=== PATIENT | female | born 1980 ===

== ENCOUNTER 2021-01-02 09:13 | Emergency (ER) | payer MEDICAID, SELFPAY ==
[2021-01-02 09:23] VITALS: BP 129/83; PULSE 74; RESP 18; TEMP 36.7; O2SAT 100; BMI 27.3
--- NOTE | 2021-01-02 09:41 | ED.NECK ---
HPI - Neck Pain/Injury General Chief Complaint: Neck Pain/Injury Stated Complaint: SHOULDER NECK PAIN Time Seen by Provider: 01/02/21 09:39 Source: patient Mode of arrival: ambulatory History of Present Illness HPI Narrative: 40-year-old female with no significant past medical history presenting to the ED complaining of right-sided neck/shoulder pain radiating to ear/arm x1 week. Taking ibuprofen at home with minimal relief. Reports feels like she strained muscle. Denies known injury/trauma, fall, numbness, tingling, weakness, fever, chills, CP/SOB complaint: neck pain Related Data Previous Rx's Medication Instructions Recorded acetaminophen [Tylenol Extra 500 mg PO Q6H PRN #20 tab 01/02/21 Strength] cyclobenzaprine 5 mg PO Q8H PRN 5 Days #14 tab 01/02/21 lidocaine [Lidoderm] 1 patch TOPICAL DAILY PRN #30 ea 01/02/21 MDD remove after 12 hours naproxen 500 mg PO BID PRN 10 Days #20 tab 01/02/21 Allergies Allergy/AdvReac Type Severity Reaction Status Date / Time cephalexin [From KEFLEX] Allergy Intermediate RASH Verified 01/02/21 09:25 Review of Systems Review of Systems: Constitutional: No Fever, No Chills Cardiovascular: No Chest Pain, No SOB Respiratory: No Cough, No Sputum, No Wheezing Musculoskeletal: +joint pain, No Myalgias, No Joint Swelling Skin: No Skin Lesions, No rash Neuro: No Weakness, No Numbness, No Paresthesias Yes all other systems are reviewed and are negative [facility] Past Medical History Attestation statement: The following information was validated with the patient. Medical History (Updated 01/02/21 @ 09:48 by POLLY Maddox) No known health problems Social History Social History Advance Directives: No Advance Directives Information Provided: No Physical Exam Vital Signs: Vital Signs: Last Vital Signs Temp 98.0 F 01/02/21 09:23 Pulse 74 01/02/21 09:23 Resp 18 01/02/21 09:23 BP 129/83 01/02/21 09:23 Pulse Ox 100 01/02/21 09:23 Body Mass Index 27.3 Const: General: cooperative, healthy appearing and comfortable Orientation/consciousness: patient oriented x3 Limitations: no limitations HENMT: Head: Yes normal to inspection Ears: hearing grossly normal bilaterally, external ears normal and TM's normal bilaterally General nose exam: Normal external nose present Face and sinus: Yes normal facial exam Eyes: General: appearance normal, both eyes and all related structures EOM: EOMs intact bilaterally Neck: Other: No midline cervical spinous tenderness or step-off. + right-sided MSK neck tenderness and right trapezius muscle tenderness to palpation Neck: Yes normal visual inspection Resp: Effort & Inspection: normal respiratory effort and no retractions Cardio: Rate: regular rate GI: Inspection: Yes normal to inspection Skin: Rashes: no rashes Wounds: no wounds Neuro: General: patient oriented x3 and moves all extremities Gait exam (Neuro): Normal gait present Extrem: Other: Right shoulder nontender. FROM intact General: Yes normal to inspection, Yes full ROM and Yes capillary refill normal MDM - Neck Pain/Injury MDM Narrative Medical decision making narrative: On exam VSS, NAD/well-appearing, physical exam as above. Likely MSK pain/strain. No midline spinous tenderness. low concern for fx/dislocation or ACS Discharge Plan Discharge Clinical Impression: Strain of neck muscle Qualifiers: Encounter type: initial encounter Qualified Code(s): S16.1XXA - Strain of muscle, fascia and tendon at neck level, initial encounter Patient Disposition: Home, Self-Care Instructions: Cervical Strain (ED) Additional Instructions: Your pain is likely musculoskeletal Flexeril is a muscle relaxer, take at night as it makes you drowsy, do not drive, drink alcohol, or operate machinery while taking it Naproxen as an anti-inflammatory / pain medication, take with food Lidoderm patches are numbing patches, apply to painful area In addition take Tylenol at home If symptoms persist or worsen, pain becomes unbearable, you developed urinary retention or incontinence, or weakness return to the ED Prescriptions: New acetaminophen [Tylenol Extra Strength] 500 mg tablet 500 mg PO Q6H PRN (Reason: pain or fever) Qty: 20 RF: 0 lidocaine [Lidoderm] 5 % adhesive patch,medicated 1 patch topical DAILY MDD remove after 12 hours PRN (Reason: pain) Qty: 30 RF: 0 naproxen 500 mg tablet 500 mg PO BID PRN (Reason: pain) 10 Days Qty: 20 RF: 0 cyclobenzaprine 5 mg tablet 5 mg PO Q8H PRN (Reason: pain (scale score 7-10)) 5 Days Qty: 14 RF: 0 Referrals: Catarina Davis MD [Primary Care Provider] - 2 days
[2021-01-02] MEDS: Ketorolac Tromethamine 30 MG/ML VIAL IM (09:44)
== END 2021-01-02 09:56 | disposition home or self-care (01) ==
PROVIDERS: Emergency Provider Emergency Medicine; PCP Internal Medicine
DX: S16.1XXA Strain of muscle, fascia and tendon at neck level, initial encounter (principal); X58.XXXA Exposure to other specified factors, initial encounter; Y93.9 Activity, unspecified; Y92.9 Unspecified place or not applicable; Y99.9 Unspecified external cause status
CPT/HCPCS: 96372; 99283; 99284; J1885

== ENCOUNTER 2021-04-13 17:02 | Emergency (ER) | payer MEDICAID, SELFPAY ==
--- NOTE | ~2021-04-13 | CT_ITS ---
EXAMINATION: CT ABDOMEN AND PELVIS WITH CONTRAST CLINICAL INFORMATION: Abdominal pain COMPARISON: CT scan abdomen pelvis January 14, 2007 TECHNIQUE: Multidetector volumetric images were obtained from the superior aspect of the liver through the pubic symphysis following administration 85 mL of Omnipaque 350 intravenous contrast. Sagittal and coronal reformatted images were obtained on the technologist's workstation. Oral contrast: No This CT examination was performed using dose optimization techniques as appropriate, variously including the following: *Automated exposure control *Adjustment of mA and/or kV according to patient size (this includes techniques or standardized protocols for targeted exams where dose is matched to indication/reason for exam; i.e. extremities or head) *Use of iterative reconstruction technique DLP: 513 mGy-cm FINDINGS: LUNG BASES: The visualized lung bases are unremarkable. Bilateral breast implants partially imaged. LIVER, GALLBLADDER, AND BILIARY TREE: The liver is normal in size, shape, and attenuation. No focal hepatic lesion or biliary ductal dilatation is present. Gallbladder is contracted. No edema around the right upper quadrant. No bile duct dilatation. PANCREAS: Unremarkable. SPLEEN: Unremarkable. ADRENAL GLANDS: Unremarkable. KIDNEYS AND URETERS: Stable small hypodensity upper pole cortex right kidney likely small renal cysts. This contains a small calcification layering dependently in the cyst, axial image 206/747 series 4. Both kidneys are normal in size and contour with normal cortical thickness and enhancement. No renal or ureteral calculi. No hydronephrosis. BLADDER: Unremarkable. GASTROINTESTINAL TRACT: The small and large bowel are unremarkable. The appendix is unremarkable. ABDOMINAL WALL: No significant hernia is appreciated. LYMPH NODES: Normal. VASCULAR: Unremarkable. PELVIC VISCERA: Essure device in the adnexa bilateral. Uterus is retroverted. No adnexal abnormality. OSSEOUS STRUCTURES: No acute abnormality CT scan abdomen pelvis. CT/CT abdomen pelvis w con IMPRESSION: No acute abnormality CT scan abdomen pelvis.
[2021-04-13 17:11] VITALS: BP 131/74; PULSE 73; RESP 16; TEMP 36.8; O2SAT 97; BMI 28.3
--- NOTE | 2021-04-13 18:22 | ED.ABDPAIN ---
HPI - Abdominal Pain General Chief Complaint: Abdominal Pain Stated Complaint: side abd pain Time Seen by Provider: 04/13/21 18:20 Source: patient Mode of arrival: ambulatory Limitations: no limitations History of Present Illness HPI narrative: 40-year-old female here with complaints of left flank pain which radiates the left side of the abdomen X2 days. She has had some urinary frequency. No urgency, hematuria or dysuria. No fevers, chills, nausea, vomiting, diarrhea. She has been doing some increased weight lifting and abdominal muscle work. She cannot recall any injury Related Data Previous Rx's Medication Instructions Recorded acetaminophen [Tylenol Extra 500 mg PO Q6H PRN #20 tab 01/02/21 Strength] cyclobenzaprine 5 mg PO Q8H PRN 5 Days #14 tab 01/02/21 lidocaine [Lidoderm] 1 patch TOPICAL DAILY PRN #30 ea 01/02/21 MDD remove after 12 hours naproxen 500 mg PO BID PRN 10 Days #20 tab 01/02/21 cyclobenzaprine 10 mg PO TID PRN #10 tab 04/13/21 Allergies Allergy/AdvReac Type Severity Reaction Status Date / Time cephalexin [From KEFLEX] Allergy Intermediate RASH Verified 04/13/21 17:10 Review of Systems Review of Systems Yes all other systems are reviewed and are negative Constitutional: Reports no additional constitutional complaints, Denies body ache(s), Denies chills, Denies fever(s), Denies headache(s) and Denies weakness Eyes: Reports no additional eye complaints and Denies change in vision Reports system reviewed and no additional complaints, except as documented, Denies dizziness, Denies headache(s), Denies nasal congestion, Denies nasal discharge and Denies neck pain Cardiovascular: Reports no additional cardiovascular complaints, Denies chest pain, Denies leg edema and Denies dyspnea Respiratory: Reports no additional respiratory complaints, Denies cough and Denies dyspnea Gastrointestinal: Reports no additional gastrointestinal complaints, Reports abdominal pain, Denies diarrhea, Denies nausea and Denies vomiting Genitourinary: Reports no additional female genitourinary complaints and Denies urinary incontinence Musculoskeletal: Reports no additional musculoskeletal complaints, Reports back pain, Denies arthralgias, Denies joint swelling, Denies neck pain, Denies numbness and Denies tingling Skin/Breast: Reports system reviewed and no additional complaints, except as docu and Denies rash Reports system reviewed and no additional complaints, except as documented, Denies Abnormal speech present, Denies dizziness, Denies headache(s), Denies numbness, Denies tingling and Denies weakness Physical Exam Vital Signs: Vital Signs: Last Vital Signs Temp 97.9 F 04/13/21 20:00 Pulse 85 04/13/21 20:00 Resp 16 04/13/21 20:00 BP 112/70 04/13/21 20:00 Pulse Ox 99 04/13/21 20:00 Body Mass Index 28.3 Const: General: cooperative, healthy appearing, comfortable and no acute distress Orientation/consciousness: patient oriented x3 Limitations: no limitations HENMT: Head: Yes normal to inspection Ears: hearing grossly normal bilaterally General nose exam: Normal external nose present Face and sinus: Yes normal facial exam Mouth: Normal oral and palatal mucosa present Throat: Yes posterior oropharynx normal Eyes: General: appearance normal, both eyes and all related structures Pupils: Equal, round and reactive pupils present Neck: Neck: Yes normal visual inspection Chest: Chest palpation & inspection: normal inspection of the chest Resp: Effort & Inspection: normal respiratory effort Auscultation: clear to auscultation bilaterally Cardio: Rate: regular rate Rhythm: regular rhythm Peripheral pulses: Peripheral pulses 2+ throughout GI: Inspection: Yes normal to inspection Palpation (GI): Soft to palpation and Tenderness to palpation present (GI) ( LLQ and left side, no rebound or guarding ) Auscultation: normal bowel sounds : General: Yes no CVA tenderness Back/Spine/Pelvis: Back: no CVA tenderness Thoracic/Lumbar Spine: thoracic and lumbar spine normal to inspection Skin: General skin exam: no rashes or lesions noted Neuro: General: patient oriented x3, no focal motor deficits and normal sensation to monofilament Cranial nerves: Yes Equal, round and reactive pupils present Cognition (Neuro): normal cognition Speech: No Abnormal speech present Gait exam (Neuro): Normal gait present Motor exam (neuro): 5/5 motor strength present throughout Extrem: General: Yes normal to inspection Course Course Course Narrative: 40-year-old female here with complaints of left-sided abdominal pain times several days with no other complaints. She has had increase in strength training and feels like she may have pulled a muscle but does not remember any specific injury. She is tender in the left lower quadrant. Will check UA and labs and reassess. - labs and UA are unremarkable. Continued pain left lower quadrant. Will check CT to rule out diverticulitis. 2014- CT negative for any acute finding. Likely muscle strain. Reviewed worrisome signs and symptoms of when to return to the emergency department. Comfortable discharge home. MDM - Abdominal Pain Differential Diagnosis Differential diagnosis: Likely abdominal pain, diverticulitis and gastroenteritis Differential diagnosis narrative:: Muscle str Medical Records Attestation: I reviewed the patient's medical records. Lab Data Attestation: I reviewed the patient's lab results. Result diagrams: 04/13/21 18:35 04/13/21 18:35 Labs: Lab Results 04/13/21 04/13/21 04/13/21 Range/Units 18:35 18:35 18:35 WBC 6.6 (4.8-10.8) X10*3/uL RBC 3.83 L (4.20-5.50) X10*6/uL Hgb 13.0 (12.0-16.0) g/dl Hct 37.4 (37-47) % MCV 97.7 (80-98) fL MCH 33.9 H (27.0-33.0) pg MCHC 34.8 (31.0-35.0) g/dl RDW 12.7 (11.0-16.0) % Plt Count 220 (160-400) X10*3/uL MPV 9.4 (9.4-12.3) fL Immature Gran % (Auto) 0.2 (0.0-0.4) % Neut % (Auto) 59.9 (45-73) % Lymph % (Auto) 31.1 (20-40) % [place] % (Auto) 6.2 (2-11) % Eos % (Auto) 1.8 (0-4) % Baso % (Auto) 0.8 (0-2) % Lymph # (Auto) 2.1 (1.2-4.9) X10*3/uL [place] # (Auto) 0.4 (0.1-1.2) X10*3/uL Eos # (Auto) 0.1 (0.0-0.4) X10*3/uL Baso # (Auto) 0.1 (0.0-0.2) X10*3/uL Abs Immat Gran (auto) 0.01 (0.00-0.03) X10*3/uL Absolute Neuts (auto) 4.0 (2.0-8.3) X10*3/uL Absolute Nucleated RBC 0.000 (0.0-0.012) X10*3/uL Nucleated RBC % (auto) 0.0 (0.0-0.2) /100WBC Sodium 140 (135-145) mmol/L Potassium 4.0 (3.3-5.1) mmol/L Chloride 107 (96-108) mmol/L Carbon Dioxide 22 (22-29) mmol/L Anion Gap 15 (12-20) BUN 14 (9-16) mg/dL Creatinine 0.83 (0.5-1.4) mg/dL Estim Creat Clear Calc 76.2 Estimated GFR > 60 Random Glucose 106 (60-115) mg/dL Calcium 9.3 (8.4-10.2) mg/dL Total Bilirubin 0.2 (0.0-1.0) mg/dL Direct Bilirubin < 0.2 (0.0-0.5) mg/dL AST 28 (5-31) U/L ALT 25 (0-31) U/L Alkaline Phosphatase 95 (39-117) U/L Total Protein 6.8 (6.5-8.0) g/dL Albumin 4.1 (3.5-5.0) g/dL Lipase 49 (8-78) U/L Urine Color YELLOW Urine Appearance CLEAR Urine pH 7.0 (5.0-8.0) Ur Specific [place] 1.015 (1.005-1.025) Urine Protein NEG (NEG-TRACE) MG/DL Urine Glucose (UA) NEG (NEG) MG/DL Urine Ketones NEG (NEG) MG/DL Urine Blood NEG (NEG) Urine Nitrite NEG (NEG) Ur Leukocyte Esterase NEG (NEG) Urine Test (NEGATIVE) 04/13/21 Range/Units 18:35 WBC (4.8-10.8) X10*3/uL RBC (4.20-5.50) X10*6/uL Hgb (12.0-16.0) g/dl Hct (37-47) % MCV (80-98) fL MCH (27.0-33.0) pg MCHC (31.0-35.0) g/dl RDW (11.0-16.0) % Plt Count (160-400) X10*3/uL MPV (9.4-12.3) fL Immature Gran % (Auto) (0.0-0.4) % Neut % (Auto) (45-73) % Lymph % (Auto) (20-40) % [place] % (Auto) (2-11) % Eos % (Auto) (0-4) % Baso % (Auto) (0-2) % Lymph # (Auto) (1.2-4.9) X10*3/uL [place] # (Auto) (0.1-1.2) X10*3/uL Eos # (Auto) (0.0-0.4) X10*3/uL Baso # (Auto) (0.0-0.2) X10*3/uL Abs Immat Gran (auto) (0.00-0.03) X10*3/uL Absolute Neuts (auto) (2.0-8.3) X10*3/uL Absolute Nucleated RBC (0.0-0.012) X10*3/uL Nucleated RBC % (auto) (0.0-0.2) /100WBC Sodium (135-145) mmol/L Potassium (3.3-5.1) mmol/L Chloride (96-108) mmol/L Carbon Dioxide (22-29) mmol/L Anion Gap (12-20) BUN (9-16) mg/dL Creatinine (0.5-1.4) mg/dL Estim Creat Clear Calc Estimated GFR Random Glucose (60-115) mg/dL Calcium (8.4-10.2) mg/dL Total Bilirubin (0.0-1.0) mg/dL Direct Bilirubin (0.0-0.5) mg/dL AST (5-31) U/L ALT (0-31) U/L Alkaline Phosphatase (39-117) U/L Total Protein (6.5-8.0) g/dL Albumin (3.5-5.0) g/dL Lipase (8-78) U/L Urine Color Urine Appearance Urine pH (5.0-8.0) Ur Specific [place] (1.005-1.025) Urine Protein (NEG-TRACE) MG/DL Urine Glucose (UA) (NEG) MG/DL Urine Ketones (NEG) MG/DL Urine Blood (NEG) Urine Nitrite (NEG) Ur Leukocyte Esterase (NEG) Urine Test NEGATIVE (NEGATIVE) Imaging Data CT scan - abdomen: Attestation: I personally reviewed and interpreted this imaging study as follows: Radiologist's impression: EXAMINATION: CT ABDOMEN AND PELVIS WITH CONTRAST CLINICAL INFORMATION: Abdominal pain COMPARISON: CT scan abdomen pelvis January 14, 2007 TECHNIQUE: Multidetector volumetric images were obtained from the superior aspect of the liver through the pubic symphysis following administration 85 mL of Omnipaque 350 intravenous contrast. Sagittal and coronal reformatted images were obtained on the technologist's workstation. Oral contrast: No This CT examination was performed using dose optimization techniques as appropriate, variously including the following: *Automated exposure control *Adjustment of mA and/or kV according to patient size (this includes techniques or standardized protocols for targeted exams where dose is matched to indication/reason for exam; i.e. extremities or head) *Use of iterative reconstruction technique DLP: 513 mGy-cm FINDINGS: LUNG BASES: The visualized lung bases are unremarkable. Bilateral breast implants partially imaged. LIVER, GALLBLADDER, AND BILIARY TREE: The liver is normal in size, shape, and attenuation. No focal hepatic lesion or biliary ductal dilatation is present. Gallbladder is contracted. No edema around the right upper quadrant. No bile duct dilatation. PANCREAS: Unremarkable. SPLEEN: Unremarkable. ADRENAL GLANDS: Unremarkable. KIDNEYS AND URETERS: Stable small hypodensity upper pole cortex right kidney likely small renal cysts. This contains a small calcification layering dependently in the cyst, axial image 206/747 series 4. Both kidneys are normal in size and contour with normal cortical thickness and enhancement. No renal or ureteral calculi. No hydronephrosis. BLADDER: Unremarkable. GASTROINTESTINAL TRACT: The small and large bowel are unremarkable. The appendix is unremarkable. ABDOMINAL WALL: No significant hernia is appreciated. LYMPH NODES: Normal. VASCULAR: Unremarkable. PELVIC VISCERA: Essure device in the adnexa bilateral. Uterus is retroverted. No adnexal abnormality. OSSEOUS STRUCTURES: No acute abnormality CT scan abdomen pelvis. CT/CT abdomen pelvis w con IMPRESSION: No acute abnormality CT scan abdomen pelvis. Discharge Plan Discharge Clinical Impression: Abdominal wall strain Qualifiers: Encounter type: initial encounter Qualified Code(s): S39.011A - Strain of muscle, fascia and tendon of abdomen, initial encounter Patient Disposition: Home, Self-Care Instructions: Abdominal Pain (ED) Additional Instructions: heat or ice gentle stretching Prescriptions: New cyclobenzaprine 10 mg tablet 10 mg PO TID PRN (Reason: muscle spasm) Qty: 10 RF: 0 No Action acetaminophen [Tylenol Extra Strength] 500 mg tablet 500 mg PO Q6H PRN (Reason: pain or fever) Qty: 20 RF: 0 lidocaine [Lidoderm] 5 % adhesive patch,medicated 1 patch topical DAILY MDD remove after 12 hours PRN (Reason: pain) Qty: 30 RF: 0 naproxen 500 mg tablet 500 mg PO BID PRN (Reason: pain) 10 Days Qty: 20 RF: 0 cyclobenzaprine 5 mg tablet 5 mg PO Q8H PRN (Reason: pain (scale score 7-10)) 5 Days Qty: 14 RF: 0 Referrals: Catarina Davis MD [Primary Care Provider] - 2 days ON LICENSE OF [facility] Past Medical History Attestation statement: The following information was validated with the patient. Source: old records reviewed and nursing notes reviewed Medical History Asthma No known health problems Social History Social History Advance Directives: No Advance Directives Information Provided: Yes Patient : No
[2021-04-13 18:48] LABS: MANUAL DIFF FLAG NO
[2021-04-13 18:50] LABS: Appearance Urine CLEAR; Basophils Absolute Auto 0.1 X10*3/uL (0.0-0.2); Basophils Percent Auto 0.8 % (0-2); Color Urine YELLOW; Eosinophils Absolute Auto 0.1 X10*3/uL (0.0-0.4); Eosinophils Percent Auto 1.8 % (0-4); Glucose Urine UA NEG (NEG); Hematocrit 37.4 % (37-47); Imm Gran Abs Auto 0.01 X10*3/uL (0.00-0.03); Imm Gran Pct Auto 0.2 % (0.0-0.4); Leukocyte Esterase Urine NEG (NEG); Lymphocytes Absolute Auto 2.1 X10*3/uL (1.2-4.9); Lymphocytes Percent Auto 31.1 % (20-40); Mean Corpuscular HGB Conc 34.8 g/dl (31.0-35.0); Mean Corpuscular Hemoglobin 33.9 pg (27.0-33.0); Mean Corpuscular Volume 97.7 fL (80-98); Mean Platelet Volume 9.4 fL (9.4-12.3); Monocytes Absolute Auto 0.4 X10*3/uL (0.1-1.2); Monocytes Percent Auto 6.2 % (2-11); Neutrophils Percent Auto 59.9 % (45-73); Nitrite Urine NEG (NEG); Platelet Count 220 X10*3/uL (160-400); Red Blood Count 3.83 X10*6/uL (4.20-5.50); Red Cell Distribution Width 12.7 % (11.0-16.0); Specific Gravity - Urine 1.015 (1.005-1.025); Urine Blood NEG (NEG); Urine Ketones NEG (NEG); Urine Protein NEG (NEG-TRACE); White Blood Count 6.6 X10*3/uL (4.8-10.8)
[2021-04-13 18:51] LABS: UPreg QC Valid YES; Urine Pregnancy NEGATIVE (NEGATIVE)
[2021-04-13 19:09] VITALS: BP 116/85; PULSE 72; RESP 16; TEMP 36.7; O2SAT 98
[2021-04-13 19:15] VITALS: RESP 16; O2SAT 99
[2021-04-13 19:21] LABS: Alanine Aminotransferase 25 U/L (0-31); Albumin Level 4.1 g/dL (3.5-5.0); Alkaline Phosphatase 95 U/L (39-117); Anion Gap 15 (12-20); Aspartate Amino Transferase 28 U/L (5-31); Bilirubin Direct < 0.2 mg/dL (0.0-0.5); Bilirubin Total 0.2 mg/dL (0.0-1.0); Blood Urea Nitrogen 14 mg/dL (9-16); Calcium 9.3 mg/dL (8.4-10.2); Carbon Dioxide 22 mmol/L (22-29); Chloride 107 mmol/L (96-108); Creatinine Clr Calc Pharmacy 76.2; Estimated Glomerular Filt Rate > 60; Glucose Random 106 mg/dL (60-115); Lipase 49 U/L (8-78); Sodium 140 mmol/L (135-145); Total Protein 6.8 g/dL (6.5-8.0)
[2021-04-13] MEDS: iohexoL 350 MG/ML 100 ML INFUS..BTL IV (19:45)
[2021-04-13 20:00] VITALS: BP 112/70; PULSE 85; RESP 16; TEMP 36.6; O2SAT 99
== END 2021-04-13 20:47 | disposition home or self-care (01) ==
PROVIDERS: Nurse Practitioner Family; Emergency Provider Emergency Medicine; PCP Internal Medicine
DX: S39.011A Strain of muscle, fascia and tendon of abdomen, initial encounter (principal); X58.XXXA Exposure to other specified factors, initial encounter; Y93.9 Activity, unspecified; Y92.9 Unspecified place or not applicable; Y99.9 Unspecified external cause status
CPT/HCPCS: 36415; 74177; 80048; 80076; 81003; 81025; 83690; 85025; 99284; Q9967

== ENCOUNTER 2023-01-10 09:37 | Outpatient (REF) | payer MEDICAID, SELFPAY ==
--- NOTE | ~2023-01-10 | US_ITS ---
EXAMINATION: US ABDOMEN COMPLETE CLINICAL INFORMATION: Abdominal pain for 4 days. COMPARISON: CT scan of the abdomen and pelvis dated 04/13/2021. TECHNIQUE: Real-time imaging of the abdominal viscera. FINDINGS: PANCREAS: Visualized portions unremarkable. ABDOMINAL AORTA: Visualized portions unremarkable. INFERIOR VENA CAVA: Visualized portions unremarkable. LIVER: Unremarkable. GALLBLADDER: Mild dependent sludge. No mural thickening or pericholecystic fluid. COMMON BILE DUCT: Normal in caliber measuring 0.4 cm in diameter. RIGHT KIDNEY: 10.9 cm. An echogenic focus in the lower pole measures 0.4 cm. A smaller lower pole echogenic focus measures 0.2 cm. An upper pole echogenic focus measures 0.5 cm. No hydronephrosis. Color Doppler showed no abnormal vascular flow. LEFT KIDNEY: 10.9 cm for an echogenic focus in the lower pole measures 0.3 cm. No hydronephrosis. SPLEEN: 9.7 cm. Unremarkable. FREE FLUID: None. US/US abdomen complete IMPRESSION: 1. Mild dependent gallbladder sludge without evidence for acute cholecystitis. 2. Nonobstructing intrarenal calculi bilaterally.
== END 2023-01-10 09:38 | disposition home or self-care (01) ==
LOC: HO.US 09:37
PROVIDERS: PCP Internal Medicine; Visit Provider Internal Medicine
DX: R10.84 Generalized abdominal pain (principal); M54.9 Dorsalgia, unspecified; R35.0 Frequency of micturition
CPT/HCPCS: 76700

== ENCOUNTER 2023-01-14 11:58 | Emergency (ER) | payer MEDICAID, SELFPAY | END 2023-01-14 13:39 | disposition left against medical advice (07) | PROVIDERS: Emergency Provider Emergency Medicine; PCP Internal Medicine | DX: M54.50 Low back pain, unspecified (principal); R10.9 Unspecified abdominal pain ==

== ENCOUNTER 2023-01-29 15:01 | Outpatient (REF) | payer MEDICAID, SELFPAY ==
--- NOTE | ~2023-01-29 | MR_ITS ---
EXAMINATION: MR LUMBAR SPINE WITHOUT CONTRAST CLINICAL INFORMATION: 42-year-old with chronic midline low back pain with sciatica. Right leg tingling symptoms of 3 months' duration. COMPARISON: None available. TECHNIQUE: MRI of the lumbar spine was obtained using routine sequences without contrast. FINDINGS: CORONAL ALIGNMENT: Normal. SAGITTAL ALIGNMENT: Normal. LUMBOSACRAL JUNCTION: Normal. There are 5 [id number] lumbar-type vertebral bodies. VERTEBRAL BODIES: Well maintained with normal height. No compression fractures, anomalies or other deformities. DISC SPACES AND ENDPLATES: Mild disc volume loss noted at L4-L5 with mild disc desiccation without significant spondylosis. Remaining lumbar intervertebral disc space heights and signal are well maintained without significant spondylosis. Endplates appear intact. There is moderate disc space height loss with disc desiccation and mild spondylosis noted at T10-T11. SPINAL CANAL: No abnormal developmental findings. BONE MARROW: No significant marrow-replacing process or bone marrow edema. CONUS MEDULLARIS: Terminates at L1. Morphology and signal is normal. INTRADURAL NERVE ROOTS: Within normal limits. L5-S1: Normal annular contour. Mild facet arthrosis and ligamentum flavum thickening noted bilaterally without significant canal or neural foraminal stenosis. L4-L5: Diffuse disc bulging is noted with a superimposed central to left subarticular disc herniation, with encroachment on the ventral dural sac asymmetric to the left. Mild ligamentum flavum thickening noted with [id number] bilateral facet arthrosis is noted with small bilateral facet joint effusions. There is mild right and deibinux-sc-aurieu left subarticular recess stenosis, with encroachment on the traversing L5 nerve roots, left more than right and mild central canal narrowing. There is mild foraminal narrowing on the left without definite neural impingement. The remainder of the lumbar spine demonstrates normal annular contours within no significant canal or neural foraminal stenosis, with only minor facet arthropathy at L3-L4 bilaterally. There is a very small central disc protrusion at T10-T11 without cord impingement and there is facet arthropathy at this level bilaterally which is only partially visualized. PARAVERTEBRAL AND INCLUDED EXTRASPINAL SOFT TISSUES: The visualized paravertebral soft tissues and included retroperitoneal structures are unremarkable within the limitations of the exam. MR/MR lumbar spine wo con IMPRESSION: 1. Discogenic degenerative changes at L4-L5 with disc bulging and a central to left subarticular disc herniation at this level, with [id number] left and mild right-sided subarticular recess stenosis with encroachment on the traversing L5 nerve roots, left more than right and mild central canal stenosis with mild left-sided neural foraminal narrowing. 2. Mild bilateral facet arthropathy at L5-S1 and minor facet arthropathy at L3-L4. 3. Discogenic degenerative changes and spondylosis at T10-T11 with a small central disc protrusion and facet arthropathy at this level.
== END 2023-01-29 15:02 | disposition home or self-care (01) ==
LOC: HO.MRI 15:01
PROVIDERS: PCP Internal Medicine; Visit Provider Internal Medicine
DX: M54.40 Lumbago with sciatica, unspecified side (principal); G89.29 Other chronic pain
CPT/HCPCS: 72148

== ENCOUNTER 2023-05-10 14:39 | Outpatient (REF) | payer MEDICAID, SELFPAY ==
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
== END 2023-05-10 14:40 | disposition home or self-care (01) ==
LOC: HO.HHCX 14:39
PROVIDERS: Visit Provider Internal Medicine
DX: M54.2 Cervicalgia (principal); M62.838 Other muscle spasm; V89.2XXA Person injured in unspecified motor-vehicle accident, traffic, initial encounter; Y93.9 Activity, unspecified; Y92.9 Unspecified place or not applicable; Y99.9 Unspecified external cause status
CPT/HCPCS: 72050

== ENCOUNTER 2023-05-15 09:18 | Outpatient (AMB) | payer MEDICAID, SELFPAY ==
[2023-05-15 09:30] VITALS: BP 130/84; PULSE 64; BMI 28.7
--- NOTE | 2023-05-15 09:30 | A.OFFVIS_ITS ---
Intake Vital Signs 05/15/23 09:30 Height 5 ft Weight 147 lb BMI 28.7 BP 130/84 Blood Pressure Location Rt brachial Position Sitting Pulse 64 Intake Visit Reasons: Upper abdominal pain Intake Note: Patient referred for abd pain. Had Abd US on 01-10-23. Reports abd feels swollen. Lower abd feels hard. Pain is worse when changing from laying to standing. Takes renato jane. C/o frequent urinating, constant diarrhea. 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 She has had workup for this including sonogram of the gallbladder demonstrating sludge . Patient has never been jaundiced before. She has had nonspecific GI complaints and symptoms as noted above. Past surgical history , abdominal plasty. Chart was reviewed and patient evaluated [facility] Medical History Asthma No known health problems Family History (Updated 05/15/23 @ 09:35 by SERGE Henson) Maternal Aunt Breast CA Social History (Updated 05/15/23 @ 09:35 by SERGE Henson) Alcohol intake: current Alcohol intake frequency: holidays/special occasions only Tobacco use type: Cigarette Cigarettes Per Day: 2 Physical Exam Vital Signs: Last Vital Signs Pulse 64 05/15/23 09:30 BP 130/84 05/15/23 09:30 BMI result Body Mass Index 28.7 Eyes Other: Anicteric Chest Other: Chest breath sounds bilaterally, HS 1 in 2 GI Other: Abdomen soft. Abdominal plasty scar well healed. Mild right upper quadrant tenderness. No evidence of any guarding, rebound, rigidity. Assessment & Plan Assessment & Plan (1) Recurrent biliary colic: Code(s): K80.50 - Calculus of bile duct without cholangitis or cholecystitis without obstruction Plan I discussed with the patient that her symptoms may indeed be related to her gallbladder. She wishes to have this problem resolved. Risks, benefits, alternatives of laparoscopic possible open cholecystectomy reviewed with the patient and included but not limited to bleeding, infection, recurrence of symptoms, numbness, pain, scarring, bowel or bile duct injury or leak and the patient wishes to proceed. All questions were answered. Arrangements will be made for this. Coding Level of Care Code New Pt Level 4 (37220) Diagnoses Recurrent biliary colic K80.50
== END 2023-05-15 09:44 | disposition home or self-care (01) ==
PROVIDERS: PCP Internal Medicine; Referring Provider Internal Medicine; Visit Provider Surgery
DX: K80.50 Calculus of bile duct without cholangitis or cholecystitis without obstruction (principal)
CPT/HCPCS: 99204

== ENCOUNTER → 2023-05-15 09:18 | Outpatient (BNVA) | payer MEDICAID, SELFPAY | PROVIDERS: PCP Internal Medicine; Referring Provider Internal Medicine; Visit Provider Surgery | DX: K80.50 Calculus of bile duct without cholangitis or cholecystitis without obstruction (principal) | CPT/HCPCS: 99202 ==

== ENCOUNTER 2023-05-22 13:47 | Outpatient (AMB) | payer MEDICAID, SELFPAY ==
--- NOTE | 2023-05-22 13:56 | A.OFFVIS_ITS ---
Intake Vital Signs 05/22/23 13:59 Height 5 ft Weight 145 lb 8.081 oz BMI 28.4 BP 130/90 H Blood Pressure Location Lt brachial Position Sitting Pulse 78 Intake Visit Reasons: Abdominal pain Intake Note: Maya presents in the office as a new patient for abdominal pains. CC: She states that she is having diarrhea and pains in her abdomen. Last week she states that she was miserable and this week she is feeling a little bit better. She says that one week she has the symptoms and the next she is okay. Allergies cephalexin [From KEFLEX] Allergy (Intermediate, Verified 05/22/23 14:00) RASH HPI HPI Comments History of Present Illness Details 43y.o F with PMH of symptomatic gallstones who is here for abdominal pain. Pt reports months of diffuse abdominal pain with unclear trigger, which lasts for many hours, associated with nausea. No radiation of pain noted. Gets worse with eating. Associated with diarrhea which she describes as 4-5 loose BMs per day which does not change the intensity of the pain. Smokes 2 pack a day. Occasional etOH. Takes ibuprofen every month during menstrual cycle x 3 days. Was also recently prescribed Meloxicam PRN for headaches. [facility] Medical History Asthma No known health problems Surgical History History of esophagogastroduodenoscopy (EGD) Family History Maternal Aunt Breast CA Social History Alcohol intake: current Alcohol intake frequency: holidays/special occasions only Tobacco use type: Cigarette Cigarettes Per Day: 2 Review of Systems Const All systems reviewed & are unremarkable except as noted in HPI and below Physical Exam Vital Signs: Last Vital Signs Pulse 78 05/22/23 13:59 BP 130/90 H 05/22/23 13:59 BMI result Body Mass Index 28.4 Gen appear: NAD HEENT: nonicteric, no cervical lymphadenopathy Chest: CTA CVS: Regular S1/S2 Abd: soft, tender, nondistended, bowel sounds + Ext: no peripheral edema Neuro: A/Ox3, noted to move all extremities spontaneously Psych: interacting appropriately Assessment & Plan Assessment & Plan (1) Abdominal pain: Code(s): R10.9 - Unspecified abdominal pain (2) Diarrhea: Code(s): R19.7 - Diarrhea, unspecified Plan Ddx include PUD, celiac, IBD, hyperthyroidism. Work up ordered as below. Depending on results will review indication for bidirectional endoscopy. In the meantime Omeprazole 20mg PO in AM Rxed Avoid NSAIDs Smoking cessation counseling Follow up in 4 weeks. Orders: Orders Immunoglobulin A Today R10.9 - Unspecified abdominal pain, R19.7 - Diarrhea, unspecified TSH reflex Free T4 Today R10.9 - Unspecified abdominal pain, R19.7 - Diarrhea, unspecified Transglutaminase IgA Today R10.9 - Unspecified abdominal pain, R19.7 - Diarrhea, unspecified Comprehensive Met. Panel Today R10.9 - Unspecified abdominal pain, R19.7 - Diarrhea, unspecified Calprotectin, Fecal Today R10.9 - Unspecified abdominal pain, R19.7 - Diarrhea, unspecified Medications: New omeprazole 20 mg PO DAILY 90 caps 0RF Coding Level of Care Code New Pt Level 4 (53407) Diagnoses Abdominal pain R10.9 Diarrhea R19.7
[2023-05-22 13:59] VITALS: BP 130/90; PULSE 78; BMI 28.4
== END 2023-05-22 14:24 | disposition home or self-care (01) ==
PROVIDERS: PCP Internal Medicine; Visit Provider Internal Medicine
DX: R10.9 Unspecified abdominal pain (principal); R19.7 Diarrhea, unspecified
CPT/HCPCS: 99204

== ENCOUNTER 2023-05-22 13:47 | Outpatient (REF) | payer MEDICAID, SELFPAY ==
[2023-05-22 16:17] LABS: Alanine Aminotransferase 15 U/L (0-31); Albumin Level 4.1 g/dL (3.5-5.0); Alkaline Phosphatase 80 U/L (39-117); Anion Gap 11 (12-20); Aspartate Amino Transferase 19 U/L (5-31); Bilirubin Total 0.4 mg/dL (0.0-1.0); Blood Urea Nitrogen 16 mg/dL (9-16); Calcium 8.9 mg/dL (8.4-10.2); Carbon Dioxide 26 mmol/L (22-29); Chloride 107 mmol/L (96-108); Estimated Glomerular Filt Rate > 60; Glucose Random 84 mg/dL (60-115); Potassium 3.6 mmol/L (3.3-5.1); Sodium 140 mmol/L (135-145); Total Protein 6.8 g/dL (6.5-8.0)
[2023-05-22 16:26] LABS: TSH reflex Free T4 0.76 uIU/mL (0.32-4.0)
[2023-05-23 13:34] LABS: Transglutaminase IgA <1.0 U/mL
[2023-05-23 17:03] LABS: Immunoglobulin A 150 mg/dL (47-310)
== END 2023-05-22 13:48 | disposition home or self-care (01) ==
LOC: HO.LAB 13:47
PROVIDERS: PCP Internal Medicine; Visit Provider Internal Medicine
DX: R10.9 Unspecified abdominal pain (principal); R19.7 Diarrhea, unspecified
CPT/HCPCS: 36415; 80053; 82784; 83993; 84443; 86364; 99202

== ENCOUNTER 2023-05-23 | Outpatient (REF) | payer MEDICAID, SELFPAY | END 2023-05-23 00:01 | disposition home or self-care (01) | LOC: HO.LNP | PROVIDERS: Visit Provider Internal Medicine | DX: R10.9 Unspecified abdominal pain (principal) | CPT/HCPCS: 83993 ==

== ENCOUNTER 2023-06-19 10:58 | Outpatient (AMB) | payer MEDICAID, SELFPAY ==
--- NOTE | 2023-06-19 11:01 | MHC.OFFVIS ---
Intake Vital Signs 06/19/23 11:02 Height 5 ft Weight 145 lb 8.081 oz BMI 28.4 BP 122/87 Blood Pressure Location Lt brachial Position Sitting Pulse 83 Intake Visit Reasons: 4 week fu Intake Note: Maya presents in the office as a 4 week follow up. CC: She states that she is wondering what the next step is going to be. Allergies cephalexin [From KEFLEX] Allergy (Intermediate, Verified 06/19/23 11:03) RASH HPI HPI Comments History of Present Illness Details 43y.o F with PMH of symptomatic gallstones who is here for abdominal pain. 05/22/23: Pt reports months of diffuse abdominal pain with unclear trigger, which lasts for many hours, associated with nausea. No radiation of pain noted. Gets worse with eating. Associated with diarrhea which she describes as 4-5 loose BMs per day which does not change the intensity of the pain. Smokes 2 cigs a day. Occasional etOH. Takes ibuprofen every month during menstrual cycle x 3 days. Was also recently prescribed Meloxicam PRN for headaches. 06/19/23: Here for 4 week follow up. Abd pain persistent with primarily burning sensation in the afternoon which gets better with gingerale and worsens with food. Assoc with nausea but no vomiting. Had some improvement with PPI. Results reviewed including normal LFTs, celiac study, thyroid function and fecal calpro. Has been seen by surgery Dr Spence who has advised CCY for biliary colic but pt remains hesitant to pursue this at this time. [facility] Medical History Asthma No known health problems Surgical History History of esophagogastroduodenoscopy (EGD) Family History Maternal Aunt Breast CA Social History Alcohol intake: current Alcohol intake frequency: holidays/special occasions only Tobacco use type: Cigarette Cigarettes Per Day: 2 Review of Systems Const All systems reviewed & are unremarkable except as noted in HPI and below Physical Exam Vital Signs: Last Vital Signs Pulse 83 06/19/23 11:02 BP 122/87 06/19/23 11:02 BMI result Body Mass Index 28.4 Gen appear: NAD HEENT: nonicteric, no cervical lymphadenopathy Chest: CTA CVS: Regular S1/S2 Abd: soft, tender, nondistended, bowel sounds + Ext: no peripheral edema Neuro: A/Ox3, noted to move all extremities spontaneously Psych: interacting appropriately Assessment & Plan Assessment & Plan (1) Abdominal pain: Code(s): R10.9 - Unspecified abdominal pain Plan Reviewed that based on work up so far differentials include GERD, dyspepsia, biliary colic, biliary diskinesia. Plan: - Check HIDA for GB EF - EGD to be booked for luminal evaluation. This will be performed OFF ppi therapy x 2 weeks to allow eval for GERD/esophagitis. - Smoking cessation counseling Follow up after EGD Orders: Orders NM hepatobiliary wo pharm 06/19/23 K80.50 - Calculus of bile duct without cholangitis or cholecystitis without obstruction Medications: Refilled omeprazole 20 mg PO DAILY 90 caps 0RF Coding Level of Care Code Est Pt Level 4 (11812) Diagnoses Abdominal pain R10.9
[2023-06-19 11:02] VITALS: BP 122/87; PULSE 83; BMI 28.4
== END 2023-06-19 13:17 | disposition home or self-care (01) ==
PROVIDERS: PCP Internal Medicine; Visit Provider Internal Medicine
DX: R10.9 Unspecified abdominal pain (principal)
CPT/HCPCS: 99214

== ENCOUNTER → 2023-06-19 10:58 | Outpatient (BNVA) | payer MEDICAID, SELFPAY | PROVIDERS: PCP Internal Medicine; Visit Provider Internal Medicine | DX: K80.50 Calculus of bile duct without cholangitis or cholecystitis without obstruction (principal); R10.9 Unspecified abdominal pain | CPT/HCPCS: 99212 ==

== ENCOUNTER → 2023-07-01 09:33 | Outpatient (REF) | payer MEDICAID, SELFPAY ==
--- NOTE | ~2023-07-01 | NM_ITS ---
EXAMINATION: BILIARY TRACT IMAGING STUDY CLINICAL INFORMATION: Calculus of the bile duct without cholangitis or cholecystitis. Biliary colic, abdominal pain.. COMPARISON: No previous biliary scan is available for comparison. Abdominal ultrasound dated 01/10/[address] scan of the abdomen and pelvis dated 04/13/2021 are available for comparison.. TECHNIQUE: Serial gamma scintillation camera images were obtained over the abdomen for a total observation period of 2 hours following the intravenous administration of 5 mCi Tc-99m Mebrofenin. FINDINGS: There is good concentration of activity in the liver by 5 minutes post injection. Biliary activity is visualized by 10 minutes. . The gallbladder is well visualized by 20 minutes. There is good visualization of small bowel activity by 100 minutes post ingestion and this gradually increases as the study progresses. There is almost complete clearance of activity from the liver but gallbladder activity persists throughout the study. NM/NM hepatobiliary wo pharm IMPRESSION: Visualization the gallbladder is evidence of a patent cystic duct and strong evidence against the diagnosis of acute cholecystitis. The common bile duct is patent. Liver function appears normal.
== END ==
LOC: HO.NUCMED 09:33
PROVIDERS: PCP Internal Medicine; Visit Provider Internal Medicine
DX: K80.50 Calculus of bile duct without cholangitis or cholecystitis without obstruction (principal)
CPT/HCPCS: 78226; A9537

== ENCOUNTER 2023-08-15 06:01 | Day surgery (SDC) | payer MEDICAID, SELFPAY ==
[2023-08-12 15:11] VITALS: BMI 28.7
--- NOTE | 2023-08-14 04:23 | MHC.SHP ---
Pre-Procedural Eval Section A Date of Service: 08/14/23 The patient is an INPATIENT: No Changes since office visit: No Cold of Flu in the past 2 weeks, No New Medical Problems, No Changes in Medication and No Patient answered all questions The History & Physical has been completed within 30 days and I have reviewed it.: Yes Section B Chief Complaint: Calculus of bile duct without cholangitis or duy Allergies: Allergies Allergy/AdvReac Type Severity Reaction Status Date / Time cephalexin [From KEFLEX] Allergy Intermediate RASH Verified 06/19/23 11:03 Plan I have reviewed the history and physical and performed a pertinent physical examination on my patient. No changes have occurred unless specified. Time Spent With Patient Time: Total time managing care of this patient today ____ minutes.
[2023-08-15] VITALS (10 sets, daily range): BP systolic 136–163; BP diastolic 88–109; PULSE 79–87; RESP 13–18; TEMP 36.4–36.8; O2SAT 95–100
[2023-08-15 06:26] LABS: UPreg QC Valid YES; Urine Pregnancy NEGATIVE (NEGATIVE)
[2023-08-15] MEDS: Lactated Ringers 1,000 ML 100 ML IVCONT (06:47)
--- NOTE | 2023-08-15 07:15 | HO.ANESPROP2 ---
Documented by User: Amanda Cardona NP 08/14/23 08:15 HPI - Anesthesia Eval Consult details Narrative: 43yo F for Cholecystectomy Laparoscopic PMFSH Active Problems Active Problems: All Active Problems (Updated 08/12/23 @ 15:07 by Lori Sage RN) Diarrhea (Acute) Abdominal pain (Acute) Recurrent biliary colic (Acute) Past Medical History Medical History Asthma Family History Family History Maternal Aunt Breast CA Surgical History Surgical History History of breast reconstruction Hx of abdominoplasty Hx of section History of esophagogastroduodenoscopy (EGD) Social History Social History Alcohol intake: current Alcohol intake frequency: holidays/special occasions only Patient Tobacco Use Status: Current everyday Tobacco user Tobacco use type: Cigarette Cigarettes Per Day: 3 Are you DNR?: No Advance Directives: No Advance Directives Information Provided: Yes Recently lost weight without trying: No Eating poorly because of decreased appetite: No Nutrition Risks: No Nutritional Risk Patient : No Meds Allergies Allergy/AdvReac Type Severity Reaction Status Date / Time cephalexin [From KEFLEX] Allergy Intermediate RASH Verified 06/19/23 11:03 Home Medications Medication Instructions Recorded Confirmed Last Taken Type tramadol 50 mg tablet 50 mg PO TID PRN Pain 05/15/23 08/12/23 Unknown History acetaminophen 650 mg 650 mg PO Q8H PRN 05/22/23 Unknown History tablet,extended release albuterol sulfate 90 mcg/actuation 2 puff inhalation Q4H PRN wheezing 05/22/23 08/12/23 Unknown History aerosol inhaler (Ventolin HFA) cyclobenzaprine 5 mg tablet 5 mg PO Q8H PRN pain (scale score 05/22/23 08/12/23 Unknown History 7-10) fluticasone propionate 50 1 spray intranasal QAM 05/22/23 08/12/23 Unknown History mcg/actuation nasal spray,suspension gabapentin 100 mg capsule 100 mg PO BEDTIME 05/22/23 08/12/23 Unknown History hydroxyzine pamoate 25 mg capsule 25 - 50 mg PO BID PRN insomnia 05/22/23 08/12/23 Unknown History meloxicam 15 mg tablet 15 mg PO DAILY 05/22/23 08/12/23 Unknown History zolpidem 10 mg tablet 10 mg PO BEDTIME 05/22/23 08/12/23 Unknown History Exam Exam Date and Time: August 14, 2023 0814 Height,Weight and Vital Signs: Height 5 ft Weight 66.678 kg Pertinent Lab Results Pertinent Lab Results: Laboratory Tests 05/22/23 15:10 Sodium 140 Potassium 3.6 Chloride 107 Carbon Dioxide 26 BUN 16 Creatinine 0.94 Assessment and Plan Assessment Anesthesia Assessment: Chart Reviewed Documented by User: Genna Rizvi DO 08/15/23 07:15 [facility] Past Medical History Medical History Asthma Family History Family History Maternal Aunt Breast CA Family history of problems with anesthesia: No Surgical History Surgical History History of breast reconstruction Hx of abdominoplasty Hx of section History of esophagogastroduodenoscopy (EGD) History of Problems with Anesthesia: No Social History Social History Alcohol intake: current Alcohol intake frequency: holidays/special occasions only Patient Tobacco Use Status: Current everyday Tobacco user Tobacco use type: Cigarette Cigarettes Per Day: 3 Are you DNR?: No Advance Directives: No Advance Directives Information Provided: Yes Recently lost weight without trying: No Eating poorly because of decreased appetite: No Nutrition Risks: No Nutritional Risk Patient : No Meds Allergies Allergy/AdvReac Type Severity Reaction Status Date / Time cephalexin [From KEFLEX] Allergy Intermediate RASH Verified 06/19/23 11:03 Home Medications Medication Instructions Recorded Confirmed Last Taken Type tramadol 50 mg tablet 50 mg PO TID PRN Pain 05/15/23 08/12/23 Unknown History acetaminophen 650 mg 650 mg PO Q8H PRN 05/22/23 Unknown History tablet,extended release albuterol sulfate 90 mcg/actuation 2 puff inhalation Q4H PRN wheezing 05/22/23 08/12/23 Unknown History aerosol inhaler (Ventolin HFA) cyclobenzaprine 5 mg tablet 5 mg PO Q8H PRN pain (scale score 05/22/23 08/12/23 Unknown History 7-10) fluticasone propionate 50 1 spray intranasal QAM 05/22/23 08/12/23 Unknown History mcg/actuation nasal spray,suspension gabapentin 100 mg capsule 100 mg PO BEDTIME 05/22/23 08/12/23 Unknown History hydroxyzine pamoate 25 mg capsule 25 - 50 mg PO BID PRN insomnia 05/22/23 08/12/23 Unknown History meloxicam 15 mg tablet 15 mg PO DAILY 05/22/23 08/12/23 Unknown History zolpidem 10 mg tablet 10 mg PO BEDTIME 05/22/23 08/12/23 Unknown History Exam Exam Date and Time: August 15, 2023 0710 Height,Weight and Vital Signs: Height 5 ft Weight 66.678 kg Vital Signs Temperature 98.2 F 08/15/23 06:38 Pulse Rate 79 08/15/23 06:38 Respiratory Rate 18 08/15/23 06:38 Blood Pressure 136/88 08/15/23 06:38 Pulse Oximetry 98 08/15/23 06:38 Oxygen Delivery Method Room Air 08/15/23 06:38 Temperature 98.2 F 08/15/23 06:38 Pulse Rate 79 08/15/23 06:38 Respiratory Rate 18 08/15/23 06:38 Blood Pressure 136/88 08/15/23 06:38 Pulse Oximetry 98 08/15/23 06:38 Oxygen Delivery Method Room Air 08/15/23 06:38 Airway Mallampati Class: II TM Dist: >3cm Neck ROM: Full Loose/Missing/Broken Teeth: No Heart: S1S2 Lungs: CTAB Assessment and Plan Assessment Anesthesia Assessment: Anesthesia Plan Discussed and Chart Reviewed Final Anesthetic Review Family History of Problems with Anesthesia: No History of Problems with Anesthesia: No NPO: Yes ASA Class: II Final Preanesthetic Review: No Changes in Pt Med Stat, Meds/Allgs Chart Reviewed, Consent Obtained/Reviewed and Anes Risks/Benef Reviewed Patient Risk: Low Procedure Risk: Low Anesthetic Plan Anesthetic Plan: GA and Agree w/ Assess. and Plan Disposition: Standard PACU
--- NOTE | 2023-08-15 08:23 | P.OP_ITS ---
Operative Note Operative Note Date of Service: 08/15/23 Narrative: Preoperative diagnosis: []Biliary colic, recurrent Postop diagnosis: [] same Procedure [] laparoscopic cholecystectomy Surgeon: [] Jordy Dry Cans Back Tender: [] Liyah Type of Anesthesia: [] general Indication for surgery: [] moderately intrahepatic gallbladder with dense omental adhesions to it. Findings: [] Patient brought to the operating room, placed on operative table in supine position, after adequate level of general anesthesia was induced, the patient's abdomen was prepped and draped in usual sterile fashion. Patient has had a prior abdominal plasty. The supraumbilical curvilinear incision was made and carried down through skin, subcutaneous tissue, were sent technique was used to insufflate the abdominal cavity to 15 mm of CO2. Upper midline and right subcostal ports were placed under direct laparoscopic view, and the patient placed in reverse Trendelenburg position, and tilted to the left. dense omental adhesions were swept off the gallbladder where its hilum was approached. Common bile duct, cystic artery and cystic duct were all identified. The latter were circumferentially skeletonized, traced directly to the gallbladder and critical view obtained. Each was clipped proximally x2, d istally x1, and transected. Gallbladder which was intrahepatic was then cauterized from the gallbladder fossa using Bovie. Specimen was placed in an Endo-Catch bag, a retrieved through the umbilical port. Abdominal cavity was copiously irrigated, and secured hemostasis. All ports were removed under direct laparoscopic view. Wounds were closed in the following manner; umbilical wound has fascia reapproximated using interrupted 0 Vicryl suture. Skin wounds were closed using subcuticular 4-0 Vicryl sutures followed by Steri- Strips and sterile dressings. Wounds were infiltrated 0.5% Marcaine/ 1% lidocaine at completion. Sponge, needle, and instrument counts reported correct. Patient tolerated the procedure well and emerged anesthesia in stable condition. EBL minimal
[2023-08-15] MEDS: oxyCODONE HCl Immed Release 5 MG TABLET 10 MG PO (08:44)
[2023-08-15] MEDS: fentaNYL citrate/PF 100 MCG/2 ML VIAL 50 MCG IVPUSH ×2 (08:46→09:33)
[2023-08-15] MEDS: Acetaminophen 325 MG TABLET 650 MG PO (09:36)
== END 2023-08-15 10:30 | disposition home or self-care (01) ==
PROVIDERS: Nurse Practitioner; PCP Internal Medicine; Visit Provider Surgery
PROC: 0FT44ZZ Resection of Gallbladder, Percutaneous Endoscopic Approach (ICD-10-PCS; CPT 47562; principal; 2023-08-15 07:30)
DX: K81.1 Chronic cholecystitis (principal); K82.8 Other specified diseases of gallbladder; J45.909 Unspecified asthma, uncomplicated; Z79.51 Long term (current) use of inhaled steroids; Z79.899 Other long term (current) drug therapy; Z88.1 Allergy status to other antibiotic agents; F17.210 Nicotine dependence, cigarettes, uncomplicated; Z98.890 Other specified postprocedural states
CPT/HCPCS: 47562; 81025; 88304; J0665; J0736; J1100; J1885; J2250; J2405; J3010

== ENCOUNTER → 2023-08-15 06:01 | Outpatient (BNV) | payer MEDICAID, SELFPAY | PROVIDERS: PCP Internal Medicine; Visit Provider Surgery | DX: K80.50 Calculus of bile duct without cholangitis or cholecystitis without obstruction (principal) | CPT/HCPCS: 47562 ==

== ENCOUNTER 2023-08-26 09:59 | Outpatient (AMB) | payer MEDICAID, SELFPAY ==
[2023-08-26 10:06] VITALS: BP 135/87; PULSE 65
--- NOTE | 2023-08-26 10:06 | A.OFFVIS_ITS ---
Intake Vital Signs 08/26/23 10:06 Weight 150 lb BP 135/87 Blood Pressure Location Rt brachial Position Sitting Pulse 65 Intake Visit Reasons: S/P lap duy Intake Note: Patient here s/p lap duy on 08-15-23. Reports incisions healing well. Denies bleeding, oozing, pain. No longer taking rx pain meds. Forestry Technician Required: No Accompanied by: Self / Same As Patient Allergies cephalexin [From KEFLEX] Allergy (Intermediate, Verified 08/26/23 10:08) RASH HPI HPI Comments History of Present Illness Details Patient presents for follow-up. She has minimal incisional discomfort. She is tolerating her diet. She is having regular bowel habits. Patient is increasing her activity level. [facility] Medical History Asthma Surgical History History of breast reconstruction Hx of abdominoplasty Hx of section History of esophagogastroduodenoscopy (EGD) Family History Maternal Aunt Breast CA Social History Alcohol intake: current Alcohol intake frequency: holidays/special occasions only Patient Tobacco Use Status: Current everyday Tobacco user Tobacco use type: Cigarette Cigarettes Per Day: 3 Physical Exam Vital Signs: Last Vital Signs Pulse 65 08/26/23 10:06 BP 135/87 08/26/23 10:06 Eyes Other: Anicteric GI Other: Abdomen soft, all wounds clean dry and intact healing well Assessment & Plan Assessment & Plan (1) Recurrent biliary colic: Code(s): K80.50 - Calculus of bile duct without cholangitis or cholecystitis without obstruction Plan Patient has been given very specific local instructions including avoiding strenuous activities for least 6 weeks post surgery. She will follow-up p.r.n.. Coding Level of Care Code Global (99089) Diagnoses Recurrent biliary colic K80.50
== END 2023-08-26 10:14 | disposition home or self-care (01) ==
PROVIDERS: PCP Internal Medicine; Visit Provider Surgery
DX: K80.50 Calculus of bile duct without cholangitis or cholecystitis without obstruction (principal)
CPT/HCPCS: 99024

== ENCOUNTER → 2023-08-26 09:59 | Outpatient (BNVA) | payer MEDICAID, SELFPAY | PROVIDERS: PCP Internal Medicine; Visit Provider Surgery ==

== ENCOUNTER 2023-10-22 10:52 | Outpatient (REF) | payer MEDICAID, SELFPAY ==
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
== END 2023-10-22 10:53 | disposition home or self-care (01) ==
LOC: HO.HHCX 10:52
PROVIDERS: Visit Provider Internal Medicine
DX: M25.562 Pain in left knee (principal)
CPT/HCPCS: 73564

== ENCOUNTER 2023-10-30 12:07 | Outpatient (REF) | payer MEDICAID, SELFPAY ==
--- NOTE | ~2023-10-30 | XR_ITS ---
EXAMINATION: XR CHEST CLINICAL INFORMATION: Dry cough for one year status post Covid-19. COMPARISON: None available. TECHNIQUE: 2 views of the chest were obtained. FINDINGS: Moderate degenerative changes in the thoracic spine. Surgical clips in the upper abdomen. There is no gross pneumothorax. Heart size is normal. No pleural effusion. No focal consolidation to suggest pneumonia. XR/XR chest 2V IMPRESSION: No evidence of pneumonia.
== END 2023-10-30 12:08 | disposition home or self-care (01) ==
LOC: HO.HHCX 12:07
PROVIDERS: Visit Provider Family Medicine
DX: R05.3 Chronic cough (principal)
CPT/HCPCS: 71046

== ENCOUNTER 2023-11-12 09:57 | Outpatient (AMB) | payer MEDICAID, SELFPAY ==
--- NOTE | 2023-11-12 10:03 | A.OFFVIS_ITS ---
Intake Vital Signs 11/12/23 10:07 Height 5 ft Weight 152 lb BMI 29.7 BP 132/64 Blood Pressure Location Rt brachial Position Sitting Pulse 74 Pulse Source Pulse Oximeter Pulse Oximetry (%) 99 Oxygen Delivery Method Room Air Intake Visit Reasons: Chronic Cough Intake Note: Chronic cough x 1 year after having Covid. 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 Field Operator: Oilfield Plant And Field Operator offered & declined Accompanied by: Self / Same As Patient Allergies cephalexin [From KEFLEX] Allergy (Intermediate, Verified 11/12/23 10:09) RASH Medication List - Last Reconciled 11/12/23 by Hanna Parks LPN acetaminophen (Tylenol Extra Strength) 500 mg PO Q6H PRN acetaminophen ER 650 mg PO Q8H PRN albuterol sulfate 90 mcg/actuation (Ventolin HFA) 2 puffs inhalation Q4H PRN fluticasone propionate 50 mcg/actuation 1 spray intranasal QAM gabapentin 100 mg PO BEDTIME hydrocodone-acetaminophen 5-325 mg 1 tab PO Q4-6H PRN hydroxyzine pamoate 25 - 50 mg PO BID PRN meloxicam 15 mg PO DAILY omeprazole 20 mg PO DAILY tizanidine 4 mg PO Q8H PRN tramadol 50 mg PO TID PRN zolpidem 10 mg PO BEDTIME HPI Chronic Cough HPI Details Maya is a pleasant 43 year old, current minimal smoker, with under lying history of childhood asthma and environmental allergies. She was referred by PCP for pulmonary evaluation for persistent cough. She reports a persistent dry cough for the past year after having COVID in november 2022. She denies chest tightness, wheezing or dyspnea. She has a prescription for albuterol but uses infrequently. She was recently prescribed doxycycline for a sinus infection and did not have any improvement in cough. She denies reflux symptoms. She denies post nasal drip. She denies any occupational exposures. She reports multiple environmental allergies with moderate response to antihistamines and flonase. She does have two dogs at home. She denies any allergy testing. She reports her children have asthma. [facility] Medical History (Updated 11/12/23 @ 10:48 by Magy Jama NP) Asthma Surgical History History of breast reconstruction Hx of abdominoplasty Hx of section History of esophagogastroduodenoscopy (EGD) Family History Maternal Aunt Breast CA Social History (Updated 11/12/23 @ 10:12 by Hanna Parks LPN) Alcohol intake: current Alcohol intake frequency: holidays/special occasions only Patient Tobacco Use Status: Current everyday Tobacco user Tobacco use type: Cigarette Cigarettes Per Day: 2 Review of Systems Const Denies chills, Denies excessive sweating, Denies fever(s), Denies headache(s) and Denies night sweats Eyes Denies dry eyes, Denies irritation and Denies itchy eyes ENT Reports Normal hearing present, Denies headache(s), Denies nasal congestion, Denies nasal discharge, Denies post nasal drip and Denies sore throat Card Denies chest pain, Denies chest pain at rest, Denies chest pain with activity, Denies claudication, Denies leg edema, Denies dyspnea, Denies dyspnea on exertion, Denies orthopnea and Denies paroxysmal nocturnal dyspnea Resp Denies chest congestion, Denies excessive phlegm production, Denies pain on inspiration, Denies pain with cough, Denies dyspnea, Denies dyspnea on exertion, Denies stridor and Denies wheezing Musc Denies myalgias Neuro Reports Normal hearing present and Denies headache(s) Endo Denies excessive sweating Stephen/Lymph Denies lymphadenopathy Aller/Immun Denies itchy eyes, Denies seasonal rhinorrhea and Denies wheezing Physical Exam Vital Signs: Last Vital Signs Pulse 74 11/12/23 10:07 BP 132/64 11/12/23 10:07 Pulse Ox 99 11/12/23 10:07 Oxygen Delivery Method Room Air 11/12/23 10:07 BMI result Body Mass Index 29.7 Const General: cooperative, healthy appearing, comfortable, no acute distress, well developed and alert Orientation/consciousness: patient oriented x3 Limitations: no limitations HEENT Head: Yes normal to inspection, Yes normocephalic and Yes atraumatic Ears: hearing grossly normal bilaterally and external ears normal Eyes General: appearance normal, both eyes and all related structures Eyelids: Yes eyelids normal Sclerae: sclerae normal EOM: EOMs intact bilaterally Neck Neck: Yes normal visual inspection and Yes no lymphadenopathy Lymphatic: no lymphadenopathy noted Chest Chest palpation & inspection: normal inspection of the chest Resp Effort & Inspection: normal respiratory effort, able to speak in complete sentences, no audible wheezes, no cough, no stridor, not tachypneic, no tripod positioning and no use of accessory muscles Auscultation: clear to auscultation bilaterally Cardio Jugular venous distension: no JVD Rate: regular rate Rhythm: regular rhythm Skin Other: warm, dry General skin exam: no rashes or lesions noted Neuro General: patient oriented x3 Cranial nerves: Yes Normal hearing present Cognition (Neuro): normal cognition Gait exam (Neuro): Normal gait present Extrem General: Yes normal to inspection, Yes capillary refill normal, Yes no clubbing, cyanosis or edema and Yes no pedal edema Psych Appearance: grossly normal and well kempt Speech and movement: Normal speech and movement present and Clear speech present Affect: normal affect Attitude: cooperative Thought process: Normal thought process present Thought content: Normal thought content present Insight: Good insight present (Psych) Judgement: Good judgement present (Psych) Assessment & Plan Assessment & Plan (1) Chronic cough: Code(s): R05.3 - Chronic cough (2) Asthma: Code(s): J45.909 - Unspecified asthma, uncomplicated (3) Environmental allergies: Code(s): Z91.09 - Other allergy status, other than to drugs and biological substances Plan Maya's symptoms are likely related to underlying asthma and environmental allergies. She denied any PND or GERD symptoms. Will send for PFT and RAST to evaluate. Will empirically trial ICS/LABA. Inhaler technique and importance of oral hygiene reviewed. Given patient has had chronic cough, current smoker, and recent CXR negative, will send for chest CT. All questions were answered and patient is in agreement of plan. Will follow up to review response to inhaler and results, or sooner if needed. Orders: Orders Immunoglobulin E Today Z91.09 - Other allergy status, other than to drugs and biological substances PFT pulmonary function test Today J45.909 - Unspecified asthma, uncomplicated, R05.3 - Chronic cough Complete Blood Count Auto Diff Today Z91.09 - Other allergy status, other than to drugs and biological substances Resp Allergy Profile Region I Today Z91.09 - Other allergy status, other than to drugs and biological substances CT chest wo IV con Today R05.3 - Chronic cough Medications: New budesonide-formoterol 80-4.5 mcg/actuation (Symbicort) 2 puffs inhalation Q12H 10.2 grams 3RF albuterol sulfate 90 mcg/actuation (Ventolin HFA) 2 puffs inhalation Q4H PRN 1 ea 3RF wheezing Coding Level of Care Code New Pt Level 4 (26389) Diagnoses Chronic cough R05.3 Asthma J45.909 Environmental allergies Z91.09
[2023-11-12 10:07] VITALS: BP 132/64; PULSE 74; O2SAT 99; BMI 29.7
== END 2023-11-12 10:33 | disposition home or self-care (01) ==
PROVIDERS: PCP Internal Medicine; Visit Provider Nurse Practitioner Family
DX: R05.3 Chronic cough (principal); J45.909 Unspecified asthma, uncomplicated; Z91.09 Other allergy status, other than to drugs and biological substances
CPT/HCPCS: 99204

== ENCOUNTER → 2023-11-12 09:57 | Outpatient (BNVA) | payer MEDICAID, SELFPAY | PROVIDERS: PCP Internal Medicine; Visit Provider Nurse Practitioner Family | DX: J45.909 Unspecified asthma, uncomplicated (principal); R05.3 Chronic cough; Z91.09 Other allergy status, other than to drugs and biological substances | CPT/HCPCS: 99212 ==

== ENCOUNTER 2023-11-12 10:36 | Outpatient (REF) | payer MEDICAID, SELFPAY ==
[2023-11-12 14:45] LABS: MANUAL DIFF FLAG NO
[2023-11-12 15:16] LABS: Basophils Absolute Auto 0.1 X10*3/uL (0.0-0.2); Basophils Percent Auto 0.7 % (0-2); Eosinophils Absolute Auto 0.1 X10*3/uL (0.0-0.4); Eosinophils Percent Auto 1.8 % (0-4); Hematocrit 41.6 % (37.0-47.0); Hemoglobin 13.8 g/dl (12.0-16.0); Imm Gran Abs Auto 0.02 X10*3/uL (0.00-0.03); Imm Gran Pct Auto 0.3 % (0.0-0.4); Lymphocytes Percent Auto 14.7 % (20-40); Mean Corpuscular HGB Conc 33.2 g/dl (31.0-35.0); Mean Corpuscular Hemoglobin 32.9 pg (27.0-33.0); Monocytes Absolute Auto 0.4 X10*3/uL (0.1-1.2); Monocytes Percent Auto 5.5 % (2-11); Neutrophils Absolute Auto 5.2 x10*3/uL (2.0-8.3); Platelet Count 270 X10*3/uL (160-400); Red Cell Distribution Width 13.1 % (11.0-16.0); White Blood Count 6.7 X10*3/uL (4.8-10.8)
[2023-11-13 22:33] LABS: Class Alternaria alternata 0; Class Aspergillus fumigatus 0; Class Bermuda Grass 0; Class Birch 0; Class Cat Dander 0; Class Cladosporium herbarum 0; Class Cockroach 0; Class Common Ragweed 0; Class Cottonwood 0; Class Derm. pterony 0; Class Dermatophagoides farinae 0; Class Dog Dander 0; Class Elm 0; Class Maple Box Elder 0; Class Mountain Cedar 0; Class Mouse Urine Protein 0; Class Mugwort 0; Class Oak 0; Class Penicillium crysogenum 0; Class Rough Pigweed 0; Class Sheep Sorrel 0; Class Sycamore 0; Class Timothy Grass 0; Class Walnut Tree 0; Class White Ash 0; Class White Mulberry 0; D001 IgE D pteronyssinus <0.10 kU/L; D002 - IgE D farinae <0.10 kU/L; E001 - IgE Cat Dander <0.10 kU/L; E005 - IgE Dog Dander <0.10 kU/L; E072-IgE Mouse Urine <0.10 kU/L; G002 IgE Bermuda Grass <0.10 kU/L; G006 - IgE Timothy Grass <0.10 kU/L; I006-IgE Cockroach, German <0.10 kU/L; Immunoglobulin E 78 kU/L (<OR=114); M001 IgE Penicillium chrysogen <0.10 kU/L; M002 - IgE Cladosporium herbar <0.10 kU/L; M003 - IgE Aspergillus fumigat <0.10 kU/L; M006 - IgE Alternaria alternat <0.10 kU/L; T001 IgE Maple/Box Elder <0.10 kU/L; T003 IgE Common Silver Birch <0.10 kU/L; T006 - IgE Cedar, Mountain <0.10 kU/L; T007 - IgE Oak, White <0.10 kU/L; T008 IgE Elm, American <0.10 kU/L; T010 - IgE Walnut <0.10 kU/L; T011 - IgE Maple Leaf Sycamore <0.10 kU/L; T014 - IgE Cottonwood <0.10 kU/L; T015 - IgE Ash, White <0.10 kU/L; T070 - IgE White Mulberry <0.10 kU/L; W001 - IgE Ragweed, Short <0.10 kU/L; W006 - IgE Mugwort <0.10 kU/L; W014 IgE Pigweed, Common <0.10 kU/L; W018 IgE Sheep Sorrel <0.10 kU/L
== END 2023-11-12 10:37 | disposition home or self-care (01) ==
LOC: HO.WFDLDS 10:36
PROVIDERS: Visit Provider Nurse Practitioner Family
DX: Z91.09 Other allergy status, other than to drugs and biological substances (principal)
CPT/HCPCS: 36415; 82785; 85025; 86003; 99212

== ENCOUNTER 2023-12-18 12:47 | Outpatient (REF) | payer MEDICAID, SELFPAY ==
--- NOTE | ~2023-12-18 | CT_ITS ---
EXAMINATION: CT CHEST WITHOUT CONTRAST CLINICAL INFORMATION: Chronic cough. COMPARISON: Chest x-ray 10/30/2023. TECHNIQUE: Multidetector volumetric CT imaging of the chest was done. Axial MIP volume rendering provided. Sagittal and coronal reformatted images were obtained. This CT examination was performed using dose optimization techniques as appropriate, variously including the following: *Automated exposure control *Adjustment of mA and/or kV according to patient size (this includes techniques or standardized protocols for targeted exams where dose is matched to indication/reason for exam; i.e. extremities or head) *Use of iterative reconstruction technique DLP: 345 mGy-cm FINDINGS: LUNGS: Calcified granuloma right lower lobe. No imaging follow-up is recommended as per Fleischner Society guidelines. No consolidation. No evidence of interstitial lung disease. MEDIASTINUM: Normal caliber aorta. No adenopathy. No pericardial effusion. CORONARY ARTERY CALCIFICATION: None visualized on this study. PLEURA: There is no pleural effusion. No pleural mass or thickening. AXILLA: No adenopathy. Bilateral breast surgery. UPPER ABDOMEN: Cholecystectomy clips. OSSEOUS STRUCTURES: Mild degenerative changes in the spine. CT/CT chest wo IV con IMPRESSION: No pneumonia or evidence of interstitial lung disease. Fleischner guidelines were followed.
== END 2023-12-18 12:48 | disposition home or self-care (01) ==
LOC: HO.CT 12:47
PROVIDERS: PCP Internal Medicine; Visit Provider Nurse Practitioner Family
DX: R05.3 Chronic cough (principal)
CPT/HCPCS: 71250

== ENCOUNTER 2023-12-19 09:54 | Outpatient (REF) | payer MEDICAID, SELFPAY ==
[2023-12-19 11:27] VITALS: PULSE 77; RESP 14; O2SAT 96
--- NOTE | 2023-12-19 13:25 | PFT_ITS ---
Indication: Asthma Spirometry [FEV1 to FVC 85%; FEV1 2.72 L; FVC 3.21 L. no significant response to bronchodilators noted. Maximum voluntary ventilation 122% predicted.] Lung Volumes [Telephone capacity 93% predicted] Diffusion Capacity [DLCO 104% predicted] Comparisons [None] Interpretation [No obstructive nor restrictive ventilatory defects identified. No significant response to bronchodilators noted. Normal maximum voluntary ventilation. Lung volumes are within normal limits. Diffusing capacity also within normal limits. If asthma is in differential methacholine challenge may be helpful in assessing for hyperactive airways. Clinical correlation warranted.] MTDD
== END 2023-12-19 09:55 | disposition home or self-care (01) ==
LOC: HO.RESP 09:54
PROVIDERS: PCP Internal Medicine; Visit Provider Nurse Practitioner Family
DX: J45.909 Unspecified asthma, uncomplicated (principal); R05.3 Chronic cough
CPT/HCPCS: 94010; 94640; 94727; 94729

== ENCOUNTER → 2023-12-19 13:25 | Outpatient (BNV) | payer MEDICAID, SELFPAY | PROVIDERS: PCP Internal Medicine; Visit Provider Hospitalist | DX: J45.909 Unspecified asthma, uncomplicated (principal) | CPT/HCPCS: 94060; 94727; 94729 ==

== ENCOUNTER 2024-02-04 11:29 | Outpatient (AMB) | payer MEDICAID, SELFPAY ==
--- NOTE | 2024-02-04 11:32 | A.OFFVIS_ITS ---
Vital Signs 02/04/24 11:33 Height 5 ft Weight 160 lb 2 oz BMI 31.3 BP 128/76 Blood Pressure Location Lt brachial Position Sitting Pulse 61 Pulse Source Pulse Oximeter Pulse Oximetry (%) 98 Oxygen Delivery Method Room Air Intake Visit Reasons: chronic cough: 12 week f/u Allergies cephalexin [From KEFLEX] Allergy (Intermediate, Verified 02/04/24 11:35) RASH HPI HPI chronic cough: 12 week f/u: Details: Maya is a pleasant 43 year old, current minimal smoker, with underlying history of childhood asthma. She was referred by PCP for pulmonary evaluation for persistent cough. At the last visit, she was started on symbicort however developed thrush which resolved with nystatin. She was then started on dulera however hesistent to use. She continues to report persistent dry cough with exertion, specifially at the gym. She denies using ventolin at this time. Today she presents to review RAST, PFT and chest CT results. [facility] Medical History (Updated 11/12/23 @ 10:48 by Magy Jama NP) Asthma Surgical History History of breast reconstruction Hx of abdominoplasty Hx of section History of esophagogastroduodenoscopy (EGD) Family History Maternal Aunt Breast CA Social History Alcohol intake: current Alcohol intake frequency: holidays/special occasions only Patient Tobacco Use Status: Current everyday Tobacco user Tobacco use type: Cigarette Cigarettes Per Day: 2 Review of Systems Const Denies chills, Denies excessive sweating, Denies fever(s), Denies headache(s) and Denies night sweats Eyes Denies dry eyes, Denies irritation and Denies itchy eyes ENT Reports Normal hearing present, Denies headache(s), Denies nasal congestion, Denies nasal discharge, Denies post nasal drip and Denies sore throat Card Denies chest pain, Denies chest pain at rest, Denies chest pain with activity, Denies claudication, Denies leg edema, Denies dyspnea, Denies dyspnea on exertion, Denies orthopnea and Denies paroxysmal nocturnal dyspnea Resp Denies chest congestion, Denies excessive phlegm production, Denies pain on inspiration, Denies pain with cough, Denies dyspnea, Denies dyspnea on exertion, Denies stridor and Denies wheezing Musc Denies myalgias Neuro Reports Normal hearing present and Denies headache(s) Endo Denies excessive sweating Stephen/Lymph Denies lymphadenopathy Aller/Immun Denies itchy eyes, Denies seasonal rhinorrhea and Denies wheezing Physical Exam Vital Signs: BMI result Body Mass Index 31.3 Const General: cooperative, healthy appearing, comfortable, no acute distress, well developed and alert Orientation/consciousness: patient oriented x3 Limitations: no limitations HEENT Head: Yes normal to inspection, Yes normocephalic and Yes atraumatic Ears: hearing grossly normal bilaterally and external ears normal Eyes General: appearance normal, both eyes and all related structures Eyelids: Yes eyelids normal Sclerae: sclerae normal EOM: EOMs intact bilaterally Neck Neck: Yes normal visual inspection and Yes no lymphadenopathy Lymphatic: no lymphadenopathy noted Chest Chest palpation & inspection: normal inspection of the chest Resp Effort & Inspection: normal respiratory effort, able to speak in complete sentences, no audible wheezes, no stridor, not tachypneic, no tripod positioning and no use of accessory muscles Auscultation: clear to auscultation bilaterally Cardio Jugular venous distension: no JVD Rate: regular rate Rhythm: regular rhythm Skin Other: warm, dry General skin exam: no rashes or lesions noted Neuro General: patient oriented x3 Cranial nerves: Yes Normal hearing present Cognition (Neuro): normal cognition Gait exam (Neuro): Normal gait present Extrem General: Yes normal to inspection, Yes capillary refill normal, Yes no clubbing, cyanosis or edema and Yes no pedal edema Psych Appearance: grossly normal and well kempt Speech and movement: Normal speech and movement present and Clear speech present Affect: normal affect Attitude: cooperative Thought process: Normal thought process present Thought content: Normal thought content present Insight: Good insight present (Psych) Judgement: Good judgement present (Psych) Results Reviewed Results Reviewed: [address] [address] [address] Scan Report Signed Patient: Maya Hoyos MR#: [id number] : 1980 Acct:[id number] Age/Sex: 43 / F ADM Date: 12/18/23 Loc: HO.CT Attending Dr: Magy Jama NP Ordering Physician: Magy Jama NP Date of Service: 12/18/23 Procedure(s): CT chest wo IV con Accession Number(s): [id number] cc: Catarina Davis MD; Magy Jama NP~ EXAMINATION: CT CHEST WITHOUT CONTRAST CLINICAL INFORMATION: Chronic cough. COMPARISON: Chest x-ray 10/30/2023. TECHNIQUE: Multidetector volumetric CT imaging of the chest was done. Axial MIP volume rendering provided. Sagittal and coronal reformatted images were obtained. This CT examination was performed using dose optimization techniques as appropriate, variously including the following: *Automated exposure control *Adjustment of mA and/or kV according to patient size (this includes techniques or standardized protocols for targeted exams where dose is matched to indication/reason for exam; i.e. extremities or head) *Use of iterative reconstruction technique DLP: 345 mGy-cm FINDINGS: LUNGS: Calcified granuloma right lower lobe. No imaging follow-up is recommended as per Fleischner Society guidelines. No consolidation. No evidence of interstitial lung disease. MEDIASTINUM: Normal caliber aorta. No adenopathy. No pericardial effusion. CORONARY ARTERY CALCIFICATION: None visualized on this study. PLEURA: There is no pleural effusion. No pleural mass or thickening. AXILLA: No adenopathy. Bilateral breast surgery. UPPER ABDOMEN: Cholecystectomy clips. OSSEOUS STRUCTURES: Mild degenerative changes in the spine. CT/CT chest wo IV con IMPRESSION: No pneumonia or evidence of interstitial lung disease. Fleischner guidelines were followed. Dictated By: Jackson Bradley MD Signed By: <Electronically signed by Jackson Bradley MD in OV> 12/25/23 0947 DD/ 1345 TD/TT: Flight Coordinator: SOPHIA Assessment & Plan Assessment & Plan (1) Chronic cough: Code(s): R05.3 - Chronic cough Category: Medical (2) Asthma: Code(s): J45.909 - Unspecified asthma, uncomplicated Category: Medical Plan Reviewed chest CT which revealed calcified granuloma of right lower lobe, otherwise unremarkable. PFT did not reveal an obstructive or restrictive defect. Lung volumes and DLCO normal. Discussed methacholine challenge but will hold off at this time. RAST negative. Patient continues to report persistent dry cough with moderate exertion, advised to use ventolin prior to exerise and if helpful start using dulera 1 inhalation twice daily. Reviewed importance of good oral hygiene. All questions were answered and patient is in agreement of plan. Will follow up in 3 months or sooner if needed. Coding Level of Care Code Est Pt Level 4 (94929) Diagnoses Chronic cough R05.3 Asthma J45.909
[2024-02-04 11:33] VITALS: BP 128/76; PULSE 61; O2SAT 98; BMI 31.3
== END 2024-02-04 11:54 | disposition home or self-care (01) ==
PROVIDERS: PCP Internal Medicine; Visit Provider Nurse Practitioner Family
DX: R05.3 Chronic cough (principal); J45.909 Unspecified asthma, uncomplicated
CPT/HCPCS: 99214

== ENCOUNTER → 2024-02-04 11:29 | Outpatient (BNVA) | payer MEDICAID, SELFPAY | PROVIDERS: PCP Internal Medicine; Visit Provider Nurse Practitioner Family | DX: J45.909 Unspecified asthma, uncomplicated (principal); R05.3 Chronic cough | CPT/HCPCS: 99212 ==

== ENCOUNTER 2024-05-06 13:08 | Outpatient (AMB) | payer MEDICAID, SELFPAY ==
--- NOTE | 2024-05-06 13:13 | MHC.OFFVIS ---
Vital Signs 05/06/24 13:14 Height 5 ft Weight 156 lb 2 oz BMI 30.5 BP 130/98 H Blood Pressure Location Lt brachial Position Sitting Pulse 71 Pulse Source Pulse Oximeter Pulse Oximetry (%) 98 Oxygen Delivery Method Room Air Intake Visit Reasons: chronic cough Allergies cephalexin [From KEFLEX] Allergy (Intermediate, Verified 05/06/24 13:19) RASH HPI HPI chronic cough: Details: Maya is a pleasant 44 year old, current minimal smoker, with underlying history of childhood asthma. She was initially referred for persistent cough and placed on Dulera and ventolin MDI. She reported using infrequently at the last visit and has had resolution of symptoms. She denies any visits to urgent care or recent hospitalizations since the last visit. Today she presents for a routine visit. [facility] Medical History (Updated 11/12/23 @ 10:48 by Magy Jama NP) Asthma Surgical History History of breast reconstruction Hx of abdominoplasty Hx of section History of esophagogastroduodenoscopy (EGD) Family History Maternal Aunt Breast CA Social History Alcohol intake: current Alcohol intake frequency: holidays/special occasions only Patient Tobacco Use Status: Current everyday Tobacco user Tobacco use type: Cigarette Cigarettes Per Day: 2 Review of Systems Const Denies chills, Denies excessive sweating, Denies fever(s), Denies headache(s) and Denies night sweats Eyes Denies dry eyes, Denies irritation and Denies itchy eyes ENT Reports Normal hearing present, Denies headache(s), Denies nasal congestion, Denies nasal discharge, Denies post nasal drip and Denies sore throat Card Denies chest pain, Denies chest pain at rest, Denies chest pain with activity, Denies claudication, Denies leg edema, Denies dyspnea, Denies dyspnea on exertion, Denies orthopnea and Denies paroxysmal nocturnal dyspnea Resp Denies chest congestion, Denies cough, Denies excessive phlegm production, Denies pain on inspiration, Denies pain with cough, Denies dyspnea, Denies dyspnea on exertion, Denies stridor and Denies wheezing Musc Denies myalgias Neuro Reports Normal hearing present and Denies headache(s) Endo Denies excessive sweating Stephen/Lymph Denies lymphadenopathy Aller/Immun Denies itchy eyes, Denies seasonal rhinorrhea and Denies wheezing Physical Exam Vital Signs: Last Vital Signs Pulse 71 05/06/24 13:14 BP 130/98 H 05/06/24 13:14 Pulse Ox 98 05/06/24 13:14 Oxygen Delivery Method Room Air 05/06/24 13:14 BMI result Body Mass Index 30.5 Const General: cooperative, healthy appearing, comfortable, no acute distress, well developed and alert Orientation/consciousness: patient oriented x3 Limitations: no limitations HEENT Head: Yes normal to inspection, Yes normocephalic and Yes atraumatic Ears: hearing grossly normal bilaterally and external ears normal Eyes General: appearance normal, both eyes and all related structures Eyelids: Yes eyelids normal Sclerae: sclerae normal EOM: EOMs intact bilaterally Neck Neck: Yes normal visual inspection and Yes no lymphadenopathy Lymphatic: no lymphadenopathy noted Chest Chest palpation & inspection: normal inspection of the chest Resp Effort & Inspection: normal respiratory effort, able to speak in complete sentences, no audible wheezes, no cough, no stridor, not tachypneic, no tripod positioning and no use of accessory muscles Auscultation: clear to auscultation bilaterally Cardio Jugular venous distension: no JVD Rate: regular rate Rhythm: regular rhythm Skin Other: warm, dry General skin exam: no rashes or lesions noted Neuro General: patient oriented x3 Cranial nerves: Yes Normal hearing present Cognition (Neuro): normal cognition Gait exam (Neuro): Normal gait present Extrem General: Yes normal to inspection, Yes capillary refill normal, Yes no clubbing, cyanosis or edema and Yes no pedal edema Psych Appearance: grossly normal and well kempt Speech and movement: Normal speech and movement present and Clear speech present Affect: normal affect Attitude: cooperative Thought process: Normal thought process present Thought content: Normal thought content present Insight: Good insight present (Psych) Judgement: Good judgement present (Psych) Assessment & Plan Assessment & Plan (1) Chronic cough: Code(s): R05.3 - Chronic cough Category: Medical (2) Asthma: Code(s): J45.909 - Unspecified asthma, uncomplicated Category: Medical Plan At this time Maya reports resolution of symptoms. Patient is aware if symptoms to recur to call the office. Will follow up in 6-12 months. All questions were answered and patient is in agreement of plan. Coding Level of Care Code Est Pt Level 3 (62736) Diagnoses Chronic cough R05.3 Asthma J45.909
[2024-05-06 13:14] VITALS: BP 130/98; PULSE 71; O2SAT 98; BMI 30.5
== END 2024-05-06 13:31 | disposition home or self-care (01) ==
PROVIDERS: PCP Internal Medicine; Visit Provider Nurse Practitioner Family
DX: R05.3 Chronic cough (principal); J45.909 Unspecified asthma, uncomplicated
CPT/HCPCS: 99213

== ENCOUNTER → 2024-05-06 13:08 | Outpatient (BNVA) | payer MEDICAID, SELFPAY | PROVIDERS: PCP Internal Medicine; Visit Provider Nurse Practitioner Family | DX: R05.3 Chronic cough (principal); J45.909 Unspecified asthma, uncomplicated | CPT/HCPCS: 99212 ==

== ENCOUNTER 2024-06-02 12:57 | Outpatient (AMB) | payer MEDICAID, SELFPAY ==
--- NOTE | 2024-06-02 13:00 | MHC.OFFVIS ---
Vital Signs 06/02/24 13:02 Height 5 ft Weight 151 lb BMI 29.5 Intake Visit Reasons: Left knee pain Intake Note: Maya is a 44 year old female who presents with complaints of progressively worsening left knee pain and giving way. The patient states that her symptoms have gotten worse over the last year in spite of continued non operative treatments. Most of the pain is along the medial and lateral aspects of her left knee. The patient states that her left knee will give out several times per day. She has tried Tylenol and anti-inflammatory medicines which gave her minimal relief. Allergies cephalexin [From KEFLEX] Allergy (Intermediate, Verified 06/02/24 13:05) RASH Medication List - Last Reconciled 06/02/24 by Aram Lewis MD acetaminophen (Tylenol Extra Strength) 500 mg PO Q6H PRN acetaminophen ER 650 mg PO Q8H PRN albuterol sulfate 90 mcg/actuation (Ventolin HFA) 2 puffs inhalation Q4H PRN fluticasone propionate 50 mcg/actuation 1 spray intranasal QAM gabapentin 100 mg PO BEDTIME mometasone-formoterol 50-5 mcg/actuation (Dulera) 2 puffs inhalation Q12H tizanidine 4 mg PO Q8H PRN tramadol 50 mg PO TID PRN zolpidem 10 mg PO BEDTIME PFSH Medical History (Updated 06/02/24 @ 13:18 by Aram Lewis MD) Asthma Surgical History History of breast reconstruction Hx of abdominoplasty Hx of section History of esophagogastroduodenoscopy (EGD) Family History Maternal Aunt Breast CA Social History (Updated 06/02/24 @ 13:05 by REGINA Vidal) Alcohol intake: current Alcohol intake frequency: holidays/special occasions only Patient Tobacco Use Status: Current everyday Tobacco user Tobacco use type: Cigarette Cigarettes Per Day: 2 service: No Current occupational status: unemployed Physical Exam Vital Signs: BMI result Body Mass Index 29.5 Const Other: Well-nourished well-developed very friendly female awake alert and oriented x3 in no acute distress Extrem Other: Bilateral lower extremity examination shows good capillary refill, no skin lesions noted, normal sensation light touch Left knee examination shows a minimal effusion, minimal crepitus with range of motion, tenderness along her medial and lateral joint lines, positive Ramirez's test, no instability Results Reviewed Results Reviewed: Standing full weight-bearing X-rays of the patient's left knee show mild diffuse joint space narrowing, no acute bony abnormalities Assessment & Plan Assessment & Plan (1) Left knee pain: Code(s): M25.562 - Pain in left knee Category: Medical Plan Ms. Hoyos presents with progressively worsening left knee pain and mechanical symptoms most likely due to tearing of her medial and lateral menisci. Thus, I will send the patient for an MRI of her left knee for further evaluation. I will see her back once the MRI is completed to discuss the findings and treatment options. Feel free to call me at any time should questions regarding her orthopedic management arise. Thank you very much for asking me to see this very friendly patient. I spent 20 minutes in reviewing the patient's records and imaging studies, seeing the patient and documenting in the medical record. Orders: Orders MR knee LT wo con 06/02/24 M25.562 - Pain in left knee Coding Level of Care Code New Pt Level 3 (39774) Diagnoses Left knee pain M25.562
[2024-06-02 13:02] VITALS: BMI 29.5
== END 2024-06-02 13:19 | disposition home or self-care (01) ==
PROVIDERS: PCP Internal Medicine; Referring Provider Internal Medicine; Visit Provider Orthopaedic Surgery
DX: M25.562 Pain in left knee (principal)
CPT/HCPCS: 99203

== ENCOUNTER → 2024-06-02 12:57 | Outpatient (BNVA) | payer MEDICAID, SELFPAY | PROVIDERS: PCP Internal Medicine; Visit Provider Orthopaedic Surgery | DX: M25.562 Pain in left knee (principal) | CPT/HCPCS: 99202 ==

== ENCOUNTER 2024-07-13 11:08 | Outpatient (REF) | payer MEDICAID, SELFPAY ==
--- NOTE | ~2024-07-13 | MR_ITS ---
EXAMINATION: MR KNEE WITHOUT CONTRAST, LEFT CLINICAL INFORMATION: Pain in the left knee. COMPARISON: X-ray of the left knee October 2023. TECHNIQUE: MRI of the knee without contrast was performed using routine sequences on a high-field scanner. FINDINGS: MENISCI: Medial Meniscus: Intact. Lateral Meniscus: Intact. LIGAMENTS: Cruciate: Intact. Collateral: Intact. EXTENSOR MECHANISM: Quadriceps and patellar tendon are intact. There is minimal feathery-appearing increased T2 signal within the medial and lateral vastus muscles compatible with mild muscle strain. ARTICULAR CARTILAGE/BONE: Patellofemoral Compartment: There are focal fissures and cartilage heterogeneity in the median ridge of the patella extending over an area measuring 11 mm transverse and 11 mm craniocaudal. Trochlear cartilage is normal. Overall focal patellofemoral arthrosis. Medial Compartment: Normal. Lateral Compartment: Normal. JOINT FLUID AND BURSAE: Mild joint effusion and small Barnes's cyst. MISCELLANEOUS: Mild heterogeneity and enlargement of the insertion of the iliotibial band compatible with tendinosis and/or partial tear likely subacute or chronic. No transverse defect or tendon retraction. MR/MR knee LT wo con IMPRESSION: 1. Focal arthrosis of the patellofemoral compartment. 2. Mild joint effusion and small Barnes's cyst. 3. Mild strain of the vastus medialis and vastus lateralis muscles. 4. Subacute/chronic partial tear of the distal iliotibial band. Electronically signed by: Topher Avila MD 07/19/2024 08:21 AM EDT
== END 2024-07-13 11:09 | disposition home or self-care (01) ==
LOC: HO.MRI 11:08
PROVIDERS: PCP Internal Medicine; Visit Provider Orthopaedic Surgery
DX: M25.562 Pain in left knee (principal)
CPT/HCPCS: 73721

== ENCOUNTER 2024-07-16 13:15 | Outpatient (REF) | payer MEDICAID, SELFPAY ==
--- NOTE | ~2024-07-16 | XR_ITS ---
EXAMINATION: XR KNEE, RIGHT CLINICAL INFORMATION: Patellar tendinitis COMPARISON: 04/01/2019 TECHNIQUE: Three views of the right knee. FINDINGS: No fracture or joint effusion. Alignment is anatomic. Joint spaces are maintained. No abnormal soft tissue calcification. XR/XR knee RT 3V IMPRESSION: Normal right knee. Electronically signed by: Saravanan Wolfe MD 07/16/2024 02:02 PM EDT
== END 2024-07-16 13:16 | disposition home or self-care (01) ==
LOC: HO.HHCX 13:15
PROVIDERS: Visit Provider Internal Medicine
DX: M76.51 Patellar tendinitis, right knee (principal)
CPT/HCPCS: 73562

== ENCOUNTER 2024-07-29 13:45 | Outpatient (AMB) | payer MEDICAID, SELFPAY ==
--- NOTE | 2024-07-29 13:46 | MHC.OFFVIS ---
Intake Visit Reasons: Bialteral knee pain and giving way Intake Note: Maya is a 44 year old female who presents with complaints of progressively worsening bilateral knee pains and giving way, right greater than left. The patient states that her symptoms have gotten worse over the last year in spite of continued non operative treatments. She has done physical therapy which aggravated her bilateral knee pains. She has had injections in the past which gave her no relief. She has failed the last 6 weeks of conservative treatment. She has tried Tylenol and anti-inflammatory medicines which gave her minimal relief. Allergies cephalexin [From KEFLEX] Allergy (Intermediate, Verified 07/29/24 13:49) RASH Medication List - Last Reconciled 07/29/24 by Aram Lewis MD acetaminophen (Tylenol Extra Strength) 500 mg PO Q6H PRN acetaminophen ER 650 mg PO Q8H PRN albuterol sulfate 90 mcg/actuation (Ventolin HFA) 2 puffs inhalation Q4H PRN fluticasone propionate 50 mcg/actuation 1 spray intranasal QAM gabapentin 100 mg PO BEDTIME mometasone-formoterol 50-5 mcg/actuation (Dulera) 2 puffs inhalation Q12H tizanidine 4 mg PO Q8H PRN tramadol 50 mg PO TID PRN zolpidem 10 mg PO BEDTIME PFSH Medical History (Updated 07/29/24 @ 14:01 by Aram Lewis MD) Asthma Surgical History History of breast reconstruction Hx of abdominoplasty Hx of section History of esophagogastroduodenoscopy (EGD) Family History Maternal Aunt Breast CA Social History (Updated 06/02/24 @ 13:05 by REGINA Vidal) Alcohol intake: current Alcohol intake frequency: holidays/special occasions only Patient Tobacco Use Status: Current everyday Tobacco user Tobacco use type: Cigarette Cigarettes Per Day: 2 service: No Current occupational status: unemployed Physical Exam Const Other: Well-nourished well-developed very friendly female awake alert and oriented x3 in no acute distress Extrem Other: Bilateral lower extremity examination shows good capillary refill, no skin lesions noted, normal sensation light touch Bilateral knee examination shows minimal effusions, minimal crepitus with range of motion, tenderness along her medial joint lines, positive Ramirez's test, no instability Results Reviewed Results Reviewed: Standing full weight-bearing x-rays of the patient's bilateral knee show mild diffuse joint space narrowing, no acute bony abnormalities MRI of the patient's left knee shows mild diffuse degenerative changes as well as a tear of the medial meniscus Assessment & Plan Assessment & Plan (1) Tear of medial meniscus of right knee: Code(s): S83.241A - Other tear of medial meniscus, current injury, right knee, initial encounter Category: Medical (2) Left knee pain: Code(s): M25.562 - Pain in left knee Category: Medical Plan Ms. Hoyos presents with progressively worsening right knee pain and mechanical symptoms most likely due to a medial meniscus tear. I will send the patient for an MRI of her right knee for further evaluation. The patient also has left knee pain and mechanical symptoms due to a medial meniscus tear. At this point the patient's left knee pain is tolerable to her. I will see her back after her right knee MRI is completed to discuss the findings and treatment options. Feel free to call me at any time should questions regarding her orthopedic management arise. I spent 22 minutes in reviewing the patient's records and imaging studies, seeing the patient and documenting in the medical record. Orders: Orders MR knee RT wo con 07/29/24 S83.241A - Other tear of medial meniscus, current injury, right knee, initial encounter Coding Level of Care Code Est Pt Level 3 (02979) Complex EM visit Add On G2211 Diagnoses Tear of medial meniscus of right knee S83.241A Left knee pain M25.562
== END 2024-07-29 14:00 | disposition home or self-care (01) ==
PROVIDERS: PCP Internal Medicine; Visit Provider Orthopaedic Surgery
DX: S83.241A Other tear of medial meniscus, current injury, right knee, initial encounter (principal); M25.562 Pain in left knee
CPT/HCPCS: 99213

== ENCOUNTER → 2024-07-29 13:45 | Outpatient (BNVA) | payer MEDICAID, SELFPAY | PROVIDERS: PCP Internal Medicine; Visit Provider Orthopaedic Surgery | DX: S83.241A Other tear of medial meniscus, current injury, right knee, initial encounter (principal); M25.562 Pain in left knee | CPT/HCPCS: 99212 ==

== ENCOUNTER 2024-08-07 09:41 | Outpatient (REF) | payer MEDICAID, SELFPAY ==
--- NOTE | ~2024-08-07 | FL_ITS ---
EXAMINATION: XR FLUOROSCOPY UPPER GI WITH AIR CLINICAL INFORMATION: Dysphagia. Food getting stuck . COMPARISON: 04/16/2007. TECHNIQUE: Fluoroscopic air contrast upper GI examination was performed utilizing standard techniques with thin and thick barium and effervescent granules. Numerous spot images were obtained. FINDINGS: Lateral cine images of the oropharynx and hypopharynx demonstrate normal swallow mechanism with normal epiglottic inversion and soft palate elevation. No tracheal penetration, glottic or subglottic aspiration identified. No nasopharyngeal reflux present. Hypopharyngeal structures appear normal without evidence of mass or diverticulum. There was no significant cricopharyngeal achalasia. Dual and single contrast images of the esophagus demonstrate normal caliber, contour, and mucosal pattern. Subtle feline contraction pattern noted. There is no evidence of mass or ulcerations. There is mild to moderate narrowing of the GE junction. Esophageal peristalsis was normal. No evidence of hiatus hernia identified. No significant gastroesophageal reflux was seen during the course of the examination and on reflux views. Surgical clips are present in the right upper quadrant. Dual contrast and single contrast images of the stomach demonstrated a normal contour. The areae gastrica have a thickened appearance, suggestive of gastritis. No ulcerations or masses are present.. Contrast freely passed into the gastric antrum and duodenal bulb without delay. Single and air-contrast images of the duodenal bulb demonstrate no abnormality. The duodenal sweep has a normal appearance, course, and mucosal fold appearance. The imaged proximal jejunum has a normal fold pattern and caliber. FLUOROSCOPY TIME: 4 minutes 8 seconds Number of Spot Images: 7 Number of Cine: 14 DOSE AREA PRODUCT: 2139 uGy-m2 (microgray-meter squared) FL/FL upper GI w air IMPRESSION: 1. Felinization of the mid esophagus, which can be associated with chronic reflux. 2. Mild to moderate smooth narrowing of the GE junction that likely represents achalasia. Short segment benign stricture is also a consideration. Recommend correlation with EGD. 2. Thickened appearance of the areae gastrica, suggestive of gastritis. 3. Status post cholecystectomy. This procedure was performed by Ugo Hubbard PA-C, and supervised by Dr. Prado Electronically signed by: Blas Prado MD 08/07/2024 12:52 PM EDT
== END 2024-08-07 09:42 | disposition home or self-care (01) ==
LOC: HO.XRAY 09:41
PROVIDERS: PCP Internal Medicine; Visit Provider Internal Medicine
DX: R13.12 Dysphagia, oropharyngeal phase (principal)
CPT/HCPCS: 74246

== ENCOUNTER → 2024-08-07 09:47 | Outpatient (BNV) | payer MEDICAID, SELFPAY | PROVIDERS: PCP Internal Medicine; Visit Provider Physician Assistant Surgical | DX: R13.10 Dysphagia, unspecified (principal) | CPT/HCPCS: 74246 ==

== ENCOUNTER 2024-08-19 08:56 | Outpatient (REF) | payer MEDICAID, SELFPAY ==
[2024-08-19 11:25] LABS: Cholesterol 112 mg/dL (<200); HDL Cholesterol 51 mg/dL (>40); LDL Cholesterol Calculated 56 mg/dL (<100); Triglycerides 29 mg/dL (<150)
[2024-08-19 11:50] LABS: TSH reflex Free T4 0.81 uIU/mL (0.32-4.0); Vitamin D 25-OH Total 36.4 ng/mL (>30)
[2024-08-19 12:14] LABS: Reflex LDLD? No
== END 2024-08-19 08:57 | disposition home or self-care (01) ==
LOC: HO.HHCL 08:56
PROVIDERS: Visit Provider Internal Medicine
DX: R03.0 Elevated blood-pressure reading, without diagnosis of hypertension (principal); E11.9 Type 2 diabetes mellitus without complications
CPT/HCPCS: 36415; 80061; 82306; 84443

== ENCOUNTER 2024-08-30 07:56 | Outpatient (REF) | payer MEDICAID, SELFPAY ==
--- NOTE | ~2024-08-30 | MR_ITS ---
EXAMINATION: MR KNEE WITHOUT CONTRAST, RIGHT CLINICAL INFORMATION: Tear of the medial meniscus COMPARISON: None available. TECHNIQUE: MRI of the knee without contrast was performed using routine sequences on a high-field scanner. FINDINGS: MENISCI: Medial Meniscus: Intact Lateral Meniscus: Intact LIGAMENTS: Cruciate: Intact Collateral: The medial collateral ligament is intact. However there is a lobulated slightly complex fluid collection deep to the medial collateral ligament possibly within the new collateral ligament bursa. This collection extends 3.9 cm craniocaudal and measures up to 1.6 cm AP and 0.4 cm transverse Lateral ligaments intact. EXTENSOR MECHANISM: Intact ARTICULAR CARTILAGE/BONE: Patellofemoral Compartment: There is cartilage heterogeneity and some surface irregularity of the cartilage of the median ridge and lateral facet of the patella. Trochlear cartilage normal. Overall mild patellofemoral arthrosis. Medial Compartment: Normal Lateral Compartment: Normal JOINT FLUID AND BURSAE: There is a mild joint effusion MR/MR knee RT wo con IMPRESSION: 1. Mild patellofemoral arthrosis. 2. Mild joint effusion. Lobulated fluid collection deep to the medial collateral ligament possibly within the medial collateral ligament bursa. This has the appearance of a medial collateral ligament bursitis versus ganglion cyst. Electronically signed by: Topher Avila MD 09/15/2024 04:03 PM EST
== END 2024-08-30 07:57 | disposition home or self-care (01) ==
LOC: HO.MRI 07:56
PROVIDERS: PCP Internal Medicine; Visit Provider Orthopaedic Surgery
DX: S83.241A Other tear of medial meniscus, current injury, right knee, initial encounter (principal)
CPT/HCPCS: 73721

== ENCOUNTER 2024-09-17 14:37 | Outpatient (AMB) | payer MEDICAID, SELFPAY ==
--- NOTE | 2024-09-17 14:46 | A.OFFVIS_ITS ---
Vital Signs 09/17/24 14:50 Height 5 ft Weight 151 lb BMI 29.5 Intake Visit Reasons: Bilateral knee pain Intake Note: Maya is a 44 year old female who presents with complaints of progressively worsening bilateral knee pains. The patient describes her pains as sharp in nature. Her symptoms have gotten worse over the last year in spite of continued non operative treatments. She has failed the last 3 months of conservative treatment which has consisted of physical therapy exercises, Tylenol, anti- inflammatory medicines and topical creams. The patient states that her knee pains are interfering with her activities of daily living and her ability to sleep well through the night. She has had cortisone injections in the past which gave her no relief. She wishes to hold off on surgery if at all possible. Allergies cephalexin [From KEFLEX] Allergy (Intermediate, Verified 09/17/24 14:57) RASH Medication List - Last Reconciled 09/17/24 by Aram Lewis MD acetaminophen (Tylenol Extra Strength) 500 mg PO Q6H PRN acetaminophen ER 650 mg PO Q8H PRN albuterol sulfate 90 mcg/actuation (Ventolin HFA) 2 puffs inhalation Q4H PRN fluticasone propionate 50 mcg/actuation 1 spray intranasal QAM gabapentin 100 mg PO BEDTIME mometasone-formoterol 50-5 mcg/actuation (Dulera) 2 puffs inhalation Q12H tizanidine 4 mg PO Q8H PRN tramadol 50 mg PO TID PRN zolpidem 10 mg PO BEDTIME PFSH Medical History (Updated 07/29/24 @ 14:01 by Aram Lewis MD) Asthma Surgical History History of breast reconstruction Hx of abdominoplasty Hx of section History of esophagogastroduodenoscopy (EGD) Family History Maternal Aunt Breast CA Social History (Updated 06/02/24 @ 13:05 by REGINA Vidal) Alcohol intake: current Alcohol intake frequency: holidays/special occasions only Patient Tobacco Use Status: Current everyday Tobacco user Tobacco use type: Cigarette Cigarettes Per Day: 2 service: No Current occupational status: unemployed Physical Exam Vital Signs: BMI result Body Mass Index 29.5 Const Other: Well-nourished well-developed very friendly female awake alert and oriented x3 in no acute distress Extrem Other: Bilateral lower extremity examination shows good capillary refill, no skin lesions noted, normal sensation light touch Bilateral knee examination shows minimal effusions, palpable crepitus with range of motion, pain with range of motion, range of motion from -3 degrees to 120 degrees, no instability Results Reviewed Results Reviewed: X-rays of the patient's bilateral knees taken previously show joint space narrowing, subchondral sclerosis, no acute bony abnormalities MRI of the patient's right knee shows mild to moderate diffuse degenerative changes most significant in the patellofemoral joint, no obvious meniscus tearing, no acute bony abnormalities Assessment & Plan Assessment & Plan (1) Pain in both knees: Code(s): M25.561 - Pain in right knee; M25.562 - Pain in left knee Plan Ms. Hoyos presents with bilateral knee pains due to degenerative joint disease. I had a lengthy discussion with the patient regarding the treatment options. She wishes to hold off on surgery if at all possible. I agree with this plan. She has not gotten good relief from cortisone injections in the past. Thus, I will see whether or not her insurance company will cover a viscosupplementation injection, such as Durolane, for both of her knees. I will see her back once the injections are available. Feel free to call me at any time should questions regarding her orthopedic management arise. I spent 22 minutes in reviewing the patient's records and imaging studies, seeing the patient and documenting in the medical record. Coding Level of Care Code Est Pt Level 3 (70848) Complex EM visit Add On G2211 Diagnoses Pain in both knees M25.561; M25.562
[2024-09-17 14:50] VITALS: BMI 29.5
== END 2024-09-17 15:16 | disposition home or self-care (01) ==
PROVIDERS: PCP Internal Medicine; Visit Provider Orthopaedic Surgery
DX: M25.561 Pain in right knee (principal); M25.562 Pain in left knee
CPT/HCPCS: 99213

== ENCOUNTER → 2024-09-17 14:37 | Outpatient (BNVA) | payer MEDICAID, SELFPAY | PROVIDERS: PCP Internal Medicine; Visit Provider Orthopaedic Surgery | DX: M25.561 Pain in right knee (principal); M25.562 Pain in left knee | CPT/HCPCS: 99212 ==

== ENCOUNTER 2024-10-05 08:46 | Outpatient (AMB) | payer MEDICAID, SELFPAY ==
[2024-10-05 08:47] VITALS: BP 126/81; PULSE 66; BMI 31.0
--- NOTE | 2024-10-05 08:47 | A.OFFVIS_ITS ---
Vital Signs 10/05/24 08:47 Height 5 ft Weight 158 lb 11.725 oz BMI 31.0 BP 126/81 Blood Pressure Location Lt brachial Position Sitting Pulse 66 Intake Visit Reasons: Dysphagia Intake Note: Maya presents in the office as a follow up for Dysphagia. CC: She states that sometimes she still has the issues with her swallowing. She says she notices when she is sleeping she starts choking on her saliva and she needs to get up. Qc Chemist Required: No Allergies cephalexin [From KEFLEX] Allergy (Intermediate, Verified 10/05/24 08:54) RASH HPI Comments Details: 43y.o F with PMH of symptomatic gallstones who is here for abdominal pain. 05/22/23: Pt reports months of diffuse abdominal pain with unclear trigger, which lasts for many hours, associated with nausea. No radiation of pain noted. Gets worse with eating. Associated with diarrhea which she describes as 4-5 loose BMs per day which does not change the intensity of the pain. Smokes 2 cigs a day. Occasional etOH. Takes ibuprofen every month during menstrual cycle x 3 days. Was also recently prescribed Meloxicam PRN for headaches. 06/19/23: Here for 4 week follow up. Abd pain persistent with primarily burning sensation in the afternoon which gets better with gingerale and worsens with food. Assoc with nausea but no vomiting. Had some improvement with PPI. Results reviewed including normal LFTs, celiac study, thyroid function and fecal calpro. Has been seen by surgery Dr Spence who has advised [facility]Y for biliary colic but pt remains hesitant to pursue this at this time. 09/25/24: Was lost to follow up. Has had resolution of abd sx since the cholecystectomy. However, now primary complaint is dysphagia and sensation of food getting in her throat. Is sticking to mainly soft foods to liquids food. Reports a distinct episode of food getting stuck in spring which she had to forcefully regurgitate but did not have to go to ER. To recall pt does have seasonal allergies and eczema. UGIS 08/10/24: 1. Felinization of the mid esophagus, which can be associated with chronic reflux. 2. Mild to moderate smooth narrowing of the GE junction that likely represents achalasia. Short segment benign stricture is also a consideration. Recommend correlation with EGD. 2. Thickened appearance of the areae gastrica, suggestive of gastritis. 3. Status post cholecystectomy. [facility] Medical History (Updated 10/05/24 @ 09:17 by Carin Nazario MD) Asthma Surgical History (Updated 10/05/24 @ 08:54 by SERGE Flores) Hx of hand surgery History of breast reconstruction Hx of abdominoplasty Hx of section History of esophagogastroduodenoscopy (EGD) Family History Maternal Aunt Breast CA Social History Alcohol intake: current Alcohol intake frequency: holidays/special occasions only Patient Tobacco Use Status: Current everyday Tobacco user Tobacco use type: Cigarette Cigarettes Per Day: 2 service: No Current occupational status: unemployed Review of Systems Const All systems reviewed & are unremarkable except as noted in HPI and below Physical Exam Vital Signs: Last Vital Signs Pulse 66 10/05/24 08:47 BP 126/81 10/05/24 08:47 BMI result Body Mass Index 31.0 Assessment & Plan Assessment & Plan (1) Dysphagia: Code(s): R13.10 - Dysphagia, unspecified Category: Medical (2) Esophageal stricture: Code(s): K22.2 - Esophageal obstruction Category: Medical Plan Abnormal UGIS as noted above. DDx include EoE, reflux disease, dysmotility. Plan: - EGD to be booked for bx and dilation - Omeprazole 20 once daily. Pt to HOLD this 2 weeks before egd. - Avoid NSAIDs - Follow up after EGD Medications: New omeprazole 20 mg PO DAILY 90 caps 0RF Coding Level of Care Code Est Pt Level 4 (18464) Diagnoses Dysphagia R13.10 Esophageal stricture K22.2
== END 2024-10-05 09:31 | disposition home or self-care (01) ==
PROVIDERS: PCP Internal Medicine; Visit Provider Internal Medicine
DX: R13.10 Dysphagia, unspecified (principal); K22.2 Esophageal obstruction
CPT/HCPCS: 99214

== ENCOUNTER → 2024-10-05 08:46 | Outpatient (BNVA) | payer MEDICAID, SELFPAY | PROVIDERS: PCP Internal Medicine; Visit Provider Internal Medicine | DX: K22.2 Esophageal obstruction (principal); R13.10 Dysphagia, unspecified | CPT/HCPCS: 99212 ==

== ENCOUNTER 2024-11-11 09:30 | Outpatient (AMB) | payer MEDICAID, SELFPAY ==
--- NOTE | 2024-11-11 09:36 | A.OFFVIS_ITS ---
Vital Signs 11/11/24 09:37 Height 5 ft Weight 158 lb BMI 30.9 Intake Visit Reasons: Inj-Bilateral Euflexxa #1 Intake Note: Maya is a 44 year old female who presents with complaints of progressively worsening bilateral knee pains. The patient describes her pains as sharp in nature. Her symptoms have gotten worse over the last year in spite of continued non operative treatments. She has failed the last 3 months of conservative treatment which has consisted of physical therapy exercises, Tylenol, anti- inflammatory medicines and topical creams. The patient states that her knee pains are interfering with her activities of daily living and her ability to sleep well through the night. She has had cortisone injections in the past which gave her no relief. She wishes to hold off on surgery if at all possible. Allergies cephalexin [From KEFLEX] Allergy (Intermediate, Verified 11/11/24 09:37) RASH Medication List - Last Reconciled 11/11/24 by Aram Lewis MD acetaminophen (Tylenol Extra Strength) 500 mg PO Q6H PRN acetaminophen ER 650 mg PO Q8H PRN albuterol sulfate 90 mcg/actuation (Ventolin HFA) 2 puffs inhalation Q4H PRN fluticasone propionate 50 mcg/actuation 1 spray intranasal QAM gabapentin 300 mg PO BEDTIME loratadine 10 mg PO DAILY mometasone-formoterol 50-5 mcg/actuation (Dulera) 2 puffs inhalation Q12H omeprazole 20 mg PO DAILY tizanidine 4 mg PO Q8H PRN tramadol 50 mg PO TID PRN zolpidem 10 mg PO BEDTIME PFSH Medical History (Updated 11/11/24 @ 12:53 by Aram Lewis MD) Asthma Surgical History (Updated 10/05/24 @ 08:54 by SERGE Flores) Hx of hand surgery History of breast reconstruction Hx of abdominoplasty Hx of section History of esophagogastroduodenoscopy (EGD) Family History Maternal Aunt Breast CA Social History Alcohol intake: current Alcohol intake frequency: holidays/special occasions only Patient Tobacco Use Status: Current everyday Tobacco user Tobacco use type: Cigarette Cigarettes Per Day: 2 service: No Current occupational status: unemployed Physical Exam Vital Signs: BMI result Body Mass Index 30.9 Const Other: Well-nourished well-developed very friendly female awake alert and oriented x3 in no acute distress Extrem Other: Bilateral knee examination shows minimal effusions, palpable crepitus with range of motion, pain with range of motion, no instability Office Procedures AMB Joint Injection/Aspiration Joint Injection/Aspiration Primary Site: left knee Prep: site was prepped using aseptic technique Injected: 20 mg of (Euflexxa viscosupplementation) and 1% plain lidocaine Procedure: The patient tolerated the procedure well Coding - Large joint Procedure code (CPT) selection complete AMB Joint Injection/Aspiration Joint Injection/Aspiration Primary Site: right knee Prep: site was prepped using aseptic technique Injected: 20 mg of (Euflexxa viscosupplementation) and 1% plain lidocaine Procedure: The patient tolerated the procedure well Coding 62013 - Large joint Procedure code (CPT) selection complete Results Reviewed Results Reviewed: X-rays of the patient's bilateral knees taken previously show joint space narrowing, subchondral sclerosis, no acute bony abnormalities Assessment & Plan Assessment & Plan (1) Osteoarthritis of left knee: Code(s): M17.12 - Unilateral primary osteoarthritis, left knee Category: Medical (2) Osteoarthritis of right knee: Code(s): M17.11 - Unilateral primary osteoarthritis, right knee Category: Medical Plan Ms. Hoyos presents with bilateral knee pains due to osteoarthritis. The risks and benefits of a series of bilateral knee Euflexxa viscosupplementation injections were discussed at length with the patient. The patient wished to proceed. She tolerated the 1st set of injections well. She will continue with her home exercise program. She will follow up next week as scheduled. Feel free to call me at any time should questions regarding her orthopedic management arise. I spent 21 minutes in reviewing the patient's records and imaging studies, seeing the patient and documenting in the medical record. Orders: Orders AMB Joint Injection/Aspiration Today M17.12 - Unilateral primary osteoarthritis, left knee AMB Joint Injection/Aspiration Today M17.11 - Unilateral primary osteoarthritis, right knee Coding Level of Care Code Est Pt Level 3 (49184) Complex EM visit Add On G2211 Diagnoses Osteoarthritis of left knee M17.12 Osteoarthritis of right knee M17.11 CPT Codes Coding - Large joint: 62100 - Large joint ([id number]) Coding - 92200 Large joint: 40914 - Large joint ([id number])
[2024-11-11 09:37] VITALS: BMI 30.9
--- OUTSIDE RECORDS SUMMARY | 2024-11-11 10:01 | XMS_ITS | Encounter Summary ---
Author Organization [employer] Address [address] [facility] [address] [place] [address] Care Team Providers Care Interventional Radiology Rn Name Role Phone Catarina Davis MD Primary Care Provider + Reason for Visit * Reason Onset Date Comments REschedule FIELD HAULER appt from 11/09/24 11/10/2024 Encounter Details Date Type Department Care Team (Late st Contact Info) Description 11/10/2024 Telephone [facility] [address] [place] [address] Day Smith RN REschedule FIELD HAULER appt from 11/09/24 Social History Tobacco Use Types Packs/Day Years Used Date Smoking Tobacco: Every Day Cigarettes Passive Smoke Exposure: Current Smokeless Tobacco: Never Alcohol Use Standard Drinks/Week Comments Not Currently 0 (1 standard drink = 0.6 oz pur e alcohol) oca Depression Answer Date Recorded Patient Health Questionnaire-9 Score 0 12/28/2022 Housing Stability Answer Date Recorded What is your housing situation today? I have jax holden 02/10/[address] you li ve. Do you have problems with any of the following? None of the above 02/10/2024 Food Insecurity Answer Date Recorded Within the past 12 months, y ou worried that your food would run out before you got money to buy more: Never True 02/10/2024 Within the past 12 months,th e food you bought just didn't last and you didn't have enough money to get more: Never True 03/2024 Transportation Answer Date Recorded In the past 12 months, has l ack of transportation kept you from medical appts, meetings, work or from getting things needed for daily living? No 02/10/2024 Utilities Answer Date Recorded In the past 12 months, has t he electric, gas, oil or water company threatened to shut off services in your home? No 02/10/2024 Depression Answer Date Recorded Patient Health Questionnaire-2 Score 0 12/28/2022 Comments No Sex and Gender Information Value Date Recorded Sex Assigned at Female 08/06/2022 10:14 AM EDT Legal Sex Female 10:14 AM EDT Gender Identity Female 08/06/2022 10:14 AM EDT Sexual Orientation Choose not to disclose 2021 10:14 AM EDT documented as of this encounter Miscellaneous Notes * Telephone Encounter - Day Smith RN - 11/10/2024 3:11 PM EST TC to [facility] rescheduled for 11/26/24 @ 9am. documented in this encounter Plan of Treatment Upcoming Encounters Date Type Department Care Team (Late st Contact Info) Description 11/25/2024 11:30 AM EST Telemedicine [address] [address] Catarina Davis MD [address] [place] [id number] 11/26/2024 9:00 AM EST Clinical Support [address] [address] Day Smith, RN documented as of this encounter Visit Diagnoses Not on filedocumented in this encounter Additional Health Concerns Assessment Noted Time PHQ-9 Depression Total Score: 0 12/29/19 23 1:22 PM EDT documented as of this encounter Care Teams Interventional Radiology Rn Relationship Specialty Start Date End Date Catarina Davis MD [address] [place] [id number] PCP - General Family Medicine 10/15/17 documented as of this encounter
--- OUTSIDE RECORDS SUMMARY | 2024-11-11 10:01 | XMS_ITS | Encounter Summary ---
Author Organization [employer] Address [address] [facility] [address] [place] [address] Care Team Providers Care Envelope Folding Machine Adjuster Name Role Phone Catarina Davis MD Primary Care Provider + Reason for Visit * Reason Onset Date Comments FYI 11/01/2023 Encounter Details Date Type Department Care Team ([facility] st Contact Info) Description 11/01/2023 Telephone [facility] [address] [place], [place] [phone] Catarina Davis MD [address] [place], [place] [phone] FYI Social History Tobacco Use Types Packs/Day Years Used Date Smoking Tobacco: Some Days Cigarettes Passive Smoke Exposure: Current Smokeless Tobacco: Never Alcohol Use Standard Drinks/Week Comments Never 0 (1 standard drink = 0.6 oz pur e alcohol) Depression Answer Date Recorded Patient Health Questionnaire-9 Score 0 12/28/2022 Housing Stability Answer Date Recorded What is your housing situation today? I have jax hatch 07/22/[address] you li ve. Do you have problems with any of the following? None of the above 07/22/2023 Food Insecurity Answer Date Recorded Within the past 12 months, y ou worried that your food would run out before you got money to buy more: Never True 07/22/2023 Within the past 12 months,th e food you bought just didn't last and you didn't have enough money to get more: Never True Transportation Answer Date Recorded In the past 12 months, has l ack of transportation kept you from medical appts, meetings, work or from getting things needed for daily living? No 07/22/2023 Utilities Answer Date Recorded In the past 12 months, has t he electric, gas, oil or water company threatened to shut off services in your home? No 07/22/2023 Depression Answer Date Recorded Patient Health Questionnaire-2 Score 0 12/28/2022 Comments Unknown Sex and Gender Information Value Date Recorded Sex Assigned at Female 08/06/2022 10:14 AM EDT Legal Sex Female 10:14 AM EDT Gender Identity Female 08/06/2022 10:14 AM EDT Sexual Orientation Choose not to disclose 2021 10:14 AM EDT documented as of this encounter Miscellaneous Notes * Telephone Encounter - Xavi Hodges - 11/01/2023 3:23 PM EST Tc from patient calling to notify that they will stay with the appt on 11/06 documented in this encounter Plan of Treatment Upcoming Encounters Date Type Department Care Team (Late st Contact Info) Description 11/25/2024 11:30 AM EST Telemedicine [facility] [address] [place] [phone] Catarina Davis MD [address] [place] [phone] 11/26/2024 9:00 AM EST Clinical Support [address] [address] Day Smith, [place] documented as of this encounter Visit Diagnoses Not on filedocumented in this encounter Additional Health Concerns Assessment Noted Time PHQ-9 Depression Total Score: 0 12/29/19 23 1:22 PM EDT documented as of this encounter Care Teams Envelope Folding Machine Adjuster Relationship Specialty Start Date End Date Catarina Davis MD [address] [place] [phone] PCP - General Family Medicine 10/15/17 documented as of this encounter
--- OUTSIDE RECORDS SUMMARY | 2024-11-11 10:01 | XMS_ITS | Encounter Summary ---
Author Organization [employer] Address [address] [place] [address] [address] [place] [address] Care Team Providers Care Traffic Incident Management Manager Name Role Phone Catarina Davis MD Primary Care Provider + Encounter Details Date Type Department Care Team (Latest Contact Info) Description 03/19/[address] [facility] CONVERSIONS Dental, Provider, DDS Social History Tobacco Use Types Packs/Day Years Used Date Smoking Tobacco: Never Assessed Comments Unknown Sex and Gender Information Value Date Recorded Sex Assigned at Female 08/06/2022 10:14 AM EDT Legal Sex Female 10:14 AM EDT Gender Identity Female 08/06/2022 10:14 AM EDT Sexual Orientation Choose not to disclose 2021 10:14 AM EDT documented as of this encounter Plan of Treatment Upcoming Encounters Date Type Department Care Team (Late st Contact Info) Description 11/25/2024 11:[address] [facility] MED[facility]INE [address] [place] [phone] Catarina Davis MD [address] [place] [phone] 11/26/2024 9:00 AM EST Clinical Support [facility]INE [address] [place] [phone] Day Smith RN documented as of this encounter Visit Diagnoses Not on filedocumented in this encounter Care Teams Traffic Incident Management Manager Relationship Specialty Start Date End Date Catarina Davis MD [address] [place] [phone] PCP - General Family Medicine 10/15/17 documented as of this encounter
--- OUTSIDE RECORDS SUMMARY | 2024-11-11 10:01 | XMS_ITS | Clinical Summary ---
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 by Topher Avila MD in OV> ?12/10/24 1603 ? DD/ 0755 ? TD/TT: 08/30/24 0825 ? Wallpaper Scraper: MELVIN ? Procedure Note Dongloria, Image - 09/15/2024 [place] [id number] Magnetic Resonance Report Signed Patient: Laurent Hoyos#: [id number] 13 : 1980Acct:[id number] Age/Sex: 44 / FADM Date: 08/30/24 Loc: HO.MRI Attending Dr: Aram Lewis MD Ordering Physician: Aram Lewis MD Date of Service: 08/30/24 Procedure(s): MR knee RT wo con Accession Number(s): [id number] cc: Catarina Davis MD; Aram Lewis MD EXAMINATION: MR KNEE WITHOUT CONTRAST, RIGHT CLINICAL INFORMATION: Tear of the medial meniscus COMPARISON: None available. TECHNIQUE: MRI of the knee without contrast was performed using routine sequences on a high-field scanner. FINDINGS: MENISCI: Medial Meniscus: Intact Lateral Meniscus: Intact LIGAMENTS: Cruciate: Intact Collateral: The medial collateral ligament is intact. However there is a lobulated slightly complex fluid collection deep to the medial collateral ligament possibly within the new collateral ligament bursa. This collection extends 3.9 cm craniocaudal and measures up to 1.6 cm AP and 0.4 cm transverse Lateral ligaments intact. EXTENSOR MECHANISM: Intact ARTICULAR CARTILAGE/BONE: Patellofemoral Compartment: There is cartilage heterogeneity and some surface irregularity of the cartilage of the median ridge and lateral facet of the patella. Trochlear cartilage normal. Overall mild patellofemoral arthrosis. Medial Compartment: Normal Lateral Compartment: Normal JOINT FLUID AND BURSAE: There is a mild joint effusion MR/MR knee RT wo con IMPRESSION: 1. Mild patellofemoral arthrosis. 2. Mild joint effusion. Lobulated fluid collection deep to the medial collateral ligament possibly within the medial collateral ligament bursa. This has the appearance of a medial collateral ligament bursitis versus ganglion cyst. Electronically signed by: Topher Avila MD 09/15/2024 04:03 PM EST RP Dictated By: Topher Avila MD Signed By: <Electronically signed by Topher Avila MD inOV> 09/15/24 1603 DD/ 0755 TD/TT: 08/30/24 0825 Wallpaper Scraper: MELVIN [facility] External Provider IMG MRI PROCEDURES Final Result * POCT FLORENTIN-14 Urine Drug Screen (08/27/2024 11:50 AM EST) Urine Urine specimen obtained by clean catch procedure / Unknown 08/27/2024 11:50 AM EST Narrative Day Smith RN - 08/27/2024 11:50 AM EST UTOX cup Lot#[id number] Exp. 05/26/26 Internal Pass Control Negative for all substances Catarina Davis MD POINT OF CARE TEST ENTER /EDIT ORDERABLES Final Result * POCT Glucose (08/20/2024 9:17 AM EST) Glucose Blood, POC 127 60 - 200 mg/dL QC Media Lot # [id number] Lot# Expiration Date 433 Blood Capillary blood specimen / Unknown 08/20/2024 9:17 AM EST Catarina Davis MD POINT OF CARE TEST ENTER /EDIT ORDERABLES Final Result * Vitamin D, 25-Hydroxy, Total, Immunoassay (08/19/2024 9:00 AM EST) Vitamin D 25-OH Total 36.4 >30 ng/mL [facility] Comment:Health Based Referen ce Values*< 20 ng/mL Meonaroyx44-04 ng/mL Insufficient> 30 ng/mL Sufficient*Kendra RAMIREZ. N Engl J Med. 2007;357:266-280Care must be taken in interpreting Vitamin D results fromdifferent laboratories and methodologies. Published datademonstrated that results from patients undergoinghemodialysis may show a negative bias when tested withvarious automated 25-OH vitamin D assays when compared toLC-MS/MS.When testing samples from patients whose predominant form ofVitamin D is Vitamin D2, such as patients receiving VitaminD2 supplementation, results that are subtherapeutic shouldbe confirmed with another method such as LC-MS/MS. Blood 08/19/2024 9:00 AM EST 08/19/2024 10:46 AM EST Catarina Davis MD LAB BLOOD ORDERABLES Fin al Result Performing Organization Address [facility] Co ny Phone Number [facility] [address] [place] [phone] * TSH with Reflex to Free T4 (08/19/2024 9:00 AM EST) TSH reflex Free T4 0.81 0.32 - 4.0 uIU/mL [facility] Blood 08/19/2024 9:00 AM EST 08/19/2024 10:46 AM EST Catarina Davis MD LAB BLOOD ORDERABLES Fin al Result Performing Organization Address [facility] Co de Phone Number [facility] [address] [place] [phone] * Lipid Panel with Reflex to Direct LDL (08/19/2024 9:00 AM EST) Triglycerides 29 <150 mg/dL [facility] Comment:Desirable Triglyceri de: less than 150 mg/dLBorderline High Triglyceride 150-199 mg/dLHigh Triglyceride: 200-499 mg/dLVery High Triglyceride: greater than or equal to 5OO mg/dL Cholesterol 112 <200 mg/dL [facility] Comment:Desirable Cholestero l: less than 200 mg/dLBorderline High Cholesterol: 200-239 mg/dLHigh Cholesterol: greater than 239 mg/dL LDL Cholesterol Calculated 56 <100 mg/dL [facility] Comment:Desirable LDL: less than 100 mg/dLNear Optimal/Above Optimal LDL: 110- 129 mg/dLBorderline High LDL: 130-159 mg/dLHigh LDL: 160-189 mg/dLVery High LDL: greater than or equal to 190 mg/dL HDL Cholesterol 51 >40 mg/dL [facility] Comment:Desirable HDL: great er than 40 mg/dL Note: This HDL assay may give artificially low results in patients with liver disease. Blood 08/19/2024 9:00 AM EST 08/19/2024 10:46 AM EST Catarina Davis MD LAB BLOOD ORDERABLES Fin al Result Performing Organization Address City/State/[facility] Co de Phone Number [facility] [address] [place] [phone] * POCT HGB A1C (05/22/2024 12:18 PM EDT) Pathologist [facility] Hemoglobin A1C 5.7 4.0 - 6.0 % QC Media Lot # [id number] Lot# Expiration Date [id number] Blood 05/22/2024 12:1 8 PM EDT Catarina Davis MD POINT OF CARE TEST ENTER /EDIT ORDERABLES Final Result * Hm Mammography (11/07/2023) Mammogram Normal Anatomical Region Laterality Modality Other Catarina Davis MD HEALTH MAINTENANCE Final Result * (ABNORMAL) Hepatitis Panel, General (01/10/2023 9:11 AM EDT) Hepatitis A Antibody Total NON-REACT ANDREE NON-REACT ANDREE [facility] Comment: For additional information, please refer to http://education.OrbFlex/faq/QUX881 (This link is being provided for informational/ educational purposes only.) Hepatitis B Surface Antibody QL REACTIVE( A) NON-REACT ANDREE [facility] Hepatitis B Surface Ag NON-REACT ANDREE NON-REACT ANDREE [facility] Hepatitis B Core Antibody Total NON-REACT ANDREE NON-REACT ANDREE [facility] Hepatitis C Antibody NON-REACT ANDREE NON-REACT ANDREE [facility] [place] [facility] Index 0.21 <1.00 [facility] [place] [facility] Comment: HCV antibody was non-reactive. There is no laboratory evidence of HCV infection. In most cases, no further action is required. However, if recent HCV exposure is suspected, a test for HCV RNA (test code 25084) is suggested. For additional information please refer to http://education.OrbFlex/faq/XPB27n2 (This link is being provided for informational/ educational purposes only.) 01/10/2023 9:11 AM EDT 01/10/2023 9:12 AM EDT Narrative [facility] - 01/10/2023 8:56 PM EDT FASTING:YES FASTING: YES Catarina Davis MD LAB BLOOD ORDERABLES Fin al Result [facility] [address], [place] [address] [facility] [address] [place] [address] * HIV-1/2 Antigen and Antibodies, Fourth Generation, with Reflexes (01/10/2023 9:11 AM EDT) HIV Antigen/Antibody, 4th Generation NON-REAC TIVE NON-REAC TIVE [facility] [place] [facility] Comment: HIV-1 antigen and HIV-1/HIV-2 antibodies were not detected. There is no laboratory evidence of HIV infection. PLEASE NOTE: This information has been disclosed to you from records whose confidentiality may be protected by state law. ??If your state requires such protection, then the state law prohibits you from making any further disclosure of the information without the specific written consent of the person to whom it pertains, or as otherwise permitted by law. A general authorization for the release of medical or other information is NOT sufficient for this purpose. ?? For additional information please refer to http://education.OrbFlex/faq/LKA155 (This link is being provided for informational/ educational purposes only.) The performance of this assay has not been clinically validated in patients less than 2 years old. Blood Venous blood specimen / Unknown 01/10/2023 9:11 AM EDT 01/10/2023 9:12 AM EDT Narrative [facility] - 01/10/2023 8:56 PM EDT FASTING:YES FASTING: YES Catarina Davis MD LAB BLOOD ORDERABLES Fin al Result [address], [place] [address] [facility] [place] [facility] [address] [place] [phone] * Thinprep TIS PAP And HPV mRNA E6/E7 With Reflex To HPV 16,18/45 (09/24/2022 3:53 PM EST) Clinical Information: None given [facility] LMP: NONE GIVEN [facility] Prev. PAP: NONE GIVEN [facility] Prev. BX: NONE GIVEN [facility] SOURCE: None given [facility] Statement Of Adequacy: [facility] Comment: Satisfactory for evaluation. Endocervical/transformation zone component absent. Age and/or menstrual status not provided Interpretation/ Result: Negative for intraepithelial lesion or malignancy. [facility] COMMENT: This Pap test has been evaluated with computer assisted technology. [facility] Cytotechnologis t: [facility] Comment: BK,CT(ASCP) CT screening location: [address] (Always Message) [facility] Comment: EXPLANATORY NOTE: The Pap is a screening test for cervical cancer. It is not a diagnostic test and is subject to false negative and false positive results. It is most reliable when a satisfactory sample, regularly obtained, is submitted with relevant clinical findings and history, and when the Pap result is evaluated along with historic and current clinical information. HPV nRNA E6/E7 Not Detected Not Detected [facility] Comment: Methodology: Four Slide Operator-Mediated Amplification This assay detects E6/E7 viral messenger RNA (mRNA) from 14 high-risk HPV types (16,18,31,33,35,39,45,51,52,56,58,59,66,68). Cervical sources are required for HPV testing. If a vaginal source from a patient who has had a total hysterectomy with removal of cervix was submitted, please contact the testing laboratory for alternative testing options. For additional information, please refer to http://education.OrbFlex/faq/LJR085q9 (This link if provided for information/ educational purposes only.) 09/24/2022 3:53 PM EST 09/25/2022 10:09 AM EST Narrative [facility] - 09/28/2022 3:45 PM EST FASTING: UNKNOWN Catarina Davis MD LAB PATHOLOGY ORDERABLES Final Result [address], [place] [address] [employer] [address] [facility], ([address]) [place] [address] * ALBUMIN, RANDOM URINE W/CREATININE (05/23/2021 1:55 PM EDT) Microalbumin Urine 0.2 See Note: mg/dL [facility] Comment: Reference Range: ?? Reference Range Not established Microalb/Creat Ratio 3 <30 mcg/mg creat [facility] Comment: ?? The ADA defines abnormalities in albumin excretion as follows: ?? Category ? Result (mcg/mg creatinine) ?? Normal ?<30 Microalbuminuria ? 30-299 ?? Clinical albuminuria ?? > OR = 300 ?? The ADA recommends that at least two of three specimens collected within a 3-6 month period be abnormal before considering a patient to be within a diagnostic category. Creatinine, Urine 71 20 - 275 mg/dL [facility] 05/23/2021 1:55 PM EDT us Catarina Davis MD LAB URINE ORDERABLES Fin al Result [facility] [address] from Last 3 Months or Most Recently Relevant to Health Maintenance Insurance C3 [facility] MEDICAID STAND ADULT Care Teams Warehouse Operations Associate Relationship Specialty Start Date End Date Catarina Davis MD [address] [place] [phone] PCP - General Family Medicine 10/15/17
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
--- OUTSIDE RECORDS SUMMARY | 2024-11-11 10:01 | XMS_ITS | Clinical Summary ---
Author Organization [facility], Address [address] [place] [address] [place] [address] Phone Care Team Providers Care Retail Reset Merchandiser Name Role Phone Catarina Davis MD Primary Care Provider Allergies Active Allergy Reactions Criticality Noted Date Comments Cephalexin Other (see comments) 01/11/2023 Medications zolpidem (AMBIEN) 10 MG tablet Comments: Filled Date: Mar 18 2017 12:00AM Patient Notes: TK 1 T PO QD HS Duration: 30 7 Active traMADol (ULTRAM) 50 MG tablet Active hydrOXYzine (VISTARIL) 25 MG capsule Comments: Filled Date: Apr 12 2017 12:00AM Patient Notes: TK 1 TO 2 CS PO BID PRA OR INSOMNIA Duration: 30 7 Active Mapap Arthritis Pain 650 MG 8 hr tablet TAKE 1 TABLET BY MOUTH EVERY 8 HOURS NEEDED. SWALLOW WHOLE WITH WATER AND DO NOT BREAK OR CRUSH OR DISSOLVE OR CHEW 2 Active Ventolin HFA 108 (90 Base) MCG/ACT inhaler INHALE 2 PUFFS EVERY 4 HOURS NEEDED FOR WHEEZING OR SHORTNESS OF BREATH. 3 Active fluticasone (FLONASE) 50 MCG/ACT nasal spray INSTILL 1 SPRAY IN EACH NOSTRIL ONCE DAILY IN THE MORNING. 3 Active gabapentin (NEURONTIN) 100 MG capsule TAKE 1 CAPSULE BY MOUTH AT BEDTIME FOR ONE WEEK, THEN TAKE 3 CAPSULES BY MOUTH AT BEDTIME. 3 Active ondansetron (ZOFRAN) 4 MG tablet 3 Active predniSONE (DELTASONE) 20 MG tablet TAKE 2 TABLETS BY MOUTH EVERY MORNING FOR 5 DAYS 3 Active Active Problems Problem Noted Date Diagnosed Date Blood in urine 01/29/2020 Cyst of kidney 01/29/2020 Recurrent urinary tract infection 01/29/2020 Type 2 diabetes mellitus 01/29/2020 Vitamin D deficiency 12/16/2017 Family History Medical History Relation Comments Diabetes Father Hypertension Father Diabetes Mother Hypertension Mother Stroke Mother Relation Status Comments Father Mother Social History Tobacco Use Types Packs/Day Years Used Date Smoking Tobacco: Smoker, Current Status Unknown Alcohol Use Standard Drinks/Week Comments No 0 (1 standard drink = 0.6 oz pur e alcohol) Comments Unknown Sex and Gender Information Value Date Recorded Sex Assigned at Not on file Legal Sex Female 4:31 PM EST Gender Identity Not on file Sexual Orientation Not on file Last Filed Vital Signs Vital Sign Reading Time Taken Comments Blood Pressure 130/86 01/13/2024 4:12 PM EDT Pulse - - Temperature - - Respiratory Rate - - Oxygen Saturation - - Inhaled Oxygen Concentration - - Weight 77.6 kg (171 lb) 07/17/2019 12:00 PM EDT Height 154.9 cm (5' 1 ) 07/17/2019 12:00 PM EDT Body Mass Index 32.31 07/17/2019 12:00 PM EDT Plan of Treatment Upcoming Encounters Date Type Department Care Team (Late st Contact Info) Description 02/01/2025 1:30 PM EDT Office Visit [facility] [address] [phone] Smooth Almonte MD [address] [facility] [place] [phone] Health Maintenance Due Date Last Done Comments Hepatitis B Vaccine (1 of 3 - 19+ 3-dose series) 1999 Pneumococcal Vaccine: Pediat rics (0 to 5 Years) and At-Risk Patients (6 to 64 Years) (2 of 2 - PCV) 06/26/2019 06/26/2018 Diabetes: Ophthalmology Exam 01/08/2020 Diabetes: Pedal Pulse Checked 01/08/2020 Diabetes: Sensory Foot Exam 01/08/2020 Diabetes: Visual Foot Exam 01/08/2020 Diabetes: Hemoglobin A1C 03/30/2023 12/28/2022 Influenza Vaccine (#1) 2024 3, 06/29/2022, 08/22/2021, Additional history exists Insurance MEDICAID [place] Care Teams Retail Reset Merchandiser Relationship Specialty Start Date End Date Catarina Davis MD [address] [place] [phone] PCP - General 08/11/19
--- OUTSIDE RECORDS SUMMARY | 2024-11-11 10:01 | XMS_ITS | Encounter Summary ---
Author Organization [employer] Address [address] [facility] [address] [place] [address] Care Team Providers Care Contracts Law Professor Name Role Phone Catarina Davis MD Primary Care Provider + Reason for Visit * Reason Onset Date Comments Durable Medical Equipment 08/21/2023 Encounter Details Date Type Department Care Team ([facility] st Contact Info) Description 08/21/2023 Telephone [facility] [address] [place], [place] [phone] Catarina Davis MD [address] [place], [place] [phone] Durable Medical Equipment Social History Tobacco Use Types Packs/Day Years [...] encounter Miscellaneous Notes * Telephone Encounter - Orly Higgins LPN - 08/21/2023 4:22 PM EST Please review message below , if agreed provide Add addendum to last note for the need and benefit to the DME being requested . Thank you * Telephone Encounter - Zach Jain - 08/21/2023 8:26 AM EST Tc from pt requesting a new script for knee brace. Would like script sent to [facility] Please contact at [phone] documented in this encounter Plan of Treatment Upcoming Encounters Date Type Department Care Team (Late st Contact Info) Description 11/25/2024 11:30 AM EST Telemedicine [facility] MEDICINE [address] [place] [phone] Catarina Davis MD [address] [place] [phone] 11/26/2024 9:00 AM EST Clinical Support [facility] [address] [place] [phone] Day Smith RN documented as of this encounter Visit Diagnoses Not on filedocumented in this encounter Additional Health Concerns Assessment Noted Time PHQ-9 Depression Total Score: 0 12/29/19 23 1:22 PM EDT documented as of this encounter Care Teams Contracts Law Professor Relationship Specialty Start Date End Date Catarina Davis MD [address] [place] [phone] PCP - General Family Medicine 10/15/17 documented as of this encounter
--- OUTSIDE RECORDS SUMMARY | 2024-11-11 10:01 | XMS_ITS | Encounter Summary ---
Author Organization [employer] Address [address] [facility] [address] [place] [address] Care Team Providers Care Plasterer Journeyman Name Role Phone Catarina Davis MD Primary Care Provider + Reason for Visit * Reason Onset Date Comments Med Refill 11/06/2024 Encounter Details Date Type Department Care Team (Late st Contact Info) Description 11/06/2024 Refill [facility] [address] [place], [place] [phone] Catarina Davis MD [address] [place], [place] [phone] Chronic midline low back pain, unspecified whether sciatica present Social History Tobacco Use Types Packs/Day Years [...] encounter Miscellaneous Notes * Telephone Encounter - Sara Tucker - 11/06/2024 1:38 PM EST TC from pt requesting medication refill. Medications needing refill : traMADol (Ultram) 50 MG tablet To be sent to: [facility][id number] documented in this encounter Plan of Treatment Upcoming Encounters Date Type Department Care Team (Late st Contact Info) Description 11/25/2024 11:30 AM EST Telemedicine [facility]INE [address] [place] [phone] Catarina Davis MD [address] [place] [phone] 11/26/2024 9:00 AM EST Clinical Support [facility] [address] [place] [phone] Day Smith, [place] documented as of this encounter Visit Diagnoses Diagnosis Chronic midline low back pain, unspecified whether sciatica present documented in this encounter Additional Health Concerns Assessment Noted Time PHQ-9 Depression Total Score: 0 12/29/19 23 1:22 PM EDT documented as of this encounter Care Teams Plasterer Journeyman Relationship Specialty Start Date End Date Catarina Davis MD [address] [place] [phone] PCP - General Family Medicine 10/15/17 documented as of this encounter
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
--- OUTSIDE RECORDS SUMMARY | 2024-11-11 10:01 | XMS_ITS | Encounter Summary ---
Author Organization [employer] Address 75 [facility] 7t [place] [address] Care Team Providers Care Technical Program Manager Name Role Phone Catarina Davis MD Primary Care Provider + Reason for Visit * Reason Comments Med Refill Encounter Details Date Type Department Care Team (Late st Contact Info) Description 10/06/2024 Refill [facility] MEDICINE 230 [place], [place] [phone] Catarina Davis MD 230 [place], [place] [phone] Cervical paraspinal muscle spasm Social History Tobacco Use Types Packs/Day Years [...] Info) Description 11/25/2024 11:30 AM EST Telemedicine [address] [address] Catarina Davis MD [address] [place] [address] 11/26/2024 9:00 AM EST Clinical Support [address] [address] Day Smith, [place] documented as of this encounter Visit Diagnoses Diagnosis Cervical paraspinal muscle spasm Spasm of muscle documented in this encounter Additional Health Concerns Assessment Noted Time PHQ-9 Depression Total Score: 0 12/29/19 23 1:22 PM EDT documented as of this encounter Care Teams Technical Program Manager Relationship Specialty Start Date End Date Catarina Davis MD [address] [place] [address] PCP - General Family Medicine 10/15/17 documented as of this encounter
--- OUTSIDE RECORDS SUMMARY | 2024-11-11 10:01 | XMS_ITS | Encounter Summary ---
Author Organization [employer] Address 75 [facility] 7t [place] [address] Care Team Providers Care Restaurant Kitchen Manager Name Role Phone Catarina Davis MD Primary Care Provider + Reason for Visit * Reason Comments Med Refill Encounter Details Date Type Department Care Team (Late st Contact Info) Description 08/14/2023 Refill [facility] MEDICINE 230 [place], [place] [phone] Catarina Davis MD 230 [place], [place] [phone] Neck sprain, sequela Social History Tobacco Use Types Packs/Day Years [...] Info) Description 11/25/2024 11:30 AM EST Telemedicine [address] [address] Catarina Davis MD [address] [place] [address] 11/26/2024 9:00 AM EST Clinical Support [address] [address] Day Smith, RN documented as of this encounter Visit Diagnoses Diagnosis Neck sprain, sequela documented in this encounter Additional Health Concerns Assessment Noted Time PHQ-9 Depression Total Score: 0 12/29/19 23 1:22 PM EDT documented as of this encounter Care Teams Restaurant Kitchen Manager Relationship Specialty Start Date End Date Catarina Davis MD [address] [place] [address] PCP - General Family Medicine 10/15/17 documented as of this encounter
--- OUTSIDE RECORDS SUMMARY | 2024-11-11 10:01 | XMS_ITS | Encounter Summary ---
Author Organization [facility] Address [address] [address] Phone Care Team Providers Care Membership Sales Advisor Name Role Phone Catarina Davis MD Primary Care Provider [phone] Encounter Details Date Type Department Care Team (Late st Contact Info) Description 01/11/2023 Documentation Only [facility] [address] [place] [address] Smooth Almonte MD [address] [place] [address] [place] [address] Social History Tobacco Use Types Packs/Day Years Used Date Smoking Tobacco: Smoker, Current Status Unknown Alcohol Use Standard Drinks/Week Comments No 0 (1 standard drink = 0.6 oz pur e alcohol) Comments Unknown Sex and Gender Information Value Date Recorded Sex Assigned at Not on file Legal Sex Female 4:31 PM EST Gender Identity Not on file Sexual Orientation Not on file documented as of this encounter Plan of Treatment Upcoming Encounters Date Type Department Care Team (Late st Contact Info) Description 02/01/2025 1:30 PM EDT Office Visit [facility] [address] [place] [address] Smooth Almonte MD [address] [place] [address] [place] [address] documented as of this encounter Visit Diagnoses Not on filedocumented in this encounter Care Teams Membership Sales Advisor Relationship Specialty Start Date End Date Catarina Davis MD [address] [place] [address] PCP - General 08/11/19 documented as of this encounter
== END 2024-11-11 10:08 | disposition home or self-care (01) ==
PROVIDERS: PCP Internal Medicine; Visit Provider Orthopaedic Surgery
DX: M17.0 Bilateral primary osteoarthritis of knee (principal)
CPT/HCPCS: 20610; 99213

== ENCOUNTER → 2024-11-11 09:30 | Outpatient (BNVA) | payer MEDICAID, SELFPAY | PROVIDERS: PCP Internal Medicine; Visit Provider Orthopaedic Surgery | DX: M17.0 Bilateral primary osteoarthritis of knee (principal) | CPT/HCPCS: 20610; 99212; J2003; J7323 ==

== ENCOUNTER 2024-11-18 09:18 | Outpatient (AMB) | payer MEDICAID, SELFPAY ==
--- NOTE | 2024-11-18 09:24 | MHC.OFFVIS ---
Vital Signs 11/18/24 09:25 Height 5 ft Weight 158 lb BMI 30.9 Intake Visit Reasons: Inj-Bilateral Euflexxa #2 Intake Note: Maya is a 44 year old female who presents today for her second dose of Euflexxa gel injections on both of her knees. The patient states that she has gotten mild relief from the 1st of injections. She continues with her exercise program. Allergies cephalexin [From KEFLEX] Allergy (Intermediate, Verified 11/11/24 09:37) RASH Medication List - Last Reconciled 11/18/24 by Aram Lewis MD acetaminophen (Tylenol Extra Strength) 500 mg PO Q6H PRN acetaminophen ER 650 mg PO Q8H PRN albuterol sulfate 90 mcg/actuation (Ventolin HFA) 2 puffs inhalation Q4H PRN fluticasone propionate 50 mcg/actuation 1 spray intranasal QAM gabapentin 300 mg PO BEDTIME loratadine 10 mg PO DAILY mometasone-formoterol 50-5 mcg/actuation (Dulera) 2 puffs inhalation Q12H omeprazole 20 mg PO DAILY tizanidine 4 mg PO Q8H PRN tramadol 50 mg PO TID PRN zolpidem 10 mg PO BEDTIME PFSH Medical History (Updated 11/11/24 @ 12:53 by Aram Lewis MD) Asthma Surgical History (Updated 10/05/24 @ 08:54 by SERGE Flores) Hx of hand surgery History of breast reconstruction Hx of abdominoplasty Hx of section History of esophagogastroduodenoscopy (EGD) Family History Maternal Aunt Breast CA Social History Alcohol intake: current Alcohol intake frequency: holidays/special occasions only Patient Tobacco Use Status: Current everyday Tobacco user Tobacco use type: Cigarette Cigarettes Per Day: 2 service: No Current occupational status: unemployed Physical Exam Vital Signs: BMI result Body Mass Index 30.9 Extrem Other: Bilateral knee examination shows minimal effusions, palpable crepitus with range of motion, pain with range of motion, no instability Office Procedures AMB Joint Injection/Aspiration Joint Injection/Aspiration Primary Site: left knee Prep: site was prepped using aseptic technique Injected: 20 mg of (Euflexxa viscosupplementation) and 1% plain lidocaine Procedure: The patient tolerated the procedure well Coding - Large joint Procedure code (CPT) selection complete AMB Joint Injection/Aspiration Joint Injection/Aspiration Primary Site: right knee Prep: site was prepped using aseptic technique Injected: 20 mg of (Euflexxa viscosupplementation) and 1% plain lidocaine Procedure: The patient tolerated the procedure well Coding 62321 - Large joint Procedure code (CPT) selection complete Results Reviewed Results Reviewed: X-rays of the patient's bilateral knees taken previously show joint space narrowing, subchondral sclerosis, no acute bony abnormalities Assessment & Plan Assessment & Plan (1) Osteoarthritis of left knee: Code(s): M17.12 - Unilateral primary osteoarthritis, left knee Category: Medical (2) Osteoarthritis of right knee: Code(s): M17.11 - Unilateral primary osteoarthritis, right knee Category: Medical Plan Ms. Hoyos presents with bilateral knee pains due to osteoarthritis. The risks and benefits of a 2nd set of Euflexxa injections were discussed at length with the patient. The patient wished to proceed. She tolerated the injections well. She will continue with her home exercise program. She will follow up as instructed. Feel free to call me at any time should questions regarding her orthopedic management arise. Orders: Orders AMB Joint Injection/Aspiration Today M17.12 - Unilateral primary osteoarthritis, left knee AMB Joint Injection/Aspiration Today M17.11 - Unilateral primary osteoarthritis, right knee Coding Level of Care Code Procedure Only Diagnoses Osteoarthritis of left knee M17.12 Osteoarthritis of right knee M17.11 CPT Codes Coding - 51246 Large joint: 14449 - Large joint ([id number]) Coding - 70175 Large joint: 91291 - Large joint ([id number])
[2024-11-18 09:25] VITALS: BMI 30.9
--- OUTSIDE RECORDS SUMMARY | 2024-11-18 10:20 | XMS_ITS | Encounter Summary ---
Author Organization [employer] Address [address] [facility] 7t [place] [address] Care Team Providers Care Soldering Inspector Name Role Phone Catarina Davis MD Primary Care Provider + Reason for Visit * Reason Onset Date Comments Appointment Request 11/17/2024 Encounter Details Date Type Department Care Team ([facility] st Contact Info) Description 11/17/2024 Telephone [facility] MEDICINE 230 [place] [address] Catarina Davis MD 230 [place], [place] [phone] Appointment Request Social History Tobacco Use Types Packs/Day Years Used Date Smoking Tobacco: Every Day Cigarettes Passive Smoke Exposure: Current Smokeless Tobacco: Never Alcohol Use Standard Drinks/Week Comments Not Currently 0 (1 standard drink = 0.6 oz pur e alcohol) oca Depression Answer Date Recorded Patient Health Questionnaire-9 Score 0 12/28/2022 Housing Stability Answer Date Recorded What is your housing situation today? I have jax hathc 02/10/[address] you li [...] encounter Miscellaneous Notes * Telephone Encounter - Ruma Jackson MA - 11/17/2024 2:13 PM EST Tc to pt to r/s appt from 11/25/24 as PCP will be in that afternoon. Pt has been scheduled for 11/25/24 at 2:30 pm. documented in this encounter Plan of Treatment Upcoming Encounters Date Type Department Care Team (Late st Contact Info) Description 11/25/2024 2:30 PM EST Telemedicine [facility] MEDICINE [address] [place] [address] Catarina Davis MD [address] [place] [address] 11/26/2024 9:00 AM EST Clinical Support [facility] [address] [place] [address] Day Smith, [place] documented as of this encounter Visit Diagnoses Not on filedocumented in this encounter Additional Health Concerns Assessment Noted Time PHQ-9 Depression Total Score: 0 12/29/19 23 1:22 PM EDT documented as of this encounter Care Teams Soldering Inspector Relationship Specialty Start Date End Date Catarina Davis MD [address] [place] [address] PCP - General Family Medicine 10/15/17 documented as of this encounter
--- OUTSIDE RECORDS SUMMARY | 2024-11-18 10:21 | XMS_ITS | Clinical Summary ---
Author Organization [facility] Address [address] [place] [address] [place] [address] Phone Care Team Providers Care Agency Owner Name Role Phone Catarina Davis MD Primary [...] Visit [facility] [address] [place] [phone] Smooth Almonte MD [address] [facility] [place] [phone] Health Maintenance Due Date Last Done Comments [...] history exists Insurance MEDICAID [place] Care Teams Agency Owner Relationship Specialty Start Date End Date Catarina Davis MD [address] [place] [address] PCP - General 08/11/19
--- OUTSIDE RECORDS SUMMARY | 2024-11-18 10:21 | XMS_ITS | Encounter Summary ---
Author Organization [employer] Address 75 [facility] 7t [place] [address] Care Team Providers Care Fender Finisher Name Role Phone Catarina Davis MD Primary Care Provider + Reason for Visit * Reason Comments Med Refill Encounter Details Date Type Department Care Team (Late st Contact Info) Description 08/14/2023 Refill [facility] MEDICINE 230 [place], [place] [phone] Catarina Davis MD 230 [place], [place] [phone] Neck sprain, sequela Social History Tobacco Use [...] Info) Description 11/25/2024 2:30 PM EST Telemedicine [address] [address] Catarina Davis MD [address] [place] [address] 11/26/2024 9:00 AM EST Clinical Support [address] [address] Day Smith, RN documented as of this encounter Visit Diagnoses Diagnosis Neck sprain, sequela documented in this encounter Additional Health Concerns Assessment Noted Time PHQ-9 Depression Total Score: 0 12/29/19 23 1:22 PM EDT documented as of this encounter Care Teams Fender Finisher Relationship Specialty Start Date End Date Catarina Davis MD [address] [place] [address] PCP - General Family Medicine 10/15/17 documented as of this encounter
--- OUTSIDE RECORDS SUMMARY | 2024-11-18 10:21 | XMS_ITS | Encounter Summary ---
Author Organization [employer] Address 75 [facility] 7t [place] [address] Care Team Providers Care Dynamo Repairer Name Role Phone Catarina Davis MD Primary Care Provider + Encounter Details Date Type Department Care Team (Late st Contact Info) Description 11/09/2024 Telephone [facility] MEDICINE 230 [place], [place] [phone] Catarina Davis MD 230 [place], [place] [phone] Social History Tobacco Use Types Packs/Day Years [...] t he electric, gas, oil or water [employer] threatened to shut off services in your [...] Info) Description 11/25/2024 2:30 PM EST Telemedicine [address] [address] Catarina Davis MD [address] [place] [address] 11/26/2024 9:00 AM EST Clinical Support [address] [address] Day Smith, [place] documented as of this encounter Visit Diagnoses Not on filedocumented in this encounter Additional Health Concerns Assessment Noted Time PHQ-9 Depression Total Score: 0 12/29/19 23 1:22 PM EDT documented as of this encounter Care Teams Dynamo Repairer Relationship Specialty Start Date End Date Catarina Davis MD [address] [place] [address] PCP - General Family Medicine 10/15/17 documented as of this encounter
--- OUTSIDE RECORDS SUMMARY | 2024-11-18 10:21 | XMS_ITS | Encounter Summary ---
Author Organization [employer] Address [address] [place] [address] 7t [place] [address] Care Team Providers Care Retirement Benefits Specialist Name Role Phone Catarina Davis MD Primary Care Provider + Encounter Details Date Type Department Care Team (Latest Contact Info) Description 03/19/2019 Abstract [facility] CONVERSIONS Dental, Provider, DDS Social [...] Info) Description 11/25/2024 2:30 PM EST Telemedicine [facility] MEDICINE [address] [place] [address] Catarina Davis MD [address] [place] [address] 11/26/2024 9:00 AM EST Clinical Support [address] [address] Day Smith RN documented as of this encounter Visit Diagnoses Not on filedocumented in this encounter Care Teams Retirement Benefits Specialist Relationship Specialty Start Date End Date Catarina Davis MD [address] [place] [address] PCP - General Family Medicine 10/15/17 documented as of this encounter
--- OUTSIDE RECORDS SUMMARY | 2024-11-18 10:21 | XMS_ITS | Encounter Summary ---
Author Organization [employer] Address 75 [facility] 7t [place] [address] Care Team Providers Care Construction Grip Name Role Phone Catarina Davis MD Primary Care Provider + Reason for Visit * Reason Comments Med Refill Encounter Details Date Type Department Care Team (Late st Contact Info) Description 10/06/2024 Refill [facility] MEDICINE 230 [place], [place] [phone] Catarina Davis MD 230 [place], [place] [phone] Cervical paraspinal muscle spasm Social History Tobacco [...] Info) Description 11/25/2024 2:30 PM EST Telemedicine [address] [address] Catarina Davis MD [address] [place] [address] 11/26/2024 9:00 AM EST Clinical Support [address] [address] Day Smith, [place] documented as of this encounter Visit Diagnoses Diagnosis Cervical paraspinal muscle spasm Spasm of muscle documented in this encounter Additional Health Concerns Assessment Noted Time PHQ-9 Depression Total Score: 0 12/29/19 23 1:22 PM EDT documented as of this encounter Care Teams Construction Grip Relationship Specialty Start Date End Date Catarina Davis MD [address] [place] [address] PCP - General Family Medicine 10/15/17 documented as of this encounter
--- OUTSIDE RECORDS SUMMARY | 2024-11-18 10:21 | XMS_ITS | Encounter Summary ---
Author Organization [employer] Address 75 [facility] 7t [place] [address] Care Team Providers Care Rock Mason Apprentice Name Role Phone Catarina Davis MD Primary Care Provider + Reason for Visit * Reason Onset Date Comments FYI 11/01/2023 Encounter Details Date Type Department Care Team ([facility] st Contact Info) Description 11/01/[address] [facility] MEDICINE 230 [place], [place] [phone] Catarina Davis MD 230 [place], [place] [phone] FYI Social History Tobacco Use Types Packs/Day [...] Info) Description 11/25/2024 2:[address] [facility] MEDICINE [address] [place] [address] Catarina Davis MD 230 [place] [address] 11/26/2024 9:00 AM EST Clinical Support [address] [address] Day Smith, [place] documented as of this encounter Visit Diagnoses Not on filedocumented in this encounter Additional Health Concerns Assessment Noted Time PHQ-9 Depression Total Score: 0 12/29/19 23 1:22 PM EDT documented as of this encounter Care Teams Rock Mason Apprentice Relationship Specialty Start Date End Date Catarina Davis MD [address] [place] [address] PCP - General Family Medicine 10/15/17 documented as of this encounter
--- OUTSIDE RECORDS SUMMARY | 2024-11-18 10:21 | XMS_ITS | Clinical Summary ---
Author Organization [facility] it Address [address] [place] [address] Care Team Providers Care Dewer Name Role Phone RoseliaMaggie lubin Primary Care Provider [phone] Surgical History Surgery Date Site/Laterality Comments TONSILLECTOMY [...] at Not on file Legal Sex Female 10:12 AM EST Gender Identity Not on file Sexual [...] Sugar Control Test (HGBA1C) 11/22/2023 COVID-19 Vaccine (4 - season) 2024 11/15/2021, 05/16/2021, 04/26/2021 Influenza Vaccine (#1) 2024 , 08/22/2021, 06/26/2020, Additional history exists DTaP,Tdap,and Td [...] patient's age to complete this topic Meningococcal B Vacine Aged Out No lo nger eligible based on patient's age to complete this topic RSV Immunization Patients Under 20 months Aged Out No longer eligible based on patient's age to complete this topic Varicella Vaccines Aged Out No longer eligible based on patient's age to complete this topic Advance Directives Documents on File Type Date Recorded Patient Tobacco Sizer Expl anation Health Care Decision (hx) 05/06/2017 AD REESE DIRECTIVE Health Care Decision (hx) 05/06/2017 AD REESE DIRECTIVE Care Teams Dewer Relationship Specialty Start Date End Date Maggie Cazares DO [address] [place] [address] PCP - General 04/24/23
--- OUTSIDE RECORDS SUMMARY | 2024-11-18 10:21 | XMS_ITS | Clinical Summary ---
Author Organization [employer] Address [address] [place] [address] 7t [place] [address] Care Team Providers Care Medical Affairs Director Name Role Phone Catarina Davis MD Primary [...] 12 HOURS 11/12/19 24 Active nystatin (Mycostatin) 633843 UNIT/ML suspension SWISH AND SWALLOW 5ML FOUR [...] Encounters Date Type Department Care Team Description 11/17/2024 Telephone [facility] [address] [place] [address] Catarina Davis MD Appointment Request 11/10/2024 Telephone [facility] [address] [place] [address] Day Smith RN REschedule FACILITY PLANNER appt from 11/09/24 11/09/2024 Telephone [facility] [address] [place] [address] Catarina Davis MD 11/06/2024 Refill [facility] [address] [place] [address] Catarina Davis MD Chronic midline low back pain, unspecified whether sciatica present 10/08/2024 Refill [facility] [address] [place] [address] Catarina Davis MD Chronic midline low back pain, unspecified whether sciatica present 10/06/2024 Refill [facility] [address] [place] [address] Catarina Davis MD Cervical paraspinal muscle spasm 10/01/2024 Telephone [facility] [address] [place] [address] Catarina Davis MD November09/09/2024 Refill [facility] [address] [place] [address] Catarina Davis MD Chronic midline low back pain, unspecified whether sciatica present 08/27/2024 11:30 AM EST Clinical Support [address] [address] Day Smith RN Chronic midline low back pain with sciatica, sciatica laterality unspecified (Primary Dx) 08/27/2024 Travel 08/20/2024 9:00 AM EST Office Visit [address] [address] Catarina Davis MD Pre-hypertension (Primary Dx); Gastroesophageal [...] Info) Description 11/25/2024 2:30 PM EST Telemedicine [facility] [address] [place] [phone] Catarina Davis MD [address] [place] [address] 11/26/2024 9:00 AM EST Clinical Support [facility] [address] [place] [address] Day Smith, [place] Health Maintenance Due Date [...] Additional history exists Dental X-Ray: Bitewings 09/19/2020 09/18/20 19, 04/30/2019, 09/18/2018, Additional history exists Dental X-Ray: Full Mouth 05/01/2022 04/30/2019, 11/03/2014 Diabetes: Urine Protein Screening 05/23/2022 05/23/2021 Depression Screening 12/29/2023 12/28/2022, 12/29/19 23 COVID-19 Vaccine ( season) 2024 09/25/2022, 11/15/2021, 05/16/2021, Additional history exists Mammogram 11/07/2024 11/07/2023 Diabetes: Hemoglobin A1C 11/22/2024 024, 08/09/2023, 01/25/2023, Additional history exists Eye Exam 01/28/2025 01/28/2023, 04/2 01/2023, 01/28/2023, Additional history exists SDOH Screening 02/09/2025 [...] EST Narrative 09/15/2024 4:06 PM EST ? [facility] ?[address] ?[place] [address] ? Magnetic Resonance Report ? Signed ? Patient: Hoyos,Maya ?MR#: [id number] ?? 13 ? : 1980 ?Acct:[id number] ? Age/Sex: 44 / F ?ADM Date: 08/30/24 ? Loc: HO.MRI ? Attending Dr: Aram Lewis MD ? Ordering Physician: Aram Lewis MD ?? Date of Service: 08/30/24 ?? Procedure(s): MR knee RT wo con ?? Accession Number(s): [id number] ? cc: Catarina Davis MD; Aram Lewis [...] signed by Topher Avila MD in OV> ?12/10/ 1603 ? DD/ 0755 ? TD/TT: 08/30/24 0825 ? Dip Filler: WG ? Procedure Note Tyler, July - 09/15/2024 [place] [address] Magnetic Resonance Report Signed Patient: Monica HoyosnMR#: [id number] 13 : 1980Acct:[id number] Age/Sex: 44 / FADM Date: 08/30/24 Loc: HO.MRI Attending Dr: Aram Lewis MD Ordering Physician: Aram Lewis MD Date of Service: 08/30/24 Procedure(s): MR knee RT wo con Accession Number(s): [id number] cc: Catarina Davis MD; Aram Lewis MD [...] 09/15/24 1603 DD/ 0755 TD/TT: 08/30/24 0825 Dip Filler: MELVIN [facility] External Provider IMG MRI PROCEDURES Final Result * POCT FLORENTIN-14 Urine Drug Screen (08/27/2024 11:50 AM EST) Urine Urine specimen obtained by clean catch procedure / Unknown 08/27/2024 11:50 AM EST Narrative Day Smith RN - 08/27/2024 11:50 AM EST UTOX cup Lot#[id number] Exp. 05/26/26 Internal Pass Control Negative for all substances Catarina Davis MD POINT OF CARE TEST ENTER /EDIT ORDERABLES Final Result * POCT Glucose (08/20/2024 9:17 AM EST) Glucose Blood, POC 127 60 - 200 mg/dL QC Media Lot # [id number] Lot# Expiration Date ,637,533 Blood Capillary blood specimen / Unknown 08/20/2024 9:17 AM EST Catarina Davis MD POINT OF CARE TEST ENTER /EDIT ORDERABLES Final Result * Vitamin D, 25-Hydroxy, Total, Immunoassay (08/19/2024 9:00 AM EST) Vitamin D 25-OH Total 36.4 >30 ng/mL [facility] Comment:Health Based Referen ce Values*< 20 ng/mL Exblgjjaw59-48 ng/mL Insufficient> 30 ng/mL Sufficient*Kendra RAMIREZ. N [...] ORDERABLES Fin al Result Performing Organization Address [facility]/ZIP Co de Phone Number [facility] [address] [place] [phone] * TSH with Reflex to Free T4 (08/19/2024 9:00 AM EST) Pathologist [facility] TSH reflex Free T4 0.81 0.32 - 4.0 uIU/mL [facility] Blood 08/19/2024 9:00 AM EST 08/19/2024 10:46 AM EST Catarina Davis MD LAB BLOOD ORDERABLES Fin al Result Performing Organization Address [facility]/ZIP Co de Phone Number [facility] [address] [place] [phone] * Lipid Panel with Reflex to Direct LDL (08/19/2024 9:00 AM EST) Triglycerides 29 <150 mg/dL [facility] Comment:Desirable Triglyceri de: less than 150 mg/dLBorderline High Triglyceride 150-199 mg/dLHigh Triglyceride: 200-499 mg/dLVery High Triglyceride: greater than or equal to 5OO mg/dL Cholesterol 112 <200 mg/dL [facility] Comment:Desirable Cholestero l: less than 200 mg/dLBorderline High Cholesterol: 200-239 mg/dLHigh Cholesterol: greater than 239 mg/dL LDL Cholesterol Calculated 56 <100 mg/dL [facility] Comment:Desirable LDL: less than 100 mg/dLNear Optimal/Above Optimal LDL: 110- 129 mg/dLBorderline High LDL: 130-159 mg/dLHigh LDL: 160-189 mg/dLVery High LDL: greater than or equal to 190 mg/dL HDL Cholesterol 51 >40 mg/dL [facility] Comment:Desirable HDL: great er than 40 mg/dL Note: This HDL assay may give artificially low results in patients with liver disease. Blood 08/19/2024 9:00 AM EST 08/19/2024 10:46 AM EST Catarina Davis MD LAB BLOOD ORDERABLES Fin al Result [facility] [address] [place] [address] [phone] * POCT HGB A1C (05/22/2024 12:18 PM EDT) Hemoglobin A1C 5.7 4.0 - 6.0 % QC Media Lot # [id number] Lot# Expiration Date ,259,921 Blood 05/22/2024 12:1 8 PM EDT Catarina Davis MD POINT OF CARE TEST ENTER /EDIT ORDERABLES Final Result * Mammography (11/07/2023) HM Mammogram Normal Anatomical Region Laterality Modality Other Catarina Davis MD HEALTH MAINTENANCE Final Result * (ABNORMAL) Hepatitis Panel, General (01/10/2023 9:11 AM EDT) Hepatitis A Antibody Total NON-REACT ANDREE NON-REACT ANDREE [facility] Comment: For additional information, please refer to http://ANTERIOS.[employer]/faq/LPQ222 (This link is being provided for informational/ educational purposes only.) Hepatitis B Surface Antibody QL REACTIVE( A) NON-REACT ANDREE [facility] Hepatitis B Surface Ag NON-REACT ANDREE NON-REACT ANDREE [facility] Hepatitis B Core Antibody Total NON-REACT ANDREE NON-REACT ANDREE [facility] Hepatitis C Antibody NON-REACT ANDREE NON-REACT ANDREE [facility] Index 0.21 <1.00 [facility] Comment: HCV antibody was non-reactive. There is no laboratory evidence of HCV infection. In most cases, no further action is required. However, if recent HCV exposure is suspected, a test for HCV RNA (test code 21158) is suggested. For additional information please refer to http://ANTERIOS.[employer]/faq/GKN91k2 (This link is being provided for informational/ educational purposes only.) 01/10/2023 9:11 AM EDT 01/10/2023 9:12 AM EDT Narrative [facility] - 01/10/2023 8:56 PM EDT FASTING:YES FASTING: YES Catarina Davis MD LAB BLOOD ORDERABLES Fin al Result [facility] [address], [place] [address] [facility] [address] [place] [address] * HIV-1/2 Antigen and Antibodies, Fourth Generation, with Reflexes (01/10/2023 9:11 AM EDT) Pathologist [facility] HIV Antigen/Antibody, 4th Generation NON-REAC TIVE NON-REAC TIVE [facility] [employer] [employer] Comment: HIV-1 antigen and HIV-1/HIV-2 antibodies were [...] ?? For additional information please refer to http://education.[employer]/faq/BRB120 (This link is being provided for informational/ educational purposes only.) The performance of this assay has not been clinically validated in patients less than 2 years old. Blood Venous blood specimen / Unknown 01/10/2023 9:11 AM EDT 01/10/2023 9:12 AM EDT Narrative [facility] - 01/10/2023 8:56 PM EDT FASTING:YES FASTING: YES Catarina Davis MD LAB BLOOD ORDERABLES [facility] al Result [address], [place] [address] [facility] [address] * Thinprep TIS PAP And HPV mRNA E6/E7 With Reflex To HPV 16,18/45 (09/24/2022 3:53 PM EST) Clinical Information: None given [facility] LMP: NONE GIVEN [facility] Prev. PAP: NONE GIVEN [facility] Prev. BX: NONE GIVEN [facility] SOURCE: None given [facility] Statement Of Adequacy: [facility] Comment: Satisfactory for evaluation. Endocervical/transformation zone component absent. Age and/or menstrual status not provided Interpretation/ Result: Negative for intraepithelial lesion or malignancy. [facility] COMMENT: This Pap test has been evaluated with computer assisted technology. [facility] Cytotechnologis t: [facility] Comment: BK,CT(ASCP) CT screening location: [address] (Always Message) [facility] Comment: EXPLANATORY NOTE: The Pap is a [...] HPV nRNA E6/E7 Not Detected Not Detected [facility] Comment: Methodology: Enrobing Machine Feeder-Mediated Amplification This assay detects E6/E7 viral messenger RNA (mRNA) from 14 high-risk HPV types (16,18,31,33,35,39,45,51,52,56,58,59,66,68). Cervical sources are required for HPV testing. If a vaginal source from a patient who has had a total hysterectomy with removal of cervix was submitted, please contact the testing laboratory for alternative testing options. For additional information, please refer to http://education.[employer]/faq/EDZ472v8 (This link if provided for information/ educational purposes only.) 09/24/2022 3:53 PM EST 09/25/2022 10:09 AM EST Narrative [facility] - 09/28/2022 3:45 PM EST FASTING: UNKNOWN Catarina Davis MD LAB PATHOLOGY ORDERABLES Final Result [facility] [address], [place] [address] [facility] [address] [facility], (N[address]) [place] [address] * ALBUMIN, RANDOM URINE W/CREATININE (05/23/2021 1:55 PM EDT) Microalbumin Urine 0.2 See Note: mg/dL [facility] Comment: Reference Range: ?? Reference [...] Creatinine, Urine 71 20 - 275 mg/dL [facility] 05/23/2021 1:55 PM EDT us Catarina Davis MD LAB URINE ORDERABLES Fin al Result [facility] [address] from Last 3 Months or Most Recently Relevant to Health Maintenance Insurance C3 [facility] MEDICAID STAND ADULT Care Teams Medical Affairs Director Relationship Specialty Start Date End Date Catarina Davis MD [address] [place] [phone] PCP - General Family Medicine 10/15/17
--- OUTSIDE RECORDS SUMMARY | 2024-11-18 10:21 | XMS_ITS | Encounter Summary ---
Author Organization [employer] Address [address] [facility] 7t [place] [address] Care Team Providers Care Risk Officer Name Role Phone Catarina Davis MD Primary Care Provider + Reason for Visit * Reason Onset Date Comments Med Refill 11/06/2024 Encounter Details Date Type Department Care Team (Late st Contact Info) Description 11/06/2024 Refill [facility] [address] [place], [place] [phone] Catarina Davis MD [address] [place], [place] [phone] Chronic midline low back pain, unspecified whether [...] 50 MG tablet To be sent to: [facility] [employer] #[id number] documented in this encounter Plan of Treatment Upcoming Encounters Date Type Department Care Team (Late st Contact Info) Description 11/25/2024 2:30 PM EST Telemedicine [facility] [address] [place] [phone] Catarina Davis MD [address] [place] [phone] 11/26/2024 9:00 AM EST Clinical Support [facility] [address] [place] [phone] Day Smith RN documented as of this encounter Visit Diagnoses Diagnosis Chronic midline low back pain, unspecified whether sciatica present documented in this encounter Additional Health Concerns Assessment Noted Time PHQ-9 Depression Total Score: 0 12/29/19 23 1:22 PM EDT documented as of this encounter Care Teams Risk Officer Relationship Specialty Start Date End Date Catarina Davis MD [address] [place] [phone] PCP - General Family Medicine 10/15/17 documented as of this encounter
--- OUTSIDE RECORDS SUMMARY | 2024-11-18 10:21 | XMS_ITS | Encounter Summary ---
Author Organization [facility] Address [address] [address] Phone Care Team Providers Care Brand Marketing Specialist Name Role Phone Catarina Davis MD Primary Care Provider [phone] Encounter Details Date Type Department Care Team (Late st Contact Info) Description 01/11/2023 Documentation Only [facility] [address] [place] [address] Smooth Almonte MD [address] [place] [address] [place] [address] Social History Tobacco Use Types [...] Visit [facility] [address] [place] [address] Smooth Almonte MD [address] [place] [address] [place] [address] documented as of this encounter Visit Diagnoses Not on filedocumented in this encounter Care Teams Brand Marketing Specialist Relationship Specialty Start Date End Date Catarina Davis MD [address] [place] [address] PCP - General 08/11/19 documented as of this encounter
--- OUTSIDE RECORDS SUMMARY | 2024-11-18 10:21 | XMS_ITS | Encounter Summary ---
Author Organization [employer] Address [address] [facility] 7t [place] [address] Care Team Providers Care Drip Molder Name Role Phone Catarina Davis MD Primary Care Provider + Reason for Visit * Reason Onset Date Comments REschedule PARENTING SKILLS INSTRUCTOR appt from 11/09/24 11/10/2024 Encounter Details Date Type Department Care Team (Late st Contact Info) Description 11/10/2024 Telephone [facility] [address] [place] [address] Day Smith RN REschedule PARENTING SKILLS INSTRUCTOR appt from 11/09/24 Social History Tobacco Use [...] Info) Description 11/25/2024 2:30 PM EST Telemedicine [address] [address] Catarina Davis MD [address] [place] [phone] 11/26/2024 9:00 AM EST Clinical Support [address] [address] Day Smith, RN documented as of this encounter Visit Diagnoses Not on filedocumented in this encounter Additional Health Concerns Assessment Noted Time PHQ-9 Depression Total Score: 0 12/29/19 23 1:22 PM EDT documented as of this encounter Care Teams Drip Molder Relationship Specialty Start Date End Date Catarina Davis MD [address] [place] [phone] PCP - General Family Medicine 10/15/17 documented as of this encounter
--- OUTSIDE RECORDS SUMMARY | 2024-11-18 10:21 | XMS_ITS | Encounter Summary ---
Author Organization [employer] Address [address] [facility] 7t [place] [address] Care Team Providers Care Maintenance Electrician Name Role Phone Catarina Davis MD Primary Care Provider + Reason for Visit * Reason Onset Date Comments Durable Medical Equipment 08/21/2023 Encounter Details Date Type Department Care Team ([facility] st Contact Info) Description 08/21/2023 Telephone [facility] [address] [place], [place] [phone] Catarina Davis MD [address] [place], [place] [phone] Durable Medical Equipment Social History Tobacco Use [...] script sent to [facility] Please contact at [phone] documented in this encounter Plan of Treatment Upcoming Encounters Date Type Department Care Team (Late st Contact Info) Description 11/25/2024 2:30 PM EST Telemedicine [facility] [address] [place] [phone] Catarina Davis MD [address] [place] [phone] 11/26/2024 9:00 AM EST Clinical Support [address] [address] Day Smith RN documented as of this encounter Visit Diagnoses Not on filedocumented in this encounter Additional Health Concerns Assessment Noted Time PHQ-9 Depression Total Score: 0 12/29/19 23 1:22 PM EDT documented as of this encounter Care Teams Maintenance Electrician Relationship Specialty Start Date End Date Catarina Davis MD [address] [place] [address] PCP - General Family Medicine 10/15/17 documented as of this encounter
== END 2024-11-18 09:59 | disposition home or self-care (01) ==
PROVIDERS: PCP Internal Medicine; Visit Provider Orthopaedic Surgery
DX: M17.0 Bilateral primary osteoarthritis of knee (principal)
CPT/HCPCS: 20610

== ENCOUNTER → 2024-11-18 09:18 | Outpatient (BNVA) | payer MEDICAID, SELFPAY | PROVIDERS: PCP Internal Medicine; Visit Provider Orthopaedic Surgery | DX: M17.0 Bilateral primary osteoarthritis of knee (principal) | CPT/HCPCS: 20610; J2003; J7323 ==

== ENCOUNTER 2024-11-30 11:16 | Outpatient (AMB) | payer MEDICAID, SELFPAY ==
[2024-11-30 11:24] VITALS: BMI 30.9
--- NOTE | 2024-11-30 11:24 | MHC.OFFVIS ---
Vital Signs 11/30/24 11:24 Height 5 ft Weight 158 lb BMI 30.9 Intake Visit Reasons: Inj-Bilateral Euflexxa #3 Intake Note: Maya is a 44 year old female who presents today for her third dose of Euflexxa gel injections for both of her knees. She states she has gotten mild relief from the 1st 2 injections. She continues with her exercise program. Allergies cephalexin [From KEFLEX] Allergy (Intermediate, Verified 11/30/24 11:24) RASH Medication List - Last Reconciled 12/01/24 by Aram Lewis MD acetaminophen (Tylenol Extra Strength) 500 mg PO Q6H PRN acetaminophen ER 650 mg PO Q8H PRN albuterol sulfate 90 mcg/actuation (Ventolin HFA) 2 puffs inhalation Q4H PRN fluticasone propionate 50 mcg/actuation 1 spray intranasal QAM gabapentin 300 mg PO BEDTIME loratadine 10 mg PO DAILY mometasone-formoterol 50-5 mcg/actuation (Dulera) 2 puffs inhalation Q12H omeprazole 20 mg PO DAILY tizanidine 4 mg PO Q8H PRN tramadol 50 mg PO TID PRN zolpidem 10 mg PO BEDTIME PFSH Medical History (Updated 11/11/24 @ 12:53 by Aram Lewis MD) Asthma Surgical History (Updated 10/05/24 @ 08:54 by SERGE Flores) Hx of hand surgery History of breast reconstruction Hx of abdominoplasty Hx of section History of esophagogastroduodenoscopy (EGD) Family History Maternal Aunt Breast CA Social History Alcohol intake: current Alcohol intake frequency: holidays/special occasions only Patient Tobacco Use Status: Current everyday Tobacco user Tobacco use type: Cigarette Cigarettes Per Day: 2 service: No Current occupational status: unemployed Physical Exam Vital Signs: BMI result Body Mass Index 30.9 Extrem Other: Bilateral knee examination shows minimal effusions, palpable crepitus with range of motion, pain with range of motion, no instability Office Procedures AMB Joint Injection/Aspiration Joint Injection/Aspiration Primary Site: left knee Prep: site was prepped using aseptic technique Injected: 20 mg of (Euflexxa viscosupplementation) and 1% plain lidocaine Procedure: The patient tolerated the procedure well Coding 59058 - Large joint Procedure code (CPT) selection complete AMB Joint Injection/Aspiration Joint Injection/Aspiration Primary Site: right knee Prep: site was prepped using aseptic technique Injected: 20 mg of (Euflexxa viscosupplementation) and 1% plain lidocaine Procedure: The patient tolerated the procedure well Coding - Large joint Procedure code (CPT) selection complete Assessment & Plan Assessment & Plan (1) Osteoarthritis of left knee: Code(s): M17.12 - Unilateral primary osteoarthritis, left knee Category: Medical (2) Osteoarthritis of right knee: Code(s): M17.11 - Unilateral primary osteoarthritis, right knee Category: Medical Plan Ms. Hoyos presents with bilateral knee pains due to osteoarthritis. The risks and benefits of a 3rd set of Euflexxa viscosupplementation injections were discussed at length with the patient. The patient wished to proceed. She tolerated the injections well. She will continue with her exercise program. She will contact me prior to her follow-up appointment in 3 months should any questions or concerns arise. Feel free to call me at any time should questions regarding her orthopedic management arise. Orders: Orders AMB Joint Injection/Aspiration 11/30/24 M17.12 - Unilateral primary osteoarthritis, left knee AMB Joint Injection/Aspiration 11/30/24 M17.11 - Unilateral primary osteoarthritis, right knee Coding Level of Care Code Procedure Only Diagnoses Osteoarthritis of left knee M17.12 Osteoarthritis of right knee M17.11 CPT Codes Coding - 17063 Large joint: 16205 - Large joint ([id number]) Coding - 45695 Large joint: 12311 - Large joint ([id number])
--- OUTSIDE RECORDS SUMMARY | 2024-11-30 12:57 | XMS_ITS | Encounter Summary ---
Author Organization [employer] Address [address] [place] [address] 7t [place] [address] Care Team Providers Care Clinical Resource Nurse Name Role Phone Catarina Davis MD Primary Care Provider + Encounter Details Date Type Department Care Team (Latest Contact Info) Description 03/19/2019 Abstract [facility] Dental, Provider, DDS Social History Tobacco [...] Care Team (Late st Contact Info) Description 02/02/2025 9:00 AM EDT Office Visit [facility] [address] [place] [phone] Catarina Davis MD [address] [place] [phone] 02/23/2025 11:30 AM EDT Clinical Support [facility] [address] [place] [address] [phone] Day Smith RN documented as of this encounter Visit Diagnoses Not on filedocumented in this encounter Care Teams Clinical Resource Nurse Relationship Specialty Start Date End Date Catarina Davis MD [address] [place] [address] [phone] PCP - General Family Medicine 10/15/17 documented as of this encounter
--- OUTSIDE RECORDS SUMMARY | 2024-11-30 12:57 | XMS_ITS | Encounter Summary ---
Author Organization [employer] Address [address] [facility] 7t [place] [address] Care Team Providers Care Glove Tagger Name Role Phone Catarina Davis MD Primary Care Provider + Reason for Visit * Reason Comments Med Refill Encounter Details Date Type Department Care Team (Late st Contact Info) Description 10/06/2024 Refill [facility] [address] [place], [place] [phone] Catarina Davis MD [address] [place], [place] [phone] Cervical paraspinal muscle spasm Social History Tobacco [...] Description 02/02/2025 9:00 AM EDT Office Visit [address] [address] Catarina Davis MD [address] [place] [phone] 02/23/2025 11:30 AM EDT Clinical Support [address] [address] Day Smith RN documented as of this encounter Visit Diagnoses Diagnosis Cervical paraspinal muscle spasm Spasm of muscle documented in this encounter Additional Health Concerns Assessment Noted Time PHQ-9 Depression Total Score: 0 12/29/19 23 1:22 PM EDT documented as of this encounter Care Teams Glove Tagger Relationship Specialty Start Date End Date Catarina Davis MD [address] [place] [phone] PCP - General Family Medicine 10/15/17 documented as of this encounter
--- OUTSIDE RECORDS SUMMARY | 2024-11-30 12:57 | XMS_ITS | Clinical Summary ---
Author Organization [facility], Address [address] [place] [address] [place] [address] Phone Care Team Providers Care Flexographic Printing Machinist Name Role Phone Catarina Davis MD Primary [...] Visit [facility] [address] [place] [phone] Smooth Almonte MD [address] [place] [phone] Health Maintenance Due Date Last Done Comments [...] history exists Insurance MEDICAID [place] Care Teams Flexographic Printing Machinist Relationship Specialty Start Date End Date Catarina Davis MD [address] [place] [phone] PCP - General 08/11/19
--- OUTSIDE RECORDS SUMMARY | 2024-11-30 12:57 | XMS_ITS | Encounter Summary ---
Author Organization [employer] Address [address] [facility] 7t [place] [address] Care Team Providers Care Gas Plant Repairer Name Role Phone Catarina Davis MD Primary Care Provider + Reason for Visit * Reason Comments Med Refill Encounter Details Date Type Department Care Team (Late st Contact Info) Description 08/14/2023 Refill [facility] [address] [place], [place] [phone] Catarina Davis MD [address] [place], [place] [phone] Neck sprain, sequela Social History Tobacco Use [...] 9:00 AM EDT Office Visit [facility] [address] [place] [address] Catarina Davis MD [address] [place] [address] 02/23/2025 11:30 AM EDT Clinical Support [address] [address] Day Smith, [place] documented as of this encounter Visit Diagnoses Diagnosis Neck sprain, sequela documented in this encounter Additional Health Concerns Assessment Noted Time PHQ-9 Depression Total Score: 0 12/29/19 23 1:22 PM EDT documented as of this encounter Care Teams Gas Plant Repairer Relationship Specialty Start Date End Date Catarina Davis MD [address] [place] [phone] PCP - General Family Medicine 10/15/17 documented as of this encounter
--- OUTSIDE RECORDS SUMMARY | 2024-11-30 12:57 | XMS_ITS | Encounter Summary ---
Author Organization [employer] Address 75 [facility] 7t [place] [address] Care Team Providers Care Implementation Specialist Payroll Name Role Phone Catarina Davis MD Primary Care Provider + Reason for Visit * Reason Comments PARTS BACK COUNTER MAN RV PARTS BACK COUNTER MAN RV Encounter Details Date Type Department Care Team (Latest Contact Info) Description 11/26/2024 9:30 AM EST Clinical Support [facility] [address] [place] [phone] Day Smith RN Chronic midline low back pain with sciatica, sciatica laterality unspecified (Primary Dx) Social History Tobacco Use Types Packs/Day Years [...] t he electric, gas, oil or water [employer] threatened to shut off services in your [...] AM EDT documented as of this encounter Progress Notes * Day Smith, [place] - 11/26/2024 9:00 AM EST S: Pt here for PARTS BACK COUNTER MAN Revisit, accompanied by her son and daughter. Prescribed Tramadol 50mg Q6hr PRN.States she has been taking as prescribed usually, but she said she may have taken an additional dose a couple of times. She last took at Tramadol this morning at 7am. She continues to smoke 2 cigarettes daily and has done so for over 10 years. Denies Illicit drug use and marijuana use. Will have 3 mixed drinks occasionally. Currently rates her pain an 8 and states medication is 50% effective at alleviating her pain. Current pain sites are her lower back, left knee and her left wrist. She said she had carpal tunnel surgery in September and feels its helped. She has had bilateral knee injectionsdone X2 this month and is going again next week. She feels they are helping. O: PARTS BACK COUNTER MAN Tier 2. Pt currently prescribed Tramadol 50mg Q6hr PRN. CERAMIC DESIGNER verified today. Rx last filled on 11/08/24. Pill count performed. Pt has 33 pills at this time, 39 at least expected. Reviewed her Tramadol order with her. Reminded her she is to only use as prescribed and that she can speak with her PCP if her pain has changed. UTOX completed. Negative for all substances: AMP, BAR, BUP, BZO, NHI, FTY, MDMA, MET, MOP, MTD, OXY, PCP, TCA, THC. UTOX as expected. BPI updated today. Pain severity score of 9, activity interference score of 9.3. Previous BPI completed 06/25/24 with pain severity score of 9.3, activity interference score of 6.7. Will update PCP with BPI scoring and Tramadol count. Last PCP visit was 11/25/24, note not completed as of this time. A: PARTS BACK COUNTER MAN Contract Revisit: Chronic Opioid use related to pain. P: Pt to continue taking medication only as prescribed; Next PARTS BACK COUNTER MAN RV appointment scheduled for 02/23/25 @ 11:30am, F/U sooner PRN. Appointment reminder given. Pt verbalized understanding and agreed to plan. documented in this encounter Plan of Treatment Upcoming Encounters Date Type Department Care Team (Late st Contact Info) Description 02/02/2025 9:00 AM EDT Office Visit [address] [address] Catarina Davis MD [address] [place] [address] 02/23/2025 11:30 AM EDT Clinical Support [address] [address] Day Smith, RN documented as of this encounter Procedures Procedure Name Priority Date/Time Associated Diagnosis Comments POCT FLORENTIN-14 URINE DRUG SCREEN Routine 11/26/2024 9:39 AM EST Chronic midline low back pain with sciatica, sciatica laterality unspecified documented in this encounter Results * POCT FLORENTIN-14 Urine Drug Screen (11/26/2024 9:39 AM EST) Urine Urine specimen obtained by clean catch procedure / Unknown 11/26/2024 9:39 AM EST Narrative Day mSith RN - 11/26/2024 9:39 AM EST UTOX cup Lot#[id number] Exp. 05/26/26 Internal Pass Control UTOX completed. ??Negative for all substances: ??AMP, BAR, BUP, BZO, NHI, FTY, MDMA, MET, MOP, MTD, OXY, PCP, TCA, THC. ??UTOX as expected. Catarina Davis MD POINT OF CARE TEST ENTER /EDIT ORDERABLES Final Result documented in this encounter Visit Diagnoses Diagnosis Chronic midline low back pain with sciatica, sciatica laterality unspecified- Primary documented in this encounter Additional Health Concerns Assessment Noted Time PHQ-9 Depression Total Score: 0 12/29/19 23 1:22 PM EDT documented as of this encounter Care Teams Implementation Specialist Payroll Relationship Specialty Start Date End Date Catarina Davis MD [address] [place] [address] PCP - General Family Medicine 10/15/17 documented as of this encounter
--- OUTSIDE RECORDS SUMMARY | 2024-11-30 12:57 | XMS_ITS | Encounter Summary ---
Author Organization [employer] Address 75 [facility] 7t [place] [address] Care Team Providers Care Consulting Project Director Name Role Phone Catarina Davis MD Primary Care Provider + Encounter Details Date Type Department Care Team (Late st Contact Info) Description 11/09/2024 Telephone [facility] 230 [place], [place] [phone] Catarina Davis MD 230 [place], [place] [phone] Social History Tobacco Use Types Packs/Day Years [...] t he electric, gas, oil or water [employer] threatened to shut off services in your [...] AM EDT Office [facility] [address] [place] [address] Catarina Davis MD [address] [place] [address] 02/23/2025 11:30 AM EDT Clinical Support [address] [address] Day Smith, [place] documented as of this encounter Visit Diagnoses Not on filedocumented in this encounter Additional Health Concerns Assessment Noted Time PHQ-9 Depression Total Score: 0 12/29/19 23 1:22 PM EDT documented as of this encounter Care Teams Consulting Project Director Relationship Specialty Start Date End Date Catarina Davis MD [address] [place] [phone] PCP - General Family Medicine 10/15/17 documented as of this encounter
--- OUTSIDE RECORDS SUMMARY | 2024-11-30 12:57 | XMS_ITS | Encounter Summary ---
Author Organization [employer] Address 75 [facility] 7t [place] [address] Care Team Providers Care Granite Sandblaster Apprentice Name Role Phone Catarina Davis MD Primary Care Provider + Reason for Visit * Reason Onset Date Comments Error (VOID this visit) 11/26/2024 Encounter Details Date Type Department Care Team ([facility] st Contact Info) Description 11/26/2024 Telephone [facility] 230 [place] [address] Day Smith RN Error (VOID this visit) Social History Tobacco Use Types Packs/Day Years Used Date Smoking Tobacco: Every Day Cigarettes Passive Smoke Exposure: Current Smokeless Tobacco: Never Alcohol Use Standard Drinks/Week Comments Not Currently 0 (1 standard drink = 0.6 oz pur e alcohol) oca Depression Answer Date Recorded Patient Health Questionnaire-9 Score 0 12/28/2022 Housing Stability Answer Date Recorded What is your housing situation today? I have jaxcornel hatch 02/10/[address] you [...] the past 12 months, has t he [employer], [employer], oil or water [employer] threatened to shut off services in your [...] Description 02/02/2025 9:00 AM EDT Office Visit [facility] [address] [place] [address] Catarina Davis MD [address] [place] [address] 02/23/2025 11:30 AM EDT Clinical Support [facility] [address] [place] [address] Day Smith, [place] documented as of this encounter Visit Diagnoses Not on filedocumented in this encounter Additional Health Concerns Assessment Noted Time PHQ-9 Depression Total Score: 0 12/29/19 23 1:22 PM EDT documented as of this encounter Care Teams Granite Sandblaster Apprentice Relationship Specialty Start Date End Date Catarina Davis MD [address] [place] [address] PCP - General Family Medicine 10/15/17 documented as of this encounter
--- OUTSIDE RECORDS SUMMARY | 2024-11-30 12:57 | XMS_ITS | Encounter Summary ---
Author Organization [employer] Address 75 [facility] 7t [place] [address] Care Team Providers Care Nursery School Attendant Name Role Phone Catarina Davis MD Primary Care Provider + Reason for Visit * Reason Onset Date Comments Appointment Request 11/17/2024 Encounter Details Date Type Department Care Team ([facility] st Contact Info) Description 11/17/2024 Telephone [facility] [address] [place] [address] Catarina Davis MD 230 [place], [place] [phone] Appointment Request Social History Tobacco Use Types [...] Description 02/02/2025 9:00 AM EDT Office Visit [facility] [address] [place] [phone] Catarina Davis MD [address] [place] [address] 02/23/2025 11:30 AM EDT Clinical Support [facility] [address] [place] [address] Day Smith, RN documented as of this encounter Visit Diagnoses Not on filedocumented in this encounter Additional Health Concerns Assessment Noted Time PHQ-9 Depression Total Score: 0 12/29/19 23 1:22 PM EDT documented as of this encounter Care Teams Nursery School Attendant Relationship Specialty Start Date End Date Catarina Davis MD [address] [place] [phone] PCP - General Family Medicine 10/15/17 documented as of this encounter
--- OUTSIDE RECORDS SUMMARY | 2024-11-30 12:57 | XMS_ITS | Clinical Summary ---
Author Organization [facility] it Address [address] [place] [address] Care Team Providers Care Molder Vacuum Name Role Phone RoseliaMaggie lubin Primary Care Provider [phone] Surgical History Surgery Date Site/Laterality Comments TONSILLECTOMY [...] Documents on File Type Date Recorded Patient Nurse Staff Industrial Expl anation Health Care Decision (hx) 05/06/2017 AD REESE DIRECTIVE Health Care Decision (hx) 05/06/2017 AD REESE DIRECTIVE Care Teams Molder Vacuum Relationship Specialty Start Date End Date Maggie Cazares DO [address] [place] [address] PCP - General 04/24/23
--- OUTSIDE RECORDS SUMMARY | 2024-11-30 12:57 | XMS_ITS | Encounter Summary ---
Author Organization [employer] Address 75 [facility] 7t [place] [address] Care Team Providers Care Fast Food Worker Name Role Phone Catarina Davis MD Primary Care Provider + Reason for Visit * Reason Onset Date Comments REschedule BODILY INJURY ADJUSTER appt from 11/09/24 11/10/2024 Encounter Details Date Type Department Care Team (Late st Contact Info) Description 11/10/2024 Telephone [facility] [address] [place] [address] Day Smith RN REschedule BODILY INJURY ADJUSTER appt from 11/09/24 Social History Tobacco Use [...] Description 02/02/2025 9:00 AM EDT Office Visit [address] [address] Catarina Davis MD [address] [place] [address] 02/23/2025 11:30 AM EDT Clinical Support [address] [address] Day Smith, RN documented as of this encounter Visit Diagnoses Not on filedocumented in this encounter Additional Health Concerns Assessment Noted Time PHQ-9 Depression Total Score: 0 12/29/19 23 1:22 PM EDT documented as of this encounter Care Teams Fast Food Worker Relationship Specialty Start Date End Date Catarina Davis MD [address] [place] [address] PCP - General Family Medicine 10/15/17 documented as of this encounter
--- OUTSIDE RECORDS SUMMARY | 2024-11-30 12:57 | XMS_ITS | Encounter Summary ---
Author Organization [employer] Address 75 [facility] 7t [place] [address] Care Team Providers Care Consulting Technical Director Name Role Phone Catarina Davis MD Primary Care Provider + Reason for Visit * Reason Onset Date Comments BPI Scoring 11/26/2024 Tramadol count discrepancy 11/26/2024 Encounter Details Date Type Department Care Team ([facility] st Contact Info) Description 11/26/2024 Telephone [facility] [address] [place] [address] Day Smith RN BPI Scoring; Tramadol count discrepancy Social History Tobacco Use Types Packs/Day Years [...] t he electric, gas, oil or water [employer] threatened to shut off services in your [...] Telephone Encounter - Day Smith RN - 11/26/2024 9:49 AM EST Pt had WAN SUPPORT SPECIALIST RV appt today Pt had 33 Tramadol remaining, 39 expected. Reviewed her Tramadol order with her. Reminded her she is to only use as prescribed and that she can speak with her PCP if her pain has changed. BPI updated Pain severity score of 9, activity interference score of 9.3. Previous BPI completed 06/25/24 with pain severity score of 9.3, activity interference score of 6.7 documented in this encounter Plan of Treatment Upcoming Encounters Date Type Department Care Team (Late st Contact Info) Description 02/02/2025 9:00 AM EDT Office [facility] [address] [place] [phone] Catarina Davis MD [address] [place] [address] 02/23/2025 11:30 AM EDT Clinical Support [facility] [address] [place] [address] Day Smith RN documented as of this encounter Visit Diagnoses Not on filedocumented in this encounter Additional Health Concerns Assessment Noted Time PHQ-9 Depression Total Score: 0 12/29/19 23 1:22 PM EDT documented as of this encounter Care Teams Consulting Technical Director Relationship Specialty Start Date End Date Catarina Davis MD [address] [place] [address] PCP - General Family Medicine 10/15/17 documented as of this encounter
--- OUTSIDE RECORDS SUMMARY | 2024-11-30 12:57 | XMS_ITS | Encounter Summary ---
Author Organization [employer] Address 75 [facility] 7t [place] [address] Care Team Providers Care Jewel Hole Cornerer Name Role Phone Catarina Davis MD Primary Care Provider + Reason for Visit * Reason Onset Date Comments FYI 11/01/2023 Encounter Details Date Type Department Care Team ([facility] st Contact Info) Description 11/01/2023 Telephone [facility] 230 [place], [place] [phone] Catarina Davis MD 230 [place], [place] [phone] FYI Social History Tobacco Use Types Packs/Day [...] Description 02/02/2025 9:00 AM EDT Office Visit [facility] [address] [place] [address] Catarina Davis MD [address] [place] [address] 02/23/2025 11:30 AM EDT Clinical Support [facility] [address] [place] [address] Day Smith RN documented as of this encounter Visit Diagnoses Not on filedocumented in this encounter Additional Health Concerns Assessment Noted Time PHQ-9 Depression Total Score: 0 12/29/19 23 1:22 PM EDT documented as of this encounter Care Teams Jewel Hole Cornerer Relationship Specialty Start Date End Date Catarina Davis MD [address] [place] [address] PCP - General Family Medicine 10/15/17 documented as of this encounter
--- OUTSIDE RECORDS SUMMARY | 2024-11-30 12:57 | XMS_ITS | Encounter Summary ---
Author Organization [facility] Address [address] [address] Phone Care Team Providers Care Homicide Investigator Name Role Phone Catarina Davis MD Primary Care Provider [phone] Encounter Details Date Type Department Care Team (Late st Contact Info) Description 01/11/2023 Documentation Only [facility] [address] [place] [address] Smooth Almonte MD [address] [place] [address] [place] [address] Social History Tobacco Use Types [...] Visit [facility] [address] [place] [address] Smooth Almonte MD [address] [place] [address] [place] [address] documented as of this encounter Visit Diagnoses Not on filedocumented in this encounter Care Teams Homicide Investigator Relationship Specialty Start Date End Date Catarina Davis MD [address] [place] [address] PCP - General 08/11/19 documented as of this encounter
--- OUTSIDE RECORDS SUMMARY | 2024-11-30 12:57 | XMS_ITS | Encounter Summary ---
Author Organization [employer] Address [address] [facility] [address] [place] [address] Care Team Providers Care Journal Box Inspector Name Role Phone Catarina Davis MD Primary Care Provider + Encounter Details Date Type Department Care Team (Latest Contact Info) Description 11/25/2024 2:30 PM EST Telemedicine [facility] [address] [place] [phone] Catarina Davis MD [address] [place], [place] [phone] Gastroesophageal reflux disease with esophagitis, unspecified whether hemorrhage (Primary Dx); Pre-hypertension Social History Tobacco Use Types Packs/Day Years [...] as of this encounter Progress Notes * Catarina Davis MD - 11/25/2024 2:30 PM EST SUBJECTIVE: Maya Hoyos is a 44 y.o. year old female who presents for follow up GERD/BP. Denies recent illness, injury, or hospitalization. Patient today on a telehealth visit for fu HTN BP at home today 112/73 mmHg She did not complete her H.Pylori test. Patient is taking Omeprazole for GERD prescribed by Traffic Worker until her endoscopy appointment. She has epigastric pain occasionally, and complains of abdominal pain after BM. She uses an OTCmedication to treat her constipation. Patient is currently smoking 1-2 cigarettes/day, she has not started the nicotine patches. Acute Concerns: Social History Social History Narrative Not on file Patient Active Problem List Diagnosis Abnormal Pap smear of cervix Allergic rhinitis Sinusitis Chronic low back pain Eczema Pre-hypertension Epistaxis External hemorrhoids Leg pain, left Neck sprain Nicotine dependence Plantar fasciitis Recurrent major depressive episodes, mild (CMS/HCC) Type 2 diabetes mellitus (CMS/HCC) Vitamin D deficiency Upper abdominal pain S/P abdominoplasty Screening mammogram for breast cancer Encounter for preventive health examination Leg paresthesia Mid-back pain, acute Urinary frequency Generalized abdominal pain PCOS (polycystic ovarian syndrome) Anxiety Blood in urine Cervical intraepithelial neoplasia grade 2 Female hirsutism Cyst of kidney, acquired Obesity with body mass index 30 or greater Prediabetes Recurrent urinary tract infection Cervical paraspinal muscle spasm Other sprain of right shoulder joint, initial encounter Head injury without concussion or intracranial hemorrhage Concussion with no loss of consciousness Acute pain of left knee Oropharyngeal dysphagia Patellar tendinitis of right knee Gastroesophageal reflux disease with esophagitis Dermatitis Family History Problem Relation Name Age of Onset Diabetes type II Mother Other (htn) Mother Stroke Mother 46 at 46 Diabetes type II Father Diabetes type II Sister Breast cancer Mother's Sister Review of Systems Constitutional: Negative for chills, fatigue and fever. HENT: Negative for congestion, ear pain, nosebleeds, rhinorrhea, sinus pressure, sore throat and trouble swallowing. Eyes: Negative for pain and discharge. Respiratory: Negative for cough, chest tightness and shortness of breath. Cardiovascular: Negative for chest pain, palpitations and leg swelling. Gastrointestinal: Positive for abdominal pain. Negative for blood in stool, constipation, diarrhea and nausea. Epigastric pain Endocrine: Negative for polydipsia and polyuria. Genitourinary: Negative for dysuria, frequency, genital sores, pelvic pain and vaginal discharge. Musculoskeletal: Negative for back pain and neck pain. Skin: Negative for rash. Allergic/Immunologic: Negative for environmental allergies. Neurological: Negative for dizziness, seizures, weakness, light-headedness and headaches. Hematological: Negative for adenopathy. Psychiatric/Behavioral: Negative for agitation, behavioral problems, self-injury and suicidal ideas. OBJECTIVE: There were no vitals filed for this visit. Physical Exam Problem List Items Addressed This Visit Gastroesophageal reflux disease with esophagitis - Primary Sees to be stable, she is scheduled for EGD test. Continue Omeprazole and call GI to check date for the EGD. Advised to quit smoking. Pre-hypertension Seems to be controlled, no diagnosis of HTN yet. Continue BP check 3 X week. Advised to quit smoking. FU in 6 weeks. Follow Up: Current Outpatient Medications on File Prior to Visit Medication Sig Dispense Refill acetaminophen (Tylenol 8 Hour) 650 MG ER tablet Take 1 tablet (650 mg) by mouth every 6 (six) hoursif needed for mild pain. Take 1 tablet by mouth every 8 hours as needed swallowing whole with water. Do not break, crush, dissolve and/or chew. 90 tablet 2 albuterol (ProAir HFA) 108 (90 Base) MCG/ACT inhaler Inhale 2 puffs every 4 (four) hours if needed for shortness of breath or wheezing. 18 g 3 betamethasone valerate (Valisone) 0.1 % cream Apply topically 2 times daily. 15 g 0 Blood Pressure Monitor kit Use as directed 3x/week 1 kit 0 diclofenac sodium 3 % gel Apply topically if needed in the morning, at noon, in the evening, and atbedtime (pain). 150 g 2 fexofenadine (Virgen) 180 MG tablet Take 1 tablet (180 mg) by mouth if needed each day (Allergies). 90 tablet 0 gabapentin (Neurontin) 300 MG capsule 1 tab po at bedtime 90 capsule 2 glucose blood (FREESTYLE LITE) test strip hydrOXYzine pamoate (Vistaril) 25 MG capsule TAKE 1-2 CAPSULES BY MOUTH TWICE DAILY NEEDED FOR ANXIETY/INSOMNIA naloxone (Narcan) 4 mg/0.1 mL nasal spray Administer 1 spray (4 mg) into affected nostril(s) if needed for opioid reversal. May repeat every 2-3 minutes if needed, alternating nostrils, until medicalassistance becomes available. 2 each 2 nicotine polacrilex (Commit) 4 MG lozenge Dissolve 1 lozenge (4 mg) in the mouth every 2 (two) hours if needed for smoking cessation. 100 lozenge 0 omeprazole (PriLOSEC) [address] capsule Take 20 mg by mouth in the morning. Symbicort 80-4.5 MCG/ACT inhaler INHALE 2 PUFFS BY MOUTH EVERY 12 HOURS tiZANidine (Zanaflex) 4 MG tablet Take 1 tablet (4 mg) by mouth every 6 (six) hours if needed for muscle spasms for up to 10 days. 60 tablet 0 traMADol (Ultram) 50 MG tablet Take 1 tablet (50 mg) by mouth every 6 (six) hours if needed for severe pain for up to 28 days. 112 tablet 0 zolpidem (Ambien) 10 MG tablet Take 10 mg by mouth at bedtime. [DISCONTINUED] fluticasone (Flonase) 50 MCG/ACT nasal spray Administer 1 spray into each nostril inthe morning. 48 g 1 [DISCONTINUED] linaCLOtide (Linzess) 145 MCG capsule Take 1 capsule (145 mcg) by mouth before breakfast. Do not crush or chew. 30 capsule 11 [DISCONTINUED] loratadine (Claritin) 10 MG tablet Take 1 tablet (10 mg) by mouth in the morning. 90tablet 1 [DISCONTINUED] nystatin (Mycostatin) 090649 UNIT/ML suspension SWISH AND SWALLOW 5ML FOUR TIMES DAILY. ADMINISTER HALF OF DOSE ON EACH SIDE OF THE MOUTH. No current facility-administered medications on file prior to visit. I, Guillermina Levi, am serving as a scribe to document services personally performed by Dr. Catarina Davis, based on the patient's response to questions by provider and provider's statements to me. documented in this encounter Miscellaneous Notes * Assessment & Plan Note - Guillermina Levi MA - 11/25/2024 4:16 PM EST Associated Problem(s): Pre-hypertension Seems to be controlled, no diagnosis of HTN yet. Continue BP check 3 X week. Advised to quit smoking. FU in 6 weeks. * Assessment & Plan Note - Guillermina Levi MA - 11/25/2024 2:44 PM EST Associated Problem(s): Gastroesophageal reflux disease with esophagitis Sees to be stable, she is scheduled for EGD test. Continue Omeprazole and call GI to check date for the EGD. Advised to quit smoking. documented in this encounter Plan of Treatment Upcoming Encounters Date Type Department Care Team (Late st Contact Info) Description 02/02/2025 9:00 AM EDT Office Visit [facility] [address] [place] [phone] Catarina Davis MD [address] [place] [phone] 02/23/2025 11:30 AM EDT Clinical Support [address] [phone] Day Smith, RN documented as of this encounter Visit Diagnoses Diagnosis Gastroesophageal reflux disease with esophagitis, unspecified whether hemorrhage- Primary Pre-hypertension Elevated blood pressure reading without diagnosis of hypertension documented in this encounter Additional Health Concerns Assessment Noted Time PHQ-9 Depression Total Score: 0 12/29/19 23 1:22 PM EDT documented as of this encounter Care Teams Journal Box Inspector Relationship Specialty Start Date End Date Catarina Davis MD [address] [place] [phone] PCP - General Family Medicine 10/15/17 documented as of this encounter
--- OUTSIDE RECORDS SUMMARY | 2024-11-30 12:57 | XMS_ITS | Encounter Summary ---
Author Organization [employer] Address [address] [facility] [address] [place] [address] Care Team Providers Care Motorcycle Subassembler Name Role Phone Catarina Davis MD Primary Care Provider + Encounter Details Date Type Department Care Team (Late st Contact Info) Description 11/25/2024 Abstract [facility] [address] [place], [place] [phone] Catarina Davis MD [address] [place], [place] [phone] Social History Tobacco Use Types Packs/Day Years [...] t he electric, gas, oil or water [employer] threatened to shut off services in your [...] Description 02/02/2025 9:00 AM EDT Office Visit [address] [phone] Catarina Davis MD [address] [place] [phone] 02/23/2025 11:30 AM EDT Clinical Support [address] [phone] Day Smith, RN documented as of this encounter Procedures Procedure Name Priority Date/Time Associated Diagnosis Comments MAMMOGRAPHY Routine 11/21/2024 documented in this encounter Results * Mammography (11/21/2024) Mammogram Normal Normal, Abnormal, BIRADS 1 , BIRADS 2 Anatomical Region Laterality Modality Other Catarina Davis MD HEALTH MAINTENANCE Final Result documented in this encounter Visit Diagnoses Not on filedocumented in this encounter Additional Health Concerns Assessment Noted Time PHQ-9 Depression Total Score: 0 12/29/19 23 1:22 PM EDT documented as of this encounter Care Teams Motorcycle Subassembler Relationship Specialty Start Date End Date Catarina Davis MD [address] [place] [phone] PCP - General Family Medicine 10/15/17 documented as of this encounter
--- OUTSIDE RECORDS SUMMARY | 2024-11-30 12:57 | XMS_ITS | Encounter Summary ---
Author Organization [employer] Address [address] [facility] [address]t [place] [address] Care Team Providers Care Resident Care Provider Name Role Phone Catarina Davis MD Primary Care Provider + Encounter Details Date Type Department Care Team (Latest Contact Info) Description 11/26/2024 Travel Social History Tobacco Use Types Packs/Day Years [...] Description 02/02/2025 9:00 AM EDT Office Visit [facility] [address] [place] [phone] Catarina Davis MD [address] [place] [phone] 02/23/2025 11:30 AM EDT Clinical Support [facility] [address] [place] [phone] Day Smith RN documented as of this encounter Visit Diagnoses Not on filedocumented in this encounter Additional Health Concerns Assessment Noted Time PHQ-9 Depression Total Score: 0 12/29/19 23 1:22 PM EDT documented as of this encounter Care Teams Resident Care Provider Relationship Specialty Start Date End Date Catarina Davis MD [address] [place] [address] [phone] PCP - General Family Medicine 10/15/17 documented as of this encounter
--- OUTSIDE RECORDS SUMMARY | 2024-11-30 12:57 | XMS_ITS | Encounter Summary ---
Author Organization [employer] Address [address] [facility] [address] [place] [address] Care Team Providers Care Behavioral Instructor Name Role Phone Catarina Davis MD Primary Care Provider + Encounter Details Date Type Department Care Team (Latest Contact Info) Description 11/25/2024 Travel Social History Tobacco Use Types Packs/Day [...] Description 02/02/2025 9:00 AM EDT Office Visit [facility] [address] [place] [phone] Catarina Davis MD [address] [place] [phone] 02/23/2025 11:30 AM EDT Clinical Support [facility] [address] [place] [phone] Day Smith RN documented as of this encounter Visit Diagnoses Not on filedocumented in this encounter Additional Health Concerns Assessment Noted Time PHQ-9 Depression Total Score: 0 12/29/19 23 1:22 PM EDT documented as of this encounter Care Teams Behavioral Instructor Relationship Specialty Start Date End Date Catarina Davis MD [address] [place] [address] [phone] PCP - General Family Medicine 10/15/17 documented as of this encounter
--- OUTSIDE RECORDS SUMMARY | 2024-11-30 12:57 | XMS_ITS | Clinical Summary ---
Author Organization [employer] Address [address] [place] [address] 7t [place] [address] Care Team Providers Care Production Welding Supervisor Name Role Phone Catarina Davis MD Primary Care Provider + Allergies Active Allergy Reactions Criticality Noted Date Comments Cephalexin Rash Low 10/31/2017 Other reaction(s): Other (see comments) Kiwi Extract 01/25/2023 Pineapple 01/25/2023 Medications glucose blood (FREESTYLE LITE) test strip 08/18/20 21 Active hydrOXYzine pamoate (Vistaril) 25 MG capsule [...] mouth in the morning. 05/22/20 23 Active Symbicort 80-4.5 MCG/ACT inhaler INHALE 2 PUFFS BY MOUTH EVERY 12 HOURS 11/12/19 24 Active Blood Pressure Monitor kit Use as directed 3x/week 1 kit 02/20/20 24 Active gabapentin (Neurontin) 300 MG capsuleIndicat ions:Neck [...] days. 112 tablet 11/06/19 25 025 Active linaCLOtide (Linzess) 145 MCG capsule Take 1 capsule (145 mcg) by mouth before breakfast. Do not crush or chew. 30 capsule 11 01/26/20 23 025 Discontinued(T herapy completed) fluticasone (Flonase) 50 MCG/ACT nasal spray Administer 1 spray into each nostril in the morning. 48 g 1 10/29/19 24 025 Discontinued(T herapy completed) loratadine (Claritin) 10 MG tablet Take 1 tablet (10 mg) by mouth in the morning. 90 tablet 1 10/29/19 24 025 Discontinued(T herapy completed) nystatin (Mycostatin) 669191 UNIT/ML suspension SWISH AND SWALLOW 5ML FOUR TIMES DAILY. ADMINISTER HALF OF DOSE ON EACH SIDE OF THE MOUTH. 12/03/19 24 025 Discontinued(T herapy completed) traMADol (Ultram) 50 MG tabletIndicati ons:Chronic midline [...] disease with esophagitis 08/20/2024 Assessment & Plan (11/25/2024 4:14 PM EST): Sees to be stable, she is scheduled for EGD test. Continue Omeprazole and call GI to check date for the EGD. Advised to quit smoking. Assessment & Plan (08/20/2024 1:22 PM EST): [...] Eczema 09/25/2018 Pre-hypertension 08/13/2018 Assessment & Plan (11/25/2024 4:16 PM EST): Seems to be controlled, no diagnosis of HTN yet. Continue BP check 3 X week. Advised to quit smoking. FU in 6 weeks. Assessment & Plan (10/08/2024 6:23 PM EST): [...] Encounters Date Type Department Care Team Description 11/26/2024 9:30 AM EST Clinical Support [address] [address] Day Smith RN Chronic midline low back pain with sciatica, sciatica laterality unspecified (Primary Dx) 11/26/2024 Telephone [facility] [address] [place] [address] Day Smith, CHADWICK BPI Scoring; Tramadol count discrepancy 11/26/2024 Travel 11/26/2024 Telephone [facility] [address] [place] [address] Day Smith RN Error (VOID this visit) 11/26/[address] [place] [address] Day Smith, CHADWICK Recommend SIX COLOR PRESS OPERATOR Tier 2 11/25/2024 2:30 PM EST Telemedicine [facility] [address] [place] [address] Catarina Davis MD Gastroesophageal reflux disease with esophagitis, unspecified whether hemorrhage (Primary Dx); Pre-hypertension 11/25/2024 Travel 11/25/2024 Abstract [facility] [address] [facility] [place] [address] Catarina Davis MD 11/20/2024 Telephone [facility] [address] [facility] [place] [address] Catarina Davis MD Chart prep 11/17/2024 Telephone [facility] [address] [facility] [place] [address] Catarina Davis MD Appointment Request 11/10/2024 Telephone [facility] [address] [facility] [place] [address] Day Smith, CHADWICK REschedule SIX COLOR PRESS OPERATOR appt from 11/09/24 11/09/2024 Telephone [facility] [address] [facility] [place] [address] Catarina Davis MD 11/06/2024 Refill [facility] [address] [facility] [place] [address] Catarina Davis MD Chronic midline low back pain, unspecified whether sciatica present 10/08/2024 Refill [facility] [address] [facility] [place] [address] Catarina Davis MD Chronic midline low back pain, unspecified whether sciatica present 10/06/2024 Refill [facility] [address] [facility] [place] [address] Catarina Davis MD Cervical paraspinal muscle spasm 10/01/2024 Telephone [facility] [address] [place] [address] Catarina Davis MD November09/09/2024 Refill [facility] [address] [place] [address] Catarina Davis MD Chronic midline low back pain, unspecified whether sciatica present from Last 3 Months Immunizations Name Administration [...] your housing situation today? I have jax sing 02/10/[address] you li [...] Description 02/02/2025 9:00 AM EDT Office Visit [facility] [address] [place] [address] Catarina Davis MD [address] [place] [address] 02/23/2025 11:30 AM EDT Clinical Support [facility] [address] [place] [address] Day Smith, CHADWICK Health Maintenance Due Date [...] exists Dental X-Ray: Full Mouth 05/01/2022 04/30/2019, 11/0 03/2014 Diabetes: Urine Protein Screening 05/23/2022 05/23/2021 Depression Screening 12/29/2023 12/28/2022, 12/29/19 23 COVID-19 Vaccine ( season) 2024 09/25/2022, 11/15/2021, 05/16/2021, Additional history exists Diabetes: Hemoglobin A1C 11/22/2024 024, 08/09/2023, 01/25/2023, Additional history exists Eye Exam 01/28/2025 01/28/2023, 01/06, 01/28/2023, Additional history exists SDOH Screening 02/09/2025 02/10/2024 Lipid Panel 08/19/2025 08/19/2024, 04/0 03/2023, 05/23/2021 Tobacco Screening 08/20/2025 08/20/2024 Mammogram 11/21/2025 11/21/2024, 11/07/2023 Cervical Cancer Screening 09/24/2027 HPV/Cotest 09/24/2027 09/24/2022 [...] back pain with sciatica, sciatica laterality unspecified HM MAMMOGRAPHY Routine 11/21/2024 MR KNEE WO CONTRAST RIGHT Routine 08/30/2024 7:55 AM EST LIPID PANEL WITH REFLEX TO DIRECT LDL Routine 08/19/2024 9:00 AM EST Pre-hypertension Type 2 diabetes mellitus without complication, without long-term current use of insulin (CMS/HCC) POCT GLYCATED HEMOGLOBIN, TOTAL Routine 05/22/2024 12:18 PM EDT Type 2 diabetes mellitus without complication, without long-term current use of insulin (CMS/HCC) HEPATITIS PANEL, GENERAL Routine 01/10/2023 9:11 AM [...] RADIOGRAPHIC IMAGE Routine 09/18/2019 12:00 AM EST INTRAORAL - COMPLETE SERIES OF RADIOGRAPHIC IMAGES Routine 04/30/2019 12:00 AM EDT from Last 3 Months or Most Recently Relevant to Health Maintenance Results * POCT LFORENTIN-14 Urine Drug Screen (11/26/2024 9:39 AM EST) Urine Urine specimen obtained by clean catch procedure / Unknown 11/26/2024 9:39 AM EST Narrative Day Smith RN - 11/26/2024 9:39 AM EST UTOX cup Lot#[id number] Exp. 05/26/26 Internal Pass Control UTOX completed. ??Negative for all substances: ??AMP, BAR, BUP, BZO, NHI, FTY, MDMA, MET, MOP, MTD, OXY, PCP, TCA, THC. ??UTOX as expected. Catarina Davis MD POINT OF CARE TEST ENTER /EDIT ORDERABLES Final Result * Mammography (11/21/2024) Mammogram Normal Normal, Abnormal, BIRADS 1 , BIRADS 2 Anatomical Region Laterality Modality Other Catarina Davis MD HEALTH MAINTENANCE Final Result * MR Knee w/o Contrast Right (08/30/2024 7:55 AM EST) Anatomical Region Laterality Modality Magnetic Resonan ce 08/30/2024 7:55 AM EST Narrative 09/15/2024 4:06 PM EST ? [facility] ?[address] ?[place] [address] ? Magnetic Resonance Report ? Signed ? Patient: Hoyos,Maya ?MR#: [id number] ?? 13 ? : 1980 ?Acct:[id number] ? Age/Sex: 44 / F ?ADM Date: 08/30/24 ? Loc: HO.MRI ? Attending Dr: Aram Lewis MD ? Ordering Physician: Aram Lewis MD ?? Date of Service: 08/30/24 ?? Procedure(s): MR knee RT wo con ?? Accession Number(s): [id number] ? cc: Catarina Davis MD; Aram Lewis [...] signed by Topher Avila MD in OV> ?/07/30 1603 ? DD/ 0755 ? TD/TT: 08/30/24 0825 ? Wire Stockkeeper: MELVIN ? Procedure Note Donotuseinterpreter, Image - 09/15/2024 [place] [id number] Magnetic Resonance Report Signed Patient: Laurent Hoyos#: [id number] 13 : 1980Acct:[id number] Age/Sex: 44 / FADM Date: 08/30/24 Loc: HO.MRI Attending Dr: Aram Lewis MD Ordering Physician: Aram Lewis MD Date of Service: 08/30/24 Procedure(s): MR knee RT wo con Accession Number(s): [id number] cc: Catarina Davis MD; Aram Lewis MD [...] Topher Avila MD 09/15/2024 04:03 PM EST Dictated By: Topher Avila MD Signed By: <Electronically signed by Topher Avila MD inOV> 09/15/24 1603 DD/ 0755 TD/TT: 08/30/24 0825 Wire Stockkeeper: [facility] External Provider IMG MRI PROCEDURES Final Result * Lipid Panel with Reflex to Direct LDL (08/19/2024 9:00 AM EST) Triglycerides 29 <150 mg/dL [facility] Comment:Desirable Triglyceri de: less than 150 mg/dLBorderline High Triglyceride 150-199 mg/dLHigh Triglyceride: 200-499 mg/dLVery High Triglyceride: greater than or equal to 5OO mg/dL Cholesterol 112 <200 mg/dL [facility] Comment:Desirable Cholestero l: less than 200 mg/dLBorderline High Cholesterol: 200-239 mg/dLHigh Cholesterol: greater than 239 mg/dL LDL Cholesterol Calculated 56 <100 mg/dL [facility] Comment:Desirable LDL: less than 100 mg/dLNear Optimal/Above Optimal LDL: 110- 129 mg/dLBorderline High LDL: 130-159 mg/dLHigh LDL: 160-189 mg/dLVery High LDL: greater than or equal to 190 mg/dL HDL Cholesterol 51 >40 mg/dL [facility] Comment:Desirable HDL: great er than 40 mg/dL Note: This HDL assay may give artificially low results in patients with liver disease. Blood 08/19/2024 9:00 AM EST 08/19/2024 10:46 AM EST Catarina Davis MD LAB BLOOD ORDERABLES Fin al Result [facility] [address] [place] [address] [phone] * POCT HGB A1C (05/22/2024 12:18 PM EDT) Hemoglobin A1C 5.7 4.0 - 6.0 % QC Media Lot # [id number] Lot# Expiration Date ,047,160 Blood 05/22/2024 12:1 8 PM EDT Catarina Davis MD POINT OF CARE TEST ENTER /EDIT ORDERABLES Final Result * (ABNORMAL) Hepatitis Panel, General (01/10/2023 9:11 AM EDT) Pathologist [facility] Hepatitis A Antibody Total NON-REACT ANDREE NON-REACT ANDREE [employer] [facility] Comment: For additional information, please refer to http://IdleAir.Business Engine/faq/ATE414 (This link is being provided for informational/ educational purposes only.) Hepatitis B Surface Antibody QL REACTIVE( A) NON-REACT ANDREE [facility] Hepatitis B Surface Ag NON-REACT ANDREE NON-REACT ANDREE [facility] [facility] Hepatitis B Core Antibody Total NON-REACT ANDREE NON-REACT ANDREE [facility] [facility] Hepatitis C Antibody NON-REACT ANDREE NON-REACT ANDREE [facility] 0.21 <1.00 [employer] [place] [employer] Comment: HCV antibody was non-reactive. There is no laboratory evidence of HCV infection. In most cases, no further action is required. However, if recent HCV exposure is suspected, a test for HCV RNA (test code 50928) is suggested. For additional information please refer to http://IdleAir.Business Engine/faq/ARF30o9 (This link is being provided for informational/ educational purposes only.) 01/10/2023 9:11 AM EDT 01/10/2023 9:12 AM EDT Narrative [facility] - 01/10/2023 8:56 PM EDT FASTING:YES FASTING: YES us Catarina Davis MD LAB BLOOD ORDERABLES Fin al Result [address], [place] [address] [employer] [place] [facility] [address] [place] [address] * HIV-1/2 Antigen and Antibodies, Fourth Generation, with Reflexes (01/10/2023 9:11 AM EDT) Pathologist [facility] HIV Antigen/Antibody, 4th Generation NON-REAC TIVE NON-REAC TIVE [employer] [place] [email or web address] Comment: HIV-1 antigen and HIV-1/HIV-2 antibodies were [...] ?? For additional information please refer to http://education.Business Engine/faq/QGC914 (This link is being provided for informational/ educational purposes only.) The performance of this assay has not been clinically validated in patients less than 2 years old. Blood Venous blood specimen / Unknown 01/10/2023 9:11 AM EDT 01/10/2023 9:12 AM EDT Narrative [facility] - 01/10/2023 8:56 PM EDT FASTING:YES FASTING: YES Catarina Davis MD LAB BLOOD ORDERABLES Fin al Result [facility] [address] [facility], [facility], [place] [address] [employer] [place] [facility] [address] [place] [address] * Thinprep TIS PAP And HPV mRNA E6/E7 With Reflex To HPV 16,18/45 (09/24/2022 3:53 PM EST) Pathologist [facility] Clinical Information: None given [employer] LMP: NONE GIVEN [employer] Prev. PAP: NONE GIVEN [employer] Prev. BX: NONE GIVEN [employer] SOURCE: None given [employer] Statement Of Adequacy: [employer] Comment: Satisfactory for evaluation. Endocervical/transformation zone component absent. Age and/or menstrual status not provided Interpretation/ Result: Negative for intraepithelial lesion or malignancy. [employer] COMMENT: This Pap test has been evaluated with computer assisted technology. [employer] Cytotechnologis t: [employer] Comment: BK,CT(ASCP) CT screening location: [address] (Always Message) [employer] [facility] Comment: EXPLANATORY NOTE: The Pap is a [...] HPV nRNA E6/E7 Not Detected Not Detected [employer] [facility] Comment: Methodology: Duct Installer-Mediated Amplification This assay detects E6/E7 viral messenger RNA (mRNA) from 14 high-risk HPV types (16,18,31,33,35,39,45,51,52,56,58,59,66,68). Cervical sources are required for HPV testing. If a vaginal source from a patient who has had a total hysterectomy with removal of cervix was submitted, please contact the testing laboratory for alternative testing options. For additional information, please refer to http://education.Business Engine/faq/NCN211q8 (This link if provided for information/ educational purposes only.) 09/24/2022 3:53 PM EST 09/25/2022 10:09 AM EST Narrative [facility] - 09/28/2022 3:45 PM EST FASTING: UNKNOWN us Catarina Davis MD LAB PATHOLOGY ORDERABLES Final Result [facility] [address] [facility], [facility] [place] [address] [employer] [facility] [address] [facility], ([address]) [place] [address] * ALBUMIN, RANDOM URINE W/CREATININE (05/23/2021 1:55 PM EDT) Microalbumin Urine 0.2 See Note: mg/dL [facility] Comment: Reference Range: ?? Reference [...] Creatinine, Urine 71 20 - 275 mg/dL [facility] 05/23/2021 1:55 PM EDT us Catarina Davis MD LAB URINE ORDERABLES Fin al Result [facility] [address] from Last 3 Months or Most Recently Relevant to Health Maintenance Insurance [id number] [employer] AD[place] Care Teams Production Welding Supervisor Relationship Specialty Start Date End Date Catarina Davis MD [address] [place] [phone] PCP - General Family Medicine 10/15/17
--- OUTSIDE RECORDS SUMMARY | 2024-11-30 12:57 | XMS_ITS | Encounter Summary ---
Author Organization [employer] Address [address] [facility] 7t [place] [address] Care Team Providers Care Environmental Compliance Manager Name Role Phone Catarina Davis MD Primary Care Provider + Reason for Visit * Reason Onset Date Comments Chart prep 11/20/2024 Encounter Details Date Type Department Care Team ([facility] st Contact Info) Description 11/20/2024 Telephone [facility] [address] [place], [place] [phone] Catarina Davis MD [address] [place], [place] [phone] Chart prep Social History Tobacco Use Types Packs/Day Years [...] Telephone Encounter - Ruma Jackson MA - 11/20/2024 2:41 PM EST Chart Prep Labs: not done Images: done Vaccines due: yes Referrals: complete Screenings: mammogram , Foot Exam Overdue care gaps: Glucose documented in this encounter Plan of Treatment Upcoming Encounters Date Type Department Care Team (Late st Contact Info) Description 02/02/2025 9:00 AM EDT Office Visit [facility] [address] [place] [phone] Catarina Davis MD [address] [place] [address] 02/23/2025 11:30 AM EDT Clinical Support [facility] [address] [place] [address] Day Smith, CHADWICK documented as of this encounter Visit Diagnoses Not on filedocumented in this encounter Additional Health Concerns Assessment Noted Time PHQ-9 Depression Total Score: 0 12/29/19 23 1:22 PM EDT documented as of this encounter Care Teams Environmental Compliance Manager Relationship Specialty Start Date End Date Catarina Davis MD [address] [place] [phone] PCP - General Family Medicine 10/15/17 documented as of this encounter
--- OUTSIDE RECORDS SUMMARY | 2024-11-30 12:57 | XMS_ITS | Encounter Summary ---
Author Organization [employer] Address [address] [facility] 7t [place] [address] Care Team Providers Care Knot Tier Name Role Phone Catarina Davis MD Primary Care Provider + Reason for Visit * Reason Onset Date Comments Recommend SPEECH WRITER Tier 2 11/26/2024 Encounter Details Date Type Department Care Team ([facility] st Contact Info) Description 11/26/2024 Telephone [facility] [address] [place] [address] Day Smith, CHADWICK Recommend SPEECH WRITER Tier 2 Social History Tobacco Use Types Packs/Day Years [...] encounter Miscellaneous Notes * Telephone Encounter - Catarina Davis MD - 11/26/2024 12:41 PM EST Agree with tier 2 fu for SPEECH WRITER clinic * Telephone Encounter - Day Smith RN - 11/26/2024 7:24 AM EST What SPEECH WRITER Tier would you like this patient to be? I recommend Tier 2, please let me know if you agree or would rather patient be in another SPEECH WRITER Tier. Tier 1 = HIGH RISK, Monthly SPEECH WRITER visits Tier 2 = MODerate RISK, Q3 Month visits Tier 3 = LOW RISK = Q4-6 month visits documented in this encounter Plan of Treatment Upcoming Encounters Date Type Department Care Team (Late st Contact Info) Description 02/02/2025 9:00 AM EDT Office Visit [facility] [address] [place] [phone] Catarina Davis MD [address] [place] [address] 02/23/2025 11:30 AM EDT Clinical Support [address] [address] Day Smith, RN documented as of this encounter Visit Diagnoses Not on filedocumented in this encounter Additional Health Concerns Assessment Noted Time PHQ-9 Depression Total Score: 0 12/29/19 23 1:22 PM EDT documented as of this encounter Care Teams Knot Tier Relationship Specialty Start Date End Date Catarina Davis MD [address] [place] [phone] PCP - General Family Medicine 10/15/17 documented as of this encounter
--- OUTSIDE RECORDS SUMMARY | 2024-11-30 12:57 | XMS_ITS | Encounter Summary ---
Author Organization [employer] Address [address] [facility] 7t [place] [address] Care Team Providers Care Posting Machine Operator Name Role Phone Catarina Davis MD Primary Care Provider + Reason for Visit * Reason Onset Date Comments Med Refill 11/06/2024 Encounter Details Date Type Department Care Team (Late st Contact Info) Description 11/06/2024 Refill [facility] [address] [place], [place] [phone] Catarina Davis MD [address] [place], [place] [phone] Chronic midline low back pain, unspecified whether [...] 50 MG tablet To be sent to: [facility] [facility] #[id number] documented in this encounter Plan of Treatment Upcoming Encounters Date Type Department Care Team (Late st Contact Info) Description 02/02/2025 9:00 AM EDT Office Visit [facility] [address] [place] [phone] Catarina Davis MD [address] [place] [phone] 02/23/2025 11:30 AM EDT Clinical Support [facility] [address] [place] [phone] Day Smith, CHADWICK documented as of this encounter Visit Diagnoses Diagnosis Chronic midline low back pain, unspecified whether sciatica present documented in this encounter Additional Health Concerns Assessment Noted Time PHQ-9 Depression Total Score: 0 12/29/19 23 1:22 PM EDT documented as of this encounter Care Teams Posting Machine Operator Relationship Specialty Start Date End Date Catarina Davis MD [address] [place] [phone] PCP - General Family Medicine 10/15/17 documented as of this encounter
== END 2024-11-30 11:45 | disposition home or self-care (01) ==
PROVIDERS: PCP Internal Medicine; Visit Provider Orthopaedic Surgery
DX: M17.0 Bilateral primary osteoarthritis of knee (principal)
CPT/HCPCS: 20610

== ENCOUNTER → 2024-11-30 11:16 | Outpatient (BNVA) | payer MEDICAID, SELFPAY | PROVIDERS: PCP Internal Medicine; Visit Provider Orthopaedic Surgery | DX: M17.0 Bilateral primary osteoarthritis of knee (principal) | CPT/HCPCS: 20610; J2003; J7323 ==

== ENCOUNTER 2024-12-14 08:53 | Emergency (ER) | payer MEDICAID, SELFPAY ==
--- NOTE | ~2024-12-14 | XR_ITS ---
EXAMINATION: XR CHEST 2 VIEWS HISTORY: cough COMPARISON: Comparison is made with the prior examination dated 10/30/2023. FINDINGS: PA and lateral views of the chest are submitted. The lungs are expanded and clear. There is no pleural effusion, pneumothorax, or pulmonary vascular congestion. The heart is normal in size. The bones are intact. XR/XR chest 2V IMPRESSION: No acute cardiopulmonary abnormality. Electronically signed by: Corby Johnson MD 12/14/2024 09:24 AM EDT
[2024-12-14 09:06] VITALS: BP 118/85; PULSE 77; RESP 19; TEMP 36.6; O2SAT 98; BMI 31.2
[2024-12-14 10:03] LABS: MANUAL DIFF FLAG NO
[2024-12-14 10:05] LABS: Basophils Percent Auto 0.8 % (0-2); Hematocrit 40.2 % (37.0-47.0); Hemoglobin 13.9 g/dl (12.0-16.0); Imm Gran Abs Auto 0.01 X10*3/uL (0.00-0.03); Imm Gran Pct Auto 0.3 % (0.0-0.4); Lymphocytes Absolute Auto 0.9 X10*3/uL (1.2-4.9); Lymphocytes Percent Auto 21.5 % (20-40); Mean Corpuscular HGB Conc 34.6 g/dl (31.0-35.0); Mean Corpuscular Hemoglobin 33.4 pg (27.0-33.0); Mean Corpuscular Volume 96.6 fL (80.0-98.0); Mean Platelet Volume 9.5 fL (9.4-12.3); Monocytes Absolute Auto 0.6 X10*3/uL (0.1-1.2); Monocytes Percent Auto 14.3 % (2-11); Neutrophils Absolute Auto 2.5 x10*3/uL (2.0-8.3); Neutrophils Percent Auto 63.1 % (45-73); Platelet Count 194 X10*3/uL (160-400); Red Blood Count 4.16 X10*6/uL (4.20-5.50); Red Cell Distribution Width 13.3 % (11.0-16.0)
[2024-12-14 10:14] LABS: IDNOW Serial# 08D9AD1C; Strep A Nucleic Acid Negative (Negative)
[2024-12-14 10:22] LABS: Anion Gap 11 (12-20); Blood Urea Nitrogen 10 mg/dL (9-16); Calcium 8.9 mg/dL (8.4-10.2); Carbon Dioxide 26 mmol/L (22-29); Chloride 108 mmol/L (96-108); Creatinine Clr Calc Pharmacy 79.7; Estimated Glomerular Filt Rate > 60; Glucose Random 104 mg/dL (60-115); Potassium 4.3 mmol/L (3.3-5.1); Sodium 141 mmol/L (135-145)
[2024-12-14 10:44] LABS: Influenza A PCR POSITIVE (Negative); Influenza B PCR NEGATIVE (Negative); Resp Syncy Virus RNA Qual PCR NEGATIVE (Negative); SARS COV2 PCR INHOUSE NEGATIVE (Negative)
--- NOTE | 2024-12-14 11:01 | ED_ITS ---
HPI - General Adult General Chief complaint: Upper Respiratory Symptoms Stated complaint: headache cough Time Seen by Provider: 12/14/24 11:00 Source: patient Mode of arrival: ambulatory Limitations: no limitations History of Present Illness ED Provider: Nicole Nur PA-C HPI narrative: Patient is a 44 year old assigned female at with a history of asthma presenting to the emergency department today with a cough, headache, sore throat, nausea, vomiting, and fever. Patient states that over the last couple of days she has had a cough, headache, sore throat, nausea, vomiting, and a fever. Patient denies any dizziness, lightheadedness, abdominal pain, chills, blurry vision, double vision, loss of vision, chest pain, difficulty breathing, shortness of breath, back pain, night sweats, pain with urination, increased urinary frequency, increased urinary urgency, blood in her urine or stool, syncope or a near syncopal episode, recent trauma or falls, bowel incontinence, bladder incontinence, or any other complaints at this time. Onset (ago): day(s) Relieving factors: none Exacerbating factors: none Associated symptoms: cough, fever/chills, headaches and nausea/vomiting Treatments prior to arrival: none Related Data Home Medications ?Medication ?Instructions ?Recorded ?Confirmed tramadol 50 mg tablet 50 mg PO TID PRN Pain 05/15/23 12/01/24 acetaminophen 650 mg 650 mg PO Q8H PRN 05/22/23 12/01/24 tablet,extended release fluticasone propionate 50 1 spray intranasal QAM 05/22/23 12/01/24 mcg/actuation nasal spray,suspension zolpidem 10 mg tablet 10 mg PO BEDTIME 05/22/23 12/01/24 tizanidine 4 mg capsule 4 mg PO Q8H PRN 11/12/23 12/01/24 gabapentin 300 mg capsule 300 mg PO BEDTIME 10/05/24 12/01/24 loratadine 10 mg tablet 10 mg PO DAILY 10/05/24 12/01/24 Previous Rx's ?Medication ?Instructions ?Recorded acetaminophen 500 mg tablet 500 mg PO Q6H PRN pain or fever 01/02/21 (Tylenol Extra Strength) #20 tabs albuterol sulfate 90 mcg/actuation 2 puff inhalation Q4H PRN wheezing 02/06/24 aerosol inhaler (Ventolin HFA) #1 ea mometasone-formoterol HFA 50 mcg-5 2 puff inhalation Q12H #13 grams 12/03/23 mcg/actuation aerosol inhaler (Dulera) omeprazole 20 mg capsule,delayed 20 mg PO DAILY #90 caps 10/05/24 release Allergies Allergy/AdvReac Type Severity Reaction Status Date / Time cephalexin [From KEFLEX] Allergy Intermediate RASH Verified 12/14/24 09:08 Review of Systems 2 Constitutional: Constitutional: Reports no additional constitutional complaints, Denies chills, Reports fever(s), Reports headache(s) and Denies night sweats Eyes: Eyes: Reports no additional eye complaints, Denies blurry vision, Denies change in vision, Denies diplopia, Denies eye discharge, Denies loss of vision and Denies eye pain ENT: Denies dizziness, Reports headache(s) and Reports sore throat Cardiovascular: Cardiovascular: Reports no additional cardiovascular complaints, Denies chest pain, Denies lightheadedness, Denies Loss of Consciousness and Denies dyspnea Respiratory: Respiratory: Reports no additional respiratory complaints, Reports cough and Denies dyspnea Gastrointestinal: Gastrointestinal: Reports no additional gastrointestinal complaints, Denies abdominal pain, Denies melena, Denies hematochezia, Denies change in bowel habits, Denies change in stool character, Reports nausea and Reports vomiting Genitourinary: Genitourinary: Denies hematuria, Denies urinary frequency, Denies dysuria, Denies urinary incontinence, Denies urinary hesitancy and Denies urinary urgency Musculoskeletal: Musculoskeletal: Reports no additional musculoskeletal complaints, Denies numbness and Denies tingling Neurologic: Denies dizziness, Reports headache(s), Denies loss of vision, Denies numbness and Denies tingling Psychiatric: Psychiatric: Reports no additional psychiatric complaints Endocrine: Endocrine: Reports no additional endocrine complaints Hematologic/Lymphatic: Hematologic/Lymphatic: Reports no additional hematologic/lymphatic complaints Allergic/Immunologic: Allergic/Immunologic: Reports no additional allergic/immunologic complaints PMFSH Past Medical History Attestation statement: The following information was validated with the patient. Source: old records reviewed and nursing notes reviewed Medical History Asthma Surgical History Hx of hand surgery History of breast reconstruction Hx of abdominoplasty Hx of section History of esophagogastroduodenoscopy (EGD) Family History Family History Maternal Aunt Breast CA Social History Social History Alcohol intake: current Alcohol intake frequency: holidays/special occasions only Patient Tobacco Use Status: Current everyday Tobacco user Tobacco use type: Cigarette Cigarettes Per Day: 2 Advance Directives: No Advance Directives Information Provided: Yes Do you have a plan to hurt others: No Plan service: No Current occupational status: unemployed Physical Exam ED Vital Signs: Vital Signs - 24 hr 12/14/24 09:06 12/14/24 11:16 Temperature 98 F 98 F Pulse Rate 77 77 Respiratory Rate 19 19 Blood Pressure 118/85 118/85 Pulse Oximetry 98 98 Oxygen Delivery Method Room Air Room Air BMI result Body Mass Index 31.2 Const General: cooperative, no acute distress, alert and awake Nutritional Appearance: well nourished Orientation/consciousness: patient oriented x3 Limitations: no limitations HENMT Head: Yes normal to inspection and Yes atraumatic Ears: hearing grossly normal bilaterally and external ears normal General nose exam: Normal external nose present, no nasal discharge noted and no epistaxis Face and sinus: Yes normal facial exam, No abrasion and No laceration Mouth: Normal oral and palatal mucosa present, no drooling and no muffled voice Eyes General: appearance normal, both eyes and all related structures Periorbital: periorbital findings normal Eyelids: Yes eyelids normal Conjunctivae: conjunctivae normal Pupils: Equal, round and reactive pupils present EOM: EOMs intact bilaterally Neck Neck: Yes normal visual inspection, Yes full ROM and Yes no lymphadenopathy Chest Chest palpation & inspection: normal inspection of the chest Resp Effort & Inspection: normal respiratory effort and able to speak in complete sentences GI Inspection: Yes normal to inspection Neuro General: patient oriented x3, moves all extremities and CN's II-XI intact bilaterally Cranial nerves: Yes Equal, round and reactive pupils present Cognition (Neuro): normal cognition Extrem General: Yes normal to inspection, Yes full ROM and Yes capillary refill normal Psych Appearance: grossly normal Mental Status: mental status grossly normal Affect: normal affect Attitude: cooperative Thought process: Normal thought process present Thought content: Normal thought content present Insight: Good insight present (Psych) Medical Decision Making Medical Decision Making [facility] Narrative: Patient is a 44 year old assigned female at with a history of asthma presenting to the emergency department today with a cough, headache, sore throat, nausea, vomiting, and fever. Patient's physical exam was unremarkable. Patient's blood work was unremarkable. Patient's chest x-ray showed no acute process. Patient's influenza A test was positive. I explained my physical exam findings as well as all test results to the patient. I answered all questions asked by the patient. I stressed the importance of the patient taking her medication as directed (either prescribed or as the over the counter packaging recommends). I stressed the importance of the patient following up with her primary care provider. I stressed the importance of the patient returning to the emergency department immediately if her symptoms were to worsen or if she were to develop any dizziness, shortness of breath, difficulty breathing, chest pain, blurry vision, loss of vision, nausea, vomiting, abdominal pain, fever, chills, back pain, or any other complaints. Patient verbalized agreement and understanding with this treatment plan and discharge. Differential Diagnosis Differential Diagnoses: The differential diagnosis associated with the presentation includes Influenza Viral illness PNA Admission/Observation Consideration of admission/observation: Escalation of care including admission/observation considered Patient would have been admitted to the hospital had her work up had any findings where hospital admission was appropriate and her clinical presentation warranted hospital admission. Lab Data [facility] Lab Attestation statement: I reviewed the patient's lab results. My interpretation of these results are in the [facility] Rationale portion of this note. 12/14/24 09:56 12/14/24 09:56 Labs: Lab Results 12/14/24 Range/Units 09:56 WBC 4.0 L (4.8-10.8) X10*3/uL RBC 4.16 L (4.20-5.50) X10*6/uL Hgb 13.9 (12.0-16.0) g/dl Hct 40.2 (37.0-47.0) % MCV 96.6 (80.0-98.0) fL MCH 33.4 H (27.0-33.0) pg MCHC 34.6 (31.0-35.0) g/dl RDW 13.3 (11.0-16.0) % Plt Count 194 D (160-400) X10*3/uL MPV 9.5 (9.4-12.3) fL Immature Gran % (Auto) 0.3 (0.0-0.4) % Neut % (Auto) 63.1 (45-73) % Lymph % (Auto) 21.5 (20-40) % [place] % (Auto) 14.3 H (2-11) % Eos % (Auto) 0.0 (0-4) % Baso % (Auto) 0.8 (0-2) % Lymph # (Auto) 0.9 L (1.2-4.9) X10*3/uL [place] # (Auto) 0.6 (0.1-1.2) X10*3/uL Eos # (Auto) 0.0 (0.0-0.4) X10*3/uL Baso # (Auto) 0.0 (0.0-0.2) X10*3/uL Abs Immat Gran (auto) 0.01 (0.00-0.03) X10*3/uL Absolute Neuts (auto) 2.5 (2.0-8.3) x10*3/uL Absolute Nucleated RBC 0.000 (0.0-0.012) X10*3/uL Nucleated RBC % (auto) 0.0 (0.0-0.2) /100WBC Sodium 141 (135-145) mmol/L Potassium 4.3 (3.3-5.1) mmol/L Chloride 108 (96-108) mmol/L Carbon Dioxide 26 (22-29) mmol/L Anion Gap 11 L (12-20) BUN 10 (9-16) mg/dL Creatinine 0.80 (0.5-1.4) mg/dL Estim Creat Clear Calc 79.7 Estimated GFR > 60 Random Glucose 104 (60-115) mg/dL Calcium 8.9 (8.4-10.2) mg/dL Influenza Type A (PCR) POSITIVE A (Negative) Influenza Type B (PCR) NEGATIVE (Negative) RSV RNA Qual (PCR) NEGATIVE (Negative) SARS-CoV-2 RNA (RT-PCR) NEGATIVE (Negative) S. pyogenes GrpA FAUZIA Negative (Negative) Independent Interpretation I performed an independent interpretation of an: Plain X-Ray Interpretation: My interpretation is in agreement with the radiologist's impression of this imaging study. L EXAMINATION: XR CHEST 2 VIEWS HISTORY: cough COMPARISON: Comparison is made with the prior examination dated 10/30/2023. FINDINGS: PA and lateral views of the chest are submitted. The lungs are expanded and clear. There is no pleural effusion, pneumothorax, or pulmonary vascular congestion. The heart is normal in size. The bones are intact. XR/XR chest 2V IMPRESSION: No acute cardiopulmonary abnormality. Electronically signed by: Corby Johnson MD 12/14/2024 09:24 AM EDT RP Dictated By: Corby Johnson MD Signed By: Electronically signed by Corby Johnson MD 12/14/24923 Radiology Impression Discussion of test interpretation with radiology: I have reviewed the radiologist's reading. Discharge Plan Discharge Clinical Impression: Influenza A Patient Disposition: Home, Self-Care Instructions: Influenza (DC) Additional Instructions: Follow up with your primary care provider. Return to the emergency department immediately if your symptoms worsen or if you develop any numbness, tingling, dizziness, shortness of breath, difficulty breathing, chest pain, blurry vision, loss of vision, nausea, vomiting, abdominal pain, fever, chills, back pain, or any other complaints. Please see the information below about our Patient Portal. If you are not yet enrolled in the [facility] Patient Portal, you will receive an enrollment email invitation following your visit to any [facility] setting. You may also self-enroll in the Patient Portal by visiting our website: [email or web address] The following information is required to access the Patient Portal: - Your [facility] Medical Record Number - Your personal home email address (must match what is in your electronic medical record, Registration staff can assist with this) - Name - Date of Capabilities of the Patient Portal: - Message some providers - View upcoming appointments - Access your health summary, medical history, and visit history - View current conditions and allergies - View procedure and lab results - View your medications, including guidelines, side effects, and precautions - Complete pre-appointment questionnaires requested by your provider - Ready summary reports of your office visits and procedures To access the Patient Portal Mobile Patricia, follow these directions: - Search [employer] in the Patricia Store or Google Play Store - Download the Patricia - Search for [facility] - Enter your login/password Prescriptions: No Action Dulera 50-5 mcg/actuation HFA aerosol inhaler 2 puff inhalation Q12H Qty: 13 0RF acetaminophen [Tylenol Extra Strength] 500 mg tablet 500 mg PO Q6H PRN (Reason: pain or fever) Qty: 20 0RF gabapentin 300 mg capsule 300 mg PO BEDTIME loratadine 10 mg tablet 10 mg PO DAILY omeprazole 20 mg capsule,delayed release(DR/EC) 20 mg PO DAILY Qty: 90 0RF tramadol 50 mg tablet 50 mg PO TID PRN (Reason: Pain) zolpidem 10 mg tablet 10 mg PO BEDTIME fluticasone propionate 50 mcg/actuation spray,suspension 1 spray intranasal QAM acetaminophen 650 mg tablet extended release 650 mg PO Q8H PRN tizanidine 4 mg capsule 4 mg PO Q8H PRN albuterol sulfate [Ventolin HFA] 90 mcg/actuation HFA aerosol inhaler 2 puff inhalation Q4H PRN (Reason: wheezing) Qty: 1 3RF Referrals: Catarina Davis MD [Primary Care Provider] - Stand Alone Forms: Work/School Release Interventions: ED Discharge Assessment Last Done: 12/14/24 11:16 Discharge Date/Time: 12/14/24 11:16 Print Language: Northern Irish
[2024-12-14 11:16] VITALS: BP 118/85; PULSE 77; RESP 19; TEMP 36.6; O2SAT 98
--- OUTSIDE RECORDS SUMMARY | 2024-12-14 12:34 | XMS_ITS | Encounter Summary ---
Author Organization [email or web address] Address [address] [facility] 7t [place] [address] Care Team Providers Care Rivet Hammer Machine Operator Name Role Phone Catarina Davis MD Primary Care Provider + Reason for Visit * Reason Onset Date Comments Med Refill 12/02/2024 Encounter Details Date Type Department Care Team (Late st Contact Info) Description 12/02/2024 Refill [facility] [address] [place], [place] [phone] Catarina Davis MD [address] [place], [place] [phone] Neck sprain, sequela Social History Tobacco Use [...] * Telephone Encounter - Sara Tucker - 12/02/2024 8:51 AM EST TC from pt requesting medication refill. Medications needing refill : acetaminophen (Tylenol 8 Hour) 650 MG ER tablet albuterol (ProAir HFA) 108 (90 Base) MCG/ACT inhaler fexofenadine (Virgen) 180 MG tablet gabapentin (Neurontin) 300 MG capsule To be sent to: [facility] #[id number] AT [facility] documented in this encounter Plan of Treatment Upcoming Encounters Date Type Department Care Team (Late st Contact Info) Description 02/02/2025 9:00 AM EDT Office Visit [facility] [address] [place] [phone] Catarina Davis MD [address] [place] [phone] 02/23/2025 11:30 AM EDT Clinical Support [facility] [address] [place] [address] Day Smith RN documented as of this encounter Visit Diagnoses Diagnosis Neck sprain, sequela documented in this encounter Additional Health Concerns Assessment Noted Time PHQ-9 Depression Total Score: 0 12/29/19 23 1:22 PM EDT documented as of this encounter Care Teams Rivet Hammer Machine Operator Relationship Specialty Start Date End Date Catarina Davis MD [address] [place] [phone] PCP - General Family Medicine 10/15/17 documented as of this encounter
--- OUTSIDE RECORDS SUMMARY | 2024-12-14 12:34 | XMS_ITS | Clinical Summary ---
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
--- OUTSIDE RECORDS SUMMARY | 2024-12-14 12:34 | XMS_ITS | Encounter Summary ---
Author Organization [employer] Address [address] [facility] 7t [place] [address] Care Team Providers Care Glass Polisher Name Role Phone Catarina Davis MD Primary Care Provider + Reason for Visit * Reason Comments Med Refill Encounter Details Date Type Department Care Team (Late st Contact Info) Description 08/14/2023 Refill [facility] [address] [place], [place] [phone] Catarina Davis MD [address] [place], [place] [phone] Neck sprain, sequela Social History Tobacco Use [...] Description 02/02/2025 9:00 AM EDT Office Visit [facility] [address] [place] [phone] Catarina Davis MD [address] [place] [address] 02/23/2025 11:30 AM EDT Clinical Support [address] [address] Day Smith, [place] documented as of this encounter Visit Diagnoses Diagnosis Neck sprain, sequela documented in this encounter Additional Health Concerns Assessment Noted Time PHQ-9 Depression Total Score: 0 12/29/19 23 1:22 PM EDT documented as of this encounter Care Teams Glass Polisher Relationship Specialty Start Date End Date Catarina Davis MD [address] [place] [phone] PCP - General Family Medicine 10/15/17 documented as of this encounter
--- OUTSIDE RECORDS SUMMARY | 2024-12-14 12:34 | XMS_ITS | Encounter Summary ---
Author Organization [employer] Address [address] [facility] 7t [place] [address] Care Team Providers Care Mortgage Loan Processing Clerk Name Role Phone Catarina Davis MD Primary Care Provider + Reason for Visit * Reason Onset Date Comments Appointment Request 11/17/2024 Encounter Details Date Type Department Care Team ([facility] st Contact Info) Description 11/17/2024 Telephone [facility] [address] [place] [address] Catarina Davis MD [address] [place], [place] [phone] Appointment Request Social History Tobacco Use Types [...] Description 02/02/2025 9:00 AM EDT Office Visit [facility] [address] [place] [phone] Catarina Davis MD [address] [place] [phone] 02/23/2025 11:30 AM EDT Clinical Support [facility] [address] [place] [address] Day Smith, RN documented as of this encounter Visit Diagnoses Not on filedocumented in this encounter Additional Health Concerns Assessment Noted Time PHQ-9 Depression Total Score: 0 12/29/19 23 1:22 PM EDT documented as of this encounter Care Teams Mortgage Loan Processing Clerk Relationship Specialty Start Date End Date Catarina Davis MD [address] [place] [phone] PCP - General Family Medicine 10/15/17 documented as of this encounter
--- OUTSIDE RECORDS SUMMARY | 2024-12-14 12:34 | XMS_ITS | Encounter Summary ---
Author Organization [employer] Address [address] [facility] 7t [place] [address] Care Team Providers Care Morning Babysitter Name Role Phone Catarina Davis MD Primary Care Provider + Reason for Visit * Reason Onset Date Comments Med Refill 12/02/2024 Encounter Details Date Type Department Care Team (Late st Contact Info) Description 12/02/2024 Refill [facility] [address] [place], [place] [phone] Catarina Davis MD [address] [place], [place] [phone] Chronic midline low back pain, unspecified whether [...] Telephone Encounter - Day Smith RN - 12/02/2024 11:36 AM EST Per [facility] Tramadol last picked up 11/08/24. Refill due 12/06/24. Will forward to PCP on 12/04/24. * Telephone Encounter - Sara Tucker - 12/02/2024 8:50 AM EST TC from pt requesting medication refill. Medications needing refill : traMADol (Ultram) 50 MG tablet To be sent to: [id number] AT [facility] documented in this encounter Plan of Treatment Upcoming Encounters Date Type Department Care Team (Late st Contact Info) Description 02/02/2025 9:00 AM EDT Office Visit [facility] [address] [place] [phone] Catarina Davis MD [address] [place] [phone] 02/23/2025 11:30 AM EDT Clinical Support [facility] [address] [place] [phone] Day Smith RN documented as of this encounter Visit Diagnoses Diagnosis Chronic midline low back pain, unspecified whether sciatica present documented in this encounter Additional Health Concerns Assessment Noted Time PHQ-9 Depression Total Score: 0 12/29/19 23 1:22 PM EDT documented as of this encounter Care Teams Morning Babysitter Relationship Specialty Start Date End Date Catarina Davis MD [address] [place] [phone] PCP - General Family Medicine 10/15/17 documented as of this encounter
--- OUTSIDE RECORDS SUMMARY | 2024-12-14 12:35 | XMS_ITS | Encounter Summary ---
Author Organization [employer] Address [address] [facility] 7t [place] [address] Care Team Providers Care Systems Integration Analyst Name Role Phone Caatrina Davis MD Primary Care Provider + Reason for Visit * Reason Comments Med Refill Encounter Details Date Type Department Care Team (Late st Contact Info) Description 10/06/2024 Refill [facility] [address] [place], [place] [phone] Catarina Davis MD [address] [place], [place] [phone] Cervical paraspinal muscle spasm Social History Tobacco [...] Description 02/02/2025 9:00 AM EDT Office Visit [address] [address] Catarina Davis MD [address] [place] [phone] 02/23/2025 11:30 AM EDT Clinical Support [address] [phone] Day Smith RN documented as of this encounter Visit Diagnoses Diagnosis Cervical paraspinal muscle spasm Spasm of muscle documented in this encounter Additional Health Concerns Assessment Noted Time PHQ-9 Depression Total Score: 0 12/29/19 23 1:22 PM EDT documented as of this encounter Care Teams Systems Integration Analyst Relationship Specialty Start Date End Date Catarina Davis MD [address] [place] [phone] PCP - General Family Medicine 10/15/17 documented as of this encounter
--- OUTSIDE RECORDS SUMMARY | 2024-12-14 12:35 | XMS_ITS | Encounter Summary ---
Author Organization [employer] Address [address] [facility] 7t [place] [address] Care Team Providers Care Adult Literacy Instructor Name Role Phone Catarina Davis MD [...] Description 02/02/2025 9:00 AM EDT Office Visit [facility] [address] [place] [phone] Catarina Davis MD [address] [place] [address] 02/23/2025 11:30 AM EDT Clinical Support [facility] [address] [place] [phone] Day Smith RN documented as of this encounter Visit Diagnoses Not on filedocumented in this encounter Additional Health Concerns Assessment Noted Time PHQ-9 Depression Total Score: 0 12/29/19 23 1:22 PM EDT documented as of this encounter Care Teams Adult Literacy Instructor Relationship Specialty Start Date End Date Catarina Davis MD [address] [place] [address] [phone] PCP - General Family Medicine 10/15/17 documented as of this encounter
--- OUTSIDE RECORDS SUMMARY | 2024-12-14 12:35 | XMS_ITS | Encounter Summary ---
Author Organization [employer] Address 75 [facility] 7t [place] [address] Care Team Providers Care Planning Consultant Name Role Phone Catarina Davis MD Primary Care Provider + Reason for Visit * Reason Onset Date Comments BPI Scoring 11/26/2024 Tramadol count discrepancy 11/26/2024 Encounter Details Date Type Department Care Team ([facility] st Contact Info) Description 11/26/2024 Telephone [facility] [address] [place] [address] Day Smith RN BPI Scoring; Tramadol count [...] t he electric, gas, oil or water [facility] threatened to shut off services in your [...] - 11/26/2024 9:49 AM EST Pt had SEWER DIGGER RV appt today Pt had 33 Tramadol [...] Description 02/02/2025 9:00 AM EDT Office Visit [facility] [address] [place] [phone] Catarina Davis MD [address] [place] [phone] 02/23/2025 11:30 AM EDT Clinical Support [facility] [address] [place] [phone] Day Smith RN documented as of this encounter Visit Diagnoses Not on filedocumented in this encounter Additional Health Concerns Assessment Noted Time PHQ-9 Depression Total Score: 0 12/29/19 23 1:22 PM EDT documented as of this encounter Care Teams Planning Consultant Relationship Specialty Start Date End Date Catarina Davis MD [address] [place] [phone] PCP - General Family Medicine 10/15/17 documented as of this encounter
--- OUTSIDE RECORDS SUMMARY | 2024-12-14 12:35 | XMS_ITS | Encounter Summary ---
Author Organization [facility] Address [address] [address] Phone Care Team Providers Care Internal Combustion Engine Inspector Name Role Phone Catarina Davis MD Primary Care Provider [phone] Encounter Details Date Type Department Care Team (Late st Contact Info) Description 01/11/2023 Documentation Only [facility] [address] [place] [address] Smooth Almonte MD [address] [place] [address] [place] [address] Social History Tobacco Use Types [...] Visit [facility] [address] [place] [address] Smooth Almonte MD [address] [place] [address] [place] [address] documented as of this encounter Visit Diagnoses Not on filedocumented in this encounter Care Teams Internal Combustion Engine Inspector Relationship Specialty Start Date End Date Catarina Davis MD [address] [place] [phone] PCP - General 08/11/19 documented as of this encounter
--- OUTSIDE RECORDS SUMMARY | 2024-12-14 12:35 | XMS_ITS | Encounter Summary ---
Author Organization [employer] Address 75 [facility] 7t [place] [address] Care Team Providers Care Fire Extinguisher Installer Name Role Phone Catarina Davis MD Primary [...] Description 02/02/2025 9:00 AM EDT Office Visit [facility] [address] [place] [phone] Catarina Davis MD [address] [place] [phone] 02/23/2025 11:30 AM EDT Clinical Support [facility] [address] [place] [phone] Day Smith RN documented as of this encounter Visit Diagnoses Not on filedocumented in this encounter Additional Health Concerns Assessment Noted Time PHQ-9 Depression Total Score: 0 12/29/19 23 1:22 PM EDT documented as of this encounter Care Teams Fire Extinguisher Installer Relationship Specialty Start Date End Date Catarina Davis MD [address] [place] [address] [phone] PCP - General Family Medicine 10/15/17 documented as of this encounter
--- OUTSIDE RECORDS SUMMARY | 2024-12-14 12:35 | XMS_ITS | Encounter Summary ---
Author Organization [employer] Address 75 [facility] 7t [place] [address] Care Team Providers Care Educational Sign Language Interpreter Name Role Phone Catarina Davis MD Primary Care Provider + Reason for Visit * Reason Onset Date Comments Chart prep 11/20/2024 Encounter Details Date Type Department Care Team ([facility] st Contact Info) Description 11/20/2024 Telephone [facility] [address] [place], [place] [phone] Catarina Davis MD [address] [place], [place] [phone] Chart prep Social History Tobacco Use Types [...] Description 02/02/2025 9:00 AM EDT Office Visit [facility] [address] [place] [phone] Catarina Davis MD [address] [place] [phone] 02/23/2025 11:30 AM EDT Clinical Support [facility] [address] [place] [phone] Day Smith, CHADWICK documented as of this encounter Visit Diagnoses Not on filedocumented in this encounter Additional Health Concerns Assessment Noted Time PHQ-9 Depression Total Score: 0 12/29/19 23 1:22 PM EDT documented as of this encounter Care Teams Educational Sign Language Interpreter Relationship Specialty Start Date End Date Catarina Davis MD [address] [place] [phone] PCP - General Family Medicine 10/15/17 documented as of this encounter
--- OUTSIDE RECORDS SUMMARY | 2024-12-14 12:35 | XMS_ITS | Encounter Summary ---
Author Organization [employer] Address [address] [place] [address] 7t [place] [address] Care Team Providers Care Chief Resource Officer Name Role Phone Catarina Davis MD Primary Care Provider + Encounter Details Date Type Department Care Team (Latest Contact Info) Description 03/19/2019 Abstract [facility] CONVERSIONS Dental, Provider, DDS Social [...] Description 02/02/2025 9:00 AM EDT Office Visit [facility] MEDICINE [address] [place] [phone] Catarina Davis MD [address] [place] [address] 02/23/2025 11:30 AM EDT Clinical Support [facility] MEDICINE [address] [place] [phone] Day Smith RN documented as of this encounter Visit Diagnoses Not on filedocumented in this encounter Care Teams Chief Resource Officer Relationship Specialty Start Date End Date Catarina Davis MD [address] [place] [address] [phone] PCP - General Family Medicine 10/15/17 documented as of this encounter
--- OUTSIDE RECORDS SUMMARY | 2024-12-14 12:35 | XMS_ITS | Clinical Summary ---
Author Organization [facility] Address [address] [place] [address] [place] [address] Phone Care Team Providers Care Manufacturing Engineer Machining Name Role Phone Catarina Davis MD Primary [...] Visit [facility] [address] [facility] [place] [phone] Smooth Almonte MD [address] [facility] [place] [phone] Health Maintenance Due Date Last Done Comments [...] history exists Insurance MEDICAID [place] Care Teams Manufacturing Engineer Machining Relationship Specialty Start Date End Date Catarina Davis MD [address] [place] [phone] PCP - General 08/11/19
--- OUTSIDE RECORDS SUMMARY | 2024-12-14 12:35 | XMS_ITS | Encounter Summary ---
Author Organization [employer] Address 75 [facility] 7t [place] [address] Care Team Providers Care Reimbursement Manager Name Role Phone Catarina Davis MD Primary Care Provider + Reason for Visit * Reason Onset Date Comments Recommend LEARNING DISABLED TEACHER Tier 2 11/26/2024 Encounter Details Date Type Department Care Team ([facility] st Contact Info) Description 11/26/2024 Telephone [facility] [address] [place] [address] Day Smith, CHADWICK Recommend LEARNING DISABLED TEACHER Tier 2 Social History Tobacco Use Types [...] EST Agree with tier 2 fu for LEARNING DISABLED TEACHER clinic * Telephone Encounter - Day Smith RN - 11/26/2024 7:24 AM EST What LEARNING DISABLED TEACHER Tier would you like this patient to be? I recommend Tier 2, please let me know if you agree or would rather patient be in another LEARNING DISABLED TEACHER Tier. Tier 1 = HIGH RISK, Monthly LEARNING DISABLED TEACHER visits Tier 2 = MODerate RISK, Q3 Month visits Tier 3 = LOW RISK = Q4-6 month visits documented in this encounter Plan of Treatment Upcoming Encounters Date Type Department Care Team (Late st Contact Info) Description 02/02/2025 9:00 AM EDT Office Visit [facility] [address] [place] [phone] Catarina Davis MD [address] [place] [phone] 02/23/2025 11:30 AM EDT Clinical Support [address] [address] Day Smith, RN documented as of this encounter Visit Diagnoses Not on filedocumented in this encounter Additional Health Concerns Assessment Noted Time PHQ-9 Depression Total Score: 0 12/29/19 23 1:22 PM EDT documented as of this encounter Care Teams Reimbursement Manager Relationship Specialty Start Date End Date Catarina Davis MD [address] [place] [phone] PCP - General Family Medicine 10/15/17 documented as of this encounter
--- OUTSIDE RECORDS SUMMARY | 2024-12-14 12:35 | XMS_ITS | Encounter Summary ---
Author Organization [employer] Address 75 [facility] 7t [place] [address] Care Team Providers Care Mainframe Systems Engineer Name Role Phone Catarina Davis MD Primary Care Provider + Encounter Details Date Type Department Care Team (Late st Contact Info) Description 11/25/[address] [facility] MEDICINE 230 [place], [place] [phone] Catarina Davis MD 230 [place], [place] [phone] Social History Tobacco Use Types Packs/Day Years [...] t he electric, gas, oil or water [employer] threatened to shut off services in your [...] Description 02/02/2025 9:00 AM EDT Office Visit [address] [phone] Catarina Davis MD [address] [place] [phone] 02/23/2025 11:30 AM EDT Clinical Support [address] [phone] Day Smith, RN documented as of this [...] documented as of this encounter Care Teams Mainframe Systems Engineer Relationship Specialty Start Date End Date Catarina Davis MD [address] [place] [phone] PCP - General Family Medicine 10/15/17 documented as of this encounter
--- OUTSIDE RECORDS SUMMARY | 2024-12-14 12:35 | XMS_ITS | Encounter Summary ---
Author Organization [employer] Address 75 [facility] 7t [place] [address] Care Team Providers Care Parking Meter Mechanic Name Role Phone Catarina Davis MD Primary Care Provider + Reason for Visit * Reason Comments COMPRESS TRUCKER RV COMPRESS TRUCKER RV Encounter Details Date Type Department Care Team (Latest Contact Info) Description 11/26/2024 9:30 AM EST Clinical Support [facility] MEDICINE [address] [place] [phone] Day Smith RN Chronic midline low back [...] t he electric, gas, oil or water [employer] threatened to shut off services in your [...] 9:00 AM EST S: Pt here for COMPRESS TRUCKER Revisit, accompanied by her son and daughter. [...] week. She feels they are helping. O: COMPRESS TRUCKER Tier 2. Pt currently prescribed Tramadol 50mg Q6hr PRN. MANAGER [employer]ATE[employer] MARKETING verified today. Rx last filled on 11/08/24. [...] not completed as of this time. 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 P: Pt to continue taking medication only as prescribed; Next COMPRESS TRUCKER RV appointment scheduled for 02/23/25 @ 11:30am, F/U sooner PRN. Appointment reminder given. Pt verbalized understanding and agreed to plan. documented in this encounter Plan of Treatment Upcoming Encounters Date Type Department Care Team (Late st Contact Info) Description 02/02/2025 9:00 AM EDT Office Visit [address] [address] Catarina Davis MD [address] [place] [phone] 02/23/2025 11:30 AM EDT Clinical Support [address] [address] Day Smith, RN documented as of this [...] - 11/26/2024 9:39 AM EST UTOX cup Lot#[id number] Exp. 05/26/26 Internal Pass Control UTOX completed. [...] documented as of this encounter Care Teams Parking Meter Mechanic Relationship Specialty Start Date End Date Catarina Davis MD 230 [place] [address] PCP - General Family Medicine 10/15/17 documented as of this encounter
--- OUTSIDE RECORDS SUMMARY | 2024-12-14 12:35 | XMS_ITS | Encounter Summary ---
Author Organization [employer] Address 75 [facility] 7t [place] [address] Care Team Providers Care Compliance Spec Name Role Phone Catarina Davis MD Primary Care Provider + Encounter Details Date Type Department Care Team (Latest Contact Info) Description 11/25/2024 2:30 PM EST Telemedicine [facility] MEDICINE 230 [place] [address] Catarina Davis MD 230 [place], [place] [phone] Gastroesophageal reflux disease with esophagitis, unspecified whether [...] is taking Omeprazole for GERD prescribed by Med Care Manager until her endoscopy appointment. She has epigastric [...] the morning. 90tablet 1 [DISCONTINUED] nystatin (Mycostatin) [id number] UNIT/ML suspension SWISH AND SWALLOW 5ML FOUR [...] Description 02/02/2025 9:00 AM EDT Office Visit [facility] [address] [place] [address] Catarina Davis MD [address] [place] [address] 02/23/2025 11:30 AM EDT Clinical Support [address] [address] Day Smith, RN documented as of this encounter Visit Diagnoses Diagnosis Gastroesophageal reflux disease with esophagitis, unspecified whether hemorrhage- Primary Pre-hypertension Elevated blood pressure reading without diagnosis of hypertension documented in this encounter Additional Health Concerns Assessment Noted Time PHQ-9 Depression Total Score: 0 12/29/19 23 1:22 PM EDT documented as of this encounter Care Teams Compliance Spec Relationship Specialty Start Date End Date Catarina Davis MD [address] [place] [address] PCP - General Family Medicine 10/15/17 documented as of this encounter
--- OUTSIDE RECORDS SUMMARY | 2024-12-14 12:35 | XMS_ITS | Encounter Summary ---
Author Organization [employer] Address 75 [facility] 7t [place] [address] Care Team Providers Care Instructor Trainer Canine Service Name Role Phone Catarina Davis MD Primary Care Provider + Reason for Visit * Reason Onset Date Comments FYI 11/01/2023 Encounter Details Date Type Department Care Team ([facility] st Contact Info) Description 11/01/2023 Telephone [facility] MED[facility]INE 230 [place], [place] [phone] Catarina Davis MD 230 [place], [place] [phone] FYI Social History Tobacco Use Types Packs/Day [...] Description 02/02/2025 9:00 AM EDT Office Visit [facility] MEDICINE [address] [place] [phone] Catarina Davis MD [address] [place] [phone] 02/23/2025 11:30 AM EDT Clinical Support [facility]INE [address] [place] [phone] Day Smith RN documented as of this encounter Visit Diagnoses Not on filedocumented in this encounter Additional Health Concerns Assessment Noted Time PHQ-9 Depression Total Score: 0 12/29/19 23 1:22 PM EDT documented as of this encounter Care Teams Instructor Trainer Canine Service Relationship Specialty Start Date End Date Catarina Davis MD [address] [place] [phone] PCP - General Family Medicine 10/15/17 documented as of this encounter
--- OUTSIDE RECORDS SUMMARY | 2024-12-14 12:35 | XMS_ITS | Encounter Summary ---
Author Organization [employer] Address 75 [facility] 7t [place] [address] Care Team Providers Care Laser/Electro Optics Technician Name Role Phone Catarina Davis MD Primary Care Provider + Reason for Visit * Reason Onset Date Comments Error (VOID this visit) 11/26/2024 Encounter Details Date Type Department Care Team ([facility] st Contact Info) Description 11/26/2024 Telephone [facility] 230 [place] [address] Day Smith RN Error (VOID this visit) [...] the past 12 months, has t he [employer], oil or water [employer] threatened to shut off services in your [...] Description 02/02/2025 9:00 AM EDT Office Visit [facility] MED[facility]INE [address] [place] [phone] Catarina Davis MD [address] [place] [phone] 02/23/2025 11:30 AM EDT Clinical Support [facility]INE [address] [place] [phone] Day Smith, CHADWICK documented as of this encounter Visit Diagnoses Not on filedocumented in this encounter Additional Health Concerns Assessment Noted Time PHQ-9 Depression Total Score: 0 12/29/19 23 1:22 PM EDT documented as of this encounter Care Teams Laser/Electro Optics Technician Relationship Specialty Start Date End Date Catarina Davis MD [address] [place] [phone] PCP - General Family Medicine 10/15/17 documented as of this encounter
--- OUTSIDE RECORDS SUMMARY | 2024-12-14 12:35 | XMS_ITS | Clinical Summary ---
Author Organization [employer] Address [address] [place] [address] [address] [place] [address] Care Team Providers Care Personal Finance Instructor Name Role Phone Catarina Davis MD [...] (pain). 150 g 2 03/11/20 23 Active omeprazole (PriLOSEC) [address] [...] smoking cessation. 100 lozenge 07/16/20 24 Active fexofenadine (Virgen) 180 MG tablet Take [...] 10 days. 60 tablet 08/20/20 24 Active albuterol (Ventolin HFA) 108 (90 Base) MCG/ACT inhaler Inhale 2 puffs Every 4-6 hours as needed for wheezing. 18 g 1 12/02/19 25 026 Active acetaminophen (Tylenol 8 Hour) 650 MG ER tabletIndicati ons:Neck sprain, sequela Take 1 tablet (650 mg) by mouth every 8 (eight) hours if needed for mild pain. Take 1 tablet by mouth every 8 hours as needed swallowing whole with water. Do not break, crush, dissolve and/or chew. 90 tablet 2 12/02/19 25 Active traMADol (Ultram) 50 MG tabletIndicati ons:Chronic midline low back pain, unspecified whether sciatica present Take 1 tablet (50 mg) by mouth every 6 (six) hours if needed for severe pain for up to 28 days. Do not start before December 06, 2024. 112 tablet 12/07/19 25 025 Active linaCLOtide (Linzess) 145 MCG capsule Take 1 capsule (145 mcg) by mouth before breakfast. Do not crush or chew. 30 capsule 11 01/26/20 23 025 Discontinued(T herapy completed) acetaminophen (Tylenol 8 Hour) 650 MG ER tabletIndicati ons:Neck sprain, sequela Take 1 tablet (650 mg) by mouth every 6 (six) hours if needed for mild pain. Take 1 tablet by mouth every 8 hours as needed swallowing whole with water. Do not break, crush, dissolve and/or chew. 90 tablet 2 08/09/20 025 Discontinued(R eorder (will not trigger notification to Pharmacy)) fluticasone (Flonase) 50 MCG/ACT nasal spray Administer 1 spray into each nostril in the morning. 48 g 1 10/29/19 24 025 Discontinued(T herapy completed) loratadine (Claritin) 10 MG tablet Take 1 tablet (10 mg) by mouth in the morning. 90 tablet 1 10/29/19 24 025 Discontinued(T herapy completed) nystatin (Mycostatin) 732709 UNIT/ML suspension SWISH AND SWALLOW 5ML FOUR TIMES DAILY. ADMINISTER HALF OF DOSE ON EACH SIDE OF THE MOUTH. 12/03/19 24 025 Discontinued(T herapy completed) albuterol (ProAir HFA) 108 (90 Base) MCG/ACT inhaler Inhale 2 puffs every 4 (four) hours if needed for shortness of breath or wheezing. 18 g 3 07/16/20 24 025 Discontinued(D uplicate order (will not trigger notification to Pharmacy)) traMADol (Ultram) 50 MG tabletIndicati ons:Chronic midline low back pain, unspecified whether sciatica present Take 1 tablet (50 mg) by mouth every 6 (six) hours if needed for severe pain for up to 28 days. 112 tablet 11/06/19 25 025 Discontinued(R eorder (will not trigger [...] Encounters Date Type Department Care Team Description 12/14/2024 Orders Only [facility] External Provider, [facility] 12/02/2024 Refill [facility] [place] [phone] Catarina Davis MD Neck sprain, sequela 12/02/2024 Refill [facility] [place] [address] Catarina Davis MD Chronic midline low back pain, unspecified whether sciatica present 11/26/2024 9:30 AM EST Clinical Support [facility] [place] [address] Day Smith, fence manufacture supervisor midline low back pain with sciatica, sciatica laterality unspecified (Primary Dx) 11/26/2024 Telephone [facility] [place] [address] Day Smith, RN BPI Scoring; Tramadol count discrepancy 11/26/2024 Travel 11/26/2024 Telephone [facility] [place] [address] Day Smith, RN Error (VOID this visit) 11/26/2024 Telephone [facility] [place] [address] Day Smith, RN Recommend FOREIGN EXCHANGE STUDENT COORDINATOR Tier 2 11/25/2024 2:30 PM EST Telemedicine [facility] [place] [address] Catarina Davis MD Gastroesophageal reflux disease with esophagitis, unspecified whether hemorrhage (Primary Dx); Pre-hypertension 11/25/2024 Travel 11/25/2024 Abstract [facility] [place] [place] [address] Catarina Davis MD 11/20/2024 Telephone [facility] [place] [address] Catarina Davis MD Chart prep 11/17/2024 Telephone [facility] [place] [address] Catarina Davis MD Appointment Request 11/10/2024 Telephone [facility] [address] [place] [address] Day Smith RN REschedule FOREIGN EXCHANGE STUDENT COORDINATOR appt from 11/09/24 11/09/2024 Telephone [facility] [address] [place] [address] Catarina Davis MD 11/06/2024 Refill [facility] [address] [place] [address] [phone] Catarina Davis MD Chronic midline low back pain, unspecified whether sciatica present 10/08/2024 Refill [facility] [address] [place] [address] Catarina Davis MD Chronic midline low back pain, unspecified whether sciatica present 10/06/2024 Refill [facility] [address] [place] [address] [phone] Catarina Davis MD Cervical paraspinal muscle spasm 10/01/[address] [address] Catarina Davis MD November recall from Last 3 Months Immunizations Name Administration [...] 02/02/2025 9:00 AM EDT Office Visit [facility] [address] [place] [phone] Catarina Davis MD [address] [place] [address] 02/23/2025 11:30 AM EDT Clinical Support [address] [address] Day Smith, [place] Health Maintenance Due Date [...] Procedure Name Priority Date/Time Associated Diagnosis Comments BASIC METABOLIC PANEL Routine 12/14/2024 9:56 AM EDT CBC WITH AUTO DIFFERENTIAL Routine 12/14/2024 9:56 AM EDT SARS COV2/INFLUENZA A/B AND RSV RNA QL NAAT Routine 12/14/2024 9:56 AM EDT STREP A NUCLEIC ACID Routine 12/14/2024 9:56 AM EDT XR CHEST 2 VIEWS Routine 12/14/2024 9:08 AM EDT POCT FLORENTIN-14 URINE DRUG SCREEN Routine 11/26/2024 9:39 AM EST Chronic midline low back pain with sciatica, sciatica laterality unspecified HM MAMMOGRAPHY Routine 11/21/2024 LIPID PANEL WITH REFLEX TO DIRECT LDL [...] Recently Relevant to Health Maintenance Results * Strep A Nucleic Acid (12/14/2024 9:56 AM EDT) IDNOW SERIAL# [id number] [facility] Strep A Nucleic Acid Negative Negative [facility] Comment:All test results mus t be correlated with clinical findings.This test has not been evaluated for monitoring treatment ofinfection.Additional follow-up testing using the culture method isrequired if the result is negative and clinical symptomspersist, or in the event of an acute rheumatic feveroutbreak. 12/14/2024 9:56 AM EDT 12/14/2024 10:02 AM EDT us Generic External Data Provider LAB MICROBIOLOGY - GENERAL ORDERABLES Final Result [facility] [address] [place] [phone] * (ABNORMAL) SARS-CoV-2 RNA, Influenza A/B, and RSV RNA, Ql NAAT (12/14/2024 9:56 AM EDT) Influenza A PCR POSITIVE(A) Negative [facility] Influenza B PCR NEGATIVE Negative [facility] Resp Syncy Virus RNA Qual PCR NEGATIVE Negative [facility] SARS COV2 PCR NEGATIVE Negative [facility] Comment:All test results mus t be correlated with clinical findings.Negative results do not preclude SARS-CoV2, influenza Avirus, influenza B virus and/or RSV infectionand should not be used as the sole basis for treatment orother patient management decisions. Negative results must becombined with clinical observations, patient history, andepidemiological information.This test has not been evaluated for monitoring treatment ofinfection.This test has been authorized by the FDA under an EmergencyUse Authorization (EUA) for use by authorized laboratories.Testing performed on the [employer] GeneXpert utilizingreal-time RT-PCR.All SARS CoV2 and positive influenza A/B results arereported to [facility]. 12/14/2024 9:56 AM EDT 12/14/2024 10:01 AM EDT us Generic External Data Provider LAB MICROBIOLOGY - GENERAL ORDERABLES Final Result [facility] [address] [place] [address] [phone] * (ABNORMAL) CBC auto differential (12/14/2024 9:56 AM EDT) White Blood Count 4.0(L) 4.8 - 10.8 X10*3/uL [facility] Red Blood Count 4.16(L) 4.20 - 5.50 X10*6/uL [facility] Hemoglobin 13.9 12.0 - 16.0 g/dl [facility] Hematocrit 40.2 37.0 - 47.0 % [facility] Mean Corpuscular Volume 96.6 80.0 - 98.0 fL [facility] Mean Corpuscular Hemoglobin 33.4(H) 27.0 - 33.0 pg [facility] Mean Corpuscular HGB Conc 34.6 31.0 - 35.0 g/dl [facility] Red Cell Distribution Width 13.3 11.0 - 16.0 % [facility] Platelet Count 194 160 - 400 X10*3/uL [facility] Mean Platelet Volume 9.5 9.4 - 12.3 fL [facility] Neutrophils Percent Auto 63.1 45 - 73 % [facility] Imm Gran Pct Auto 0.3 0.0 - 0.4 % [facility] Lymphocytes Percent Auto 21.5 20 - 40 % [facility] Monocytes Percent Auto 14.3(H) 2 - 11 % [facility] Eosinophils Percent Auto 0.0 0 - 4 % [facility] Basophils Percent Auto 0.8 0 - 2 % [facility] NRBC Pct Auto 0.0 0.0 - 0.2 /100WBC [facility] Neutrophils Absolute Auto 2.5 2.0 - 8.3 x10*3/uL [facility] Imm Gran Abs Auto 0.01 0.00 - 0.03 X10*3/uL [facility] Lymphocytes Absolute Auto 0.9(L) 1.2 - 4.9 X10*3/uL [facility] Monocytes Absolute Auto 0.6 0.1 - 1.2 X10*3/uL [facility] Eosinophils Absolute Auto 0.0 0.0 - 0.4 X10*3/uL [facility] Basophils Absolute Auto 0.0 0.0 - 0.2 X10*3/uL [facility] NRBC Abs Auto 0.000 0.0 - 0.012 X10*3/uL [facility] 12/14/2024 9:56 AM EDT 12/14/2024 10:02 AM EDT us Generic External Data Provider LAB BLOOD ORDERAB LES Final Result [facility] [address] [place] [phone] * (ABNORMAL) Basic Metabolic Panel (12/14/2024 9:56 AM EDT) Sodium 141 135 - 145 mmol/L [facility] Potassium 4.3 3.3 - 5.1 mmol/L [facility] Chloride 108 96 - 108 mmol/L [facility] Carbon Dioxide 26 22 - 29 mmol/L [facility] Anion Gap 11(L) 12 - 20 [facility] Urea Nitrogen (BUN) 10 9 - 16 mg/dL [facility] Creatinine, Serum 0.80 0.5 - 1.4 mg/dL [facility] Creatinine Clr Calc Pharmacy 79.7 [facility] Comment:Provided height and weight: 152.4 cm,72.575 kg.eGFR (calculated from the MDRD study equation) and eCrCl(calculated from the Cockcroft-Gault equation) are based ondifferent parameters and may not yield comparable results.If eCrCl result is absurd, please check patient'sheight/weight. Estimated Glomerular Filt Rate >60 [facility] Comment:Chronic Kidney Disea se: Estimated GFR < 60 mL/min/1.86c7Strxvz Kidney Disease: Estimated GFR < 15 mL/min/1.73m2 Glucose 104 60 - 115 mg/dL [facility] Calcium 8.9 8.4 - 10.2 mg/dL [facility] 12/14/2024 9:56 AM EDT 12/14/2024 10:02 AM EDT us Generic External Data Provider LAB BLOOD ORDERAB LES Final Result [facility] [address] [place] [phone] [phone] * XR Chest 2 Views (12/14/2024 9:08 AM EDT) Anatomical Region Laterality Modality Chest Radiographic Devorah ging 12/14/2024 9:08 AM EDT Narrative 12/14/2024 9:27 AM EDT ? [facility] ?[address] ?[place] [address] ?XRay Report ? Signed ? Patient: Maya Hoyos ?MR#: [id number] ?? 13 ? : 1980 ?Acct:[id number] ? Age/Sex: 44 / F ?ADM Date: 12/14/24 ? Loc: HO.ED ? Attending Dr: ? Ordering Physician: Generic ED Physician ?? Date of Service: 12/14/24 ?? Procedure(s): XR chest 2V ?? Accession Number(s): [id number] ? cc: Catarina Davis MD; Generic ED Physician ? EXAMINATION: ??XR CHEST 2 VIEWS ? HISTORY: cough ? COMPARISON: Comparison is made with the prior examination dated ?? 10/30/2023. ? FINDINGS: ??PA and lateral views of the chest are submitted. The lungs ?? are expanded and clear. ??There is no pleural effusion, pneumothorax, or ?? pulmonary vascular congestion. ??The heart is normal in size. ??The bones ?? are intact. ? XR/XR chest 2V ?? IMPRESSION: ?? No acute cardiopulmonary abnormality. ? Electronically signed by: ??Corby Johnson MD ??12/14/2024 09:24 AM EDT ?? RP ? Dictated By: ?Corby Johnson MD ? Signed By: ?<Electronically signed by Corby Johnson MD in OV> ?12/14/24923 ? DD/ 7 ? TD/TT: 12/14/24918 ? Bottle House Pumper: ? Procedure Note July Scott - 12/14/[address] [address] XRay Report Signed Patient: Chastity HoyosR#: [id number] 13 : 1980Acct:[id number] Age/Sex: 44 / FADM Date: 12/14/24 Loc: .ED Attending Dr: Ordering Physician: Generic ED Physician Date of Service: 12/14/24 Procedure(s): XR chest 2V Accession Number(s): [id number] cc: Catarina Davis MD; Generic ED Physician EXAMINATION: XR CHEST 2 VIEWS HISTORY: cough COMPARISON: Comparison is made with the prior examination dated 10/30/2023. FINDINGS: PA and lateral views of the chest are submitted. The lungs are expanded and clear. There is no pleural effusion, pneumothorax, or pulmonary vascular congestion. The heart is normal in size. The bones are intact. XR/XR chest 2V IMPRESSION: No acute cardiopulmonary abnormality. Electronically signed by: Corby Johnson MD 12/14/2024 09:24 AM EDT RP Dictated By: Corby Johnson MD Signed By: <Electronically signed by Corby Johnson MD in OV> 12/14/24923 DD/ 7 TD/TT: 12/14/24918 Bottle House Pumper: [facility] External Provider IMG XR PROCEDURES Edited Result - Final * POCT FLORENTIN-14 Urine Drug Screen (11/26/2024 9:39 AM EST) Urine Urine specimen obtained by clean catch procedure / Unknown 11/26/2024 9:39 AM EST Narrative Day Smith RN - 11/26/2024 9:39 AM EST UTOX cup Lot#[id number] Exp. 05/26/26 Internal Pass Control UTOX completed. [...] Davis MD HEALTH MAINTENANCE Final Result * Lipid Panel with Reflex to Direct LDL (08/19/2024 9:00 AM EST) Triglycerides 29 <150 mg/dL [facility] Comment:Desirable Triglyceri de: less than 150 mg/dLBorderline High Triglyceride 150-199 mg/dLHigh Triglyceride: 200-499 mg/dLVery High Triglyceride: greater than or equal to 5OO mg/dL Cholesterol 112 <200 mg/dL [facility] Comment:Desirable Cholestero l: less than 200 mg/dLBorderline High Cholesterol: 200-239 mg/dLHigh Cholesterol: greater than 239 mg/dL LDL Cholesterol Calculated 56 <100 mg/dL [facility] Comment:Desirable LDL: less than 100 mg/dLNear Optimal/Above Optimal LDL: 110- 129 mg/dLBorderline High LDL: 130-159 mg/dLHigh LDL: 160-189 mg/dLVery High LDL: greater than or equal to 190 mg/dL HDL Cholesterol 51 >40 mg/dL [facility] Comment:Desirable HDL: great er than 40 mg/dL Note: This HDL assay may give artificially low results in patients with liver disease. Blood 08/19/2024 9:00 AM EST 08/19/2024 10:46 AM EST Catarina Davis MD LAB BLOOD ORDERABLES Fin al Result [facility] [address] [place] [address] [phone] * POCT HGB A1C (05/22/2024 12:18 PM EDT) Hemoglobin A1C 5.7 4.0 - 6.0 % QC Media Lot # [id number] Lot# Expiration Date [id number] Blood 05/22/2024 12:1 8 PM EDT Catarina Davis MD POINT OF CARE TEST ENTER /EDIT ORDERABLES Final Result * (ABNORMAL) Hepatitis Panel, General (01/10/2023 9:11 AM EDT) Hepatitis A Antibody Total NON-REACT ANDREE NON-REACT ANDREE [facility] [place] [facility] Comment: For additional information, please refer to http://Qitio.Bontera/faq/GHC889 (This link is being provided for informational/ educational purposes only.) Hepatitis B Surface Antibody QL REACTIVE( A) NON-REACT [facility] Hepatitis B Surface Ag NON-REACT ANDREE NON-REACT ANDREE [facility] Hepatitis B Core Antibody Total NON-REACT ANDREE NON-REACT ANDREE [facility] Hepatitis C Antibody NON-REACT ANDREE NON-REACT ANDREE [facility] Index 0.21 <1.00 [facility] [place] [facility] Comment: HCV antibody was non-reactive. There is no laboratory evidence of HCV infection. In most cases, no further action is required. However, if recent HCV exposure is suspected, a test for HCV RNA (test code 10078) is suggested. For additional information please refer to http://Qitio.Bontera/faq/PFX53r4 (This link is being provided for informational/ educational purposes only.) 01/10/2023 9:11 AM EDT 01/10/2023 9:12 AM EDT Narrative [facility] - 01/10/2023 8:56 PM EDT FASTING:YES FASTING: YES Catarina Davis MD LAB BLOOD ORDERABLES Fin al Result Performing Organization Address City/[facility]/ZIP Co de Phone Number [facility] [address], [place] [address] [facility] [place] [facility] [employer] [address] [place] [address] * HIV-1/2 Antigen and Antibodies, Fourth Generation, with Reflexes (01/10/2023 9:11 AM EDT) Pathologist [facility] HIV Antigen/Antibody, 4th Generation NON-REAC TIVE NON-REAC TIVE [facility] [place] [facility] Comment: HIV-1 antigen and HIV-1/HIV-2 antibodies were [...] ?? For additional information please refer to http://education.Bontera/faq/GWW682 (This link is being provided for informational/ educational purposes only.) The performance of this assay has not been clinically validated in patients less than 2 years old. Blood Venous blood specimen / Unknown 01/10/2023 9:11 AM EDT 01/10/2023 9:12 AM EDT Narrative [facility] - 01/10/2023 8:56 PM EDT FASTING:YES FASTING: YES Catarina Davis MD LAB BLOOD ORDERABLES Fin al Result [address], [facility] [address] [facility] [place] [facility] [address] [place] [phone] * Thinprep TIS PAP And HPV mRNA E6/E7 With Reflex To HPV 16,18/45 (09/24/2022 3:53 PM EST) Clinical Information: None given [facility] LMP: NONE GIVEN [facility] Prev. PAP: NONE GIVEN [facility] Prev. BX: NONE GIVEN [facility] SOURCE: None given [facility] Statement Of Adequacy: [facility] Comment: Satisfactory for evaluation. Endocervical/transformation zone component absent. Age and/or menstrual status not provided Interpretation/ Result: Negative for intraepithelial lesion or malignancy. [facility] COMMENT: This Pap test has been evaluated with computer assisted technology. [facility] Cytotechnologis t: [facility] Comment: BK,CT(ASCP) CT screening location: [address] ([facility]) [facility] Comment: EXPLANATORY NOTE: The Pap is a [...] HPV nRNA E6/E7 Not Detected Not Detected [facility] Comment: Methodology: Power And Recovery Superintendent-Mediated Amplification This assay detects E6/E7 viral messenger RNA (mRNA) from 14 high-risk HPV types (16,18,31,33,35,39,45,51,52,56,58,59,66,68). Cervical sources are required for HPV testing. If a vaginal source from a patient who has had a total hysterectomy with removal of cervix was submitted, please contact the testing laboratory for alternative testing options. For additional information, please refer to http://education.Bontera/faq/JQC602f2 (This link if provided for information/ educational purposes only.) 09/24/2022 3:53 PM EST 09/25/2022 10:09 AM EST Narrative [facility] - 09/28/2022 3:45 PM EST FASTING: UNKNOWN us Catarina Davis MD LAB PATHOLOGY ORDERABLES Final Result Performing Organization Address City/[facility]/ZIP Co de Phone Number [facility] [address] [facility] [place] [address] [facility] [address] [facility], ([address]) [place] [address] * ALBUMIN, RANDOM URINE W/CREATININE (05/23/2021 1:55 [...] MD LAB URINE ORDERABLES Fin al Result Performing Organization Address City/[facility]/ZIP Co de Phone Number [facility] [address] from Last 3 Months or Most Recently Relevant to Health Maintenance [place] [place] [address] C[employer] [employer] [place] AD[place] Care Teams Personal Finance Instructor Relationship Specialty Start Date End Date Catarina Davis MD [address] [place] [phone] PCP - General Family Medicine 10/15/17
--- OUTSIDE RECORDS SUMMARY | 2024-12-14 12:35 | XMS_ITS | Encounter Summary ---
Author Organization [employer] Address [address] [facility] 7t [place] [address] Care Team Providers Care Credit Analysis Manager Name Role Phone Catarina Davis MD Primary Care Provider + Encounter Details Date Type Department Care Team (Late st Contact Info) Description 12/14/2024 Orders Only [facility] External Provider, [facility] Social History Tobacco Use Types Packs/Day Years [...] Description 02/02/2025 9:00 AM EDT Office Visit [facility] [address] [place] [phone] Catarina Davis MD [address] [place] [address] 02/23/2025 11:30 AM EDT Clinical Support [address] [address] Day Smith RN documented as of this encounter Procedures Procedure Name Priority Date/Time Associated Diagnosis Comments STREP A NUCLEIC ACID Routine 12/14/2024 9:56 AM EDT SARS COV2/INFLUENZA A/B AND RSV RNA QL NAAT Routine 12/14/2024 9:56 AM EDT CBC WITH AUTO DIFFERENTIAL Routine 12/14/2024 9:56 AM EDT BASIC METABOLIC PANEL Routine 12/14/2024 9:56 AM EDT XR CHEST 2 VIEWS Routine 12/14/2024 9:08 AM EDT documented in this encounter Results * (ABNORMAL) SARS-CoV-2 RNA, Influenza A/B, and RSV RNA, Ql NAAT (12/14/2024 9:56 AM EDT) Influenza A PCR POSITIVE(A) Negative [facility] Influenza B PCR NEGATIVE Negative [facility] Resp Syncy Virus RNA Qual PCR NEGATIVE Negative [facility] SARS COV2 PCR NEGATIVE Negative [facility] Comment:All test results mus t be [...] use by authorized laboratories.Testing performed on the [employer] GeneXpert utilizingreal-time RT-PCR.All SARS CoV2 and positive influenza A/B results arereported to [facility]. 12/14/2024 9:56 AM EDT 12/14/2024 10:01 AM EDT us Generic External Data Provider LAB MICROBIOLOGY - GENERAL ORDERABLES Final Result [facility] [address] [place] [address] [phone] * (ABNORMAL) Basic Metabolic Panel (12/14/2024 9:56 AM EDT) Sodium 141 135 - 145 mmol/L [facility] Potassium 4.3 3.3 - 5.1 mmol/L [facility] Chloride 108 96 - 108 mmol/L [facility] Carbon Dioxide 26 22 - 29 mmol/L [facility] Anion Gap 11(L) 12 - 20 [facility] Urea Nitrogen (BUN) 10 9 - 16 mg/dL [facility] Creatinine, Serum 0.80 0.5 - 1.4 mg/dL [facility] Creatinine Clr Calc Pharmacy 79.7 [facility] Comment:Provided height and weight: 152.4 cm,72.575 kg.eGFR (calculated from the MDRD study equation) and eCrCl(calculated from the Cockcroft-Gault equation) are based ondifferent parameters and may not yield comparable results.If eCrCl result is absurd, please check patient'sheight/weight. Estimated Glomerular Filt Rate >60 [facility] Comment:Chronic Kidney Disea se: Estimated GFR < 60 mL/min/1.79d6Nchurf Kidney Disease: Estimated GFR < 15 mL/min/1.73m2 Glucose 104 60 - 115 mg/dL [facility] Calcium 8.9 8.4 - 10.2 mg/dL [facility] 12/14/2024 9:56 AM EDT 12/14/2024 10:02 AM EDT Generic External Data Provider LAB BLOOD ORDERAB LES Final Result Performing Organization Address [facility] de Phone Number [facility] [address] [place] [address] [phone] * Strep A Nucleic Acid (12/14/2024 9:56 AM EDT) Pathologist [facility] IDNOW SERIAL# [id number] [facility] Strep A Nucleic Acid Negative Negative [facility] Comment:All test results mus t be correlated with clinical findings.This test has not been evaluated for monitoring treatment ofinfection.Additional follow-up testing using the culture method isrequired if the result is negative and clinical symptomspersist, or in the event of an acute rheumatic feveroutbreak. 12/14/2024 9:56 AM EDT 12/14/2024 10:02 AM EDT Generic External Data Provider LAB MICROBIOLOGY - GENERAL ORDERABLES Final Result Performing Organization Address [facility] de Phone Number [facility] [address] [place] [address] [phone] * (ABNORMAL) CBC auto differential (12/14/2024 9:56 AM EDT) White Blood Count 4.0(L) 4.8 - 10.8 X10*3/uL [facility] Red Blood Count 4.16(L) 4.20 - 5.50 X10*6/uL [facility] Hemoglobin 13.9 12.0 - 16.0 g/dl [facility] Hematocrit 40.2 37.0 - 47.0 % [facility] Mean Corpuscular Volume 96.6 80.0 - 98.0 fL [facility] Mean Corpuscular Hemoglobin 33.4(H) 27.0 - 33.0 pg [facility] Mean Corpuscular HGB Conc 34.6 31.0 - 35.0 g/dl [facility] Red Cell Distribution Width 13.3 11.0 - 16.0 % [facility] Platelet Count 194 160 - 400 X10*3/uL [facility] Mean Platelet Volume 9.5 9.4 - 12.3 fL [facility] Neutrophils Percent Auto 63.1 45 - 73 % [facility] Imm Gran Pct Auto 0.3 0.0 - 0.4 % [facility] Lymphocytes Percent Auto 21.5 20 - 40 % [facility] Monocytes Percent Auto 14.3(H) 2 - 11 % [facility] Eosinophils Percent Auto 0.0 0 - 4 % [facility] Basophils Percent Auto 0.8 0 - 2 % [facility] NRBC Pct Auto 0.0 0.0 - 0.2 /100WBC [facility] Neutrophils Absolute Auto 2.5 2.0 - 8.3 x10*3/uL [facility] Imm Gran Abs Auto 0.01 0.00 - 0.03 X10*3/uL [facility] Lymphocytes Absolute Auto 0.9(L) 1.2 - 4.9 X10*3/uL [facility] Monocytes Absolute Auto 0.6 0.1 - 1.2 X10*3/uL [facility] Eosinophils Absolute Auto 0.0 0.0 - 0.4 X10*3/uL [facility] Basophils Absolute Auto 0.0 0.0 - 0.2 X10*3/uL [facility] NRBC Abs Auto 0.000 0.0 - 0.012 X10*3/uL [facility] 12/14/2024 9:56 AM EDT 12/14/2024 10:02 AM EDT us Generic External Data Provider LAB BLOOD ORDERAB LES Final Result Performing Organization Address [facility]/State/ZIP Co de Phone Number [facility] [address] [place] [address] [phone] * XR Chest 2 Views (12/14/2024 9:08 AM EDT) Anatomical Region Laterality Modality Chest Radiographic Devorah ging 12/14/2024 9:08 AM EDT Narrative 12/14/2024 9:27 AM EDT ? [facility] ?[address] ?[place] [address] ?XRay Report ? Signed ? Patient: Maya Hoyos ?MR#: [id number] ?? 13 ? : 1980 ?Acct:[id number] ? Age/Sex: 44 / F ?ADM Date: 12/14/24 ? Loc: HO.ED ? Attending Dr: ? Ordering Physician: Generic ED Physician ?? Date of Service: 12/14/24 ?? Procedure(s): XR chest 2V ?? Accession Number(s): [id number] ? cc: Catarina Davis MD; Generic ED [...] signed by Corby Johnson MD in OV> ?12/14/24 0924 ? DD/ 0908 ? TD/TT: 12/14/24 0919 ? Education Officer: ? Procedure Note July Scott - 12/14/[address] [address] XRay Report Signed Patient: Monica HoyosnMR#: [id number] 13 : 1980Acct:[id number] Age/Sex: 44 / FADM Date: 12/14/24 Loc: HO.ED Attending Dr: Ordering Physician: Generic ED Physician Date of Service: 12/14/24 Procedure(s): XR chest 2V Accession Number(s): [id number] cc: Catarina Davis MD; Generic ED Physician [...] in OV> 12/14/[address] DD/ 7 TD/TT: 12/14/24918 Education Officer: [facility] External Provider IMG XR PROCEDURES Edited Result - Final documented in this encounter Visit Diagnoses Not on filedocumented in this encounter Additional Health Concerns Assessment Noted Time PHQ-9 Depression Total Score: 0 12/29/19 23 1:22 PM EDT documented as of this encounter Care Teams Credit Analysis Manager Relationship Specialty Start Date End Date Catarina Davis MD [address] [place] [address] PCP - General Family Medicine 10/15/17 documented as of this encounter
== END 2024-12-14 11:16 | disposition home or self-care (01) ==
PROVIDERS: Emergency Provider Student in an Organized Health Care Education/Training Program; PCP Internal Medicine
DX: J10.1 Influenza due to other identified influenza virus with other respiratory manifestations (principal); R05.9 Cough, unspecified; Z03.818 Encounter for observation for suspected exposure to other biological agents ruled out; F17.210 Nicotine dependence, cigarettes, uncomplicated
CPT/HCPCS: 0241U; 71046; 80048; 85025; 87651; 99283

== ENCOUNTER → 2024-12-14 09:08 | Outpatient (BNV) | payer MEDICAID, SELFPAY | PROVIDERS: PCP Internal Medicine; Visit Provider Radiology Diagnostic Radiology | DX: R05.9 Cough, unspecified (principal) | CPT/HCPCS: 71046 ==

== ENCOUNTER 2025-01-01 12:51 | Outpatient (AMB) | payer MEDICAID, SELFPAY ==
[2025-01-01 12:56] VITALS: BP 126/74; PULSE 100; O2SAT 99; BMI 32.0
--- NOTE | 2025-01-01 12:56 | MHC.OFFVIS ---
Vital Signs 01/01/25 12:56 Height 5 ft Weight 164 lb BMI 32.0 BP 126/74 Pulse 100 Pulse Oximetry (%) 99 Oxygen Delivery Method Room Air Intake Visit Reasons: coughing, wheezing,sob Marine Diver: Marine Diver offered & declined Accompanied by: Son Allergies cephalexin [From KEFLEX] Allergy (Intermediate, Verified 01/01/25 13:01) RASH Medication List - Last Reconciled 01/01/25 by Hanna Parks LPN acetaminophen (Tylenol Extra Strength) 500 mg PO Q6H PRN acetaminophen ER 650 mg PO Q8H PRN albuterol sulfate 90 mcg/actuation (Ventolin HFA) 2 puffs inhalation Q4H PRN fluticasone propionate 50 mcg/actuation 1 spray intranasal QAM gabapentin 300 mg PO BEDTIME loratadine 10 mg PO DAILY mometasone-formoterol 50-5 mcg/actuation (Dulera) 2 puffs inhalation Q12H omeprazole 20 mg PO DAILY tizanidine 4 mg PO Q8H PRN tramadol 50 mg PO TID PRN zolpidem 10 mg PO BEDTIME HPI HPI coughing, wheezing,sob: Details: Maya is a pleasant 44 year old, current minimal smoker, with underlying history of childhood asthma. At baseline, patient had been well controlled using albuterol MDI however after balta influenza A persistent cough has returned. She was seen at [facility] on 12/14 for URI symptoms including dyspnea, chest congestion and productive cough. Symptoms have resolved however continues with dry cough and dyspnea on exertion. She attempted to restart Dulera however developed thrush in mouth and throat, with notable white patches in mouth. She denies fevers, chills, or chest congestion today. [facility] Medical History Asthma Surgical History Hx of hand surgery History of breast reconstruction Hx of abdominoplasty Hx of section History of esophagogastroduodenoscopy (EGD) Family History Maternal Aunt Breast CA Social History Alcohol intake: current Alcohol intake frequency: holidays/special occasions only Patient Tobacco Use Status: Former Tobacco user Tobacco use type: Cigarette Cigarettes Per Day: 2 Years Smoked: quit 12/14/24 service: No Current occupational status: unemployed Review of Systems Const Denies chills, Denies excessive sweating, Denies fever(s), Denies headache(s) and Denies night sweats Eyes Denies dry eyes, Denies irritation and Denies itchy eyes ENT Reports Normal hearing present, Denies headache(s), Denies nasal congestion, Denies nasal discharge, Denies post nasal drip and Denies sore throat Card Denies chest pain, Denies chest pain at rest, Denies chest pain with activity, Denies claudication, Denies leg edema, Denies orthopnea and Denies paroxysmal nocturnal dyspnea Resp Denies chest congestion, Denies excessive phlegm production, Denies pain on inspiration, Denies pain with cough, Denies stridor and Reports wheezing Musc Denies myalgias Neuro Reports Normal hearing present and Denies headache(s) Endo Denies excessive sweating Stephen/Lymph Denies lymphadenopathy Aller/Immun Denies itchy eyes, Denies seasonal rhinorrhea and Reports wheezing Physical Exam Vital Signs: Last Vital Signs Pulse 100 01/01/25 12:56 BP 126/74 01/01/25 12:56 Pulse Ox 99 01/01/25 12:56 Oxygen Delivery Method Room Air 01/01/25 12:56 BMI result Body Mass Index 32.0 Const General: cooperative, healthy appearing, comfortable, no acute distress, well developed and alert Nutritional Appearance: obese Orientation/consciousness: patient oriented x3 Limitations: no limitations HEENT Head: Yes normal to inspection, Yes normocephalic and Yes atraumatic Ears: hearing grossly normal bilaterally and external ears normal Eyes General: appearance normal, both eyes and all related structures Eyelids: Yes eyelids normal Sclerae: sclerae normal EOM: EOMs intact bilaterally Neck Neck: Yes normal visual inspection and Yes no lymphadenopathy Lymphatic: no lymphadenopathy noted Chest Chest palpation & inspection: normal inspection of the chest Resp Effort & Inspection: normal respiratory effort, able to speak in complete sentences, no audible wheezes, no cough, no stridor, not tachypneic, no tripod positioning and no use of accessory muscles Auscultation: clear to auscultation bilaterally Cardio Jugular venous distension: no JVD Rate: regular rate Rhythm: regular rhythm Skin Other: warm, dry General skin exam: no rashes or lesions noted Neuro General: patient oriented x3 Cranial nerves: Yes Normal hearing present Cognition (Neuro): normal cognition Gait exam (Neuro): Normal gait present Extrem General: Yes normal to inspection, Yes capillary refill normal, Yes no clubbing, cyanosis or edema and Yes no pedal edema Psych Appearance: grossly normal and well kempt Speech and movement: Normal speech and movement present and Clear speech present Affect: normal affect Attitude: cooperative Thought process: Normal thought process present Thought content: Normal thought content present Insight: Good insight present (Psych) Judgement: Good judgement present (Psych) Assessment & Plan Assessment & Plan (1) Asthma: Code(s): J45.909 - Unspecified asthma, uncomplicated Category: Medical Plan Will treat thrush with Nystatin and switch Dulera to Advair to see if she can tolerate this better. Discussed importance of good oral hygiene to prevent thrush. Respiratory exam unremarkable today no need for prednisone. She is aware to call if symptoms do not improve. All questions were answered and patient is in agreement of plan. Will follow up in 3 months or sooner if needed. Medications: New fluticasone propion-salmeterol 115-21 mcg/actuation (Advair HFA) 2 puffs inhalation Q12H 12 grams 3RF nystatin administer 1/2 of dose in each side of the mouth, swish in the mouth and retain for as long as possible (several minutes) before swallowing. 400,000 units (4 mL) buccal QID 473 mL 0RF Coding Level of Care Code Est Pt Level 4 (06746) Diagnoses Asthma J45.909
== END 2025-01-01 13:13 | disposition home or self-care (01) ==
LOC: HO.HPSW 12:52
PROVIDERS: PCP Internal Medicine; Visit Provider Nurse Practitioner Family
DX: J45.909 Unspecified asthma, uncomplicated (principal)
CPT/HCPCS: 99214

== ENCOUNTER → 2025-01-01 12:51 | Outpatient (BNVA) | payer MEDICAID, SELFPAY | PROVIDERS: PCP Internal Medicine; Visit Provider Nurse Practitioner Family | DX: J45.909 Unspecified asthma, uncomplicated (principal) | CPT/HCPCS: 99212 ==

== ENCOUNTER 2025-02-23 11:12 | Outpatient (AMB) | payer MEDICAID, SELFPAY ==
[2025-02-23 11:16] VITALS: BMI 32.0
--- NOTE | 2025-02-23 11:16 | A.OFFVIS_ITS ---
Vital Signs 02/23/25 11:16 Height 5 ft Weight 164 lb BMI 32.0 Intake Visit Reasons: Bilateral knee pains Intake Note: Maya is a 44 year old female who presents with complaints of bilateral knee pains. The patient has had cortisone injections in the past which gave her minimal relief. She has also had Euflexxa viscosupplementation injections given into both of her knees. She got very good relief from those injections. She has tried Tylenol and anti-inflammatory medicines which gave her minimal relief. She has also tried physical therapy exercises which aggravated her pain. She wishes to hold off on surgery for as long as possible. Allergies cephalexin [From KEFLEX] Allergy (Intermediate, Verified 02/23/25 11:17) RASH Medication List - Last Reconciled 02/23/25 by Aram Lewis MD acetaminophen ER 650 mg PO Q8H PRN albuterol sulfate 90 mcg/actuation (Ventolin HFA) 2 puffs inhalation Q4H PRN fluticasone propion-salmeterol 115-21 mcg/actuation (Advair HFA) 2 puffs inhalation Q12H gabapentin 300 mg PO BEDTIME loratadine 10 mg PO DAILY mometasone-formoterol 50-5 mcg/actuation (Dulera) 2 puffs inhalation Q12H nystatin 400,000 units (4 mL) buccal QID omeprazole 20 mg PO DAILY tizanidine 4 mg PO Q8H PRN tramadol 50 mg PO TID PRN zolpidem 10 mg PO BEDTIME PFSH Medical History Asthma Surgical History Hx of hand surgery History of breast reconstruction Hx of abdominoplasty Hx of section History of esophagogastroduodenoscopy (EGD) Family History Maternal Aunt Breast CA Social History (Updated 01/01/25 @ 13:03 by Hanna Parks LPN) Alcohol intake: current Alcohol intake frequency: holidays/special occasions only Patient Tobacco Use Status: Former Tobacco user Tobacco use type: Cigarette Cigarettes Per Day: 2 Years Smoked: quit 12/14/24 service: No Current occupational status: unemployed Physical Exam Vital Signs: BMI result Body Mass Index 32.0 Const Other: Well-nourished well-developed very friendly female awake alert and oriented x3 in no acute distress Extrem Other: Bilateral lower extremity examination shows good capillary refill, no skin lesions noted, normal sensation light touch Bilateral knee examination shows minimal effusions, mild crepitus with range of motion, no instability Results Reviewed Results Reviewed: X-rays of the patient's bilateral knees taken previously show joint space narro wing, subchondral sclerosis, no acute bony abnormalities Assessment & Plan Assessment & Plan (1) Osteoarthritis of right knee: Code(s): M17.11 - Unilateral primary osteoarthritis, right knee Category: Medical (2) Osteoarthritis of left knee: Code(s): M17.12 - Unilateral primary osteoarthritis, left knee Category: Medical Plan Ms. Hoyos presents with bilateral knee pains due to osteoarthritis. I had a lengthy discussion with the patient regarding the treatment options. She wishes to hold off on surgery for as long as possible. I agree with this plan. She has not gotten good relief from cortisone injections in the past. Thus, I will see whether or not her insurance company will cover a another series of Euflexxa viscosupplementation injections for both of her knees. I will see her back once the injections are available. Feel free to call me at any time should questions regarding her orthopedic management arise. I spent 22 minutes in reviewing the patient's records and imaging studies, seeing the patient and documenting in the medical record. Coding Level of Care Code Est Pt Level 3 (92696) Complex EM visit Add On G2211 Diagnoses Osteoarthritis of right knee M17.11 Osteoarthritis of left knee M17.12
--- OUTSIDE RECORDS SUMMARY | 2025-02-23 12:30 | XMS_ITS | Clinical Summary ---
Author Organization [facility] it Address [address] [place] [address] Care Team Providers Care Cement Crusher Operator Name Role Phone RoseliaMaggie lubin Primary Care Provider [phone] Surgical History Surgery Date Site/Laterality Comments TONSILLECTOMY [...] Documents on File Type Date Recorded Patient Sports Reporter Expl anation Health Care Decision (hx) 05/06/2017 AD REESE DIRECTIVE Health Care Decision (hx) 05/06/2017 AD REESE DIRECTIVE Care Teams Cement Crusher Operator Relationship Specialty Start Date End Date Maggie Cazares DO [address] [place], [place] PCP - General 04/24/23
--- OUTSIDE RECORDS SUMMARY | 2025-02-23 12:30 | XMS_ITS | Encounter Summary ---
Author Organization [facility] [employer] Address [address] [facility] [address] [place] [address] Care Team Providers Care Supervisor Research Kennel Name Role Phone Catarina aDvis MD Primary Care Provider + Reason for Visit * Reason Comments Med Refill Encounter Details Date Type Department Care Team (Late st Contact Info) Description 08/14/2023 Refill [facility] [address] [place], [place] [phone] Catarina Davis MD [address] [place], [place] [phone] Neck sprain, sequela Social History Tobacco Use [...] Description 04/14/2025 11:30 AM EDT Clinical Support [facility] [address] [place] [id number] Day Smith RN 05/06/2025 12:00 PM EDT Office Visit [facility] [address] [place] [address] Catarina Davis MD [address] [place] [address] 05/25/2025 2:00 PM EDT Office Visit [facility] [address] [place] [address] El, Sury, OD [address] [place] [address] documented as of this encounter Visit Diagnoses Diagnosis Neck sprain, sequela documented in this encounter Additional Health Concerns Assessment Noted Time PHQ-9 Depression Total Score: 0 12/29/19 23 1:22 PM EDT documented as of this encounter Care Teams Supervisor Research Kennel Relationship Specialty Start Date End Date Catarina Davis MD [address] [place] [address] PCP - General Family Medicine 10/15/17 documented as of this encounter
--- OUTSIDE RECORDS SUMMARY | 2025-02-23 12:30 | XMS_ITS | Encounter Summary ---
Author Organization [facility] Address [address] [address] Phone Care Team Providers Care Director Of Purchasing Name Role Phone Catarina Davis MD Primary Care Provider [phone] Encounter Details Date Type Department Care Team (Late st Contact Info) Description 01/11/2023 Documentation Only [facility] [address] [place] [place] [address] Smooth Almonte MD [address] [place] [address] [place] [address] Social History Tobacco Use Types [...] Visit [facility] [address] [place] [place] [address] Smooth Almonte MD [address] [place] [address] [place] [address] documented as of this encounter Visit Diagnoses Not on filedocumented in this encounter Care Teams Director Of Purchasing Relationship Specialty Start Date End Date Catarina Davis MD [address] [place] [phone] PCP - General 08/11/19 documented as of this encounter
--- OUTSIDE RECORDS SUMMARY | 2025-02-23 12:31 | XMS_ITS | Clinical Summary ---
Author Organization [employer] Address [address] [place] [address] 7t [place] [address] Care Team Providers Care Rn Clinical Trials Name Role Phone Catarina Davis MD Primary [...] Tylenol breakthrough pain Continue to follow-up with [facility] as well Assessment & Plan (02/18/2024 [...] Description 02/02/2025 9:00 AM EDT Office Visit [facility] [address] [place] [phone] Catarina Davis MD Pre-hypertension (Primary Dx); Gastroesophageal reflux disease with esophagitis, unspecified whether hemorrhage; Type 2 diabetes mellitus without complication, without long-term current use of insulin ([facility]); Chronic midline low back pain, unspecified whether sciatica present; Dermatitis; Cervical intraepithelial neoplasia grade 2; Dietary counseling; Exercise counseling; Class 1 obesity due to excess calories with serious comorbidity and body mass index (BMI) of 31.0 to 31.9 in adult 02/02/2025 Travel 01/26/2025 Telephone [facility] [address] [place] [address] Catarina Davis MD Chart prep 12/30/2024 Refill [facility] [address] [place] [address] Catarina Davis MD Chronic midline low back pain, unspecified whether sciatica present 12/24/2024 12:15 PM EDT Office Visit [facility] [address] [place], [place] [phone] Catarina Davis MD Mild asthma with exacerbation, unspecified whether persistent (Primary Dx); Cervical paraspinal muscle spasm 12/24/2024 Travel 12/23/2024 Telephone [facility] [address] [place] [address] Catarina Davis MD Chart prep 12/18/2024 Population Health Risk Score [facility] () [address] [phone] Provider, Population Health Generic 12/18/2024 Telephone [facility] [address] [place], [place] [phone] Catarina Davis MD Med Refill 12/14/2024 Orders Only [facility] External Provider, [facility] 12/02/2024 Refill [facility] [address] [place] [address] Catarina Davis MD Neck sprain, sequela 12/02/2024 Refill [facility] [address] [place], [place] [phone] Catarina Davis MD Chronic midline low back pain, unspecified whether sciatica present 11/26/2024 9:30 AM EST Clinical Support [address] [address] Day Smith, top loader midline low back pain with sciatica, sciatica laterality unspecified (Primary Dx) 11/26/[address] [address] Day Smith, RN BPI Scoring; Tramadol count discrepancy 11/26/2024 Travel 11/26/[address] [address] Day Smith, CHADWICK Error (VOID this visit) 11/26/[address] [address] Day Smith, [place]WICK Recommend [facility] Tier 2 from Last 3 Months Immunizations Immunization Administration Dates Next Due Influenza injectable quadriv [...] Description 04/14/2025 11:30 AM EDT Clinical Support [facility] [address] [place] [address] Day Smith RN 05/06/2025 12:00 PM EDT Office Visit [facility] [address] [place] [address] Catarina Davis MD [address] [place] [address] 05/25/2025 2:00 PM EDT Office Visit [facility] [address] [place], [place] [phone] Sury Gallegos, OD [address] [place] [address] Health Maintenance Due Date Last Done Comments Disability Screening 1980 Diabetes: Foot Exam 1990 Alcohol/Substance Use Screening 1992 Family Planning (PISQ) 1995 Dental Prophylaxis 03/25/2020 09/23/2019, 0 03/19/2019, 09/18/2018, Additional history exists Dental Oral Exam 05/04/2020 11/03/2019, , 06/06/2018, Additional history exists Dental X-Ray: Bitewings 09/19/2020 09/18/20 19, 04/30/2019, 09/18/2018, Additional history exists Dental X-Ray: Full Mouth 05/01/2022 04/30/2019, 11/03/2014 Diabetes: Urine Protein Screening 05/23/2022 05/23/2021 COVID-19 Vaccine ( season) 2024 09/25/2022, 11/15/2021, 05/16/2021, Additional history exists Eye Exam 01/28/2025 01/28/2023, 01/06, 01/28/2023, Additional history exists SDOH Screening 02/09/2025 02/10/2024 Diabetes: Hemoglobin A1C 08/04/2025 025, 05/22/2024, 08/09/2023, Additional history exists Lipid Panel 08/19/2025 08/19/2024, 04/0 03/2023, 05/23/2021 Mammogram 11/21/2025 11/21/2024, 11/07/2023 Depression Screening 02/02/2026 02/02/2025, 12/29/19 Tobacco Screening 02/02/2026 02/02/2025 Cervical Cancer Screening [...] long-term current use of insulin (CMS/HCC) POCT GLUCOSE Routine 02/02/2025 9:11 AM EDT Type 2 diabetes mellitus without complication, without long-term current use of insulin (CMS/HCC) BASIC METABOLIC PANEL Routine 12/14/2024 9:56 AM [...] POCT HGB A1C (02/02/2025 9:18 AM EDT) Pathologist [facility] Hemoglobin A1C 5.6 4.0 - 6.0 % QC Media Lot # [id number] Lot# Expiration Date 11,727 Blood 02/02/2025 9:18 AM EDT Catarina Davis MD POINT OF CARE TEST ENTER /EDIT ORDERABLES Final Result * POCT Glucose (02/02/2025 9:11 AM EDT) Pathologist [facility] Glucose Blood, POC 145 60 - 200 mg/dL QC Media Lot # [id number] Lot# Expiration Date 101,425 Blood Capillary blood specimen / Unknown 02/02/2025 9:11 AM EDT Catarina Davis MD POINT OF CARE TEST ENTER /EDIT ORDERABLES Final Result * Strep A Nucleic Acid (12/14/2024 9:56 AM EDT) Pathologist [facility] IDNOW SERIAL# [id number] [facility] Strep A Nucleic Acid Negative Negative [facility] Comment:All test results mus t [...] GENERAL ORDERABLES Final Result Performing Organization Address [facility] Co de Phone Number [facility] [address] [place] [phone] * (ABNORMAL) SARS-CoV-2 RNA, Influenza A/B, and RSV RNA, Ql NAAT (12/14/2024 9:56 AM EDT) [facility] Influenza A PCR POSITIVE(A) Negative [facility] Influenza B PCR NEGATIVE Negative [facility] Resp Syncy Virus RNA Qual PCR NEGATIVE Negative [facility] SARS COV2 PCR NEGATIVE Negative [facility] Comment:All test results mus t [...] use by authorized laboratories.Testing performed on the [employer] GeneXpert utilizingreal-time RT-PCR.All SARS CoV2 and positive influenza A/B results arereported to [facility]. 12/14/2024 9:56 AM EDT 12/14/2024 10:01 AM EDT us Generic External Data Provider LAB MICROBIOLOGY - GENERAL ORDERABLES Final Result Performing Organization Address [facility] Co de Phone Number [facility] [address] [place] [phone] * (ABNORMAL) CBC auto differential (12/14/2024 9:56 AM EDT) Pathologist [facility] White Blood Count 4.0(L) 4.8 - 10.8 X10*3/uL [facility] Red Blood Count 4.16(L) 4.20 - 5.50 X10*6/uL [facility] Hemoglobin 13.9 12.0 - 16.0 g/dl [facility] Hematocrit 40.2 37.0 - 47.0 % [facility] Mean Corpuscular Volume 96.6 80.0 - 98.0 fL [facility] Mean Corpuscular Hemoglobin 33.4(H) 27.0 - 33.0 pg [facility] Mean Corpuscular HGB Conc 34.6 31.0 - 35.0 g/dl [facility] Red Cell Distribution Width 13.3 11.0 - 16.0 % [facility] Platelet Count 194 160 - 400 X10*3/uL [facility] Mean Platelet Volume 9.5 9.4 - 12.3 fL [facility] Neutrophils Percent Auto 63.1 45 - 73 % [facility] Imm Gran Pct Auto 0.3 0.0 - 0.4 % [facility] Lymphocytes Percent Auto 21.5 20 - 40 % [facility] Monocytes Percent Auto 14.3(H) 2 - 11 % [facility] Eosinophils Percent Auto 0.0 0 - 4 % [facility] Basophils Percent Auto 0.8 0 - 2 % [facility] NRBC Pct Auto 0.0 0.0 - 0.2 /100WBC [facility] Neutrophils Absolute Auto 2.5 2.0 - 8.3 x10*3/uL [facility] Imm Gran Abs Auto 0.01 0.00 - 0.03 X10*3/uL [facility] Lymphocytes Absolute Auto 0.9(L) 1.2 - 4.9 X10*3/uL [facility] Monocytes Absolute Auto 0.6 0.1 - 1.2 X10*3/uL [facility] Eosinophils Absolute Auto 0.0 0.0 - 0.4 X10*3/uL [facility] Basophils Absolute Auto 0.0 0.0 - 0.2 X10*3/uL [facility] NRBC Abs Auto 0.000 0.0 - 0.012 X10*3/uL [facility] 12/14/2024 9:56 AM EDT 12/14/2024 10:02 AM EDT us Generic External Data Provider LAB BLOOD ORDERAB LES Final Result [facility] [address] [place] [phone] * (ABNORMAL) Basic Metabolic Panel (12/14/2024 9:56 AM EDT) Sodium 141 135 - 145 mmol/L [facility] Potassium 4.3 3.3 - 5.1 mmol/L [facility] Chloride 108 96 - 108 mmol/L [facility] Carbon Dioxide 26 22 - 29 mmol/L [facility] Anion Gap 11(L) 12 - 20 [facility] Urea Nitrogen (BUN) 10 9 - 16 mg/dL [facility] Creatinine, Serum 0.80 0.5 - 1.4 mg/dL [facility] Creatinine Clr Calc Pharmacy 79.7 [facility] Comment:Provided height and weight: 152.4 cm,72.575 kg.eGFR (calculated from the MDRD study equation) and eCrCl(calculated from the Cockcroft-Gault equation) are based ondifferent parameters and may not yield comparable results.If eCrCl result is absurd, please check patient'sheight/weight. Estimated Glomerular Filt Rate >60 [facility] Comment:Chronic Kidney Disea se: Estimated GFR < 60 mL/min/1.86a9Ejjefz Kidney Disease: Estimated GFR < 15 mL/min/1.73m2 Glucose 104 60 - 115 mg/dL [facility] Calcium 8.9 8.4 - 10.2 mg/dL [facility] 12/14/2024 9:56 AM EDT 12/14/2024 10:02 AM EDT us Generic External Data Provider LAB BLOOD ORDERAB LES Final Result [facility] [address] [place] [phone] * XR Chest 2 Views (12/14/2024 9:08 AM EDT) Anatomical Region Laterality Modality Chest Radiographic Devorah ging 12/14/2024 9:08 AM EDT Narrative 12/14/2024 9:27 AM EDT ? [facility] ?[address] ?[place] [address] ?XRay Report ? Signed ? Patient: Maya Hoyos ?MR#: [id number] ?? 13 ? : 1980 ?Acct:[id number] ? Age/Sex: 44 / F ?ADM Date: 12/14/24 ? Loc: HO.ED ? Attending Dr: ? Ordering Physician: Generic ED Physician ?? Date of Service: 12/14/24 ?? Procedure(s): XR chest 2V ?? Accession Number(s): [id number] ? cc: Catarina Davis MD; Generic ED [...] DD/ 0908 ? TD/TT: 12/14/24 0919 ? Director Erp: ? Procedure Note July Scott - 12/14/[address] [address] XRay Report Signed Patient: Laurent Hoyos#: [id number] 13 : 1980Acct:[id number] Age/Sex: 44 / FADM Date: 12/14/24 Loc: .ED Attending Dr: Ordering Physician: Generic ED Physician Date of Service: 12/14/24 Procedure(s): XR chest 2V Accession Number(s): [id number] cc: Catarina Davis MD; Generic ED Physician [...] Corby Johnson MD in OV> 12/14/[address] DD/ 09 TD/TT: 12/14/24918 Director Erp: [facility] External Provider IMG XR PROCEDURES Edited Result - Final * POCT FLORENTIN-14 Urine Drug Screen (11/26/2024 9:39 AM EST) Urine Urine specimen obtained by clean catch procedure / Unknown 11/26/2024 9:39 AM EST Day Fuchs RN - 11/26/2024 9:39 AM EST UTOX cup Lot#[id number] Exp. 05/26/26 Internal Pass Control UTOX completed. [...] 9:00 AM EST) Triglycerides 29 <150 mg/dL [facility] Comment:Desirable Triglyceri de: less than 150 mg/dLBorderline High Triglyceride 150-199 mg/dLHigh Triglyceride: 200-499 mg/dLVery High Triglyceride: greater than or equal to 5OO mg/dL Cholesterol 112 <200 mg/dL [facility] Comment:Desirable Cholestero l: less than 200 mg/dLBorderline High Cholesterol: 200-239 mg/dLHigh Cholesterol: greater than 239 mg/dL LDL Cholesterol Calculated 56 <100 mg/dL [facility] Comment:Desirable LDL: less than 100 mg/dLNear Optimal/Above Optimal LDL: 110- 129 mg/dLBorderline High LDL: 130-159 mg/dLHigh LDL: 160-189 mg/dLVery High LDL: greater than or equal to 190 mg/dL HDL Cholesterol 51 >40 mg/dL [facility] Comment:Desirable HDL: great er than 40 mg/dL Note: This HDL assay may give artificially low results in patients with liver disease. Blood 08/19/2024 9:00 AM EST 08/19/2024 10:46 AM EST Catarina Davis MD LAB BLOOD ORDERABLES Fin al Result [facility] [address] [place] [phone] * (ABNORMAL) Hepatitis Panel, General (01/10/2023 9:11 AM EDT) Hepatitis A Antibody Total NON-REACT ANDREE NON-REACT ANDREE [facility] Comment: For additional information, please refer to http://education.[employer]/faq/VAU975 (This link is being provided for informational/ educational purposes only.) Hepatitis B Surface Antibody QL REACTIVE( A) NON-REACT ANDREE [facility] [place] [facility] Hepatitis B Surface Ag NON-REACT ANDREE NON-REACT ANDREE [facility] Hepatitis B Core Antibody Total NON-REACT ANDREE NON-REACT ANDREE [facility] [place] [facility] Hepatitis C Antibody NON-REACT ANDREE NON-REACT ANDREE [facility] [place] [facility] Index 0.21 <1.00 [facility] [place] [facility] Comment: HCV antibody was non-reactive. There is no laboratory evidence of HCV infection. In most cases, no further action is required. However, if recent HCV exposure is suspected, a test for HCV RNA (test code 35333) is suggested. For additional information please refer to http://[employer]/faq/SAH69v6 (This link is being provided for informational/ educational purposes only.) 01/10/2023 9:11 AM EDT 01/10/2023 9:12 AM EDT Narrative [facility] - 01/10/2023 8:56 PM EDT FASTING:YES FASTING: YES Catarina Davis MD LAB BLOOD ORDERABLES Fin al Result [facility] [address], [place] [address] [facility] [place] [facility] [address] [place] [phone] * HIV-1/2 Antigen and Antibodies, Fourth Generation, with Reflexes (01/10/2023 9:11 AM EDT) HIV Antigen/Antibody, 4th Generation NON-REAC TIVE NON-REAC TIVE [facility] [place] [facility] Comment: HIV-1 antigen and HIV-1/HIV-2 antibodies were [...] ?? For additional information please refer to http://education.[employer]/faq/XVP945 (This link is being provided for informational/ educational purposes only.) The performance of this assay has not been clinically validated in patients less than 2 years old. Blood Venous blood specimen / Unknown 01/10/2023 9:11 AM EDT 01/10/2023 9:12 AM EDT Narrative [facility] - 01/10/2023 8:56 PM EDT FASTING:YES FASTING: YES Catarina Davis MD LAB BLOOD ORDERABLES Fin al Result [address], [place] [phone] [facility] [place] [facility] [address] [place] [phone] * Thinprep TIS PAP And HPV mRNA E6/E7 With Reflex To HPV 16,18/45 (09/24/2022 3:53 PM EST) Clinical Information: None given [facility] LMP: NONE GIVEN [facility] Prev. PAP: NONE GIVEN [facility] Prev. BX: NONE GIVEN [facility] SOURCE: None given [facility] Statement Of Adequacy: [facility] Comment: Satisfactory for evaluation. Endocervical/transformation zone component absent. Age and/or menstrual status not provided Interpretation/ Result: Negative for intraepithelial lesion or malignancy. [facility] COMMENT: This Pap test has been evaluated with computer assisted technology. [facility] Cytotechnologis t: [facility] Comment: BK,CT(ASCP) CT screening location: [address] (Always Message) [facility] Comment: EXPLANATORY NOTE: The Pap is a [...] HPV nRNA E6/E7 Not Detected Not Detected [facility] Comment: Methodology: Physician Non Invasive Cardiologist-Mediated Amplification This assay detects E6/E7 viral messenger RNA (mRNA) from 14 high-risk HPV types (16,18,31,33,35,39,45,51,52,56,58,59,66,68). Cervical sources are required for HPV testing. If a vaginal source from a patient who has had a total hysterectomy with removal of cervix was submitted, please contact the testing laboratory for alternative testing options. For additional information, please refer to http://education.[employer] Systems/faq/XAR639c8 (This link if provided for information/ educational purposes only.) 09/24/2022 3:53 PM EST 09/25/2022 10:09 AM EST Narrative [facility] - 09/28/2022 3:45 PM EST FASTING: UNKNOWN us Catarina Davis MD LAB PATHOLOGY ORDERABLES Final Result [address], [facility], [place] [address] [facility] [address] [facility], ([address]) [place] [address] * ALBUMIN, RANDOM URINE W/CREATININE (05/23/2021 1:55 PM EDT) Microalbumin Urine 0.2 See Note: mg/dL [facility] Comment: Reference Range: ?? Reference [...] Creatinine, Urine 71 20 - 275 mg/dL [facility] 05/23/2021 1:55 PM EDT us Catarina Davis MD LAB URINE ORDERABLES Fin al Result [facility] [address] from Last 3 Months or Most Recently Relevant to Health Maintenance Insurance [facility] MEDICAID STAND ADULT Care Teams Rn Clinical Trials Relationship Specialty Start Date End Date Catarina Davis MD [address] [place] [phone] PCP - General Family Medicine 10/15/17
--- OUTSIDE RECORDS SUMMARY | 2025-02-23 12:31 | XMS_ITS | Encounter Summary ---
Author Organization [employer] Address [address] [facility] 7 [place] [address] Care Team Providers Care Marking Machine Tender Name Role Phone Catarina Davis MD Primary Care Provider + Reason for Visit * Reason Onset Date Comments Med Refill 12/18/2024 Encounter Details Date Type Department Care Team ([facility] st Contact Info) Description 12/18/2024 Telephone [facility] [address] [place], [place] [phone] Catarina Davis MD [address] [place], [place] [phone] Med Refill Social History Tobacco Use Types [...] 20 MG tablet To be sent to: [id number] [address] AT [facility] documented in this encounter Plan of Treatment Upcoming Encounters Date Type Department Care Team (Late st Contact Info) Description 04/14/2025 11:30 AM EDT Clinical Support [facility] [address] [place] [phone] Day Smith RN 05/06/2025 12:00 PM EDT Office Visit [facility] [address] [place], [place] [phone] Catarina Davis MD [address] [place] [address] 05/25/2025 2:00 PM EDT Office Visit [facility] [address] [place], [place] [phone] El, Sury, OD [address] [place], [place] [phone] documented as of this encounter Visit Diagnoses Not on filedocumented in this encounter Additional Health Concerns Assessment Noted Time PHQ-9 Depression Total Score: 0 12/29/19 23 1:22 PM EDT documented as of this encounter Care Teams Marking Machine Tender Relationship Specialty Start Date End Date Catarina Davis MD [address] [place], [place] [phone] PCP - General Family Medicine 10/15/17 documented as of this encounter
--- OUTSIDE RECORDS SUMMARY | 2025-02-23 12:31 | XMS_ITS | Encounter Summary ---
Author Organization [employer] Address [address] [facility] 7 [place] [address] Care Team Providers Care Ultrasound Tester Name Role Phone Catarina Davis MD Primary Care Provider + Reason for Visit * Reason Onset Date Comments FYI 11/01/2023 Encounter Details Date Type Department Care Team ([facility] st Contact Info) Description 11/01/[address] [facility] [address] [place], [place] [phone] Catarina Davis MD [address] [place], [place] [phone] FYI Social History Tobacco Use Types Packs/Day [...] AM EDT Clinical Support [facility] [address] [place] [address] Day Smith RN 05/06/2025 12:00 PM EDT Office Visit [facility] [address] [place] [address] Catarina Davis MD [address] [place] [address] 05/25/2025 2:00 PM EDT Office Visit [facility] OPTOMETRY [address] [place] [address] El, Sury, OD [address] [place] [address] documented as of this encounter Visit Diagnoses Not on filedocumented in this encounter Additional Health Concerns Assessment Noted Time PHQ-9 Depression Total Score: 0 12/29/19 23 1:22 PM EDT documented as of this encounter Care Teams Ultrasound Tester Relationship Specialty Start Date End Date Catarina Davis MD [address] [place] [address] PCP - General Family Medicine 10/15/17 documented as of this encounter
--- OUTSIDE RECORDS SUMMARY | 2025-02-23 12:31 | XMS_ITS | Encounter Summary ---
Author Organization [employer] Address [address] [place] [address] 7 h Floor [place] [phone] Care Team Providers Care Store Receiving Specialist Name Role Phone Catarina Davis MD Primary Care Provider + Encounter Details Date Type Department Care Team (Latest Contact Info) Description 03/19/2019 Abstract [facility] CONVERSIONS Dental, Provider, DDS Social History [...] 11:30 AM EDT Clinical Support [facility] [address] [place] [phone] Day Smith RN 05/06/2025 12:00 PM EDT Office Visit [facility] [address] [place] [phone] Catarina Davis MD [address] [place] [address] 05/25/2025 2:00 PM EDT Office Visit [facility] OPTOMETRY [address] [place] [phone] Sury Gallegos, OD [address] [place] [address] documented as of this encounter Visit Diagnoses Not on filedocumented in this encounter Care Teams Store Receiving Specialist Relationship Specialty Start Date End Date Catarina Davis MD [address] [place] [phone] PCP - General Family Medicine 10/15/17 documented as of this encounter
--- OUTSIDE RECORDS SUMMARY | 2025-02-23 12:31 | XMS_ITS | Clinical Summary ---
Author Organization [facility], Address [address] [place] [address] [place] [address] Phone Care Team Providers Care Repeater Operator Name Role Phone Catarina Davis MD [...] Office Visit [facility] [address] [place] [address] Smooth Almonte MD Blood in urine (Primary Dx); Cyst of kidney; Recurrent urinary tract infection 01/20/2025 Orders Only [facility] [address] [place] [address] Yoly Bean [place] Chronic kidney [...] Office Visit [facility] [address] [place] [address] Smooth Almonte MD [address] [place] [address] Health Maintenance Due Date Last Done [...] (6 to 49 Years) Completed 08/20/2024, 06/26/2018 Procedures Procedure Name Priority Date/Time Associated Diagnosis Comments CBC AND DIFFERENTIAL Routine 02/06/2025 9:22 AM EDT RENAL FUNCTION PANEL Routine 02/06/2025 9:22 AM EDT Blood in urine Cyst of kidney Recurrent urinary tract infection URINE ALBUMIN / CREATININE RATIO Routine 02/06/2025 9:22 AM EDT Blood in urine Cyst of kidney Recurrent urinary tract infection URINALYSIS WITH MICROSCOPIC Routine 02/06/2025 9:22 AM EDT Blood in urine Cyst of kidney Recurrent urinary tract infection MICROSCOPIC EXAMINATION - DO NOT USE Routine 02/06/2025 9:22 AM EDT from Last 3 Months Results * Microscopic Examination (02/06/2025 9:22 AM EDT) WBC, Urine 0-5 0 - 5 /hpf [facility] RBC, Urine None seen 0 - 2 /hpf [facility] Squamous Epithelial, Urine 0-10 0 - 10 /hpf [facility] Casts None seen None seen /lpf [facility] Bacteria, Urine Few None seen/Few [facility] 02/06/2025 9:22 AM EDT 02/06/2025 us Smooth Almonte MD LAB MICROBIOLOGY - GENERAL ORDERABLES Final Result Performing Organization Address City/[facility] Co de Phone Number [facility] [address] [place] [address] * Urine Albumin / Creatinine Ratio (02/06/2025 9:22 AM EDT) Albumin, Urine <3.0 Not Estab. ug/mL [facility] Creatinine, Ur 108.2 Not Estab. mg/dL [facility] Albumin/Creatin ine Ratio <3 0 - 29 mg/g creat [facility] Comment: ? Normal: ?0 - ??29 ? Moderately increased: 30 - 300 ? Severely increased: ? >300 Urine specimen (specimen) Urine specimen obtained by clean catch procedure / Unknown 02/06/2025 9:22 AM EDT 02/06/2025 us Smooth Almonte MD LAB URINE ORDERABLES Final Result Performing Organization Address [facility] Co de Phone Number [facility] [address] [place] [address] * Urinalysis with microscopic (02/06/2025 9:22 AM EDT) Specific Seym[place], Urine 1.027 1.005 - 1.030 [facility] [phone] pH Urine 6.0 5.0 - 7.5 [facility] Color, Urine Yellow Yellow [facility] Appearance Urine Clear Clear [facility] WBC Esterase Urine Negative Negative [facility] Protein, Ur Negative Negative/Tra ce [facility] Glucose, Ur Negative Negative [facility] Ketones, Urine Negative Negative [facility] Blood Urine Negative Negative [facility] Bilirubin Urine Negative Negative [facility] Urobilinogen Urine 0.2 0.2 - 1.0 mg/dL [facility] Nitrite, Urine Negative Negative [facility] Microscopic Examination Comment [facility] Comment:Microscopic follows if indicated. Other Microsc. Observations See below: [facility] Comment:Microscopic was yady cated and was performed. Urine specimen (specimen) Urine specimen obtained by clean catch procedure / Unknown 02/06/2025 9:22 AM EDT 02/06/2025 us Smooth Almonte MD LAB URINE ORDERABLES Final Result [facility] [address] [place] [address] * (ABNORMAL) CBC and Differential (02/06/2025 9:22 AM EDT) WBC 5.6 3.4 - 10.8 x10E3/uL [facility] RBC 4.25 3.77 - 5.28 x10E6/uL [facility] Hemoglobin 14.1 11.1 - 15.9 g/dL [facility] Hematocrit 41.4 34.0 - 46.6 % [facility] MCV 97 79 - 97 fL [facility] MCH 33.2(H) 26.6 - 33.0 pg [facility] MCHC 34.1 31.5 - 35.7 g/dL [facility] RDW 12.7 11.7 - 15.4 % [facility] Platelets 261 150 - 450 x10E3/uL [facility] Neutrophils Relative 69 Not Estab. % [facility] Lymphocytes Relative 21 Not Estab. % [facility] Monocytes 7 Not Estab. % [facility] Eosinophils Relative 2 Not Estab. % [facility] Basophils Relative 1 Not Estab. % [facility] Neutrophils Absolute 3.9 1.4 - 7.0 x10E3/uL [facility] Lymphocytes Absolute 1.2 0.7 - 3.1 x10E3/uL [facility] Monocytes Absolute 0.4 0.1 - 0.9 x10E3/uL [facility] Eosinophils Absolute 0.1 0.0 - 0.4 x10E3/uL [facility] Basophils Absolute 0.0 0.0 - 0.2 x10E3/uL [facility] Immature Granulocytes 0 Not Estab. % [facility] Immature Grans (Absolute) 0.0 0.0 - 0.1 x10E3/uL [facility] 02/06/2025 9:22 AM EDT 02/06/2025 Smooth Almonte MD LAB BLOOD ORDERABLES Final Result [facility] [address] [place] [address] * (ABNORMAL) Renal function panel (02/06/2025 9:22 AM EDT) Glucose 130(H) 70 - 99 mg/dL [facility] BUN 13 6 - 24 mg/dL [facility] Creatinine 0.85 0.57 - 1.00 mg/dL [facility] eGFR CKD-EPI CR 2020 87 >59 mL/min/1.7 3 [facility] BUN/Creatinine Ratio 15 9 - 23 [facility] Sodium 138 134 - 144 mmol/L [facility] Potassium 5.3(H) 3.5 - 5.2 mmol/L [facility] Chloride 105 96 - 106 mmol/L [facility] Bicarbonate (CO2) 17(L) 20 - 29 mmol/L [facility] Calcium 9.2 8.7 - 10.2 mg/dL [facility] Albumin 4.3 3.9 - 4.9 g/dL [facility] Phosphorus 3.9 3.0 - 4.3 mg/dL [facility] Blood specimen (specimen) Venous blood / Unknown 02/06/2025 9:22 AM EDT 02/06/2025 Smooth Almonte MD LAB BLOOD ORDERABLES Final Result [facility] [address] [place] [address] from Last 3 Months Insurance Medicaid [place] Care Teams Repeater Operator Relationship Specialty Start Date End Date Catarina Davis MD [address] [place] [id number] PCP - General 08/11/19
--- OUTSIDE RECORDS SUMMARY | 2025-02-23 12:31 | XMS_ITS | Encounter Summary ---
Author Organization [facility] [employer] Address [address] [facility] [address] [place] [address] Care Team Providers Care Dealer Compliance Representative Name Role Phone Catarina Davsi MD Primary Care Provider + Reason for Visit * Reason Comments Med Refill Encounter Details Date Type Department Care Team (Late st Contact Info) Description 10/06/2024 Refill [facility] [address] [place], [place] [phone] Catarina Davis MD [address] [place], [place] [phone] Cervical paraspinal muscle spasm Social History Tobacco [...] 04/14/2025 11:30 AM EDT Clinical Support [facility] [address] [place] [address] Day Smith RN 05/06/2025 12:00 PM EDT Office Visit [facility] [address] [place] [address] Catarina Davis MD [address] [place] [address] 05/25/2025 2:00 PM EDT Office Visit [facility] OPTOMETRY [address] [place] [address] El, Sury, OD [address] [place] [address] documented as of this encounter Visit Diagnoses Diagnosis Cervical paraspinal muscle spasm Spasm of muscle documented in this encounter Additional Health Concerns Assessment Noted Time PHQ-9 Depression Total Score: 0 12/29/19 23 1:22 PM EDT documented as of this encounter Care Teams Dealer Compliance Representative Relationship Specialty Start Date End Date Catarina Davis MD [address] [place] [phone] PCP - General Family Medicine 10/15/17 documented as of this encounter
== END 2025-02-23 11:36 | disposition home or self-care (01) ==
LOC: HO.HOS 11:13
PROVIDERS: PCP Internal Medicine; Visit Provider Orthopaedic Surgery
DX: M17.0 Bilateral primary osteoarthritis of knee (principal)
CPT/HCPCS: 99213

== ENCOUNTER → 2025-02-23 11:12 | Outpatient (BNVA) | payer MEDICAID, SELFPAY | PROVIDERS: PCP Internal Medicine; Visit Provider Orthopaedic Surgery | DX: M17.0 Bilateral primary osteoarthritis of knee (principal) | CPT/HCPCS: 99212 ==

== ENCOUNTER 2025-03-11 07:30 | Day surgery (SDC) | payer MEDICAID, SELFPAY ==
--- OUTSIDE RECORDS SUMMARY | 2025-02-04 06:59 | XMS_ITS | Clinical Summary ---
Author Organization [facility], Address [address] [place] [address] [place] [address] Phone Care Team Providers Care Annual Giving Director Name Role Phone Catarina Davis MD Primary Care Provider [phone] Allergies Active Allergy Reactions Criticality Noted Date Comments Cephalexin Other (see comments) 01/11/2023 Medications zolpidem (AMBIEN) 10 MG tablet Comments: Filled Date: Mar 18 2017 12:00AM Patient Notes: TK 1 T PO QD HS Duration: 30 03/18/20 17 Active traMADol (ULTRAM) 50 MG tablet Active hydrOXYzine (VISTARIL) 25 MG capsule Comments: Filled Date: Apr 12 2017 12:00AM Patient Notes: TK 1 TO 2 CS PO BID PRA OR INSOMNIA Duration: 30 03/18/20 17 Active Ventolin HFA 108 (90 Base) MCG/ACT inhaler INHALE 2 PUFFS EVERY 4 HOURS NEEDED FOR WHEEZING OR SHORTNESS OF BREATH. 12/29/19 23 Active fluticasone (FLONASE) 50 MCG/ACT nasal spray INSTILL 1 SPRAY IN EACH NOSTRIL ONCE DAILY IN THE MORNING. 12/29/19 23 Active Mapap Arthritis Pain 650 MG 8 hr tablet TAKE 1 TABLET BY MOUTH EVERY 8 HOURS NEEDED. SWALLOW WHOLE WITH WATER AND DO NOT BREAK OR CRUSH OR DISSOLVE OR CHEW 07/12/20 22 025 Discontinued gabapentin (NEURONTIN) 100 MG capsule TAKE 1 CAPSULE BY MOUTH AT BEDTIME FOR ONE WEEK, THEN TAKE 3 CAPSULES BY MOUTH AT BEDTIME. 12/29/19 23 025 Discontinued ondansetron (ZOFRAN) 4 MG tablet 01/10/20 23 025 Discontinued predniSONE (DELTASONE) 20 MG tablet TAKE 2 TABLETS BY MOUTH EVERY MORNING FOR 5 DAYS 12/29/19 23 025 Discontinued Active Problems Problem Noted Date Diagnosed Date Blood in urine 01/29/2020 Cyst of kidney 01/29/2020 Recurrent urinary tract infection 01/29/2020 Type 2 diabetes mellitus 01/29/2020 Vitamin D deficiency 12/16/2017 Encounters Date Type Department Care Team Description 02/01/2025 1:30 PM EDT Office Visit [facility] [address] [place] [address] mSooth Almonte MD Blood in urine (Primary Dx); Cyst of kidney; Recurrent urinary tract infection 01/20/2025 Orders Only [facility] [address] [place] [address] Yoly Bean [place] Chronic kidney disease, not otherwise specified (Primary Dx); Albuminuria, not otherwise specified from Last 3 Months Family History Medical History Relation Comments Diabetes [...] Sign Reading Time Taken Comments Blood Pressure 118/84 02/01/2025 1:46 PM EDT Pulse - - Temperature - - Respiratory Rate - - Oxygen Saturation - - Inhaled Oxygen Concentration - - Weight 77.6 kg (171 lb) 07/17/2019 12:00 PM EDT Height 154.9 cm (5' 1 ) 07/17/2019 12:00 PM EDT Body Mass Index 32.31 07/17/2019 12:00 PM EDT Plan of Treatment Upcoming Encounters Date Type Department Care Team (Late st Contact Info) Description 02/07/2026 1:45 PM EDT Office Visit [facility] [address] [place] [address] Smooth Almonte MD [address] [place] [address] Health Maintenance Due Date Last Done Comments Hepatitis B Vaccine (1 of 3 - 19+ 3-dose series) 1999 Diabetes: Ophthalmology Exam 01/08/2020 Diabetes: Pedal Pulse Checked 01/08/2020 Diabetes: Sensory Foot Exam 01/08/2020 Diabetes: Visual Foot Exam 01/08/2020 Diabetes: Hemoglobin A1C 08/22/2024 05/22/2024, 12/06 Influenza Vaccine Completed 08/20/2024, , 06/29/2022, Additional history exists Pneumococcal Vaccine: 50+ Years Discontinued , 06/26/2018 Pneumococcal Vaccine: Peds ( 0 to 5 Years) and At-Risk Patients (6 to 49 Years) Completed 08/20/2024, 06/26/2018 Insurance Medicaid [place] Care Teams Annual Giving Director Relationship Specialty Start Date End Date Catarina Davis MD [address] [place] [phone] [facility] - General 08/11/19
--- OUTSIDE RECORDS SUMMARY | 2025-02-04 06:59 | XMS_ITS | Encounter Summary ---
Author Organization [employer] Address [address] [facility] [address] [place] [address] Care Team Providers Care Bobbin Drier Name Role Phone Catarina Davis MD Primary Care Provider + Reason for Visit * Reason Onset Date Comments FYI 11/01/2023 Encounter Details Date Type Department Care Team ([facility] st Contact Info) Description 11/01/2023 Telephone [facility] [address] [place], [place] [phone] Catarina Davis MD [address] [place], [place] [phone] FYI Social History Tobacco Use Types Packs/Day [...] Care Team (Late st Contact Info) Description 04/14/2025 11:30 AM EDT Clinical Support [facility] [address] [place] [address] Day Smith RN 05/06/2025 12:00 PM EDT Office Visit [facility] [address] [place] [address] Catarina Davis MD [address] [place] [address] 05/25/2025 2:00 PM EDT Office Visit [facility] [address] [place] [address] El, Sury, OD [address] [place] [address] documented as of this encounter Visit Diagnoses Not on filedocumented in this encounter Additional Health Concerns Assessment Noted Time PHQ-9 Depression Total Score: 0 12/29/19 23 1:22 PM EDT documented as of this encounter Care Teams Bobbin Drier Relationship Specialty Start Date End Date Catarina Davis MD [address] [place] [address] PCP - General Family Medicine 10/15/17 documented as of this encounter
--- OUTSIDE RECORDS SUMMARY | 2025-02-04 06:59 | XMS_ITS | Encounter Summary ---
Author Organization [employer] Address [address] [place] [address] [address] [place] [address] Care Team Providers Care Overhead Worker Name Role Phone Catarina Davis MD Primary Care Provider + Encounter Details Date Type Department Care Team (Latest Contact Info) Description 03/19/2019 Abstract [facility] Dental, Provider, DDS Social History Tobacco [...] Description 04/14/2025 11:30 AM EDT Clinical Support [facility] [address] [place] [phone] Day Smith RN 05/06/2025 12:00 PM EDT Office Visit [facility] [address] [place] [address] Catarina Davis MD [address] [place] [address] 05/25/2025 2:00 PM EDT Office Visit [facility] OPT[facility] [address] [place] [phone] El, Sury, OD [address] [place] [address] documented as of this encounter Visit Diagnoses Not on filedocumented in this encounter Care Teams Overhead Worker Relationship Specialty Start Date End Date Catarina Davis MD [address] [place] [phone] PCP - General Family Medicine 10/15/17 documented as of this encounter
--- OUTSIDE RECORDS SUMMARY | 2025-02-04 06:59 | XMS_ITS | Encounter Summary ---
Author Organization [facility], Address [address] [facility] [address] [place] [address] Phone Care Team Providers Care Pig Furnace Operator Name Role Phone Catarina Davis MD Primary Care Provider + [phone] Encounter Details Date Type Department Care Team (Late st Contact Info) Description 02/01/2025 1:30 PM EDT Office Visit [facility], [address] [address] Smooth Almonte MD [address] [place] [address] [place] [address] Blood in urine (Primary Dx); Cyst of kidney; Recurrent urinary tract infection Social History Tobacco Use Types Packs/Day Years [...] on file documented as of this encounter Last Filed Vital Signs Vital Sign Reading Time Taken Comments Blood Pressure 118/84 02/01/2025 1:46 PM EDT Pulse - - Temperature - - Respiratory Rate - - Oxygen Saturation - - Inhaled Oxygen Concentration - - Weight - - Height - - Body Mass Index - - documented in this encounter H&P Notes * Smooth Almonte MD - 02/01/2025 1:30 PM EDT Images from the original note were not included. PATIENT: Maya Hoyos : 1980 ENCOUNTER: 02/01/2025 PCP: Catarina Davis MD Maya Hoyos is a 44 y.o. year old patient who I have followed for a history of the following renal issues: History of microscopic hematuria with Occasional bouts of gross hematuria Bosniak 2 cyst on the right kidney seen on prior MRI PAST MEDICAL HISTORY: Patient Active Problem List Diagnosis Date Noted ??? Blood in urine 01/29/2020 ??? Cyst of kidney 01/29/2020 ??? Recurrent urinary tract infection 01/29/2020 ??? Type 2 diabetes mellitus (HCC) 01/29/2020 ??? Vitamin D deficiency 12/16/2017 In the interval since our last visit I have had the opportunity to review the following when available: -laboratory data, imaging studies, and cardiovascular data -current med list from the patient, the patient's pharmacy, [facility], and Care Everywhere During this visit I had the opportunity for a full review of systems and limited physical exam as outlined below, with the pertinent findings noted and others found to be negative or noncontributory to the current assessment of this patient. Maya, a female patient with a history of microscopic and occasional gross hematuria and two small benign cysts on her right kidney, presented for follow- up. She reports no new medications or hospitalizations and continues to use Ambien, Ventolin inhaler, Tramadol. She experiences headaches 3 times a week, managed with ibuprofen, and has an appointment with her primary care physician tomorrow. Physical examination revealed clear lungs, regular heart, and no leg swelling. Plans include ordering urine and blood tests to monitor kidney function and advising to limit ibuprofen use due to potential kidney effects. HPI: Maya is a female patient with a history of microscopic hematuria, occasional visible hematuria, and two small benign cysts on her right kidney, previously evaluated by MRI. She presents for follow-up of these conditions. The patient reports no new medications or hospitalizations since her last visit. She mentions having her doppler removed in August without any subsequent complications. Maya continues to take Ambien 10 mg as needed for sleep, uses her Ventolin inhaler as needed, and takes Tramadol as needed. She has discontinued Gabapentin. Additionally, she uses an inhaler for a bad cough, taking 2 pumps daily. Maya reports experiencing headaches about 3 times a week, sometimes daily. She manages these headaches by taking ibuprofen once a day when they occur. The patient denies any dizziness, chest pain,nausea, vomiting, diarrhea, or constipation. She reports no issues since her gallbladder removal and no swelling in her legs or skin rash. In terms of lifestyle, Maya continues to exercise and has started doing crossfit, reporting thatshe can now lift 300 pounds. Medications and Supplements - Ambien 10 mg by mouth as needed for sleep - Ventolin inhaler as needed - Tramadol as needed - Inhaler 2 pumps daily for cough - Ibuprofen by mouth once a day as needed for headaches Review of Systems General: Negative for fever, chills, fatigue, muscle aches, appetite or weight change. HEENT: Positive for headaches. Cardiovascular: Negative for chest pain, leg swelling. Respiratory: Positive for cough. Gastrointestinal: Negative for nausea, vomiting, diarrhea, constipation. Genitourinary: Positive for microscopic blood in urine, occasional visible blood. Neurological: Negative for dizziness. MEDICATIONS: Outpatient Encounter Medications as of 02/01/2025 Medication Sig Dispense Refill ??? fluticasone (FLONASE) 50 MCG/ACT nasal spray INSTILL 1 SPRAY IN EACH NOSTRIL ONCE DAILY IN THE MORNING. ??? hydrOXYzine (VISTARIL) 25 MG capsule Comments: Filled Date: Apr 12 2017 12:00AM Patient Notes: TK 1 TO 2 CS PO BID PRA OR INSOMNIA Duration: 30 ??? traMADol (ULTRAM) 50 MG tablet ??? Ventolin HFA 108 (90 Base) MCG/ACT inhaler INHALE 2 PUFFS EVERY 4 HOURS NEEDED FOR WHEEZING OR SHORTNESS OF BREATH. ??? zolpidem (AMBIEN) 10 MG tablet Comments: Filled Date: Mar 18 2017 12:00AM Patient Notes: TK1 T PO QD HS Duration: 30 ??? [DISCONTINUED] gabapentin (NEURONTIN) 100 MG capsule TAKE 1 CAPSULE BY MOUTH AT BEDTIME FOR ONEWEEK, THEN TAKE 3 CAPSULES BY MOUTH AT BEDTIME. ??? [DISCONTINUED] Mapap Arthritis Pain 650 MG 8 hr tablet TAKE 1 TABLET BY MOUTH EVERY 8 HOURS NEEDED. SWALLOW WHOLE WITH WATER AND DO NOT BREAK OR CRUSH OR DISSOLVE OR CHEW ??? [DISCONTINUED] ondansetron (ZOFRAN) 4 MG tablet ??? [DISCONTINUED] predniSONE (DELTASONE) 20 MG tablet TAKE 2 TABLETS BY MOUTH EVERY MORNING FOR 5 DAYS No facility-administered encounter medications on file as of 02/01/2025. PHYSICAL EXAM: BP 118/84 Constitutional: No apparent distress Cardiovascular: No JVD elevation; no rub; regular Pulmonary/Chest: No rales; no wheeze Abdominal: Soft and non-tender. Extremities: Edema None Skin: no obvious visible rash LABS: Chemistry Lab Units 12/14/24 0956 01/17/24 1142 05/22/23 1510 CREATININE mg/dL 0.8 0.92 0.94 BUN mg/dL 10 18 16 POTASSIUM mmol/L 4.3 4.6 3.6 SODIUM mmol/L 141 139 140 CO2 mmol/L 26 25 26 CHLORIDE mmol/L 108 102 107 ALBUMIN g/dL -- 4.6 4.1 WBC AUTO x10E3/uL -- 7.5 -- HEMATOCRIT % -- 40.1 -- HEMOGLOBIN g/dL -- 13.7 -- PLATELETS AUTO x10E3/uL -- 241 -- Bone Mineral Lab Units 12/14/24 0956 01/17/24 1142 05/22/23 1510 CALCIUM mg/dL 8.9 9.4 8.9 PHOSPHORUS mg/dL -- 3.1 -- ALK PHOS U/L -- -- 80 Urine Lab Units 01/17/24 1142 PROT/CREAT RATIO UR mg/g creat 121 102 SUMMARY: Based on the above findings, my interpretation of the available data, and my best efforts to reconcile the active medications, the following problems/diagnoses with recommendations for any further testing, treatment options, and follow-up are provided for your review: Chronic and Active Issues: 1. Blood in urine 2. Cyst of kidney 3. Recurrent urinary tract infection Maya is a female patient with a history of microscopic hematuria, occasional gross hematuria, and two small benign cysts on her right kidney, presenting for follow-up. Microscopic and occasional gross hematuria Assessment: Patient has a known history of microscopic blood in the urine with occasional visible blood. Two small benign cysts on the right kidney were previously evaluated by MRI. Current blood pressure is 118/84. Lungs are clear, and heart is regular with no leg swelling noted on examination. Patient reports no recent hospitalizations or new medications. She denies symptoms such as dizziness, chest pain, nausea, vomiting, diarrhea, constipation, leg swelling, or skin rash. Plan: - Order urine test to check for protein - Order blood test to monitor kidney function - Follow up in 1 year if test results are stable - Discuss any issues if test results are abnormal - Advise to limit ibuprofen use due to potential kidney effects - Occasional use is acceptable - Avoid regular daily use or multiple times per day Headaches Assessment: Patient reports headaches occurring about 3 times a week, sometimes daily. She is currently managing the headaches with ibuprofen once daily as needed. Patient has an appointment scheduled with her primary care physician tomorrow to address this issue. Plan: - Patient to follow up with primary care physician as scheduled - Advised to limit ibuprofen use due to potential kidney effects Asthma Assessment: Patient uses Ventolin inhaler as needed Plan: - Continue Ventolin inhaler as needed Insomnia Assessment: Patient reports using Ambien 10 mg sometimes for sleep. Plan: - Continue Ambien 10 mg as needed for sleep Pain management Assessment: Patient reports using tramadol as needed for pain management. Plan: - Continue tramadol as needed for pain Orders Placed This Encounter ??? Urinalysis with microscopic ??? Urine Albumin / Creatinine Ratio ??? Renal function panel documented in this encounter Plan of Treatment Upcoming Encounters Date Type Department Care Team (Late st Contact Info) Description 02/07/2026 1:45 PM EDT Office Visit [facility], [address] [place] [phone] Smooth Almonte MD [address] [facility] [place] [phone] Scheduled Orders Name Type Priority Associated Diagnoses Orde r Schedule Urinalysis with microscopic Lab Routine Blood in urine Cyst of kidney Recurrent urinary tract infection Expected: 02/01/2025, Expires: 03/03/2026 Urine Albumin / Creatinine Ratio Lab Routine Blood in urine Cyst of kidney Recurrent urinary tract infection Expected: 02/01/2025, Expires: 03/03/2026 Renal function panel Lab Routine Blood in urine Cyst of kidney Recurrent urinary tract infection Expected: 02/01/2025, Expires: 03/03/2026 documented as of this encounter Visit Diagnoses Diagnosis Blood in urine- Primary Cyst of kidney Recurrent urinary tract infection documented in this encounter Care Teams Pig Furnace Operator Relationship Specialty Start Date End Date Catarina Davis MD [address] [place] [phone] PCP - General 08/11/19 documented as of this encounter
--- OUTSIDE RECORDS SUMMARY | 2025-02-04 06:59 | XMS_ITS | Encounter Summary ---
Author Organization [employer] Address [address] [facility] [address] [place] [address] Care Team Providers Care Pearl Digger Name Role Phone Catarina Davis MD Primary Care Provider + Encounter Details Date Type Department Care Team (Latest Contact Info) Description 02/02/2025 Travel Social History Tobacco Use Types Packs/Day [...] Date Recorded Patient Health Questionnaire-2 Score 0 02/02/2025 Comments No Sex and Gender Information Value [...] Clinical Support [facility] [address] [place] [address] Day Smith, [place] 05/06/2025 12:00 PM EDT Office Visit [facility] [address] [place] [address] Catarina Davis MD [address] [place] [address] 05/25/2025 2:00 PM EDT Office Visit [facility] [address] [place] [address] El, Sury, OD [address] [place] [address] documented as of this encounter Visit Diagnoses Not on filedocumented in this encounter Additional Health Concerns Assessment Noted Time PHQ-9 Depression Total Score: 0 12/29/19 23 1:22 PM EDT documented as of this encounter Care Teams Pearl Digger Relationship Specialty Start Date End Date Catarina Davis MD [address] [place] [address] PCP - General Family Medicine 10/15/17 documented as of this encounter
--- OUTSIDE RECORDS SUMMARY | 2025-02-04 06:59 | XMS_ITS | Encounter Summary ---
Author Organization [employer] Address [address] [facility] 7[address] [place] [address] Care Team Providers Care Machine Adjuster Leader Name Role Phone Catarina Davis MD Primary Care Provider + Reason for Visit * Reason Onset Date Comments Med Refill 12/18/2024 Encounter Details Date Type Department Care Team ([facility] st Contact Info) Description 12/18/2024 Telephone [facility] [address] [place], [place] [phone] Catarina Davis MD [address] [place], [place] [phone] Med Refill Social History Tobacco Use Types Packs/Day Years [...] encounter Miscellaneous Notes * Telephone Encounter - Swetha Andrade RN - 12/18/2024 10:56 AM EDT TC placed to pt. Pt. Reports diagnosed with flu in ED 12/14/24 (note in chart), reports all symptomshave resolved besides frequent cough, sometimes productive and sometimes a dry cough. Pt. Reports she has asthma as well. Pt. Requesting prednisone to resolve cough, declines walk in appt. Or available sick on site appt. Today. Requesting appt. With PCP only, therefore agrees to next available appt. With PCP on 12/24/24 at * Telephone Encounter - Bobby Wolff - 12/18/2024 8:34 AM EDT TC from pt requesting medication refill. Medications needing refill : predniSONE (Deltasone) 20 MG tablet To be sent to: [id number] [address] [facility] documented in this encounter Plan of Treatment Upcoming Encounters Date Type Department Care Team (Late st Contact Info) Description 04/14/2025 11:30 AM EDT Clinical Support [facility] [address] [place] [phone] Day Smith RN 05/06/2025 12:00 PM EDT Office Visit [facility] [address] [place], [place] [phone] Catarina Davis MD [address] [place], [place] [phone] 05/25/2025 2:00 PM EDT Office Visit [facility] [address] [place], [place] [phone] El, Sury, OD [address] [place], [place] [phone] documented as of this encounter Visit Diagnoses Not on filedocumented in this encounter Additional Health Concerns Assessment Noted Time PHQ-9 Depression Total Score: 0 12/29/19 23 1:22 PM EDT documented as of this encounter Care Teams Machine Adjuster Leader Relationship Specialty Start Date End Date Catarina Davis MD [address] [place], [place] [phone] PCP - General Family Medicine 10/15/17 documented as of this encounter
--- OUTSIDE RECORDS SUMMARY | 2025-02-04 06:59 | XMS_ITS | Encounter Summary ---
Author Organization [employer] Address [address] [place] [address] 7t [place] [address] Care Team Providers Care Clerical Order Filler Name Role Phone Catarina Davis MD Primary Care Provider + Reason for Referral * Consultation (Routine) - Closed Specialty Diagnoses / Procedures Referred By Contangelica ibarra Referred To Contact Optometry Diagnoses Pre-hypertension Catarina Davis MD [address] [place] [address] Phone: tel: fax: [facility] [address] [place] [phone] Phone: tel: fax: Referral ID Status Reason Start Date Expiration Date V isits Requested Visits Authorized [id number] Closed Consult and Treat 02/02/2025 02/02/2026 1 1 Reason for Visit * Reason Comments Follow-up Encounter Details Date Type Department Care Team (Latest Contact Info) Description 02/02/2025 9:00 AM EDT Office Visit [facility] [address] [place] [phone] Catarina Davis MD [address] [place] [address] Pre-hypertension (Primary Dx); Gastroesophageal reflux disease with esophagitis, unspecified whether hemorrhage; Type 2 diabetes mellitus without complication, without long-term current use of insulin ([facility]/HCC); Chronic midline low back pain, unspecified whether sciatica present; Dermatitis; Cervical intraepithelial neoplasia grade 2; Dietary counseling; Exercise counseling; Class 1 obesity due to excess calories with serious comorbidity and body mass index (BMI) of 31.0 to 31.9 in adult Social History Tobacco Use Types Packs/Day Years [...] AM EDT documented as of this encounter Last Filed Vital Signs Vital Sign Reading Time Taken Comments Blood Pressure 130/90 02/02/2025 9:28 AM EDT Pulse 76 02/02/2025 9:10 AM EDT Temperature 36.4 ??C (97.6 ??F) 02/02/2025 9:10 AM ED T Respiratory Rate - - Oxygen Saturation 97% 02/02/2025 9:10 AM EDT Inhaled Oxygen Concentration - - Weight 73.1 kg (161 lb 2 oz) 02/02/2025 9:10 AM EDT Height 152.4 cm (5') 02/02/2025 9:10 AM EDT Body Mass Index 31.47 02/02/2025 9:10 AM EDT documented in this encounter Progress Notes * Catarina Davis MD - 02/02/2025 9:00 AM EDT SUBJECTIVE: Maya Hoyos is a 44 y.o. year old female who presents for follow up BP/GERD. Denies recent illness, injury, or hospitalization. # Overall patient feels well except for nausea and epigastric pain. She has not seen GI yet. She denies melena or BRBPR. She does have BP at home is controlled , she did not bring BP readings but reportedly they run between 120-140s/80-90s. She takes some nutritional supplements after exercise, some of them contain carnitine. She denies chest pain or shortness of breath. She has chronic cough, most of the times that is dry, no recent exacerbation with fever or chills. She is doing well on tramadol up to 4 times per day, denies constipation (resolved with fiber and flaxseed powder), somnolence or increased anxiety. She denies using recreational substances or alcohol. Her pain is significantly decreased with tramadol from around 7-8/10 to 2-3/10. Acute Concerns: Social History Social History Narrative [...] knee Gastroesophageal reflux disease with esophagitis Dermatitis Mild asthma with exacerbation Family History Problem Relation Name Age of Onset Diabetes type II Mother Other (htn) Mother Stroke Mother 46 at 46 Diabetes type II Father Diabetes type II Sister Breast cancer Mother's Sister Review of Systems Constitutional: Negative for chills, fatigue and fever. HENT: Positive for rhinorrhea. Negative for congestion, ear pain, nosebleeds, sinus pressure, sore throat and trouble swallowing. Eyes: Positive for itching. Negative for pain and discharge. Respiratory: Negative for cough, chest tightness and shortness of breath. Cardiovascular: Negative for chest pain, palpitations and leg swelling. Gastrointestinal: Positive for nausea. Negative for abdominal pain (epigastric), blood in stool, constipation and diarrhea. Endocrine: Negative for polydipsia and polyuria. Genitourinary: Negative for dysuria, frequency, genital sores, pelvic pain and vaginal discharge. Musculoskeletal: Positive for back pain. Negative for neck pain. Skin: Negative for rash. Allergic/Immunologic: Negative for environmental allergies. Neurological: Negative for dizziness, seizures, weakness, light-headedness and headaches. Hematological: Negative for adenopathy. Psychiatric/Behavioral: Negative for agitation, behavioral problems, self-injury and suicidal ideas. OBJECTIVE: Vitals: 02/02/25 0910 02/02/25 0928 BP: (!) 134/91 (!) 130/90 BP Location: Left arm Left arm Patient Position: Sitting Lying BP Cuff Size: Adult Adult Pulse: 76 Temp: 97.6 ??F (36.4 ??C) TempSrc: Oral SpO2: 97% Weight: 161 lb 2 oz (73.1 kg) Height: 5' (1.524 m) Physical Exam HENT: Right Ear: Tympanic membrane and ear canal normal. Left Ear: Tympanic membrane and ear canal normal. Mouth/Throat: Mouth: Mucous membranes are moist. Pharynx: No oropharyngeal exudate or posterior oropharyngeal erythema. Eyes: Pupils: Pupils are equal, round, and reactive to light. Cardiovascular: Rate and Rhythm: Regular rhythm. Pulses: Normal pulses. Heart sounds: Normal heart sounds. No murmur heard. Pulmonary: Breath sounds: Normal breath sounds. Abdominal: General: Bowel sounds are normal. Palpations: Abdomen is soft. Tenderness: There is no abdominal tenderness. Musculoskeletal: General: Normal range of motion. Cervical back: Neck supple. Skin: General: Skin is warm. Neurological: General: No focal deficit present. Mental Status: She is alert and oriented to person, place, and time. Psychiatric: Mood and Affect: Mood normal. Behavior: Behavior normal. Problem List Items Addressed This Visit Pre-hypertension - Primary She probably has essential hypertension, we discussed importance of bringing BP readings from home,she does not want to start any medication at this time Counseled re low salt diet/increase moderate physical activity. Check home BP BIW and prn CP/[facility]ERSON/BROWN Counseled to quit smoking and follow-up with me within 6 to 8 weeks Relevant Orders Referral to Optometry Gastroesophageal reflux disease with esophagitis Persistent, needs to call back to GI and schedule follow-up. Continue omeprazole as needed Advised to quit smoking Type 2 diabetes mellitus (CMS/HCC) Seems to be resolved, A1c is 5.6. Congratulated her on weight reduction, advised to quit smoking Counseled re more frequent low calorie/carb meals. Encouraged physical activity as tolerated. FU in 6 months. Relevant Orders POCT Glucose (Completed) POCT HGB A1C (Completed) Chronic low back pain Patient is doing well with chronic pain management clinic, tramadol as needed and most recent U-Toxis as expected We have done [employer] education re opiate [...] rx will not be replaced if lost orstolen. Continue tramadol every 6 hours, can take Tylenol breakthrough pain Continue to follow-up with [facility] as well Relevant Medications traMADol (Ultram) 50 MG tablet naloxone (Narcan) 4 mg/0.1 mL nasal spray Dermatitis Great refill on betamethasone cream to apply as needed on hands Relevant Medications betamethasone valerate (Valisone) 0.1 % cream Cervical intraepithelial neoplasia grade 2 More than 5 years ago, last Pap in 2021 was normal Schedule Pap smear at the end of this year Other Visit Diagnoses Dietary counseling Exercise counseling Class 1 obesity due to excess calories with serious comorbidity and body mass index (BMI) of 31.0 to 31.9 in adult Follow Up: Current Outpatient Medications on File Prior to Visit Medication Sig Dispense Refill acetaminophen (Tylenol 8 Hour) 650 MG ER tablet Take 1 tablet (650 mg) by mouth every 8 (eight) hours if needed for mild pain. Take 1 tablet by mouth every 8 hours as needed swallowing whole with water. Do not break, crush, dissolve and/or chew. 90 tablet 2 albuterol (Ventolin HFA) 108 (90 Base) MCG/ACT inhaler Inhale 2 puffs Every 4-6 hours as needed forwheezing. 18 g 1 Blood Pressure Monitor kit Use as directed 3x/week 1 kit 0 diclofenac sodium 3 % gel Apply topically if needed in the morning, at noon, in the evening, and atbedtime (pain). 150 g 2 gabapentin (Neurontin) 300 MG capsule 1 tab po at bedtime 90 capsule 2 glucose blood (FREESTYLE LITE) test strip hydrOXYzine pamoate (Vistaril) 25 MG capsule TAKE 1-2 CAPSULES BY MOUTH TWICE DAILY NEEDED FOR ANXIETY/INSOMNIA nicotine polacrilex (Commit) 4 MG lozenge Dissolve 1 lozenge (4 mg) in the mouth every 2 (two) hours if needed for smoking cessation. 100 lozenge 0 omeprazole (PriLOSEC) [address] capsule Take 20 mg by mouth in the morning. tiZANidine (Zanaflex) 4 MG tablet Take 1 tablet (4 mg) by mouth every 6 (six) hours if needed for muscle spasms for up to 10 days. 60 tablet 3 zolpidem (Ambien) 10 MG tablet Take 10 mg by mouth at bedtime. [DISCONTINUED] betamethasone valerate (Valisone) 0.1 % cream Apply topically 2 times daily. 15 g 0 [DISCONTINUED] fexofenadine (Virgen) 180 MG tablet Take 1 tablet (180 mg) by mouth if needed each day (Allergies). 90 tablet 0 [DISCONTINUED] naloxone (Narcan) 4 mg/0.1 mL nasal spray Administer 1 spray (4 mg) into affected nostril(s) if needed for opioid reversal. May repeat every 2-3 minutes if needed, alternating nostrils, until medical assistance becomes available. 2 each 2 [DISCONTINUED] predniSONE (Deltasone) 20 MG tablet 3 tab PO/d x 2d then 2 tablets PO/d x 4 days andstop 14 tablet 0 [DISCONTINUED] traMADol (Ultram) 50 MG tablet Take 1 tablet (50 mg) by mouth every 6 (six) hours ifneeded for severe pain for up to 28 days. 112 tablet 0 No current facility-administered medications on file prior to visit. documented in this encounter Miscellaneous Notes * Assessment & Plan Note - Catarina Davis MD - 02/02/2025 2:46 PM EDT Associated Problem(s): Chronic low back pain Patient is doing well with chronic pain management clinic, tramadol as needed and most recent U-Toxis as expected We have done [employer] education re opiate [...] rx will not be replaced if lost orstolen. Continue tramadol every 6 hours, can take Tylenol breakthrough pain Continue to follow-up with [facility] as well * Assessment & Plan Note - Catarina Davis MD - 02/02/2025 2:45 PM EDT Associated Problem(s): Dermatitis Great refill on betamethasone cream to apply as needed on hands * Assessment & Plan Note - Catarina Davis MD - 02/02/2025 2:45 PM EDT Associated Problem(s): Type 2 diabetes mellitus ([facility]) Seems to be resolved, A1c is 5.6. Congratulated her on weight reduction, advised to quit smoking Counseled re more frequent low calorie/carb meals. Encouraged physical activity as tolerated. FU in 6 months. * Assessment & Plan Note - Catarina Davis MD - 02/02/2025 2:43 PM EDT Associated Problem(s): Cervical intraepithelial neoplasia grade 2 More than 5 years ago, last Pap in 2021 was normal Schedule Pap smear at the end of this year * Assessment & Plan Note - Catarina Davis MD - 02/02/2025 2:43 PM EDT Associated Problem(s): Gastroesophageal reflux disease with esophagitis Persistent, needs to call back to GI and schedule follow-up. Continue omeprazole as needed Advised to quit smoking * Assessment & Plan Note - Catarina Davis MD - 02/02/2025 2:42 PM EDT Associated Problem(s): Pre-hypertension She probably has essential hypertension, we discussed importance of bringing BP readings from home,she does not want to start any medication at this time Counseled re low salt diet/increase moderate physical activity. Check home BP BIW and prn CP/[facility]ERSON/BROWN Counseled to quit smoking and follow-up with me within 6 to 8 weeks documented in this encounter Plan of Treatment Upcoming Encounters Date Type Department Care Team (Late st Contact Info) Description 04/14/2025 11:30 AM EDT Clinical Support [facility] [address] [place] [phone] Day Smith RN 05/06/2025 12:00 PM EDT Office Visit [facility] [address] [place] [address] Catarina Davis MD [address] [place] [address] 05/25/2025 2:00 PM EDT Office Visit [facility] [address] [place] [address] Sury Gallegos, OD [address] [place] [address] Scheduled Referrals Name Type Priority Associated Diagnoses Orde r Schedule Referral to Optometry Outpatient Referral Routine Pre-hypertension Expected: 02/02/2025 (Approximate), Expires: 02/02/2026 documented as of this encounter Procedures Procedure Name Priority Date/Time Associated Diagnosis Comments POCT GLYCATED HEMOGLOBIN, TOTAL Routine 02/02/2025 9:18 AM EDT Type 2 diabetes mellitus without complication, without long-term current use of insulin ([facility]) POCT GLUCOSE Routine 02/02/2025 9:11 AM EDT Type 2 diabetes mellitus without complication, without long-term current use of insulin ([facility]) documented in this encounter Results * POCT HGB A1C (02/02/2025 9:18 AM EDT) Hemoglobin A1C 5.6 4.0 - 6.0 % QC Media Lot # [id number] Lot# Expiration Date 11,727 Blood 02/02/2025 9:18 AM EDT Catarina Davis MD POINT OF CARE TEST ENTER /EDIT ORDERABLES Final Result * POCT Glucose (02/02/2025 9:11 AM EDT) Glucose Blood, POC 145 60 - 200 mg/dL QC Media Lot # [id number] Lot# Expiration Date 101,425 Blood Capillary blood specimen / Unknown 02/02/2025 9:11 AM EDT Catarina Davis MD POINT OF CARE TEST ENTER /EDIT ORDERABLES Final Result documented in this encounter Visit Diagnoses Diagnosis Pre-hypertension- Primary Elevated blood pressure reading without diagnosis of hypertension Gastroesophageal reflux disease with esophagitis, unspecified whether hemorrhage Type 2 diabetes mellitus without complication, without long-term current use of insulin ([facility]) Chronic midline low back pain, unspecified whether sciatica present Dermatitis Contact dermatitis and other eczema, due to unspecified cause Cervical intraepithelial neoplasia grade 2 Moderate dysplasia of cervix Dietary counseling Dietary surveillance and counseling Exercise counseling Class 1 obesity due to excess calories with serious comorbidity and body mass index (BMI) of 31.0 to 31.9 in adult documented in this encounter Additional Health Concerns Assessment Noted Time PHQ-9 Depression Total Score: 0 12/29/19 23 1:22 PM EDT documented as of this encounter Care Teams Clerical Order Filler Relationship Specialty Start Date End Date Catarina Davis MD [address] [place] [address] PCP - General Family Medicine 10/15/17 documented as of this encounter
--- OUTSIDE RECORDS SUMMARY | 2025-02-04 06:59 | XMS_ITS | Encounter Summary ---
Author Organization [employer] Address [address] [facility] [address]t [place] [address] Care Team Providers Care Chuck Wagon Cook Name Role Phone Catarina Davis MD Primary Care Provider + Reason for Visit * Reason Comments Med Refill Encounter Details Date Type Department Care Team (Late st Contact Info) Description 10/06/2024 Refill [facility] [address] [place], [place] [phone] Catarina Davis MD [address] [place], [place] [phone] Cervical paraspinal muscle spasm Social History Tobacco [...] Description 04/14/2025 11:30 AM EDT Clinical Support [facility] [address] [place] [address] Day Smith RN 05/06/2025 12:00 PM EDT Office Visit [facility] [address] [place] [address] Catarina Davis MD [address] [place] [address] 05/25/2025 2:00 PM EDT Office Visit [facility] [address] [place] [address] El, Sury, OD [address] [place] [address] documented as of this encounter Visit Diagnoses Diagnosis Cervical paraspinal muscle spasm Spasm of muscle documented in this encounter Additional Health Concerns Assessment Noted Time PHQ-9 Depression Total Score: 0 12/29/19 23 1:22 PM EDT documented as of this encounter Care Teams Chuck Wagon Cook Relationship Specialty Start Date End Date Catarina Davis MD [address] [place] [address] PCP - General Family Medicine 10/15/17 documented as of this encounter
--- OUTSIDE RECORDS SUMMARY | 2025-02-04 06:59 | XMS_ITS | Encounter Summary ---
Author Organization [employer] Address [address] [facility] 7t [place] [address] Care Team Providers Care Clinical Fellow Name Role Phone Catarina Davis MD Primary Care Provider + Reason for Visit * Reason Comments Med Refill Encounter Details Date Type Department Care Team (Late st Contact Info) Description 08/14/2023 Refill [facility] [address] [place], [place] [phone] Catarina Davis MD [address] [place], [place] [phone] Neck sprain, sequela Social History Tobacco Use [...] Description 04/14/2025 11:30 AM EDT Clinical Support [facility] [address] [place] [phone] Day Smith RN 05/06/2025 12:00 PM EDT Office Visit [facility] [address] [place] [address] Catarina Davis MD [address] [place] [address] 05/25/2025 2:00 PM EDT Office Visit [facility] [address] [place] [address] El, Sury, OD [address] [place] [address] documented as of this encounter Visit Diagnoses Diagnosis Neck sprain, sequela documented in this encounter Additional Health Concerns Assessment Noted Time PHQ-9 Depression Total Score: 0 12/29/19 23 1:22 PM EDT documented as of this encounter Care Teams Clinical Fellow Relationship Specialty Start Date End Date Catarina Davis MD [address] [place] [phone] PCP - General Family Medicine 10/15/17 documented as of this encounter
--- OUTSIDE RECORDS SUMMARY | 2025-02-04 06:59 | XMS_ITS | Clinical Summary ---
Author Organization [facility] it Address [address] [place] [address] Care Team Providers Care Director Of Research Name Role Phone RoseliaMaggie lubin Primary Care Provider [phone] Surgical History Surgery Date Site/Laterality Comments TONSILLECTOMY [...] season) 2024 11/15/2021, 05/16/2021, 04/26/2021 Influenza Vaccine (Season Ended) 2025 06/29/2022, 08/22/2021, 06/26/2020, Additional history exists DTaP,Tdap,and Td [...] age to complete this topic Meningococcal B Vaccine Aged Out No l onger eligible based on patient's age to complete this topic RSV Immunization Patients Under 20 months Aged Out No longer eligible based on patient's age to complete this topic Varicella Vaccines Aged Out No longer eligible based on patient's age to complete this topic Advance Directives Documents on File Type Date Recorded 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
--- OUTSIDE RECORDS SUMMARY | 2025-02-04 06:59 | XMS_ITS | Encounter Summary ---
Author Organization [facility] Address [address] [address] Phone Care Team Providers Care Chief Financial Officer Name Role Phone Catarina Davis MD Primary Care Provider [phone] Encounter Details Date Type Department Care Team (Late st Contact Info) Description 01/11/2023 Documentation Only [facility] [address] [place] [address] Smooth Almonte MD [address] [place] [address] [place] [address] Social History Tobacco Use Types [...] Visit [facility] [address] [place] [address] Smooth Almonte MD [address] [place] [address] [place] [address] documented as of this encounter Visit Diagnoses Not on filedocumented in this encounter Care Teams Chief Financial Officer Relationship Specialty Start Date End Date Catarina Davis MD [address] [place] [address] PCP - General 08/11/19 documented as of this encounter
--- OUTSIDE RECORDS SUMMARY | 2025-02-04 06:59 | XMS_ITS | Clinical Summary ---
Author Organization [employer] Address [address] [place] [address] [address] [place] [address] Care Team Providers Care Echocardiographer Name Role Phone Catarina Davis MD Primary [...] mouth in the morning. 05/22/20 23 Active Blood Pressure Monitor kit Use as directed 3x/week 1 kit 02/20/20 24 Active gabapentin (Neurontin) 300 MG capsuleIndicat ions:Neck sprain, sequela 1 tab po at bedtime 90 capsule 2 05/22/20 24 Active nicotine polacrilex (Commit) 4 MG lozenge Dissolve 1 lozenge (4 mg) in the mouth every 2 (two) hours if needed for smoking cessation. 100 lozenge 07/16/20 24 Active albuterol (Ventolin HFA) 108 (90 [...] chew. 90 tablet 2 12/02/19 25 Active tiZANidine (Zanaflex) 4 MG tabletIndicati ons:Cervical paraspinal muscle spasm Take 1 tablet (4 mg) by mouth every 6 (six) hours if needed for muscle spasms for up to 10 days. 60 tablet 3 12/25/19 25 Active fexofenadine (Virgen) 180 MG tablet Take 1 tablet (180 mg) by mouth if needed each day (Allergies). 90 tablet 02/03/20 25 026 Active traMADol (Ultram) 50 MG tabletIndicati ons:Chronic midline low back pain, unspecified whether sciatica present Take 1 tablet (50 mg) by mouth every 6 (six) hours if needed for severe pain for up to 28 days. 112 tablet 02/03/20 25 025 Active betamethasone valerate (Valisone) 0.1 % creamIndicatio ns:Dermatitis Apply topically 2 times daily. 45 g 1 02/03/20 25 Active naloxone (Narcan) 4 mg/0.1 mL nasal sprayIndicatio ns:Chronic midline low back pain, unspecified whether sciatica present Administer 1 spray (4 mg) into affected nostril(s) if needed for opioid reversal. May repeat every 2-3 minutes if needed, alternating nostrils, until medical assistance becomes available. 2 each 2 02/03/20 25 Active naloxone (Narcan) 4 mg/0.1 mL nasal sprayIndicatio ns:Chronic midline low back pain, unspecified whether sciatica present Administer 1 spray (4 mg) into affected nostril(s) if needed for opioid reversal. May repeat every 2-3 minutes if needed, alternating nostrils, until medical assistance becomes available. 2 each 2 06/25/20 24 025 Discontinued(R eorder (will not trigger notification to Pharmacy)) fexofenadine (Virgen) 180 MG tablet Take 1 tablet (180 mg) by mouth if needed each day (Allergies). 90 tablet 07/16/20 025 Discontinued(R eorder (will not trigger notification to Pharmacy)) betamethasone valerate (Valisone) 0.1 % creamIndicatio ns:Dermatitis Apply topically 2 times daily. 15 g 08/20/20 025 Discontinued(R eorder (will not trigger notification to Pharmacy)) predniSONE (Deltasone) 20 MG tablet 3 tab PO/d x 2d then 2 tablets PO/d x 4 days and stop 14 tablet 12/25/19 025 Discontinued(T herapy completed) traMADol (Ultram) 50 MG tabletIndicati ons:Chronic midline low back pain, unspecified whether sciatica present Take 1 tablet (50 mg) by mouth every 6 (six) hours if needed for severe pain for up to 28 days. 112 tablet 01/02/20 025 Discontinued(R eorder (will not trigger notification to Pharmacy)) Active Problems Problem Noted Date Diagnosed Date Mild asthma with exacerbation 12/24/2024 Assessment & Plan (12/24/2024 1:56 PM EDT): Probably triggered by Influenza, no evidence of acute infection or bronchitis at this time. Take Prednisone 60 mg x 2 days, then 40 mg x 4 days + Albuterol prn. I congratulated her for quitting smoking and encouraged her to use nicotine gum prn. Re consult prn. Gastroesophageal reflux disease with esophagitis 08/20/2024 Assessment & Plan (02/02/2025 2:43 PM EDT): Persistent, needs to call back to GI and schedule follow-up. Continue omeprazole as needed Advised to quit smoking Assessment & Plan (11/25/2024 4:14 PM EST): Sees to be stable, she is scheduled for EGD test. Continue Omeprazole and call GI to check date for the EGD. Advised to quit smoking. Assessment & Plan (08/20/2024 1:22 PM EST): Advised to have smaller fraction meals, quit smoking. Has UGIS suggest achalasia, fu on GI on 10/05. Dermatitis 08/20/2024 Assessment & Plan (02/02/2025 2:45 PM EDT): Great refill on betamethasone cream to apply as needed on hands Assessment & Plan (08/20/2024 1:24 PM EST): [...] 03/08/2023 Cervical intraepithelial neoplasia grade 2 03/08 Assessment & Plan (02/02/2025 2:43 PM EDT): More than 5 years ago, last Pap in 2021 was normal Schedule Pap smear at the end of this year Female hirsutism 03/08/2023 Obesity with body mass [...] at home. PAP smear: Up to date. 2026 Mammogram: Up to date, next one [...] Eczema 09/25/2018 Pre-hypertension 08/13/2018 Assessment & Plan (02/02/2025 2:42 PM EDT): She probably has essential hypertension, we discussed importance of bringing BP readings from home, she does not want to start any medication at this time Counseled re low salt diet/increase moderate physical activity. Check home BP BIW and prn CP/ANDERSON/BROWN Counseled to quit smoking and follow-up with me within 6 to 8 weeks Assessment & Plan (11/25/2024 4:16 PM EST): [...] low back pain 10/31/2017 Assessment & Plan (02/02/2025 2:46 PM EDT): Patient is doing well with chronic pain management clinic, tramadol as needed and most recent U-Tox is as expected We have done [employer] education [...] not be replaced if lost or stolen. Continue tramadol every 6 hours, can take Tylenol breakthrough pain Continue to follow-up with [facility] clinic as well Assessment & Plan (02/18/2024 2:42 PM EDT): [...] 2 diabetes mellitus 10/31/2017 Assessment & Plan (02/02/2025 2:45 PM EDT): Seems to be resolved, A1c is 5.6. Congratulated her on weight reduction, advised to quit smoking Counseled re more frequent low calorie/carb meals. Encouraged physical activity as tolerated. FU in 6 months. Assessment & Plan (10/08/2024 6:25 PM EST): [...] Encounters Date Type Department Care Team Description 02/02/2025 9:00 AM EDT Office Visit [facility] [address] [place] [phone] Catarina Davis MD Pre-hypertension (Primary Dx); Gastroesophageal reflux disease with esophagitis, unspecified whether hemorrhage; Type 2 diabetes mellitus without complication, without long-term current use of insulin ([facility]); Chronic midline low back pain, unspecified whether sciatica present; Dermatitis; Cervical intraepithelial neoplasia grade 2; Dietary counseling; Exercise counseling; Class 1 obesity due to excess calories with serious comorbidity and body mass index (BMI) of 31.0 to 31.9 in adult 02/02/2025 Travel 01/26/[address] [facility] [address] [place] [address] Catarina Davis MD Chart prep 12/30/[address] [facility] [address] [place] [address] Catarina Davis MD Chronic midline low back pain, unspecified whether sciatica present 12/24/2024 12:15 PM EDT Office Visit [facility] [address] [place] [address] Catarina Davis MD Mild asthma with exacerbation, unspecified whether persistent (Primary Dx); Cervical paraspinal muscle spasm 12/24/2024 Travel 12/23/[address] [facility] [address] [place] [address] Catarina Davis MD Chart prep 12/18/2024 Population Health [facility] () Department [address] [place] [phone] Provider, Population Health Generic 12/18/[address] [facility] [address] [place] [address] Catarina Davis MD Med Refill 12/14/2024 Orders Only [facility] External Provider, [facility] 12/02/[address] [facility] [address] [place] [address] Catarina Davis MD Neck sprain, sequela 12/02/[address] [facility] [address] [place] [address] Catarina Davis MD Chronic midline low back pain, unspecified whether sciatica present 11/26/2024 9:30 AM EST Clinical Support [address] [facility] [place] [address] Day Smith, brim shaper midline low back pain with sciatica, sciatica laterality unspecified (Primary Dx) 11/26/2024 Telephone [address] [place] [address] Day Smith, RN BPI Scoring; Tramadol count discrepancy 11/26/2024 Travel 11/26/[address] [address] Day Smith, [place]ICK Error (VOID this visit) 11/26/[address] [address] Day Smith, [place] Recommend [employer] Tier 2 11/25/2024 2:30 PM EST Telemedicine [address] [address] Catarina Davis MD Gastroesophageal reflux disease with esophagitis, unspecified whether hemorrhage (Primary Dx); Pre-hypertension 11/25/2024 Travel 11/25/[address] [address] Catarina Davis MD 11/20/[address] [address] Catarina Davis MD Chart prep 11/17/[address] [phone] Catarina Davis MD Appointment Request 11/10/[address] [address] Day Smith, RN REschedule [employer] appt from 11/09/24 11/09/[address] [address] Catarina Davis MD from Last 3 Months Immunizations Name Administration Dates Next Due Influenza injectable quadriv alent IIV4 with preservative 06/26/2018 Influenza injectable quadriv alent preservative free 06/13/2023,06/29/2022,08/22/2021,06/26,09/02/2019 Influenza, IIV3, injectable 08/05/2014, 2 Influenza, seasonal, injecta ble, preservative free 08/20/2024,06/29/2022,08/22/2021,06/26,09/02/2019,06/26/2018,08/01/2017 ,07/19/2015,08/05/2014 Pfizer Covid-19 Vaccine 12+ 11/15/2021, 1,04/26/2021 Pfizer Covid-19 Vaccine 12+ Bivalent 09/25/2022 Pneumococcal Conjugate PCV 20 08/20/2024 Pneumococcal Polysaccharide PPSV23 06/26/2018, TD (adult), 2 Lf tetanus tox oid, [...] 02/02/2025 9:10 AM ED T Respiratory Rate 16 12/24/2024 12:27 PM EDT Oxygen Saturation 97% 02/02/2025 9:10 AM EDT Inhaled Oxygen Concentration - - Weight 73.1 kg (161 lb 2 oz) 02/02/2025 9:10 AM EDT Height 152.4 cm (5') 02/02/2025 9:10 AM EDT Body Mass Index 31.47 02/02/2025 9:10 AM EDT Plan of Treatment Upcoming Encounters Date Type Department Care Team (Late st Contact Info) Description 04/14/2025 11:30 AM EDT Clinical Support [facility] [address] [place] [phone] Day Smith RN 05/06/2025 12:00 PM EDT Office Visit [facility] [address] [place] [phone] Catarina Davis MD [address] [place] [address] 05/25/2025 2:00 PM EDT Office Visit [facility] OPTOMETRY [address] [place] [address] Sury Gallegos, OD [address] [place] [address] Health Maintenance Due Date Last Done Comments Diabetes: Foot Exam 1990 Alcohol/Substance Use Screening 1992 Family Planning (PISQ) 1995 Dental Prophylaxis 03/25/2020 09/23/2019, 0 03/19/2019, 09/18/2018, Additional history exists Dental Oral Exam 05/04/2020 11/03/2019, , 06/06/2018, Additional history exists Dental X-Ray: Bitewings 09/19/2020 09/18/20, 04/30/2019, 09/18/2018, Additional history exists Dental X-Ray: Full Mouth 05/01/2022 04/30/2019, 03/2014 Diabetes: Urine Protein Screening 05/23/2022 05/23/2021 COVID-19 Vaccine ( season) 2024 09/25/2022, 11/15/2021, 05/16/2021, Additional history exists Eye Exam 01/28/2025 01/28/2023, 04/2 01/2023, 01/28/2023, Additional history exists SDOH Screening 02/09/2025 02/10/2024 Diabetes: Hemoglobin A1C 08/04/2025 025, 05/22/2024, 08/09/2023, Additional history exists Lipid Panel 08/19/2025 08/19/2024, 04/0 03/2023, 05/23/2021 Mammogram 11/21/2025 11/21/2024, 11/07/2023 Depression Screening 02/02/2026 02/02/2025, 12/29/19 23 Tobacco Screening 02/02/2026 02/02/2025 Cervical Cancer Screening 09/24/2027 HPV/Cotest 09/24/2027 09/24/2022 [...] Patients (6 to 49) Years) Completed 08/20/2024, 06/26/2018, 04/06/2016 HIB Vaccines Aged Out No longer eligi ble based on patient's age to complete this topic HPV Vaccines Aged Out No longer eligi ble based on patient's age to complete this topic Hepatitis A Vaccines Aged Out No long er eligible based on patient's age to complete this topic Hepatitis B Vaccines Discontinued IPV Vaccines Aged Out No longer eligi [...] complication, without long-term current use of insulin ([facility]) POCT GLUCOSE Routine 02/02/2025 9:11 AM EDT Type 2 diabetes mellitus without complication, without long-term current use of insulin ([facility]) BASIC METABOLIC PANEL Routine 12/14/2024 9:56 AM [...] Relevant to Health Maintenance Results * POCT HGB A1C (02/02/2025 9:18 AM EDT) Hemoglobin A1C 5.6 4.0 - 6.0 % QC Media Lot # [id number] Lot# Expiration Date Blood 02/02/2025 9:18 AM EDT Catarina Davis [...] TEST ENTER /EDIT ORDERABLES Final Result * Strep A Nucleic Acid (12/14/2024 9:56 AM EDT) IDNOW SERIAL# [id number] [facility] Strep A Nucleic Acid Negative Negative [facility] Comment:All test results mus t be [...] LAB MICROBIOLOGY - GENERAL ORDERABLES Final Result [facility] [address] [place] [phone] * (ABNORMAL) SARS-CoV-2 RNA, Influenza A/B, and RSV RNA, Ql NAAT (12/14/2024 9:56 AM EDT) Influenza A PCR POSITIVE(A) Negative [facility] Influenza B PCR NEGATIVE Negative [facility] Resp Syncy Virus RNA Qual PCR NEGATIVE Negative [facility] SARS COV2 PCR NEGATIVE Negative [facility] Comment:All test results mus t be [...] use by authorized laboratories.Testing performed on the MAINtag GeneXpert utilizingreal-time RT-PCR.All SARS CoV2 and positive influenza A/B results arereported to [facility]. 12/14/2024 9:56 AM EDT 12/14/2024 10:01 AM EDT us Generic External Data Provider LAB MICROBIOLOGY - GENERAL ORDERABLES Final Result [facility] [address] [place] [phone] * (ABNORMAL) CBC auto differential (12/14/2024 9:56 AM EDT) White Blood Count 4.0(L) 4.8 - 10.8 X10*3/uL [facility] Red Blood Count 4.16(L) 4.20 - 5.50 X10*6/uL [facility] Hemoglobin 13.9 12.0 - 16.0 g/dl [facility] Hematocrit 40.2 37.0 - 47.0 % [facility] Mean Corpuscular Volume 96.6 80.0 - 98.0 fL [facility] Mean Corpuscular Hemoglobin 33.4(H) 27.0 - 33.0 pg [facility] Mean Corpuscular HGB Conc 34.6 31.0 - 35.0 g/dl [facility] Red Cell Distribution Width 13.3 11.0 - 16.0 % [facility] Platelet Count 194 160 - 400 X10*3/uL [facility] Mean Platelet Volume 9.5 9.4 - 12.3 fL [facility] Neutrophils Percent Auto 63.1 45 - 73 % [facility] Imm Gran Pct Auto 0.3 0.0 - 0.4 % [facility] Lymphocytes Percent Auto 21.5 20 - 40 % [facility] Monocytes Percent Auto 14.3(H) 2 - 11 % [facility] Eosinophils Percent Auto 0.0 0 - 4 % [facility] Basophils Percent Auto 0.8 0 - 2 % [facility] NRBC Pct Auto 0.0 0.0 - 0.2 /100WBC [facility] Neutrophils Absolute Auto 2.5 2.0 - 8.3 x10*3/uL [facility] Imm Gran Abs Auto 0.01 0.00 - 0.03 X10*3/uL [facility] Lymphocytes Absolute Auto 0.9(L) 1.2 - 4.9 X10*3/uL [facility] Monocytes Absolute Auto 0.6 0.1 - 1.2 X10*3/uL [facility] Eosinophils Absolute Auto 0.0 0.0 - 0.4 X10*3/uL [facility] Basophils Absolute Auto 0.0 0.0 - 0.2 X10*3/uL [facility] NRBC Abs Auto 0.000 0.0 - 0.012 X10*3/uL [facility] 12/14/2024 9:56 AM EDT 12/14/2024 10:02 AM EDT us Generic External Data Provider LAB BLOOD ORDERAB LES Final Result [facility] [address] [place] [phone] * (ABNORMAL) Basic Metabolic Panel (12/14/2024 9:56 AM EDT) Sodium 141 135 - 145 mmol/L [facility] Potassium 4.3 3.3 - 5.1 mmol/L [facility] Chloride 108 96 - 108 mmol/L [facility] Carbon Dioxide 26 22 - 29 mmol/L [facility] Anion Gap 11(L) 12 - 20 [facility] Urea Nitrogen (BUN) 10 9 - 16 mg/dL [facility] Creatinine, Serum 0.80 0.5 - 1.4 mg/dL [facility] Creatinine Clr Calc Pharmacy 79.7 [facility] Comment:Provided height and weight: 152.4 cm,72.575 kg.eGFR (calculated from the MDRD study equation) and eCrCl(calculated from the Cockcroft-Gault equation) are based ondifferent parameters and may not yield comparable results.If eCrCl result is absurd, please check patient'sheight/weight. Estimated Glomerular Filt Rate >60 [facility] Comment:Chronic Kidney Disea se: Estimated GFR < 60 mL/min/1.29d0Erzgjb Kidney Disease: Estimated GFR < 15 mL/min/1.73m2 Glucose 104 60 - 115 mg/dL [facility] Calcium 8.9 8.4 - 10.2 mg/dL [facility] 12/14/2024 9:56 AM EDT 12/14/2024 10:02 AM EDT us Generic External Data Provider LAB BLOOD ORDERAB LES Final Result [facility] [address] [place] [phone] * XR Chest 2 Views (12/14/2024 9:08 AM EDT) Anatomical Region Laterality Modality Chest Radiographic Devorah ging 12/14/2024 9:08 AM EDT Narrative 12/14/2024 9:27 AM EDT ? [facility] ?[address] ?[place] [address] ?XRay Report ? Signed ? Patient: Hoyos,Maya ?MR#: [id number] ?? 13 ? : 1980 ?Acct:[id number] ? Age/Sex: 44 / F ?ADM Date: 03/10/25 ? Loc: HO.ED ? Attending Dr: ? Ordering Physician: Generic ED Physician ?? Date of Service: 12/14/24 ?? Procedure(s): XR chest 2V ?? Accession Number(s): [id number] ? cc: Catarina Davis MD; Generic ED [...] DD/ 0908 ? TD/TT: 12/14/24 0919 ? Delivery Supervisor: ? Procedure Note Donshantellter, Image - 12/14/2024 [place] [address] XRay Report Signed Patient: Laurent Hoyos#: [id number] 13 : 1980Acct:[id number] Age/Sex: 44 / FADM Date: 12/14/24 Loc: .ED Attending Dr: Ordering Physician: Generic ED Physician Date of Service: 12/14/24 Procedure(s): XR chest 2V Accession Number(s): [id number] cc: Catarina Davis MD; Generic ED Physician [...] Corby Johnson MD 12/14/2024 09:24 AM EDT Dictated By: Corby Johnson MD Signed By: <Electronically signed by Corby Johnson MD in OV> 12/14/24923 DD/ 7 TD/TT: 12/14/24918 Delivery Supervisor: [facility] External Provider IMG XR PROCEDURES Edited Result - Final * POCT FLORENTIN-14 Urine Drug Screen (11/26/2024 9:39 AM EST) Urine Urine specimen obtained by clean catch procedure / Unknown 11/26/2024 9:39 AM EST Narrative Day Smith RN - 11/26/2024 9:39 AM EST UTOX cup Lot#[id number] Exp. 05/26/26 Internal Pass Control UTOX completed. [...] 9:00 AM EST) Triglycerides 29 <150 mg/dL [facility] Comment:Desirable Triglyceri de: less than 150 mg/dLBorderline High Triglyceride 150-199 mg/dLHigh Triglyceride: 200-499 mg/dLVery High Triglyceride: greater than or equal to 5OO mg/dL Cholesterol 112 <200 mg/dL [facility] Comment:Desirable Cholestero l: less than 200 mg/dLBorderline High Cholesterol: 200-239 mg/dLHigh Cholesterol: greater than 239 mg/dL LDL Cholesterol Calculated 56 <100 mg/dL [facility] Comment:Desirable LDL: less than 100 mg/dLNear Optimal/Above Optimal LDL: 110- 129 mg/dLBorderline High LDL: 130-159 mg/dLHigh LDL: 160-189 mg/dLVery High LDL: greater than or equal to 190 mg/dL HDL Cholesterol 51 >40 mg/dL [facility] Comment:Desirable HDL: great er than 40 mg/dL Note: This HDL assay may give artificially low results in patients with liver disease. Blood 08/19/2024 9:00 AM EST 08/19/2024 10:46 AM EST Catarina Davis MD LAB BLOOD ORDERABLES Fin al Result [facility] [address] [place] [phone] * (ABNORMAL) Hepatitis Panel, General (01/10/2023 9:11 AM EDT) Hepatitis A Antibody Total NON-REACT ANDREE NON-REACT [employer]REEMediaTrust [place] [employer] Comment: For additional information, please refer to http://Azingo.Arcadia Power/faq/PHO355 (This link is being provided for informational/ educational purposes only.) Hepatitis B Surface Antibody QL REACTIVE( A) NON-REACT ANDREE [facility] Hepatitis B Surface Ag NON-REACT ANDREE NON-REACT ANDREEMediaTrust [facility] Hepatitis B Core Antibody Total NON-REACT ANDREE NON-REACT ANDREEMediaTrust [facility] Hepatitis C Antibody NON-REACT ANDREE NON-REACT ANDREEMediaTrust [facility] Index 0.21 <1.00 [employer] [place] [employer] Comment: HCV antibody was non-reactive. There is no laboratory evidence of HCV infection. In most cases, no further action is required. However, if recent HCV exposure is suspected, a test for HCV RNA (test code 39873) is suggested. For additional information please refer to http://Azingo.Arcadia Power/faq/VOX44a6 (This link is being provided for informational/ educational purposes only.) 01/10/2023 9:11 AM EDT 01/10/2023 9:12 AM EDT Narrative [facility] - 01/10/2023 8:56 PM EDT FASTING:YES FASTING: YES Catarina Davis MD LAB BLOOD ORDERABLES Fin al Result Performing Organization Address [facility] Co de Phone Number [facility] [address], [place] [phone] [employer] [place] [employer] [address] [place] [phone] * HIV-1/2 Antigen and Antibodies, Fourth Generation, with Reflexes (01/10/2023 9:11 AM EDT) Pathologist [facility] HIV Antigen/Antibody, 4th Generation NON-REAC TIVE NON-REAC TIVE [employer] [place] [employer] Comment: HIV-1 antigen and HIV-1/HIV-2 antibodies were [...] ?? For additional information please refer to http://education.Arcadia Power/faq/NBT468 (This link is being provided for informational/ educational purposes only.) The performance of this assay has not been clinically validated in patients less than 2 years old. Blood Venous blood specimen / Unknown 01/10/2023 9:11 AM EDT 01/10/2023 9:12 AM EDT Narrative [facility] - 01/10/2023 8:56 PM EDT FASTING:YES FASTING: YES Catarina Davis MD LAB BLOOD ORDERABLES Fin al Result Performing Organization Address [facility]/ZIP Co de Phone Number [address], [place] [phone] [employer] [place] [employer] [address] [place] [phone] * Thinprep TIS PAP And HPV mRNA E6/E7 With Reflex To HPV 16,18/45 (09/24/2022 3:53 PM EST) Clinical Information: None given PT PAL LMP: NONE GIVEN PT PAL Prev. PAP: NONE GIVEN PT PAL Prev. BX: NONE GIVEN PT PAL SOURCE: None given PT PAL Statement Of Adequacy: PT PAL Comment: Satisfactory for evaluation. Endocervical/transformation zone component absent. Age and/or menstrual status not provided Interpretation/ Result: Negative for intraepithelial lesion or malignancy. PT PAL COMMENT: This Pap test has been evaluated with computer assisted technology. PT PAL Cytotechnologis t: PT PAL Comment: BK,CT(ASCP) CT screening location: [address] (Always [facility]) PT PAL Comment: EXPLANATORY NOTE: The Pap is a [...] HPV nRNA E6/E7 Not Detected Not Detected PT PAL Comment: Methodology: Glass Beveller-Mediated Amplification This assay detects E6/E7 viral messenger RNA (mRNA) from 14 high-risk HPV types (16,18,31,33,35,39,45,51,52,56,58,59,66,68). Cervical sources are required for HPV testing. If a vaginal source from a patient who has had a total hysterectomy with removal of cervix was submitted, please contact the testing laboratory for alternative testing options. For additional information, please refer to http://education.netZentry.WorldAPP/faq/XEF477p0 (This link if provided for information/ educational purposes only.) 09/24/2022 3:53 PM EST 09/25/2022 10:09 AM EST Narrative [facility] - 09/28/2022 3:45 PM EST FASTING: UNKNOWN Catarina Davis MD LAB PATHOLOGY ORDERABLES Final Result Performing Organization Address City/[facility]/ZIP Co de Phone Number [facility] [address] [facility], 3rd Fl, [place] [address] [employer] [employer] [address] [facility], ([address]) [place] [address] * ALBUMIN, RANDOM URINE W/CREATININE (05/23/2021 1:55 PM EDT) Microalbumin Urine 0.2 See Note: mg/dL [facility] Comment: Reference Range: ?? Reference [...] [facility] 05/23/2021 1:55 PM EDT Catarina Davis MD LAB URINE ORDERABLES Fin al Result Performing Organization Address [facility] Co de Phone Number [facility] [address] from Last 3 Months or Most Recently Relevant to Health Maintenance Insurance [address] [place], [place] [email or web address] [employer] [place] ADULT Care Teams Echocardiographer Relationship Specialty Start Date End Date Catarina Davis MD [address] [place] [id number] PCP - General Family Medicine 10/15/17
[2025-03-09 10:48] VITALS: BMI 31.0
--- NOTE | 2025-03-10 10:11 | HO.ANESPROP2 ---
Documented by User: Amanda Cardona NP 03/10/25 10:11 HPI - Anesthesia Eval Consult details Narrative: 44yo F for Upper Endoscopy with Balloon Dilitation PMFSH Active Problems Active Problems: All Active Problems Osteoarthritis of right knee (Acute) Osteoarthritis of left knee (Acute) Esophageal stricture (Acute) Dysphagia (Acute) Tear of medial meniscus of right knee (Acute) Left knee pain (Acute) Chronic cough (Acute) Environmental allergies (Acute) Diarrhea (Acute) Abdominal pain (Acute) Recurrent biliary colic (Acute) Asthma (Acute) Past Medical History Medical History Kidney anomaly, congenital Dysphagia Arthritis Asthma Family History Family History Maternal Aunt Breast CA Family history of problems with anesthesia: No Surgical History Surgical History Hx of tonsillectomy History of carpal tunnel release of both wrists Hx laparoscopic cholecystectomy Hx of hand surgery History of breast reconstruction Hx of abdominoplasty Hx of section History of esophagogastroduodenoscopy (EGD) History of Problems with Anesthesia: No Social History Social History Alcohol intake: current Alcohol intake frequency: holidays/special occasions only Patient Tobacco Use Status: Current everyday Tobacco user Tobacco use type: Cigarette Cigarettes Per Day: 2 Years Smoked: quit 12/14/24 Use of substances other than those prescribed or required for medical reasons: No Are you DNR?: No Advance Directives: No Advance Directives Information Provided: Yes Patient : No : No Poor oral hygiene: No service: No Current occupational status: unemployed Meds Allergies Allergy/AdvReac Type Severity Reaction Status Date / Time cephalexin [From KEFLEX] Allergy Intermediate RASH Verified 02/23/25 11:17 formoterol [From Dulera] AdvReac Intermediate Unknown Verified 03/11/25 08:08 mometasone furoate AdvReac Intermediate Unknown Verified 03/11/25 08:08 [From Dulera] Home Medications ?Medication ?Instructions ?Recorded ?Confirmed ?Last Taken ?Type tramadol 50 mg tablet 50 mg PO TID PRN Pain 05/15/23 03/09/25 Unknown History acetaminophen 650 mg 650 mg PO Q8H PRN Pain 05/22/23 03/09/25 Unknown History tablet,extended release zolpidem 10 mg tablet 10 mg PO BEDTIME 05/22/23 03/09/25 Unknown History tizanidine 4 mg capsule 4 mg PO Q8H PRN Muscle Spasm 11/12/23 03/09/25 Unknown History gabapentin 300 mg capsule 300 mg PO BEDTIME 10/05/24 03/09/25 Unknown History loratadine 10 mg tablet 10 mg PO DAILY 10/05/24 03/11/25 03/11/25 History Exam Height,Weight and Vital Signs: Height 5 ft Weight 72.121 kg Assessment and Plan Assessment Anesthesia Assessment: Chart Reviewed Final Anesthetic Review Family History of Problems with Anesthesia: No History of Problems with Anesthesia: No Documented by User: Andrew Polanco MD 03/11/25 08:57 PMFSH Past Medical History Medical History Kidney anomaly, congenital Dysphagia Arthritis Asthma Family History Family History Maternal Aunt Breast CA Surgical History Surgical History Hx of tonsillectomy History of carpal tunnel release of both wrists Hx laparoscopic cholecystectomy Hx of hand surgery History of breast reconstruction Hx of abdominoplasty Hx of section History of esophagogastroduodenoscopy (EGD) Social History Social History Alcohol intake: current Alcohol intake frequency: holidays/special occasions only Patient Tobacco Use Status: Current everyday Tobacco user Tobacco use type: Cigarette Cigarettes Per Day: 2 Years Smoked: quit 12/14/24 Use of substances other than those prescribed or required for medical reasons: No Are you DNR?: No Advance Directives: No Advance Directives Information Provided: Yes Patient : No : No Poor oral hygiene: No service: No Current occupational status: unemployed Meds Allergies Allergy/AdvReac Type Severity Reaction Status Date / Time cephalexin [From KEFLEX] Allergy Intermediate RASH Verified 02/23/25 11:17 formoterol [From Dulera] AdvReac Intermediate Unknown Verified 03/11/25 08:08 mometasone furoate AdvReac Intermediate Unknown Verified 03/11/25 08:08 [From Dulera] Home Medications ?Medication ?Instructions ?Recorded ?Confirmed ?Last Taken ?Type tramadol 50 mg tablet 50 mg PO TID PRN Pain 05/15/23 03/09/25 Unknown History acetaminophen 650 mg 650 mg PO Q8H PRN Pain 05/22/23 03/09/25 Unknown History tablet,extended release zolpidem 10 mg tablet 10 mg PO BEDTIME 05/22/23 03/09/25 Unknown History tizanidine 4 mg capsule 4 mg PO Q8H PRN Muscle Spasm 11/12/23 03/09/25 Unknown History gabapentin 300 mg capsule 300 mg PO BEDTIME 10/05/24 03/09/25 Unknown History loratadine 10 mg tablet 10 mg PO DAILY 10/05/24 03/11/25 03/11/25 History Exam Exam Date and Time: 03/11/25 Airway Mallampati Class: II TM Dist: >3cm Neck ROM: Full Loose/Missing/Broken Teeth: No Heart: rrr Lungs: cta Assessment and Plan Final Anesthetic Review NPO: Yes ASA Class: II Final Preanesthetic Review: No Changes in Pt Med Stat, Meds/Allgs Chart Reviewed, Consent Obtained/Reviewed and Anes Risks/Benef Reviewed Patient Risk: Low Procedure Risk: Low Anesthetic Plan Anesthetic Plan: MAC: Disposition: Standard PACU
[2025-03-11 08:09] VITALS: BMI 29.8
[2025-03-11 08:09] LABS: UPreg QC Valid YES; Urine Pregnancy NEGATIVE (NEGATIVE)
--- NOTE | 2025-03-11 08:19 | MHC.SHP ---
Pre-Procedural Eval Section A - 24 Hr Update-Section A only Date of Service: 03/11/25 Section B - Complete if H&P > 30 days Chief Complaint: Dysphagia, unspecified Details of Present Illness: Asthma Surgical History (Updated 10/05/24 @ 08:54 by SERGE Flores) Hx of hand surgery History of breast reconstruction Hx of abdominoplasty Hx of section History of esophagogastroduodenoscopy (EGD) Present Medications: see Short Stay Collaborative assessment Allergies: Allergies Allergy/AdvReac Type Severity Reaction Status Date / Time cephalexin [From KEFLEX] Allergy Intermediate RASH Verified 02/23/25 11:17 formoterol [From Dulera] AdvReac Intermediate Unknown Verified 03/11/25 08:08 mometasone furoate AdvReac Intermediate Unknown Verified 03/11/25 08:08 [From Dulera] Review of Systems Review of Systems Comment: Ten point ROS negative Exam Exam Comment: Gen appear: No acute distress HEENT: no icterus Chest: No overt resp distress Abd: soft, nontender, nondistended Psych: Stable affect, answering questions appropriately Neuro: A/Ox3 noted to move all extremities spontaneously Ext: no peripheral edema Plan Diagnosis/Plan: Unchanged I have reviewed the history and physical and performed a pertinent physical examination on my patient. No changes have occurred unless specified. Time Spent With Patient Time: Total time managing care of this patient today ____ minutes.
[2025-03-11 08:24] VITALS: BP 118/85; PULSE 86; RESP 16; TEMP 36.8; O2SAT 99
[2025-03-11] MEDS: Lactated Ringers 1,000 ML 100 ML IVCONT (08:31)
--- NOTE | 2025-03-11 09:19 | P.OP_ITS ---
Operative Note Operative Note Date of Service: 03/11/25 Narrative: Procedure: Esophagogastroduodenoscopy Endoscopist: Carin Nazario MD Indication: Dysphagia Anesthesia Provider: Dr Polanco Anesthesia Type: MAC EGD Procedure:?? The procedure, indications, preparation and potential complications were reviewed with the patient, who indicated understanding and gave written informed consent to proceed. A physical exam was performed. The endoscope was introduced through the mouth, and advanced to the second part of duodenum. The mucosa was carefully examined on slow withdrawal of the endoscope. The patient tolerated the procedure well. There were no immediate complications.? ? EGD Findings:? * Esophagus:? Normal mucosa noted in the entire esophagus. The Z line was at 37 cm. Specifically no distal esophagus narrowing or stricture was noted. Middle and lower esophagus forceps biopsies were obtained to rule out eosinoph ilic esophagitis. * Stomach:? Normal mucosa was noted in the stomach. Retroflexion was performed in the cardia. Random cold forceps gastric biopsies were taken to rule out H Pylori infection. * Duodenum:? Normal mucosa was noted in the whole of the examined duodenum. Cold forceps biopsies were taken from duodenal bulb and second portion of the duodenum to rule out celiac sprue. Additional intervention: Soft tip Savary wire was introduced through the biopsy channel of the gastroscope and advanced to the antrum. ?The gastroscope was then backed out. ?Savary Martha bougie was advanced over the guidewire and the esophagus was dilated to 19 mm with resistance felt. ?On relook, superficial heme was noted at the level of cricopharyngeus indicating successful dilation. ? ? EGD Impressions:? * Normal esophagus mucosa (biopsy) * Cricopharyngeal stenosis (dilation) * Normal stomach (biopsy) * Normal duodenum (biopsy) ?? Recommendations:?? * Follow biopsy results. Our office will call or send a letter with results within 7-10 days. * Cont to hold PPI as no obvious esophagitis noted today. Pt has been holding this x 2 weeks. * If H pylori +, patient will be prescribed eradication therapy followed by test of cure. * Avoid NSAIDs. Above has been reviewed with the patient.
[2025-03-11 09:22] VITALS: BP 97/66; PULSE 74; RESP 16; TEMP 36.4; O2SAT 100
[2025-03-11 09:27] VITALS: BP 106/55; PULSE 72; RESP 14; O2SAT 100
[2025-03-11 09:37] VITALS: BP 113/73; PULSE 77; RESP 14; O2SAT 100
[2025-03-11 09:44] VITALS: BP 113/73; PULSE 77; RESP 14; TEMP 36.6; O2SAT 100
== END 2025-03-11 10:04 | disposition home or self-care (01) ==
PROVIDERS: Nurse Practitioner; PCP Internal Medicine; Visit Provider Internal Medicine
PROC: (CPT 43248; principal; 2025-03-11 09:00)
DX: R13.14 Dysphagia, pharyngoesophageal phase (principal); K22.2 Esophageal obstruction; J45.909 Unspecified asthma, uncomplicated; Q63.9 Congenital malformation of kidney, unspecified; Z79.899 Other long term (current) drug therapy; Z88.1 Allergy status to other antibiotic agents; Z88.8 Allergy status to other drugs, medicaments and biological substances; Z90.49 Acquired absence of other specified parts of digestive tract; Z98.890 Other specified postprocedural states; F17.210 Nicotine dependence, cigarettes, uncomplicated; Z56.0 Unemployment, unspecified
CPT/HCPCS: 43248; 43239; 81025; 88305; 88313; 88342; C1769; J2003; J2704; J3010

== ENCOUNTER → 2025-03-11 07:30 | Outpatient (BNV) | payer MEDICAID, SELFPAY | PROVIDERS: PCP Internal Medicine; Visit Provider Internal Medicine | DX: R13.10 Dysphagia, unspecified (principal); J38.6 Stenosis of larynx | CPT/HCPCS: 43239; 43248 ==

== ENCOUNTER 2025-03-24 08:50 | Outpatient (AMB) | payer MEDICAID, SELFPAY ==
--- NOTE | 2025-03-24 08:58 | MHC.OFFVIS ---
Vital Signs 03/24/25 09:03 Height 5 ft Weight 153 lb 2 oz BMI 29.9 BP 130/78 Blood Pressure Location Rt brachial Position Sitting Pulse 92 Pulse Source Pulse Oximeter Pulse Oximetry (%) 96 Oxygen Delivery Method Room Air Intake Visit Reasons: coughing,wheezing, sob Allergies cephalexin (From KEFLEX) Allergy (Intermediate, Verified 03/24/25 09:06) RASH formoterol (From Dulera) Adverse Reaction (Intermediate, Verified 03/24/25 09:06) Unknown mometasone furoate (From Dulera) Adverse Reaction (Intermediate, Verified 03/24/25 09:06) Unknown HPI HPI coughing,wheezing, sob: Details: Maya is a pleasant 44 year old, current minimal smoker, with underlying history of childhood asthma and eosphageal stricture. She reports resolution of previous asthma-related symptoms such as coughing, wheezing, and shortness of breath, maintaining morning adherence with Advair HFA. She reports occasional forgetfulness in taking the afternoon doses of Advair, but otherwise, she denies the need for emergency inhaler use or any related hospital or urgent care visits. Regarding dysphagia, the patient underwent an esophageal dilation following an endoscopy intended to investigate choking sensations. Post-procedure, she notices significant improvement in her reflux symptoms, acknowledging that further dilations may be periodically required for sustained relief. [facility] Medical History Kidney anomaly, congenital Dysphagia Arthritis Asthma Surgical History Hx of tonsillectomy History of carpal tunnel release of both wrists Hx laparoscopic cholecystectomy Hx of hand surgery History of breast reconstruction Hx of abdominoplasty Hx of section History of esophagogastroduodenoscopy (EGD) Family History Maternal Aunt Breast CA Social History Alcohol intake: current Alcohol intake frequency: holidays/special occasions only Patient Tobacco Use Status: Current everyday Tobacco user Tobacco use type: Cigarette Cigarettes Per Day: 2 Years Smoked: quit 12/14/24 service: No Current occupational status: unemployed Review of Systems Const Denies chills, Denies excessive sweating, Denies fever(s), Denies headache(s) and Denies night sweats Eyes Denies dry eyes, Denies irritation and Denies itchy eyes ENT Reports Normal hearing present, Denies headache(s), Denies nasal congestion, Denies nasal discharge, Denies post nasal drip and Denies sore throat Card Denies chest pain, Denies chest pain at rest, Denies chest pain with activity, Denies claudication, Denies leg edema, Denies dyspnea, Denies dyspnea on exertion, Denies orthopnea and Denies paroxysmal nocturnal dyspnea Resp Denies chest congestion, Denies cough, Denies excessive phlegm production, Denies pain on inspiration, Denies pain with cough, Denies dyspnea, Denies dyspnea on exertion, Denies stridor and Denies wheezing Musc Denies myalgias Neuro Reports Normal hearing present and Denies headache(s) Endo Denies excessive sweating Stephen/Lymph Denies lymphadenopathy Aller/Immun Denies itchy eyes, Denies seasonal rhinorrhea and Denies wheezing Physical Exam Vital Signs: Last Vital Signs Pulse 92 03/24/25 09:03 BP 130/78 03/24/25 09:03 Pulse Ox 96 03/24/25 09:03 Oxygen Delivery Method Room Air 03/24/25 09:03 BMI result Body Mass Index 29.9 Const General: cooperative, healthy appearing, comfortable, no acute distress, well developed and alert Orientation/consciousness: patient oriented x3 Limitations: no limitations HEENT Head: Yes normal to inspection, Yes normocephalic and Yes atraumatic Ears: hearing grossly normal bilaterally and external ears normal Eyes General: appearance normal, both eyes and all related structures Eyelids: Yes eyelids normal Sclerae: sclerae normal EOM: EOMs intact bilaterally Neck Neck: Yes normal visual inspection and Yes no lymphadenopathy Lymphatic: no lymphadenopathy noted Chest Chest palpation & inspection: normal inspection of the chest Resp Effort & Inspection: normal respiratory effort, able to speak in complete sentences, no audible wheezes, no cough, no stridor, not tachypneic, no tripod positioning and no use of accessory muscles Auscultation: clear to auscultation bilaterally Cardio Jugular venous distension: no JVD Rate: regular rate Rhythm: regular rhythm Skin Other: warm, dry General skin exam: no rashes or lesions noted Neuro General: patient oriented x3 Cranial nerves: Yes Normal hearing present Cognition (Neuro): normal cognition Gait exam (Neuro): Normal gait present Extrem General: Yes normal to inspection, Yes capillary refill normal, Yes no clubbing, cyanosis or edema and Yes no pedal edema Psych Appearance: grossly normal and well kempt Speech and movement: Normal speech and movement present and Clear speech present Affect: normal affect Attitude: cooperative Thought process: Normal thought process present Thought content: Normal thought content present Insight: Good insight present (Psych) Judgement: Good judgement present (Psych) Assessment & Plan Assessment & Plan (1) Asthma: Code(s): J45.909 - Unspecified asthma, uncomplicated Category: Medical Plan We discussed the importance of adhering to her prescribed Advair dosing regimen and advised increasing its use in the event of any worsening asthma symptoms. We discussed the recent esophageal dilation and its apparent benefit concerning her dysphagia, in which she has an upcoming follow-up next month. The patient was instructed to seek medical attention should any acute respiratory symptoms arise. All questions were answered and patient is in agreement of plan. Will follow up in 6 months or sooner if needed. Medications: Refilled fluticasone propion-salmeterol 115-21 mcg/actuation (Advair HFA) 2 puffs inhalation Q12H 12 grams 6RF Coding Level of Care Code Est Pt Level 3 (20410) Diagnoses Asthma J45.909
[2025-03-24 09:03] VITALS: BP 130/78; PULSE 92; O2SAT 96; BMI 29.9
--- OUTSIDE RECORDS SUMMARY | 2025-03-24 09:22 | XMS_ITS | Clinical Summary ---
Author Organization [facility] it Address [address] [place] [address] Care Team Providers Care Spinning Bath Patroller Name Role Phone RoseliaMaggie lubin Primary Care Provider [phone] Surgical History Surgery Date Site/Laterality Comments TONSILLECTOMY [...] Documents on File Type Date Recorded Patient Supervisor Fabrication Expl anation Health Care Decision (hx) 05/06/2017 AD REESE DIRECTIVE Health Care Decision (hx) 05/06/2017 AD REESE DIRECTIVE Care Teams Spinning Bath Patroller Relationship Specialty Start Date End Date Maggie Cazares DO [address] [place], [place] PCP - General 04/24/23
== END 2025-03-24 09:17 | disposition home or self-care (01) ==
LOC: HO.HPSW 08:51
PROVIDERS: PCP Internal Medicine; Visit Provider Nurse Practitioner Family
DX: J45.909 Unspecified asthma, uncomplicated (principal)
CPT/HCPCS: 99213

== ENCOUNTER → 2025-03-24 08:50 | Outpatient (BNVA) | payer MEDICAID, SELFPAY | PROVIDERS: PCP Internal Medicine; Visit Provider Nurse Practitioner Family | DX: J45.909 Unspecified asthma, uncomplicated (principal); K22.2 Esophageal obstruction | CPT/HCPCS: 99212 ==

== ENCOUNTER 2025-04-12 11:09 | Outpatient (AMB) | payer MEDICAID, SELFPAY ==
--- NOTE | 2025-04-12 11:15 | A.OFFVIS_ITS ---
Vital Signs 04/12/25 11:16 Height 5 ft Weight 152 lb 1.903 oz BMI 29.7 BP 110/67 Blood Pressure Location Lt brachial Position Sitting Pulse 82 Intake Visit Reasons: egd w dilation Intake Note: Maya presents in the office as a EGD w/ Dil. CC: results - some issues with swallowing at times. She is not sure if it could be anxiety. Furnace Unloader Required: No Allergies cephalexin (From KEFLEX) Allergy (Intermediate, Verified 04/12/25 11:17) RASH formoterol (From Dulera) Adverse Reaction (Intermediate, Verified 04/12/25 11:17) Unknown mometasone furoate (From Dulera) Adverse Reaction (Intermediate, Verified 04/12/25 11:17) Unknown HPI Comments Details: 43y.o F with PMH of symptomatic gallstones who is here for abdominal pain. 05/22/23: Pt reports months of diffuse abdominal pain with unclear trigger, which lasts for many hours, associated with nausea. No radiation of pain noted. Gets worse with eating. Associated with diarrhea which she describes as 4-5 loose BMs per day which does not change the intensity of the pain. Smokes 2 cigs a day. Occasional etOH. Takes ibuprofen every month during menstrual cycle x 3 days. Was also recently prescribed Meloxicam PRN for headaches. 06/19/23: Here for 4 week follow up. Abd pain persistent with primarily burning sensation in the afternoon which gets better with gingerale and worsens with food. Assoc with nausea but no vomiting. Had some improvement with PPI. Results reviewed including normal LFTs, celiac study, thyroid function and fecal calpro. Has been seen by surgery Dr Spence who has advised [facility]Y for biliary colic but pt remains hesitant to pursue this at this time. 09/25/24: Was lost to follow up. Has had resolution of abd sx since the cholecystectomy. However, now primary complaint is dysphagia and sensation of food getting in her throat. Is sticking to mainly soft foods to liquids food. Reports a distinct episode of food getting stuck in spring which she had to forcefully regurgitate but did not have to go to ER. To recall pt does have seasonal allergies and eczema. UGIS 08/10/24: 1. Felinization of the mid esophagus, which can be associated with chronic reflux. 2. Mild to moderate smooth narrowing of the GE junction that likely represents achalasia. Short segment benign stricture is also a consideration. Recommend correlation with EGD. 2. Thickened appearance of the areae gastrica, suggestive of gastritis. 3. Status post cholecystectomy. 03/11/25: * Normal esophagus mucosa (biopsy) * Cricopharyngeal stenosis (dilation) * Normal stomach (biopsy) * Normal duodenum (biopsy)?? Path: A. Duodenum, biopsy: Duodenal mucosa within normal limits; preserved villous architecture and no increased intraepithelial lymphocytes seen. B. Stomach, random, biopsy: Gastric antral and body mucosa within normal limits; negative for Helicobacter pylori, intestinal metaplasia and dysplasia. C. Esophagus, lower, biopsy: Squamous mucosa within normal limits; negative for inflammation (including intraepithelial eosinophils), fungal organisms, intestinal metaplasia and dysplasia. D. Esophagus, middle, biopsy: Squamous mucosa within normal limits; negative for inflammation (including intraepithelial eosinophils), fungal organisms, intestinal metaplasia and dysplasia 04/12/25: Here for post EGD follow up. Notes dysphagia is persistent since dilation. No difficulty initiation swallow but then feels food gets stuck mid esophagus. Results of EGD and path reviewed. No stricture/narrowing/web/ring, no EoE on bx. Based on UGIS, will refer to [facility] for HREM[facility] Medical History Kidney anomaly, congenital Dysphagia Arthritis Asthma Surgical History Hx of tonsillectomy History of carpal tunnel release of both wrists Hx laparoscopic cholecystectomy Hx of hand surgery History of breast reconstruction Hx of abdominoplasty Hx of section History of esophagogastroduodenoscopy (EGD) Family History Maternal Aunt Breast CA Social History Alcohol intake: current Alcohol intake frequency: holidays/special occasions only Patient Tobacco Use Status: Current everyday Tobacco user Tobacco use type: Cigarette Cigarettes Per Day: 2 Years Smoked: quit 12/14/24 service: No Current occupational status: unemployed Review of Systems Const All systems reviewed & are unremarkable except as noted in HPI and below Physical Exam Vital Signs: Last Vital Signs Pulse 82 07/07/25 11:16 BP 110/67 04/12/25 11:16 BMI result Body Mass Index 29.7 No apparent distress Nonicteric Abdomen soft, nondistended Alert and oriented x3, normal gait Assessment & Plan Assessment & Plan (1) Dysphagia: Code(s): R13.10 - Dysphagia, unspecified Category: Medical (2) Abdominal pain: Code(s): R10.9 - Unspecified abdominal pain Category: Medical Plan Reviewed no abnl identified intraluminally or on path. Will refer for HREM. Will also get CT chest with contrast to r/o mediastinal mass causing extrinsic compression given UGIS findings on narrowing of lower esophagus (although no narrowing perceived during egd). Plan: - Contrasted CT chest - Referral to [facility] for HREM - Can DC PPI as previously discussed Follow up after testing Orders: Orders CT chest w IV con Today R13.10 - Dysphagia, unspecified Referrals Gastroenterology Referral R13.10 - Dysphagia, unspecified Coding Level of Care Code Est Pt Level 4 (78853) Diagnoses Dysphagia R13.10 Abdominal pain R10.9
[2025-04-12 11:16] VITALS: BP 110/67; PULSE 82; BMI 29.7
--- OUTSIDE RECORDS SUMMARY | 2025-04-12 12:07 | XMS_ITS | Clinical Summary ---
Author Organization [facility] it Address [address] [place] [address] Care Team Providers Care Fitter Welder Name Role Phone RoseliaMaggie lubin Primary Care Provider +1- [phone] Surgical History Surgery Date Site/Laterality Comments TONSILLECTOMY [...] 2024 11/15/2021, 05/16/2021, 04/26/2021 Influenza Vaccine (#1) 2025 , 08/22/2021, 06/26/2020, Additional history exists DTaP,Tdap,and [...] Documents on File Type Date Recorded Patient Bakery Products Checker Expl anation Health Care Decision (hx) 05/06/2017 AD REESE DIRECTIVE Health Care Decision (hx) 05/06/2017 AD REESE DIRECTIVE Care Teams Fitter Welder Relationship Specialty Start Date End Date Maggie Cazares DO [address] [place], [place] PCP - General 04/24/23
--- OUTSIDE RECORDS SUMMARY | 2025-04-12 12:07 | XMS_ITS | Encounter Summary ---
Author Organization [facility] Address [address] [facility] [address] [place] [address] Phone Care Team Providers Care Squeezer Operator Name Role Phone Catarina Davis MD Primary Care Provider [phone] [phone] Encounter Details Date Type Department Care Team (Late st Contact Info) Description 01/11/2023 Documentation Only [facility] [address] [place] [address] Smooth Almonte MD [address] [place] [address] [place] [address] Social History Tobacco Use Types [...] Team (Late st Contact Info) Description 02/07/2026 1:30 PM EDT Office Visit [facility] [address] [place] [address] Alfonso Wharton MD [address] [place] [address] [place] [address] documented as of this encounter Visit Diagnoses Not on filedocumented in this encounter Care Teams Squeezer Operator Relationship Specialty Start Date End Date Catarina Davis MD [address] [place] [address] [phone] PCP - General 08/11/19 documented as of this encounter
--- OUTSIDE RECORDS SUMMARY | 2025-04-12 12:07 | XMS_ITS | Encounter Summary ---
Author Organization [employer] Address [address] [facility] 7t [place] [address] Care Team Providers Care Health And Wellness Instructor Name Role Phone Catarina Davis MD Primary Care Provider + Reason for Visit * Reason Onset Date Comments Med Refill 04/08/2025 Encounter Details Date Type Department Care Team (Late st Contact Info) Description 04/08/2025 Refill [facility] MEDICINE [address] [place] [address] Day Smith RN Chronic midline low back pain, unspecified whether [...] t he electric, gas, oil or water [employer] threatened to shut off services in your [...] Care Team (Late st Contact Info) Description 04/15/2025 11:30 AM EDT Clinical Support [facility] MEDICINE [address] [place] [phone] Day Smith RN 05/06/2025 12:00 PM EDT Office Visit [facility] MEDICINE [address] [place] [address] Catarina Davis MD [address] [place] [address] 05/25/2025 2:00 PM EDT Office Visit [facility] OPTOMETRY [address] [place] [address] El, Sury, OD [address] [place] [address] documented as of this encounter Visit Diagnoses Diagnosis Chronic midline low back pain, unspecified whether sciatica present documented in this encounter Additional Health Concerns Assessment Noted Time PHQ-9 Depression Total Score: 0 12/29/19 23 1:22 PM EDT documented as of this encounter Care Teams Health And Wellness Instructor Relationship Specialty Start Date End Date Catarina Davis MD [address] [place] [address] PCP - General Family Medicine 10/15/17 documented as of this encounter
== END 2025-04-12 11:34 | disposition home or self-care (01) ==
LOC: HO.HGI 11:10
PROVIDERS: PCP Internal Medicine; Visit Provider Internal Medicine
DX: R13.10 Dysphagia, unspecified (principal); R10.9 Unspecified abdominal pain
CPT/HCPCS: 99214

== ENCOUNTER → 2025-04-12 11:09 | Outpatient (BNVA) | payer MEDICAID, SELFPAY | PROVIDERS: PCP Internal Medicine; Visit Provider Internal Medicine | DX: R13.10 Dysphagia, unspecified (principal); R10.9 Unspecified abdominal pain | CPT/HCPCS: 99212 ==

== ENCOUNTER 2025-05-14 13:05 | Outpatient (REF) | payer MEDICAID, SELFPAY ==
--- NOTE | ~2025-05-14 | CT_ITS ---
EXAMINATION: CT CHEST WITH IV CONTRAST INDICATION: R13.10 - Dysphagia, unspecified COMPARISON: [place] is made with the prior examination dated 12/18/2023. TECHNIQUE: Helical CT scan of the chest was performed following administration of intravenous contrast. Coronal and sagittal reformatted images were generated and reviewed. This CT exam was performed with one or more of the following dose reduction techniques: automated exposure control, adjustment of the mA and/or kV according to patient size, use of iterative reconstruction technique. DLP: 144 mGy-cm CHEST: THYROID: The thyroid is unremarkable. LUNGS: The lungs are clear. MEDIASTINUM: There is no mediastinal lymphadenopathy. EVANGELINA: There is no hilar lymphadenopathy. CARDIOVASCULATURE: The heart is normal in size. There is no pericardial effusion. The thoracic aorta is normal in caliber. DEGREE OF CORONARY CALCIFICATION: none PLEURA: There is no pleural effusion. No pneumothorax. MAIN AIRWAYS: The mainstem bronchi and proximal branches are patent. AXILLA: There is no axillary lymphadenopathy. BONES AND SOFT TISSUES: Bilateral breast implants are again noted. The bones are intact. UPPER ABDOMEN: The visualized portions of the liver, spleen, and adrenals are unremarkable. CT/CT chest w IV con IMPRESSION: Unremarkable contrast-enhanced CT of the chest. Electronically signed by: Corby Johnson MD 05/14/2025 03:01 PM EDT
--- OUTSIDE RECORDS SUMMARY | 2025-05-14 13:07 | XMS_ITS | Encounter Summary ---
Author Organization [facility] Address [address] [address] Phone Care Team Providers Care Inventory Worker Name Role Phone Catarina Davis MD Primary Care Provider [phone] Encounter Details Date Type Department Care Team (Late st Contact Info) Description 01/11/2023 Documentation Only [facility] [address] [place] [address] Smooth Almonte MD [address] [place] [address] [place] [address] Social History Tobacco Use Types [...] Visit [facility] [address] [place] [address] Alfonso Wharton MD [address] [place] [address] [place] [address] documented as of this encounter Visit Diagnoses Not on filedocumented in this encounter Care Teams Inventory Worker Relationship Specialty Start Date End Date Catarina Davis MD [address] [place] [address] [phone] PCP - General 08/11/19 documented as of this encounter
--- OUTSIDE RECORDS SUMMARY | 2025-05-14 13:07 | XMS_ITS | Clinical Summary ---
Author Organization [facility] it Address [address] [place] [address] Care Team Providers Care Fisher Reef Net Name Role Phone RoseliaMaggie lubin Primary Care Provider +1- [phone] Surgical History Surgery Date Site/Laterality Comments TONSILLECTOMY [...] and At-Risk Patients (6 to 49 Years) (2 of 2 - PCV) 06/26/2019 06/26/2018, 04/06/2016 Cholesterol Screening (Lipid Panel) 09/04/2022 Colorectal Cancer Screening: Colonoscopy 09/04/2022 HIV Screening 09/04/2022 Hepatitis C Screening 09/04/2022 Social Influencers of Health Screening 09/04/2022 Diabetes: Annual Urine Albumin-Creatinine Ratio (uACR) 11/22/2023 Diabetes: Blood Sugar Control Test (HGBA1C) 11/22/2023 COVID-19 Vaccine (4 - 2023- season) 2024 11/15/2021, 05/16/2021, 04/26/2021 Depression Screening 10/07/2024 Influenza Vaccine (#1) 2025 , 08/22/2021, 06/26/2020, [...] Documents on File Type Date Recorded Patient Retail Property Manager Expl anation Health Care Decision (hx) 05/06/2017 AD REESE DIRECTIVE Health Care Decision (hx) 05/06/2017 AD REESE DIRECTIVE Care Teams Fisher Reef Net Relationship Specialty Start Date End Date Maggie Cazares DO [address] [place] [address] PCP - General 04/24/23
--- OUTSIDE RECORDS SUMMARY | 2025-05-14 13:07 | XMS_ITS | Encounter Summary ---
Author Organization [employer] Address [address] [facility] 7t [place] [address] Care Team Providers Care Medical Assistant Per Diem Name Role Phone Catarina Davis MD Primary Care Provider + Reason for Visit * Reason Onset Date Comments Med Refill 05/11/2025 Encounter Details Date Type Department Care Team (Late st Contact Info) Description 05/11/2025 Refill [facility] MEDICINE [address] [place], [place] [phone] Catarina Davis MD [address] [place] [address] Chronic midline low back pain, unspecified whether sciatica present Social History Tobacco Use Types Packs/Day Years Used Date Smoking Tobacco: Every Day Cigarettes Passive Smoke Exposure: Current Smokeless Tobacco: Never Alcohol Use Standard Drinks/Week Comments Not Currently 0 (1 standard drink = 0.6 oz pur e alcohol) oca Depression Answer Date Recorded Patient Health Questionnaire-9 Score 0 05/06/2025 Patient Health Questionnaire-9 Score 0 05/06/2025 Last PHQ-9: Questionnaire Data Not on file 0 05/06/2025 Housing Stability Answer Date Recorded What is your housing situation today? I have jax hatch 04/26/[address] you li ve. Do you have problems with any of the following? None of the above 04/26/2025 Food Insecurity Answer Date Recorded Within the past 12 months, y ou worried that your food would run out before you got money to buy more: Never True 04/26/2025 Within the past 12 months,th e food you bought just didn't last and you didn't have enough money to get more: Never True Transportation Answer Date Recorded In the past 12 months, has l ack of transportation kept you from medical appts, meetings, work or from getting things needed for daily living? No 04/26/2025 Utilities Answer Date Recorded In the past 12 months, has t he electric, gas, oil or water company threatened to shut off services in your home? Yes 04/26/2025 Depression Answer Date Recorded Patient Health Questionnaire-2 Score 0 05/06/2025 Internet Access Answer Date Recorded Internet Access Q1 Yes 04/26/2025 Internet Access Q2 Not on file 04/26/2025 Comments No Sex and Gender Information Value Date Recorded Sex Assigned at Female 08/06/2022 10:14 AM EDT Legal Sex Female 10:14 AM EDT Gender Identity Female 08/06/2022 10:14 AM EDT Sexual Orientation Choose not to disclose 2021 10:14 AM EDT documented as of this encounter Miscellaneous Notes * Telephone Encounter - Latonya Stout - 05/11/2025 9:17 AM EDT TC from pt requesting medication refill. Medications needing refill : - traMADol (Ultram) 50 MG tablet To be sent to: - [id number] documented in this encounter Plan of Treatment Upcoming Encounters Date Type Department Care Team ([facility] Contact Info) Description 05/25/2025 2:00 PM EDT Office Visit [facility] OPTOMETRY [address] [place] [address] Sury Gallegos, OD [address] [place] [address] 06/22/2025 11:30 AM EDT Clinical Support [facility] MEDICINE [address] [place] [phone] Day Smith RN 07/09/2025 9:00 AM EDT Procedure Visit [facility] MED[facility]INE [address] [place] [phone] Catarina Davis MD [address] [place] [address] documented as of this encounter Visit Diagnoses Diagnosis Chronic midline low back pain, unspecified whether sciatica present documented in this encounter Additional Health Concerns Assessment Noted Time PHQ-9 Depression Total Score: 0 05/06/20 25 11:33 AM EDT documented as of this encounter Care Teams Medical Assistant Per Diem Relationship Specialty Start Date End Date Catarina Davis MD [address] [place] [address] PCP - General Family Medicine 10/15/17 documented as of this encounter
[2025-05-14] MEDS: iohexoL 350 MG/ML 100 ML INFUS..BTL 65 ML IV (14:47)
== END 2025-05-14 13:06 | disposition home or self-care (01) ==
LOC: HO.CT 13:05
PROVIDERS: PCP Internal Medicine; Visit Provider Internal Medicine
DX: R13.10 Dysphagia, unspecified (principal)
CPT/HCPCS: 71260; Q9967

== ENCOUNTER → 2025-05-14 13:07 | Outpatient (BNV) | payer MEDICAID, SELFPAY | PROVIDERS: PCP Internal Medicine; Visit Provider Radiology Diagnostic Radiology | DX: R13.10 Dysphagia, unspecified (principal) | CPT/HCPCS: 71260 ==

== ENCOUNTER 2025-06-02 08:32 | Outpatient (AMB) | payer MEDICAID, SELFPAY ==
--- NOTE | 2025-06-02 08:43 | A.OFFVIS_ITS ---
Vital Signs 06/02/25 08:49 Height 5 ft Weight 152 lb BMI 29.7 Intake Visit Reasons: Inj- Gabriel knee knee Euflexxa #1 Intake Note: Maya is a 45 year old female who presents with complaints of bilateral knee pains. The patient describes her pains as sharp in nature. She has had cortisone injections in the past which gave her minimal relief. She has also had Euflexxa injections which gave her good relief. She has tried Tylenol and anti-inflammatory medicines which gave her minimal relief. She wishes to hold off on surgery if at all possible. Allergies cephalexin (From KEFLEX) Allergy (Intermediate, Verified 06/02/25 08:48) RASH formoterol (From Dulera) Adverse Reaction (Intermediate, Verified 06/02/25 08:48) Unknown mometasone furoate (From Dulera) Adverse Reaction (Intermediate, Verified 06/02/25 08:48) Unknown Medication List - Last Reconciled 06/02/25 by Aram Lewis MD acetaminophen ER 650 mg PO Q8H PRN albuterol sulfate 90 mcg/actuation (Ventolin HFA) 2 puffs inhalation Q4H PRN betamethasone valerate 0.1% appl topical BID fexofenadine (Allergy Relief (fexofenadine)) mg PO fluticasone propion-salmeterol 115-21 mcg/actuation (Advair HFA) 2 puffs inhalation Q12H gabapentin 300 mg PO BEDTIME loratadine 10 mg PO DAILY omeprazole 20 mg PO DAILY Held on 03/11/25. Instructions: Cont to hold off, can review further use based on biopsy results. tizanidine mg PO BID tramadol 50 mg PO TID PRN zolpidem 10 mg PO BEDTIME PFSH Medical History Kidney anomaly, congenital Dysphagia Arthritis Asthma Surgical History Hx of tonsillectomy History of carpal tunnel release of both wrists Hx laparoscopic cholecystectomy Hx of hand surgery History of breast reconstruction Hx of abdominoplasty Hx of section History of esophagogastroduodenoscopy (EGD) Family History Maternal Aunt Breast CA Social History Alcohol intake: current Alcohol intake frequency: holidays/special occasions only Patient Tobacco Use Status: Current everyday Tobacco user Tobacco use type: Cigarette Cigarettes Per Day: 2 Years Smoked: quit 12/14/24 service: No Current occupational status: unemployed Physical Exam Vital Signs: BMI result Body Mass Index 29.7 Const Other: Well-nourished well-developed very friendly female awake alert and oriented x3 in no acute distress Extrem Other: Bilateral knee examination shows minimal effusions, palpable crepitus with range of motion, pain with range of motion, no instability Office Procedures AMB Joint Injection/Aspiration Joint Injection/Aspiration Primary Site: left knee Prep: site was prepped using aseptic technique Injected: 20 mg of (Euflexxa viscosupplementation) and 1% plain lidocaine Procedure: The patient tolerated the procedure well Coding 02802 - Large joint Procedure code (CPT) selection complete AMB Joint Injection/Aspiration Joint Injection/Aspiration Primary Site: right knee Prep: site was prepped using aseptic technique Injected: 20 mg of (Euflexxa viscosupplementation) and 1% plain lidocaine Procedure: The patient tolerated the procedure well Coding 71531 - Large joint Procedure code (CPT) selection complete Results Reviewed Results Reviewed: X-rays of the patient's bilateral knees taken previously show joint space narrowing, subchondral sclerosis, no acute bony abnormalities Assessment & Plan Assessment & Plan (1) Osteoarthritis of left knee: Code(s): M17.12 - Unilateral primary osteoarthritis, left knee Category: Medical (2) Osteoarthritis of right knee: Code(s): M17.11 - Unilateral primary osteoarthritis, right knee Category: Medical Plan Ms. Hoyos presents with bilateral knee pains due to osteoarthritis. The risks and benefits of bilateral knee Euflexxa injections were discussed at length with the patient. The patient wished to proceed. She tolerated the viscosupplementation injections well. She will continue with her exercise program. She will follow up next week as scheduled. Feel free to call me at any time should questions regarding her orthopedic management arise. I spent 21 minutes in reviewing the patient's records and imaging studies, seei ng the patient and documenting in the medical record. Orders: Orders AMB Joint Injection/Aspiration Today M17.12 - Unilateral primary osteoarthritis, left knee AMB Joint Injection/Aspiration Today M17.11 - Unilateral primary osteoarthritis, right knee Coding Level of Care Code Est Pt Level 3 (28784) Complex EM visit Add On G2211 Diagnoses Osteoarthritis of left knee M17.12 Osteoarthritis of right knee M17.11 CPT Codes Coding - 63729 Large joint: 85719 - Large joint ([id number]) Coding - 49940 Large joint: 24699 - Large joint ([id number])
[2025-06-02 08:49] VITALS: BMI 29.7
--- OUTSIDE RECORDS SUMMARY | 2025-06-02 08:55 | XMS_ITS | Encounter Summary ---
Author Organization [employer] Address [address] [facility] 7t [place] [address] Care Team Providers Care Sap Hana Architect Name Role Phone Catarina Davis MD Primary Care Provider + Reason for Visit * Reason Comments Med Refill Encounter Details Date Type Department Care Team (Late st Contact Info) Description 10/06/2024 Refill [facility] MEDICINE [address] [place], [place] [phone] Catarina Davis MD [address] [place], [place] [phone] Cervical paraspinal muscle spasm Social History Tobacco [...] Care Team (Late st Contact Info) Description 06/22/2025 11:30 AM EDT Clinical Support [facility] MEDICINE [address] [place] [phone] Day Smith, RN 07/09/2025 9:00 AM EDT Procedure Visit [facility] MEDICINE [address] [place] [address] Catarina Davis MD [address] [place] [phone] documented as of this encounter Visit Diagnoses Diagnosis Cervical paraspinal muscle spasm Spasm of muscle documented in this encounter Additional Health Concerns Assessment Noted Time PHQ-9 Depression Total Score: 0 12/29/19 23 1:22 PM EDT documented as of this encounter Care Teams Sap Hana Architect Relationship Specialty Start Date End Date Catarina Davis MD [address] [place] [phone] PCP - General Family Medicine 10/15/17 documented as of this encounter
--- OUTSIDE RECORDS SUMMARY | 2025-06-02 08:55 | XMS_ITS | Clinical Summary ---
Author Organization [facility] it Address [address] [place] [address] Care Team Providers Care Public Health Social Worker Name Role Phone RoseliaMaggie lubin Primary Care Provider +1- [phone] Surgical History Surgery Date Site/Laterality Comments TONSILLECTOMY [...] Documents on File Type Date Recorded Patient Insolvency Consultant Expl anation Health Care Decision (hx) 05/06/2017 AD REESE DIRECTIVE Health Care Decision (hx) 05/06/2017 AD REESE DIRECTIVE Care Teams Public Health Social Worker Relationship Specialty Start Date End Date Maggie Cazares DO [address] [place] [address] PCP - General 04/24/23
--- OUTSIDE RECORDS SUMMARY | 2025-06-02 08:55 | XMS_ITS | Encounter Summary ---
Author Organization [employer] Address [address] [place] [address] Care Team Providers Care Rn Peritoneal Dialysis Name Role Phone Catarina Davis MD Primary Care Provider + Reason for Visit * Reason Onset Date Comments Med Refill 12/18/2024 Encounter Details Date Type Department Care Team ([facility] st Contact Info) Description 12/18/2024 Telephone [facility] [address], [place] [phone] Catarina Davis MD [address] [place], [place] [phone] Med Refill Social History Tobacco Use Types [...] 20 MG tablet To be sent to: [facility] #[id number] [facility] [id number] AT [facility] documented in this encounter Plan of Treatment Upcoming Encounters Date Type Department Care Team (Late st Contact Info) Description 06/22/2025 11:30 AM EDT Clinical Support [facility] [address] [place] [id number] Day Smith RN 07/09/2025 9:00 AM EDT Procedure Visit [facility] [address], [place] [phone] Catarina Davis MD [address] [place], [place] [phone] documented as of this encounter Visit Diagnoses Not on filedocumented in this encounter Additional Health Concerns Assessment Noted Time PHQ-9 Depression Total Score: 0 12/29/19 23 1:22 PM EDT documented as of this encounter Care Teams Rn Peritoneal Dialysis Relationship Specialty Start Date End Date Catarina Davis MD [address] [place], [place] [phone] PCP - General Family Medicine 10/15/17 documented as of this encounter
--- OUTSIDE RECORDS SUMMARY | 2025-06-02 08:55 | XMS_ITS | Clinical Summary ---
Author Organization [employer] Address [address] [place] [address] [address]t [address] Floor [place] [id number] Care Team Providers Care Asset Protection Associate Name Role Phone Catarina Davis MD Primary Care Provider + Allergies Active Allergy Reactions Criticality Noted Date Comments Cephalexin Rash Low 10/31/2017 Other reaction(s): Other (see comments) Kiwi Extract 01/25/2023 Pineapple 01/25/2023 Medications glucose blood (FREESTYLE LITE) test strip 08/18/20 21 Active hydrOXYzine pamoate (Vistaril) 25 MG capsule TAKE 1-2 CAPSULES BY MOUTH TWICE DAILY NEEDED FOR ANXIETY/INSOMN IA 02/20/20 23 Active diclofenac sodium 3 % [...] chew. 90 tablet 2 12/02/19 25 Active fexofenadine (Virgen) 180 MG tablet Take 1 tablet (180 mg) by mouth if needed each day (Allergies). 90 tablet 02/03/20 25 026 Active naloxone (Narcan) 4 mg/0.1 mL nasal sprayIndicatio ns:Chronic midline low back pain, unspecified whether sciatica present Administer 1 spray (4 mg) into affected nostril(s) if needed for opioid reversal. May repeat every 2-3 minutes if needed, alternating nostrils, until medical assistance becomes available. 2 each 2 02/03/20 25 Active betamethasone valerate (Valisone) 0.1 % creamIndicatio ns:Dermatitis Apply topically 2 times daily. 45 g 1 05/06/20 25 Active diphenhydrAMIN E-zinc acetate (Benadryl Extra Strength) cream Apply topically if needed in the morning, at noon, and at bedtime for itching. 15 g 05/06/20 25 026 Active tiZANidine (Zanaflex) 4 MG tabletIndicati ons:Cervical paraspinal muscle spasm Take 1 tablet (4 mg) by mouth every 6 (six) hours if needed for muscle spasms for up to 10 days. 60 tablet 3 05/06/20 25 Active traMADol (Ultram) 50 MG tabletIndicati ons:Chronic midline low back pain, unspecified whether sciatica present Take 1 tablet (50 mg) by mouth every 6 (six) hours if needed for severe pain for up to 28 days. 112 tablet 05/11/20 25 025 Active zolpidem (Ambien) 10 MG tablet Take 10 mg by mouth at bedtime. 02/20/20 23 025 Discontinued(T herapy completed) tiZANidine (Zanaflex) 4 MG tabletIndicati ons:Cervical paraspinal muscle spasm Take 1 tablet (4 mg) by mouth every 6 (six) hours if needed for muscle spasms for up to 10 days. 60 tablet 3 12/25/19 025 Discontinued(R eorder (will not trigger notification to Pharmacy)) betamethasone valerate (Valisone) 0.1 % creamIndicatio ns:Dermatitis Apply topically 2 times daily. 45 g 1 02/03/20 25 025 Discontinued(R eorder (will not trigger notification to Pharmacy)) traMADol (Ultram) 50 MG tabletIndicati ons:Chronic midline low back pain, unspecified whether sciatica present Take 1 tablet (50 mg) by mouth every 6 (six) hours if needed for severe pain for up to 28 days. 112 tablet 04/08/20 025 Discontinued(R eorder (will not trigger notification to Pharmacy)) Active Problems Problem Noted Date Diagnosed Date Long-term current use of opiate analgesic 2024 Mild asthma with exacerbation 12/24/2024 Assessment & [...] on 10/05. Dermatitis 08/20/2024 Assessment & Plan (05/06/2025 3:00 PM EDT): On right foot, probably related to the spider bite? Now getting better. Advised to use Benadryl gel around the area, can use Betamethasone cream as needed and eyes to affected area Assessment & Plan (02/02/2025 2:45 PM EDT): [...] paraspinal muscle spasm 05/09/2023 Assessment & Plan (05/06/2025 2:59 PM EDT): She is doing well on tramadol, Tylenol, diclofenac gel and gabapentin. We reminded her about safe storage and management of controlled substance Continue regular exercise and stretching of her upper and lower back. Reconsult as needed, or else follow-up every year Assessment & Plan (08/20/2024 1:21 PM EST): [...] end of this year Female hirsutism 03/08/2023 Prediabetes 03/08/2023 Assessment & Plan (08/20/2024 11:47 [...] acquired 01/29/2020 Recurrent urinary tract infection 01/29/2020 Eczema 09/25/2018 Pre-hypertension 08/13/2018 Assessment & Plan (05/06/2025 3:01 PM EDT): I reminded her to keep track of BP at least once per week, call back if level is above 140/90 Reminded her to quit smoking, low salt intake and continuing exercises Follow-up with me in 6 months Assessment & Plan (02/02/2025 2:42 PM EDT): [...] me in 3 m Plantar fasciitis 08/06/2018 Upper abdominal pain 01/29/2018 Assessment & Plan [...] Tylenol breakthrough pain Continue to follow-up with [facility] as well Assessment & Plan (02/18/2024 [...] time. Recurrent major depressive episodes, mild 2017 Resolved Problems Problem Noted Date Diagnosed Date Resolved Date Asthma 03/08/2023 07/16/2024 Obesity with body mass index 30 or greater 03/08/2023 05/06/2025 Assessment & Plan (08/20/2024 11:48 AM EST): Discussed re weight reduction options including exercise, life style modifications, and diet. Recommended to decrease soda and sugary beverage consumption, increase protein intake with meals (at least 1 portion of protein with each meal) to assist with satiety, increase dietary fiber Recommended at least 150 min/week of moderate intensity exercise. Sinusitis 10/15/2018 05/06/2025 Epistaxis 10/15/2018 05/06/2025 Cough 07/23/2018 10/29/2023 Allergic rhinitis 02/27/2018 05/06/2025 Mild intermittent asthma 10/31/201707/2024 Assessment & Plan (10/08/2024 6:20 PM EST): Fairly controlled, she will continue albuterol prn + Symbicort daily Advised to quit smoking, I recommended to come to acupuncture clinic as it will also help with joint pain. Will give after acute sinusitis is resolved. Type 2 diabetes mellitus 10/31/2017 Assessment & Plan (05/06/2025 2:57 PM EDT): Seems to have been resolved, A1c is 5.6. Congratulated her on weight reduction, advised to quit smoking Counseled re more frequent low calorie/carb meals. Encouraged physical activity as tolerated. Reminded her to check fingersticks in the 2 weeks following steroid injection, call back if RBS is above 200 FU in 6 months. Assessment & Plan (02/02/2025 2:45 PM EDT): [...] as tolerated. Check A1C every 6 months. Encounters Date Type Department Care Team Description 05/25/2025 2:00 PM EDT Office Visit [facility] OPTOMETRY [address] [place] [address] El, Sury, OD Diabetes type 2, no ocular involvement (CMS/HCC) (Primary Dx); Regular astigmatism of both eyes; Dry eyes 05/25/2025 Travel 05/14/2025 Orders Only [facility] External Provider, [facility] 05/11/2025 Refill [facility] MEDICINE [address] [place] [address] Catarina Davis MD Chronic midline low back pain, unspecified whether sciatica present 05/06/2025 12:00 PM EDT Office Visit [facility] MEDICINE [address] [place] [address] Catarina Davis MD Pre-hypertension (Primary Dx); Type 2 diabetes mellitus without complication, without long-term current use of insulin (CMS/HCC); Dermatitis; Cervical paraspinal muscle spasm 05/06/2025 Travel 04/26/2025 Patient Outreach [address] [address] Catarina Davis MD Pre-visit Planning (SDOH screening negative and tobacco screening positive) 04/15/2025 11:30 AM EDT Clinical Support [address] [address] Day Smith, [place] Long-term current use of opiate analgesic (Primary Dx) 04/15/2025 Travel 04/08/[address] [address] Day Smith RN Chronic midline low back pain, unspecified whether sciatica present 04/08/[address] [address] Catarina Davis MD Telephone call 03/23/[address] [address] Catarina Davis MD Medication Question 03/11/2025 Orders Only GENERIC EXTERNAL DATA DEPARTMENT Provider, Generic External Data 03/03/[address] [address] Catarina Davis MD Chronic midline low back pain, unspecified whether sciatica present from Last 3 Months Immunizations Immunization Administration Dates Next Due Influenza injectable quadriv alent IIV4 with preservative 06/26/2018 Influenza injectable quadriv alent preservative free 06/13/2023,06/29/2022,08/22/2021,06/26,09/02/2019 Influenza, IIV3, injectable 08/05/2014, 2 Influenza, seasonal, injecta ble, preservative free 08/20/2024,06/29/2022,08/22/2021,06/26,09/02/2019,06/26/2018,08/01/2017 ,07/19/2015,08/05/2014 Pfizer Covid-19 Vaccine 12+ 11/15/2021,,04/26/2021 Pfizer Covid-19 Vaccine 12+ Bivalent 09/25/2022 Pneumococcal [...] Q2 Not on file 04/26/2025 Comments No Intention Date Recorded No desire to become (finding) 0 05/06/2025 Sex and Gender Information Value Date Recorded Sex Assigned at Female 08/06/2022 10:14 AM EDT Legal Sex Female 10:14 AM EDT Gender Identity Female 08/06/2022 10:14 AM EDT Sexual Orientation Choose not to disclose 2021 10:14 AM EDT Last Filed Vital Signs Vital Sign Reading Time Taken Comments Blood Pressure 128/84 05/06/2025 11:33 AM EDT Pulse 68 05/06/2025 11:33 AM EDT Temperature 36.8 C (98.3 F) 05/06/2025 11:33 AM EDT Respiratory Rate 18 05/06/2025 11:33 AM EDT Oxygen Saturation 97% 02/02/2025 9:10 AM EDT Inhaled Oxygen Concentration - - Weight 68.7 kg (151 lb 6.4 oz) 05/06/2025 11:33 AM EDT Height 152.4 cm (5') 05/06/2025 11:33 AM EDT Body Mass Index 29.57 05/06/2025 11:33 AM EDT Plan of Treatment Upcoming Encounters Date Type Department Care Team (Late st Contact Info) Description 06/22/2025 11:30 AM EDT Clinical Support [facility] MEDICINE [address] [place] [phone] Day Smith RN 07/09/2025 9:00 AM EDT Procedure Visit [facility] MEDICINE [address] [place] [phone] Catarina Davis MD [address] [place] [phone] Health Maintenance Due Date Last Done Comments CT Colonography 1980 Colonoscopy 1980 Colorectal Cancer Screening 1980 FIT DNA/Cologuard 1980 FIT 1980 FOBT 1980 Sigmoidoscopy 1980 HPV Vaccines (1 - 3-dose series) 1995 Dental Prophylaxis 03/25/2020 09/23/2019, 0 03/19/2019, 09/18/2018, Additional history exists Dental Oral Exam 05/04/2020 11/03/2019, , 06/06/2018, Additional history exists Dental X-Ray: Bitewings 09/19/2020 09/18/20 19, 04/30/2019, 09/18/2018, Additional history exists Dental X-Ray: Full Mouth 05/01/2022 04/30/2019, 1103/2014 COVID-19 Vaccine ( season) 2024 09/25/2022, 11/15/2021, 05/16/2021, Additional history exists Influenza Vaccine (#1) 2025 , 06/13/2023, 06/29/2022, Additional history exists Lipid Panel 08/19/2025 08/19/2024, 03/2023, 05/23/2021 Diabetes: Hemoglobin A1C 11/06/2025 025, 02/02/2025, 05/22/2024, Additional history exists Mammogram 11/21/2025 11/21/2024, 11/07/2023 Diabetes: Urine Protein Screening 02/06/2026 02/06/2025, 05/23/2021 SDOH Screening 04/26/2026 04/26/2025 Alcohol/Substance Use Screening 05/06/2026 05/06/2025 Depression Screening 05/06/2026 05/06/2025, 05/06/20 Diabetes: Foot Exam 05/06/2026 05/06/2025, 05/06/2025, 05/06/2025, Additional history exists Disability Screening 05/06/2026 05/06/2025 Family Planning (PISQ) 05/06/2026 05/06/2025 Tobacco Screening 05/06/2026 05/06/2025 Eye Exam 05/25/2027 05/25/2025, 05/07, 05/25/2025, Additional history exists Cervical Cancer Screening 09/24/2027 HPV/Cotest 09/24/2027 09/24/2022 Pap Smear 09/24/2027 09/24/2022 DTaP/Tdap/Td Vaccines (5 - Td or Tdap) 06/26/2028 06/26/2018, 08/05/2014, 07/16/2013, Additional history exists Zoster Vaccines (1 of 2) 2030 RSV Patients and Patients Aged 60 years or older (1 - 1-dose 75+ series) 2055 HIV Screening Completed 01/10/2023 Hepatitis C Screening Completed 01/10/2023 Pneumococcal Vaccine: Pediatrics (0 to 5 Years) and At-Risk Patients (6 to 49) Years Completed 08/20/2024, 06/26/2018, 04/06/2016 HIB Vaccines Aged [...] Procedure Name Priority Date/Time Associated Diagnosis Comments CT CHEST W CONTRAST Routine 05/14/2025 2 :07 PM EDT POCT GLYCATED HEMOGLOBIN, TOTAL Routine 05/06/2025 12:20 PM EDT Type 2 diabetes mellitus without complication, without long-term current use of insulin ([facility]) POCT GLUCOSE Routine 05/06/2025 12:20 PM EDT Type 2 diabetes mellitus without complication, without long-term current use of insulin ([facility]) POCT FLORENTIN-14 URINE DRUG SCREEN Routine 04/15/2025 11:40 AM EDT Long-term current use of opiate analgesic HEMATOXYLIN AND EOSIN STAIN Routine 03/11/2025 9:08 AM EDT HCG, QL, URINE Routine 03/11/2025 8:00 AM EDT HM MAMMOGRAPHY Routine 11/21/2024 LIPID PANEL WITH [...] Recently Relevant to Health Maintenance Results * CT Chest w/ Contrast (05/14/2025 2:07 PM EDT) Anatomical Region Laterality Modality Body, Chest Computed Tomogra phy 05/14/2025 2:07 PM EDT Narrative 05/14/2025 3:03 PM EDT [place] [address] [address] Scan Report Signed Patient: Maya Hoyos MR#: [id number] 13 : 1980 Acct:[id number] Age/Sex: 45 / F ADM Date: 05/14/25 Loc: HO.CT Attending Dr: Carin Nazario MD Ordering Physician: Carin Nazario MD Date of Service: 05/14/25 Procedure(s): CT chest w IV con Accession Number(s): [id number] cc: Catarina Davis MD; Carin Nazario MD Report Number: [id number]: Total DLP = 144.00 mGy-cm EXAMINATION: CT CHEST WITH IV CONTRAST INDICATION: R13.10 - Dysphagia, unspecified COMPARISON: [place] is made with the prior examination dated 12/18/2023. TECHNIQUE: Helical CT scan of the chest was performed following administration of intravenous contrast. Coronal and sagittal reformatted images were generated and reviewed. This CT exam was performed with one or more of the following dose reduction techniques: automated exposure control, adjustment of the mA and/or kV according to patient size, use of iterative reconstruction technique. DLP: 144 mGy-cm CHEST: THYROID: The thyroid is unremarkable. LUNGS: The lungs are clear. MEDIASTINUM: There is no mediastinal lymphadenopathy. EVANGELINA: There is no hilar lymphadenopathy. CARDIOVASCULATURE: The heart is normal in size. There is no pericardial effusion. The thoracic aorta is normal in caliber. DEGREE OF CORONARY CALCIFICATION: none PLEURA: There is no pleural effusion. No pneumothorax. MAIN AIRWAYS: The mainstem bronchi and proximal branches are patent. AXILLA: There is no axillary lymphadenopathy. BONES AND SOFT TISSUES: Bilateral breast implants are again noted. The bones are intact. UPPER ABDOMEN: The visualized portions of the liver, spleen, and adrenals are unremarkable. CT/CT chest w IV con IMPRESSION: Unremarkable contrast-enhanced CT of the chest. Electronically signed by: Corby Johnson MD 05/14/2025 03:01 PM EDT Dictated By: Corby Johnson MD Signed By: <Electronically signed by Corby Johnson MD in [place]> 05/14/25 1501 DD/ 1407 TD/TT: 05/14/25 1448 Glass Deposition Tender: Procedure Note Donotuseinterpreter, Image - 05/14/[address] [address] [address] Scan Report Signed Patient: Monica HoyosNCDelaney#: [id number] 13 : 1980Acct:[id number] Age/Sex: 45 / FADM Date: 05/14/25 Loc: HO.CT Attending Dr: Carin Nazario MD Ordering Physician: Carin Nazario MD Date of Service: 05/14/25 Procedure(s): CT chest w IV con Accession Number(s): [id number] cc: Catarina Davis MD; Carin Nazario MD Report Number: [id number]: Total DLP = 144.00 mGy-cm EXAMINATION: CT CHEST WITH IV CONTRAST INDICATION: R13.10 - Dysphagia, unspecified COMPARISON: [place] is made with the prior examination dated 12/18/2023. TECHNIQUE: Helical CT scan of the chest was performed following administration of intravenous contrast. Coronal and sagittal reformatted images were generated and reviewed. This CT exam was performed with one or more of the following dose reduction techniques: automated exposure control, adjustment of the mA and/or kV according to patient size, use of iterative reconstruction technique. DLP: 144 mGy-cm CHEST: THYROID: The thyroid is unremarkable. LUNGS: The lungs are clear. MEDIASTINUM: There is no mediastinal lymphadenopathy. EVANGELINA: There is no hilar lymphadenopathy. CARDIOVASCULATURE: The heart is normal in size. There is no pericardial effusion. The thoracic aorta is normal in caliber. DEGREE OF CORONARY CALCIFICATION: none PLEURA: There is no pleural effusion. No pneumothorax. MAIN AIRWAYS: The mainstem bronchi and proximal branches are patent. AXILLA: There is no axillary lymphadenopathy. BONES AND SOFT TISSUES: Bilateral breast implants are again noted. The bones are intact. UPPER ABDOMEN: The visualized portions of the liver, spleen, and adrenals are unremarkable. CT/CT chest w IV con IMPRESSION: Unremarkable contrast-enhanced CT of the chest. Electronically signed by: Corby Johnson MD 05/14/2025 03:01 PM EDT Dictated By: Corby Johnson MD Signed By: <Electronically signed by Corby Johnson MD in [place]> 05/14/25 1501 DD/ 1407 TD/TT: 05/14/25 1448 Glass Deposition Tender: [facility] External Provider IMG CT PROCEDURES Final Result * POCT HGB A1C (05/06/2025 12:20 PM EDT) Hemoglobin A1C 5.6 4.0 - 5.7 % QC Media Lot # [id number] Lot# Expiration Date ,891 Blood 05/06/2025 12:2 0 PM EDT Catarina Davis MD POINT OF CARE TEST ENTER /EDIT ORDERABLES Final Result * POCT Glucose (05/06/2025 12:20 PM EDT) Glucose Blood, POC 117 60 - 200 mg/dL Blood Capillary blood specimen / Unknown 05/06/2025 12:20 PM EDT Result [facility] Catarina Davis MD POINT OF CARE TEST ENTER /EDIT ORDERABLES Final Result * POCT FLORENTIN-14 Urine Drug Screen (04/15/2025 11:40 AM EDT) THC Negative Negative Cocaine Screen, Urine Negative Negative Opiate Screen, Urine Negative Negative Methamphetamine Screen Urine Negative Negative Amphetamine Screen, Urine Negative Negative Benzodiazepines Screen, Urine Negative Negative Barbiturate Screen, Urine Negative Negative Methadone Screen, Urine Negative Negative Buprenophine Screen, Urine Negative Negative TCA, Urine Negative Negative MDMA Urine Negative Negative ng/mL Oxycodone Screen, Urine Negative Negative Phencyclidine (PCP), Urine Negative Negative Propoxyphene, Urine Negative Negative Fentanyl, Urine Negative Negative Urine Urine specimen obtained by clean catch procedure / Unknown 04/15/2025 11:40 AM EDT Day Fuchs RN - 04/15/2025 11:40 AM EDT UTOX cup Lot#[id number] Exp. 07/13/26 Internal Pass Control Catarina Davis MD POINT OF CARE TEST ENTER /EDIT ORDERABLES Final Result * Hematoxylin and Eosin Stain (03/11/2025 9:08 AM EDT) 03/11/2025 9:08 AM EDT 03/11/2025 10:01 AM EDT [facility] - 03/12/2025 3:26 PM EDT ----- ------- Name: HoyosMaya Age/Sex: 44/F : 1980 Unit#: [id number] Attend Dr: Carin Nazario MD Re03/11/25 Status: [facility] Location: [facility] Disch: ----- ------- SPEC : [id number] RECD: 03/11/25-100 STATUS: MIRANDA REMono NUM: [id number] NIMO: 03/11/25-907 [facility] DR: Carin Nazario MD ENTERED: 03/11/25-1010 SP TYPE: Surgical OTHR DR: Catarina Davis MD ORDERED: HE Stain/12, Gross Micro L4/4, IHC, Special st. 2/4, H. pylori, AB/PAS/4 Diagnosis A. Duodenum, biopsy: Duodenal mucosa within normal limits; preserved villous architecture and no increased intraepithelial lymphocytes seen. B. Stomach, random, biopsy: Gastric antral and body mucosa within normal limits; negative for Helicobacter pylori, intestinal metaplasia and dysplasia. C. Esophagus, lower, biopsy: Squamous mucosa within normal limits; negative for inflammation (including intraepithelial eosinophils), fungal organisms, intestinal metaplasia and dysplasia. D. Esophagus, middle, biopsy: Squamous mucosa within normal limits; negative for inflammation (including intraepithelial eosinophils), fungal organisms, intestinal metaplasia and dysplasia. Clinical History Pre-Op Dx: Dysphagia, unspecified Post-Op Dx: Cricoid pharyngeal stenosis Microscopic Description A-D. Microscopic sections examined. No metaplastic changes are seen, supported by AB/PAS stains (A-D); no Helicobacter organisms are seen, supported by H. pylori immunostain (B). Material Received A. Duodenum bx's B. Random gastric bx's C. Lower esophagus bx's D. Middle esophagus bx's Gross Description Received in four parts. Part A: Received in formalin labeled duodenum bx's are three lemons-pink irregular tissue fragments ranging from 0.15-0.3 cm, submitted in toto in a cassette labeled A. Part B: Received in formalin labeled random gastric bx's are four lemons-pink irregular and rectangular tissue fragments ranging from 0.25-0.35 cm, submitted in toto in a cassette labeled B. CONTINUED ON NEXT PAGE ----- ------- Name: Maya Hoyos Age/Sex: 44/F : 1980 Unit#: [id number] Attend Dr: Carin Nazario MD Re03/11/25 Status: [facility] Location: [facility] Disch: ----- ------- SPEC : [id number] RECD: 03/11/25 STATUS: MIRANDA KIMBALL NUM: [id number] NIMO: 03/11/25 [facility] [address]: Carin Nazario MD ENTERED: 03/11/251010 SP TYPE: Surgical OTHR DR: Catarina Davis MD ORDERED: HE Stain/12, Gross Micro L4/4, IHC, Special st. 2/, H. pylori, AB/PAS/4 Gross Description (Continued) Part C: Received in formalin labeled lower esophagus bx's are four carver-white rectangular tissue fragments ranging from 0.25-0.35 cm, submitted in toto in a cassette labeled C. Part D: Received in formalin labeled middle esophagus bx's are five carver-white and carver- pink irregular tissue fragments ranging from 0.1 to 0.2 cm, submitted in toto in a cassette labeled D. CEDS Special stains ordered and performed: AB/PAS on A-D; immunostain for H pylori on B. IHC S/NG Disclaimer NOTE: Unless otherwise stated, all tissue is formalin-fixed and paraffin-embedded. Some or all of the immunohistochemical tests reported herein may have been developed and their performance characteristics determined by [facility]. They have not been cleared or approved by the U.S. Food and Drug Administration (FDA). However, the FDA has determined that such clearance or approval is not necessary. This laboratory is certified under the Clinical Laboratory Improvement Amendments of 1988 (CLIA) as qualified to perform high complexity clinical laboratory testing. Copies To: Catarina Davis MD [address] [address] Carin Nazario MD [facility] [address] [place] [id number] [email or web address] ------- Signed (signature on file) Parisa Jolly MD 03/12/25 1526 ----- ------- END OF REPORT Generic External Data Provider LAB BLOOD ORDERAB LES Final Result Performing Organization Address [facility] Co de Phone Number [facility] [address] [place] [phone] * HCG, Qualitative, Urine (03/11/2025 8:00 AM EDT) Pathologist [facility] Urine NEGATIVE NEGATIVE [facility] Comment:This test was develo ped to detect early . Falsenegative results may occur after the 5th - 7th week ofpregnancy when using this test method. If clinicallyindicated, consider a serum hCG. 03/11/2025 8:00 AM EDT 03/11/2025 8:04 AM EDT [employer] External Data Provider LAB URINE ORDERAB LES Final Result Performing Organization Address [facility] Co de Phone Number [facility] [address] [place] [phone] * Mammography (11/21/2024) Pathologist [facility] Mammogram Normal Normal, Abnormal, BIRADS 1 , BIRADS 2 Anatomical Region Laterality Modality Other Catarina Davis MD HEALTH MAINTENANCE Final Result * Lipid Panel with Reflex to Direct LDL (08/19/2024 9:00 AM EST) Triglycerides 29 <150 mg/dL [facility] Comment:Desirable Triglyceri de: less than 150 mg/dLBorderline High Triglyceride 150-199 mg/dLHigh Triglyceride: 200-499 mg/dLVery High Triglyceride: greater than or equal to 5OO mg/dL Cholesterol 112 <200 mg/dL [facility] Comment:Desirable Cholestero l: less than 200 mg/dLBorderline High Cholesterol: 200-239 mg/dLHigh Cholesterol: greater than 239 mg/dL LDL Cholesterol Calculated 56 <100 mg/dL [facility] Comment:Desirable LDL: less than 100 mg/dLNear Optimal/Above Optimal LDL: 110- 129 mg/dLBorderline High LDL: 130-159 mg/dLHigh LDL: 160-189 mg/dLVery High LDL: greater than or equal to 190 mg/dL HDL Cholesterol 51 >40 mg/dL [facility] Comment:Desirable HDL: great er than 40 mg/dL Note: This HDL assay may give artificially low results in patients with liver disease. Blood 08/19/2024 9:00 AM EST 08/19/2024 10:46 AM EST us Catarina Davis MD LAB BLOOD ORDERABLES Fin al Result [facility] [address] [place] [phone] * (ABNORMAL) Hepatitis Panel, General (01/10/2023 9:11 AM EDT) Hepatitis A Antibody Total NON-REACT ANDREE NON-REACT ANDREE [facility] [place] [facility] Comment: For additional information, please refer to http://education.[employer]/faq/YCN977 (This link is being provided for informational/ educational purposes only.) Hepatitis B Surface Antibody QL REACTIVE( A) NON-REACT ANDREETiantian. com [place] [facility] Hepatitis B Surface Ag NON-REACT ANDREE NON-REACT ANDREETiantian. com [place] [facility] Hepatitis B Core Antibody Total NON-REACT ANDREE NON-REACT ANDREEMedical Solutions[facility] Hepatitis C Antibody NON-REACT ANDREE NON-REACT ANDREE [facility] [place] [facility] Index 0.21 <1.00 [facility] [place] [facility] Comment: HCV antibody was non-reactive. There is no laboratory evidence of HCV infection. In most cases, no further action is required. However, if recent HCV exposure is suspected, a test for HCV RNA (test code 92864) is suggested. For additional information please refer to http://ActualSun.[employer] Systems/faq/ZQP75x3 (This link is being provided for informational/ educational purposes only.) 01/10/2023 9:11 AM EDT 01/10/2023 9:12 AM EDT Narrative [facility] - 01/10/2023 8:56 PM EDT FASTING:YES FASTING: YES us Catarina Davis MD LAB BLOOD ORDERABLES Fin al Result [facility] [address], [place] [address] [facility] [place] [facility] [address] [place] [address] * HIV-1/2 Antigen and Antibodies, Fourth Generation, with Reflexes (01/10/2023 9:11 AM EDT) HIV Antigen/Antibody, 4th Generation NON-REAC TIVE NON-REAC TIVE [facility] [place] [facility] Comment: HIV-1 antigen and HIV-1/HIV-2 antibodies were not detected. There is no laboratory evidence of HIV infection. PLEASE NOTE: This information has been disclosed to you from records whose confidentiality may be protected by state law. If your state requires such protection, then the state law prohibits you from making any further disclosure of the information without the specific written consent of the person to whom it pertains, or as otherwise permitted by law. A general authorization for the release of medical or other information is NOT sufficient for this purpose. For additional information please refer to http://ActualSun.[employer]/faq/NES599 (This link is being provided for informational/ educational purposes only.) The performance of this assay has not been clinically validated in patients less than 2 years old. Blood Venous blood specimen / Unknown 01/10/2023 9:11 AM EDT 01/10/2023 9:12 AM EDT Narrative [facility] - 01/10/2023 8:56 PM EDT FASTING:YES FASTING: YES Catarina Davis MD LAB BLOOD ORDERABLES Fin al Result [address], [place] [address] [facility] [address] [place] [phone] * Thinprep TIS PAP And HPV mRNA E6/E7 With Reflex To HPV 16,18/45 (09/24/2022 3:53 PM EST) Clinical Information: None given [facility] LMP: NONE GIVEN [facility] Prev. PAP: NONE GIVEN [facility]ulu Prev. BX: NONE GIVEN [facility] SOURCE: None given Nulu Statement Of Adequacy: Nulu Comment: Satisfactory for evaluation. Endocervical/transformation zone component absent. Age and/or menstrual status not provided Interpretation/ Result: Negative for intraepithelial lesion or malignancy. [facility] COMMENT: This Pap test has been evaluated with computer assisted technology. [facility]ulu Cytotechnologis t: Nulu Comment: BK,CT(ASCP) CT screening location: [address] (Always Message) Nulu Comment: EXPLANATORY NOTE: The Pap is a [...] HPV nRNA E6/E7 Not Detected Not Detected [facility] Comment: Methodology: [employer] Sales Representative-Mediated Amplification This assay detects E6/E7 viral messenger RNA (mRNA) from 14 high-risk HPV types (16,18,31,33,35,39,45,51,52,56,58,59,66,68). Cervical sources are required for HPV testing. If a vaginal source from a patient who has had a total hysterectomy with removal of cervix was submitted, please contact the testing laboratory for alternative testing options. For additional information, please refer to http://education.[employer] Environmental Systems/faq/VRI732q8 (This link if provided for information/ educational purposes only.) 09/24/2022 3:53 PM EST 09/25/2022 10:09 AM EST Narrative [facility] - 09/28/2022 3:45 PM EST FASTING: UNKNOWN Catarina Davis MD LAB PATHOLOGY ORDERABLES Final Result Performing Organization Address [facility] Co de Phone Number [employer] [address] [place] [address], [place] [address] [employer] [address] [place] [address], (Nl1) [place] [address] * ALBUMIN, RANDOM URINE W/CREATININE (05/23/2021 1:55 PM EDT) Microalbumin Urine 0.2 See Note: mg/dL [facility] Comment: Reference Range: Reference Range Not established Microalb/Creat Ratio 3 <30 mcg/mg creat [facility] Comment: The ADA defines abnormalities in albumin excretion as follows: Category Result (mcg/mg creatinine) Normal <30 Microalbuminuria 30-299 Clinical albuminuria > OR = 300 The ADA recommends that at least two of three specimens collected within a 3-6 month period be abnormal before considering a patient to be within a diagnostic category. Creatinine, Urine 71 20 - 275 mg/dL [facility] 05/23/2021 1:55 PM EDT Catarina Davis MD LAB URINE ORDERABLES Fin al Result Performing Organization Address [facility] Co de Phone Number [facility] [address] from Last 3 Months or Most Recently Relevant to Health Maintenance Insurance [place] [facility] MEDICAID STAND ADULT Care Teams Asset Protection Associate Relationship Specialty Start Date End Date Catarina Davis MD [address] [place] [phone] PCP - General Family Medicine 10/15/17
--- OUTSIDE RECORDS SUMMARY | 2025-06-02 08:55 | XMS_ITS | Encounter Summary ---
Author Organization [employer] Address [address] [place] [address] 7 [place] [address] Care Team Providers Care Waterfront Director Name Role Phone Catarina Davis MD Primary Care Provider + Encounter Details Date Type Department Care Team (Latest Contact Info) Description 03/19/2019 Abstract [facility] CONVERSIONS Dental, Provider, DDS Social [...] Description 06/22/2025 11:30 AM EDT Clinical Support [facility] MEDICINE [address] [place] [phone] Day Smith RN 07/09/2025 9:00 AM EDT Procedure Visit [facility] MEDICINE [address] [place] [phone] Catarina Davis MD [address] [place] [phone] documented as of this encounter Visit Diagnoses Not on filedocumented in this encounter Care Teams Waterfront Director Relationship Specialty Start Date End Date Catarina Davis MD [address] [place] [phone] PCP - General Family Medicine 10/15/17 documented as of this encounter
--- OUTSIDE RECORDS SUMMARY | 2025-06-02 08:55 | XMS_ITS | Encounter Summary ---
Author Organization [employer] Address [address] [facility] 7t [place] [address] Care Team Providers Care Cleaner Name Role Phone Catarina Davis MD Primary Care Provider + Reason for Visit * Reason Comments Med Refill Encounter Details Date Type Department Care Team (Late st Contact Info) Description 08/14/2023 Refill [facility] MEDICINE [address] [place], [place] [phone] Catarina Davis MD [address] [place], [place] [phone] Neck sprain, sequela Social History Tobacco Use [...] Description 06/22/2025 11:30 AM EDT Clinical Support [facility] MEDICINE [address] [place] [phone] Day Smith RN 07/09/2025 9:00 AM EDT Procedure Visit [facility] MEDICINE [address] [place] [phone] Catarina Davis MD [address] [place] [phone] documented as of this encounter Visit Diagnoses Diagnosis Neck sprain, sequela documented in this encounter Additional Health Concerns Assessment Noted Time PHQ-9 Depression Total Score: 0 12/29/19 23 1:22 PM EDT documented as of this encounter Care Teams Cleaner Relationship Specialty Start Date End Date Catarina Davis MD [address] [place] [phone] PCP - General Family Medicine 10/15/17 documented as of this encounter
--- OUTSIDE RECORDS SUMMARY | 2025-06-02 08:55 | XMS_ITS | Encounter Summary ---
Author Organization [employer] Address [address] [facility] 7 [place] [address] Care Team Providers Care Cooker Mechanic Name Role Phone Catarina Davis MD Primary Care Provider + Reason for Visit * Reason Onset Date Comments FYI 11/01/2023 Encounter Details Date Type Department Care Team ([facility] st Contact Info) Description 11/01/2023 Telephone [facility] MEDICINE [address] [place], [place] [phone] Catarina Davis MD [address] [place], [place] [phone] FYI Social History Tobacco Use Types Packs/Day [...] Description 06/22/2025 11:30 AM EDT Clinical Support [facility] MEDICINE [address] [place] [phone] Day Smith RN 07/09/2025 9:00 AM EDT Procedure Visit [facility] MEDICINE [address] [place] [phone] Catarina Davis MD [address] [place] [address] documented as of this encounter Visit Diagnoses Not on filedocumented in this encounter Additional Health Concerns Assessment Noted Time PHQ-9 Depression Total Score: 0 12/29/19 23 1:22 PM EDT documented as of this encounter Care Teams Cooker Mechanic Relationship Specialty Start Date End Date Catarina Davis MD [address] [place] [phone] PCP - General Family Medicine 10/15/17 documented as of this encounter
--- OUTSIDE RECORDS SUMMARY | 2025-06-02 08:55 | XMS_ITS | Clinical Summary ---
Author Organization [facility], Address [address] [place] [address] [place] [address] Phone Care Team Providers Care Precision Farming Coordinator Name Role Phone Catarina Davis MD Primary [...] PRA OR INSOMNIA Duration: 30 7 Active Ventolin HFA 108 (90 Base) MCG/ACT inhaler INHALE 2 PUFFS EVERY 4 HOURS NEEDED FOR WHEEZING OR SHORTNESS OF BREATH. 3 Active fluticasone (FLONASE) 50 MCG/ACT nasal spray INSTILL 1 SPRAY IN EACH NOSTRIL ONCE DAILY IN THE MORNING. 3 Active Active Problems Problem Noted Date [...] Visit [facility], [address] [place] [address] Alfonso Wharton MD [address] [place] [phone] Health Maintenance Due Date Last Done Comments Hepatitis B Vaccine (1 of 3 - 19+ 3-dose series) 1999 Diabetes: Ophthalmology Exam 01/08/2020 Diabetes: Pedal Pulse Checked 01/08/2020 Diabetes: Sensory Foot Exam 01/08/2020 Diabetes: Visual Foot Exam 01/08/2020 Diabetes: Hemoglobin A1C 08/22/2024 05/22/2024, 12/06 Influenza Vaccine (#1) 2025 4, 06/13/2023, 06/29/2022, Additional history exists Pneumococcal Vaccine: 50+ Years Discontinued 4, 06/26/2018 Pneumococcal Vaccine: Peds ( 0 to 5 Years) and At-Risk Patients (6 to 49 Years) Completed 08/20/2024, 06/26/2018 Insurance Medicaid [place] Care Teams Precision Farming Coordinator Relationship Specialty Start Date End Date Catarina Davis MD [address] [place] [phone] PCP - General 08/11/19
--- OUTSIDE RECORDS SUMMARY | 2025-06-02 08:55 | XMS_ITS | Encounter Summary ---
Author Organization [facility] Address [address] [facility] [address] [place] [address] Phone Care Team Providers Care Renewable Energy Project Manager Name Role Phone Catarina Davis MD Primary Care Provider [phone] Encounter Details Date Type Department Care Team (Late st Contact Info) Description 01/11/2023 Documentation Only [facility] [address] [place] [address] Smooth Almonte MD [address] [place] [address] [place] [address] Social History Tobacco Use Types [...] Visit [facility] [address] [place] [address] Alfonso Wharton MD [address] [place] [address] [place] [address] documented as of this encounter Visit Diagnoses Not on filedocumented in this encounter Care Teams Renewable Energy Project Manager Relationship Specialty Start Date End Date Catarina Davis MD [address] [place] [address] [phone] PCP - General 08/11/19 documented as of this encounter
== END 2025-06-02 09:29 | disposition home or self-care (01) ==
PROVIDERS: PCP Internal Medicine; Visit Provider Orthopaedic Surgery
DX: M17.0 Bilateral primary osteoarthritis of knee (principal)
CPT/HCPCS: 20610; 99213

== ENCOUNTER → 2025-06-02 08:32 | Outpatient (BNVA) | payer MEDICAID, SELFPAY | PROVIDERS: PCP Internal Medicine; Visit Provider Orthopaedic Surgery | DX: M17.11 Unilateral primary osteoarthritis, right knee (principal); M17.12 Unilateral primary osteoarthritis, left knee | CPT/HCPCS: 20610; 99212; J2003; J7323 ==

== ENCOUNTER 2025-06-09 08:09 | Outpatient (AMB) | payer MEDICAID, SELFPAY ==
--- NOTE | 2025-06-09 08:14 | MHC.OFFVIS ---
Intake Visit Reasons: Inj- Gabriel knee knee Euflexxa #2 Intake Note: Maya is a 45 year old female who presents today for an injection in her Bilateral knee, Euflexxa #2. Patient states that the last injections did give some relief but wore off. She continues with her exercise program. Allergies cephalexin (From KEFLEX) Allergy (Intermediate, Verified 06/09/25 08:18) RASH formoterol (From Dulera) Adverse Reaction (Intermediate, Verified 06/09/25 08:18) Unknown mometasone furoate (From Dulera) Adverse Reaction (Intermediate, Verified 06/09/25 08:18) Unknown Medication List - Last Reconciled 06/09/25 by Aram Lewis MD acetaminophen ER 650 mg PO Q8H PRN albuterol sulfate 90 mcg/actuation (Ventolin HFA) 2 puffs inhalation Q4H PRN betamethasone valerate 0.1% appl topical BID fexofenadine (Allergy Relief (fexofenadine)) mg PO fluticasone propion-salmeterol 115-21 mcg/actuation (Advair HFA) 2 puffs inhalation Q12H gabapentin 300 mg PO BEDTIME loratadine 10 mg PO DAILY omeprazole 20 mg PO DAILY Held on 03/11/25. Instructions: Cont to hold off, can review further use based on biopsy results. tizanidine mg PO BID tramadol 50 mg PO TID PRN zolpidem 10 mg PO BEDTIME PFSH Medical History Kidney anomaly, congenital Dysphagia Arthritis Asthma Surgical History Hx of tonsillectomy History of carpal tunnel release of both wrists Hx laparoscopic cholecystectomy Hx of hand surgery History of breast reconstruction Hx of abdominoplasty Hx of section History of esophagogastroduodenoscopy (EGD) Family History Maternal Aunt Breast CA Social History Alcohol intake: current Alcohol intake frequency: holidays/special occasions only Patient Tobacco Use Status: Current everyday Tobacco user Tobacco use type: Cigarette Cigarettes Per Day: 2 Years Smoked: quit 12/14/24 service: No Current occupational status: unemployed Physical Exam Extrem Other: Bilateral knee examination shows minimal effusions, palpable crepitus with range of motion, pain with range of motion, no instability Office Procedures AMB Joint Injection/Aspiration Joint Injection/Aspiration Primary Site: right knee Prep: site was prepped using aseptic technique Injected: 20 mg of (Euflexxa viscosupplementation) and 1% plain lidocaine Procedure: The patient tolerated the procedure well Coding - Large joint Procedure code (CPT) selection complete AMB Joint Injection/Aspiration Joint Injection/Aspiration Primary Site: left knee Prep: site was prepped using aseptic technique Injected: 20 mg of (Euflexxa viscosupplementation) and 1% plain lidocaine Procedure: The patient tolerated the procedure well Coding - Large joint Procedure code (CPT) selection complete Assessment & Plan Assessment & Plan (1) Osteoarthritis of left knee: Code(s): M17.12 - Unilateral primary osteoarthritis, left knee Category: Medical (2) Osteoarthritis of right knee: Code(s): M17.11 - Unilateral primary osteoarthritis, right knee Category: Medical Plan Ms. Hoyos presents with bilateral knee pains due to osteoarthritis. The risks and benefits of a 2nd set of Euflexxa viscosupplementation injections were discussed at length with the patient. The patient wished to proceed. She tolerated the injections well. She will continue with her exercise program. She will follow up next week as scheduled. Feel free to call me at any time should questions regarding her orthopedic management arise. Orders: Orders AMB Joint Injection/Aspiration Today M17.12 - Unilateral primary osteoarthritis, left knee AMB Joint Injection/Aspiration Today M17.11 - Unilateral primary osteoarthritis, right knee Coding Level of Care Code Procedure Only Diagnoses Osteoarthritis of left knee M17.12 Osteoarthritis of right knee M17.11 CPT Codes Coding - 75363 Large joint: 69559 - Large joint ([id number]) Coding - 50997 Large joint: 34539 - Large joint ([id number])
--- OUTSIDE RECORDS SUMMARY | 2025-06-09 08:39 | XMS_ITS | Clinical Summary ---
Author Organization [employer] Address [address] [place] [address] 7t h Floor [place] [phone] Care Team Providers Care Senior Mortgage Loan Processor Name Role Phone Catarina Davis MD Primary [...] to 28 days. 112 tablet 05/11/20 25 Active traMADol (Ultram) 50 MG tabletIndicati ons:Chronic midline low back pain, unspecified whether sciatica present Take 1 tablet (50 mg) by mouth every 6 (six) hours if needed for severe pain for up to 28 days. 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) (Primary Dx); Regular astigmatism of both eyes; Dry eyes 05/25/2025 Travel 05/14/2025 Orders Only [facility] External Provider, [facility] 05/11/2025 Refill [facility] [address] [place] [address] Catarina Davis MD Chronic midline low back pain, unspecified whether sciatica present 05/06/2025 12:00 PM EDT Office Visit [facility] [address] [place] [address] Catairna Davis MD Pre-hypertension (Primary Dx); Type 2 diabetes mellitus without complication, without long-term current use of insulin (CMS/HCC); Dermatitis; Cervical paraspinal muscle spasm 05/06/2025 Travel 04/26/2025 Patient Outreach [facility] [address] [place] [address] Catarina Davis MD Pre-visit Planning (SDOH screening negative and tobacco screening positive) 04/15/2025 11:30 AM EDT Clinical Support [facility] [address] [place] [address] Day Smith, RN Long-term current use of opiate analgesic (Primary Dx) 04/15/2025 Travel 04/08/2025 Refill [facility] [address] [place] [address] Day Smith, manager web application midline low back pain, unspecified whether sciatica present 04/08/2025 Telephone [facility] [address] [place] [phone] Catarina Davis MD Telephone call 03/23/2025 Telephone [facility] [address] [place] [address] Catarina Davis MD Medication Question 03/11/2025 Orders Only GENERIC EXTERNAL DATA DEPARTMENT Provider, Generic External Data from Last 3 Months Immunizations Immunization Administration [...] Description 06/22/2025 11:30 AM EDT Clinical Support [facility] [address] [place] [phone] Day Smith RN 07/09/2025 9:00 AM EDT Procedure Visit [facility] [address] [place] [address] [phone] Catarina Davis MD [address] [place] [address] Health Maintenance Due Date Last Done Comments [...] Dental X-Ray: Full Mouth 05/01/2022 04/30/2019, 11/03/2014 COVID-19 Vaccine ( season) 2024 09/25/2022, 11/15/2021, 05/16/2021, Additional history exists Influenza Vaccine (#1) 2025 , 06/13/2023, 06/29/2022, Additional history exists Lipid Panel 08/19/2025 08/19/2024, 040 03/2023, 05/23/2021 Diabetes: Hemoglobin A1C 11/06/2025 025, [...] use of insulin (CMS/HCC) POCT GLUCOSE Routine 05/06/2025 12:20 PM EDT Type 2 diabetes mellitus without complication, without long-term current use of insulin (CMS/HCC) POCT FLORENTIN-14 URINE DRUG SCREEN Routine 04/15/2025 [...] PM EDT Narrative 05/14/2025 3:03 PM EDT [place] [address] [place] Scan Report Signed Patient: Maya Hoyos MR#: [id number] 13 : 1980 Acct:[id number] Age/Sex: 45 / F ADM Date: 05/14/25 Loc: HO.CT Attending Dr: Carin Nazario MD Ordering Physician: Carin Nazario MD Date of Service: 05/14/25 Procedure(s): CT chest w IV con Accession Number(s): [id number] cc: Catarina Davis MD; Carin Nazario MD Report Number: [id number]: Total DLP = 144.00 mGy-cm EXAMINATION: CT [...] Corby Johnson MD 05/14/2025 03:01 PM EDT RP Dictated By: Corby Johnson MD Signed By: <Electronically signed by Corby Johnson MD in OV> 05/14/25 1501 DD/ 1407 TD/TT: 05/14/25 1448 Rehabilitation Liaison: Procedure Note Donotuseinterpreter, Image - 05/14/[address] [place] [address] [address] Scan Report Signed Patient: Monica HoyosUTR#: [id number] 13 : 1980Acct:[id number] Age/Sex: 45 / FADM Date: 05/14/25 Loc: .CT Attending Dr: Carin Nazario MD Ordering Physician: Carin Nazario MD Date of Service: 05/14/25 Procedure(s): CT chest w IV con Accession Number(s): [id number] cc: Catarina Davis MD; Carin Nazario MD Report Number: [id number]: Total DLP = 144.00 mGy-cm EXAMINATION: CT [...] clear. MEDIASTINUM: There is no mediastinal lymphadenopathy. EVANGLEINA: There is no hilar lymphadenopathy. CARDIOVASCULATURE: The [...] 05/14/25 1501 DD/ 1407 TD/TT: 05/14/25 1448 Rehabilitation Liaison: [facility] External Provider IMG CT PROCEDURES Final Result * POCT HGB A1C (05/06/2025 12:20 PM EDT) Hemoglobin A1C 5.6 4.0 - 5.7 % QC Media Lot # [id number] Lot# Expiration Date [id number] Blood 05/06/2025 12:2 0 PM EDT Catarina Davis MD POINT OF CARE TEST ENTER /EDIT ORDERABLES Final Result * POCT Glucose (05/06/2025 12:20 PM EDT) Glucose Blood, POC 117 60 - 200 mg/dL Blood Capillary blood specimen / Unknown 05/06/2025 12:20 PM EDT Catarina Davis MD POINT OF [...] - 04/15/2025 11:40 AM EDT UTOX cup Lot#[id number] Exp. 07/13/26 Internal Pass Control Catarina Davis MD POINT OF CARE TEST ENTER /EDIT ORDERABLES Final Result * Hematoxylin and Eosin Stain (03/11/2025 9:08 AM EDT) 03/11/2025 9:08 AM EDT 03/11/2025 10:01 AM EDT C[facility] - 03/12/2025 3:26 PM EDT ----- ------- Name: Maya Hoyos Age/Sex: 44/F : 1980 Unit#: [id number] Attend Dr: Carin Nazario MD Re03/11/25 Status: [facility] Location: [facility] Disch: ----- ------- SPEC : [id number] RECD: 03/11/25-1001 STATUS: MIRANDA KIMBALL NUM: [id number] NIMO: 03/11/25-0908 [facility] DR: Carin Nazario MD ENTERED: 03/11/25-1010 SP TYPE: Surgical OTHR DR: Catarina Davis MD ORDERED: HE Stain/12, Gross Micro L4/4, IHC, Special st. 2/, H. pylori, AB/PAS/4 Diagnosis A. Duodenum, biopsy: [...] Maya Hoyos Age/Sex: 44/F : 1980 Unit#: [id number] Attend Dr: Carin Nazario MD Re03/11/25 Status: [facility] Location: [facility] Disch: ----- ------- SPEC : [id number] RECD: 03/11/25-1001 STATUS: MIRANDA KIMBALL NUM: [id number] NIMO: 03/11/25-0908 [facility] DR: Carin aNzario MD ENTERED: 03/11/25-1010 SP TYPE: Surgical OTHR DR: Catarina Davis MD ORDERED: HE Stain/12, Gross Micro L4/4, IHC, Special st. 2/4, H. pylori, AB/PAS/4 Gross Description (Continued) Part [...] developed and their performance characteristics determined by [facility]. They have not been cleared or approved by the U.S. Food and Drug Administration (FDA). However, the FDA has determined that such clearance or approval is not necessary. This laboratory is certified under the Clinical Laboratory Improvement Amendments of 1988 (CLIA) as qualified to perform high complexity clinical laboratory testing. Copies To: Catarina Davis MD [address] [phone] Carin Nazario MD [facility] [address] [place] [phone] [email or web address] Int ----- ------- Signed (signature on file) Parisa Jolly MD 03/12/25 1526 ----- ------- END OF REPORT us Generic External Data Provider LAB BLOOD ORDERAB LES Final Result [facility] [address] [place] [address] [phone] * HCG, Qualitative, Urine (03/11/2025 8:00 AM EDT) Urine NEGATIVE NEGATIVE [facility] Comment:This test was develo ped to detect early . Falsenegative results may occur after the 5th - 7th week ofpregnancy when using this test method. If clinicallyindicated, consider a serum hCG. 03/11/2025 8:00 AM EDT 03/11/2025 8:04 AM EDT us Generic External Data Provider LAB URINE ORDERAB LES Final Result [facility] [address] [place] [phone] * Mammography (11/21/2024) Mammogram Normal Normal, Abnormal, BIRADS 1 , BIRADS 2 Anatomical Region Laterality Modality Other us Catarina Davis MD HEALTH MAINTENANCE Final Result * Lipid Panel with Reflex to Direct LDL (08/19/2024 9:00 AM EST) Triglycerides 29 <150 mg/dL [facility] Comment:Desirable Triglyceri de: less than 150 mg/dLBorderline High Triglyceride 150-199 mg/dLHigh Triglyceride: 200-499 mg/dLVery High Triglyceride: greater than or equal to 5OO mg/dL Cholesterol 112 <200 mg/dL [facility] Comment:Desirable Cholestero l: less than 200 mg/dLBorderline High Cholesterol: 200-239 mg/dLHigh Cholesterol: greater than 239 mg/dL LDL Cholesterol Calculated 56 <100 mg/dL [facility] Comment:Desirable LDL: less than 100 mg/dLNear Optimal/Above Optimal LDL: 110- 129 mg/dLBorderline High LDL: 130-159 mg/dLHigh LDL: 160-189 mg/dLVery High LDL: greater than or equal to 190 mg/dL HDL Cholesterol 51 >40 mg/dL [facility] Comment:Desirable HDL: great er than 40 mg/dL Note: This HDL assay may give artificially low results in patients with liver disease. Blood 08/19/2024 9:00 AM EST 08/19/2024 10:46 AM EST Catarina Davis MD LAB BLOOD ORDERABLES Fin al Result Performing Organization Address City/[facility]/ZIP Co de Phone Number [facility] [address] [place] [phone] * (ABNORMAL) Hepatitis Panel, General (01/10/2023 9:11 AM EDT) Hepatitis A Antibody Total NON-REACT ANDREE NON-REACT ANDREE [facility] [address] [place] [employer] Comment: For additional information, please refer to http://[employer] [facility] [facility].NanoPack/faq/YDO499 (This link is being provided for informational/ educational purposes only.) Hepatitis B Surface Antibody QL REACTIVE( A) NON-REACT ANDREE [facility] [place] [facility] Hepatitis B Surface Ag NON-REACT ANDREE NON-REACT ANDREE [facility] [address] [place] [facility] Hepatitis B Core Antibody Total NON-REACT ANDREE NON-REACT ANDREE [facility] [place] [facility] Hepatitis C Antibody NON-REACT ANDREE NON-REACT ANDREE [facility] Index 0.21 <1.00 [facility] [address] [place] [employer] Comment: HCV antibody was non-reactive. There is no laboratory evidence of HCV infection. In most cases, no further action is required. However, if recent HCV exposure is suspected, a test for HCV RNA (test code 21611) is suggested. For additional information please refer to http://[employer] [facility] [facility].NanoPack/faq/WAY89o4 (This link is being provided for informational/ educational purposes only.) 01/10/2023 9:11 AM EDT 01/10/2023 9:12 AM EDT Narrative [facility] - 01/10/2023 8:56 PM EDT FASTING:YES FASTING: YES Catarina Davis MD LAB BLOOD ORDERABLES Fin al Result Performing Organization Address City/[facility]/ZIP Co de Phone Number [facility] [address], [place] [address] [facility] [address] [place] [facility] [employer] [facility] [address] [place] [address] * HIV-1/2 Antigen and Antibodies, Fourth Generation, with Reflexes (01/10/2023 9:11 AM EDT) HIV Antigen/Antibody, 4th Generation NON-REAC TIVE NON-REAC TIVE [facility] [place] [facility] Comment: HIV-1 antigen and HIV-1/HIV-2 antibodies [...] purpose. For additional information please refer to http://education.NanoPack/faq/PDQ822 (This link is being provided for informational/ educational purposes only.) The performance of this assay has not been clinically validated in patients less than 2 years old. Blood Venous blood specimen / Unknown 01/10/2023 9:11 AM EDT 01/10/2023 9:12 AM EDT Merged With [facility] - 01/10/2023 8:56 PM EDT FASTING:YES FASTING: YES Catarina Davis MD LAB BLOOD ORDERABLES Fin al Result [facility] [address], [place] [address] [facility] [address] [place] [facility] [address] [place] [address] * Thinprep TIS PAP And HPV mRNA E6/E7 With Reflex To HPV 16,18/45 (09/24/2022 3:53 PM EST) Clinical Information: None given [facility] LMP: NONE GIVEN [facility] Prev. PAP: NONE GIVEN [facility] Prev. BX: NONE GIVEN [facility] SOURCE: None given [facility] Statement Of Adequacy: [facility] Comment: Satisfactory for evaluation. Endocervical/transformation zone component absent. Age and/or menstrual status not provided Interpretation/ Result: Negative for intraepithelial lesion or malignancy. [facility] COMMENT: This Pap test has been evaluated with computer assisted technology. [facility] Cytotechnologis t: [facility] Comment: BK,CT(ASCP) CT screening location: [address] (Always Message) [facility] Comment: EXPLANATORY NOTE: The Pap is a [...] HPV nRNA E6/E7 Not Detected Not Detected [facility] Comment: Methodology: Project/Production Manager Imaging-Mediated Amplification This assay detects E6/E7 viral messenger RNA (mRNA) from 14 high-risk HPV types (16,18,31,33,35,39,45,51,52,56,58,59,66,68). Cervical sources are required for HPV testing. If a vaginal source from a patient who has had a total hysterectomy with removal of cervix was submitted, please contact the testing laboratory for alternative testing options. For additional information, please refer to http://education.NanoPack/faq/ZKQ029b8 (This link if provided for information/ educational purposes only.) 09/24/2022 3:53 PM EST 09/25/2022 10:09 AM EST Narrative [facility] - 09/28/2022 3:45 PM EST FASTING: UNKNOWN Catarina Davis MD LAB PATHOLOGY ORDERABLES Final Result [address], [facility], [place] [address] [facility] [address] [place] [address], (Nl1) [place] [address] * ALBUMIN, RANDOM URINE W/CREATININE (05/23/2021 1:55 [...] MD LAB URINE ORDERABLES Fin al Result [facility] [address] from Last 3 Months or Most Recently Relevant to Health Maintenance Insurance C3 [facility] MEDICAID STAND ADULT Care Teams Senior Mortgage Loan Processor Relationship Specialty Start Date End Date Catarina Davis MD [address] [place] [phone] PCP - General Family Medicine 10/15/17
--- OUTSIDE RECORDS SUMMARY | 2025-06-09 08:39 | XMS_ITS | Encounter Summary ---
Author Organization [employer] Address [address] [place] [address] 7 [place] [address] Care Team Providers Care Plain Goods Hemmer Name Role Phone Catarina Davis MD Primary Care Provider + Encounter Details Date Type Department Care Team (Latest Contact Info) Description 03/19/2019 Abstract [facility] CONVERSIONS Dental, Provider, DDS Social History [...] Description 06/22/2025 11:30 AM EDT Clinical Support [facility] [address] [place] [phone] Day Smith RN 07/09/2025 9:00 AM EDT Procedure Visit [facility] [address] [place] [address] Catarina Davis MD [address] [place] [address] documented as of this encounter Visit Diagnoses Not on filedocumented in this encounter Care Teams Plain Goods Hemmer Relationship Specialty Start Date End Date Catarina Davis MD [address] [place] [phone] PCP - General Family Medicine 10/15/17 documented as of this encounter
--- OUTSIDE RECORDS SUMMARY | 2025-06-09 08:39 | XMS_ITS | Encounter Summary ---
Author Organization [employer] Address [address] [facility] 7t [place] [address] Care Team Providers Care Maple Products Maker Name Role Phone Catarina Davis MD Primary Care Provider + Reason for Visit * Reason Comments Med Refill Encounter Details Date Type Department Care Team (Late st Contact Info) Description 08/14/2023 Refill [facility] [address] [place], [place] [phone] Catarina Davis MD [address] [place], [place] [phone] Neck sprain, sequela Social History Tobacco Use [...] Description 06/22/2025 11:30 AM EDT Clinical Support [facility] [address] [place] [address] Day Smith RN 07/09/2025 9:00 AM EDT Procedure Visit [facility] [address] [place] [address] Catarina Davis MD [address] [place] [address] documented as of this encounter Visit Diagnoses Diagnosis Neck sprain, sequela documented in this encounter Additional Health Concerns Assessment Noted Time PHQ-9 Depression Total Score: 0 12/29/19 23 1:22 PM EDT documented as of this encounter Care Teams Maple Products Maker Relationship Specialty Start Date End Date Catarina Davis MD [address] [place] [phone] PCP - General Family Medicine 10/15/17 documented as of this encounter
--- OUTSIDE RECORDS SUMMARY | 2025-06-09 08:39 | XMS_ITS | Clinical Summary ---
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
--- OUTSIDE RECORDS SUMMARY | 2025-06-09 08:39 | XMS_ITS | Encounter Summary ---
Author Organization [facility] Address [address] [facility] [address] [place] [address] Phone Care Team Providers Care Vp Marketing Services And Skin Name Role Phone Catarina Davis MD Primary Care Provider [phone] Encounter Details Date Type Department Care Team (Late st Contact Info) Description 01/11/2023 Documentation Only [facility] [address] [place] [address] Smooth Almonte MD [address] [place] [address] [place] [address] Social History Tobacco Use Types [...] Visit [facility] [address] [place] [address] Alfonso Wharton MD [address] [place] [address] [place] [address] documented as of this encounter Visit Diagnoses Not on filedocumented in this encounter Care Teams Vp Marketing Services And Skin Relationship Specialty Start Date End Date Catarina Davis MD [address] [place] [address] [phone] PCP - General 08/11/19 documented as of this encounter
--- OUTSIDE RECORDS SUMMARY | 2025-06-09 08:39 | XMS_ITS | Clinical Summary ---
Author Organization [facility] [place], Address [address] [place] [address] [place] [address] Phone Care Team Providers Care Wildlife Ecologist Name Role Phone Catarina Davis MD Primary [...] Visit [facility] [place], [address] [facility] [place] [address] Alfonso Wharton MD [address] [facility] [place] [address] Health Maintenance Due Date Last Done Comments [...] 08/20/2024, 06/26/2018 Insurance Medicaid [place] Care Teams Wildlife Ecologist Relationship Specialty Start Date End Date Catarina Davis MD [address] [place] [phone] PCP - General 08/11/19
--- OUTSIDE RECORDS SUMMARY | 2025-06-09 08:39 | XMS_ITS | Encounter Summary ---
Author Organization [employer] Address [address] [facility] 7 [place] [address] Care Team Providers Care Night Auditor Name Role Phone Catarina Davis MD Primary Care Provider + Reason for Visit * Reason Onset Date Comments Med Refill 12/18/2024 Encounter Details Date Type Department Care Team ([facility] st Contact Info) Description 12/18/2024 Telephone [facility] [address] [place], [place] [phone] Catarina Davis MD [address] [place], [place] [phone] Med Refill Social History Tobacco Use Types [...] 20 MG tablet To be sent to: [id number] [address] AT [facility] documented in this encounter Plan of Treatment Upcoming Encounters Date Type Department Care Team (Late st Contact Info) Description 06/22/2025 11:30 AM EDT Clinical Support [facility] [address] [place] [phone] Day Smith RN 07/09/2025 9:00 AM EDT Procedure Visit [facility] [address] [place], [place] [phone] Catarina Davis MD [address] [place], [place] [phone] documented as of this encounter Visit Diagnoses Not on filedocumented in this encounter Additional Health Concerns Assessment Noted Time PHQ-9 Depression Total Score: 0 12/29/19 23 1:22 PM EDT documented as of this encounter Care Teams Night Auditor Relationship Specialty Start Date End Date Catarina Davis MD [address] [place], [place] [phone] PCP - General Family Medicine 10/15/17 documented as of this encounter
--- OUTSIDE RECORDS SUMMARY | 2025-06-09 08:39 | XMS_ITS | Encounter Summary ---
Author Organization [employer] Address [address] [facility] 7 [place] [address] Care Team Providers Care Application Architect Name Role Phone Catarina Davis MD Primary Care Provider + Reason for Visit * Reason Onset Date Comments FYI 11/01/2023 Encounter Details Date Type Department Care Team ([facility] st Contact Info) Description 11/01/[address] [facility] [address] [place], [place] [phone] Catarina Davis MD [address] [place], [place] [phone] FYI Social History Tobacco Use Types Packs/Day [...] Description 06/22/2025 11:30 AM EDT Clinical Support [facility] [address] [place] [address] Day Smith RN 07/09/2025 9:00 AM EDT Procedure Visit [facility] [address] [place] [phone] Catarina Davis MD [address] [place] [address] documented as of this encounter Visit Diagnoses Not on filedocumented in this encounter Additional Health Concerns Assessment Noted Time PHQ-9 Depression Total Score: 0 12/29/19 23 1:22 PM EDT documented as of this encounter Care Teams Application Architect Relationship Specialty Start Date End Date Catarina Davis MD [address] [place] [phone] PCP - General Family Medicine 10/15/17 documented as of this encounter
--- OUTSIDE RECORDS SUMMARY | 2025-06-09 08:39 | XMS_ITS | Encounter Summary ---
Author Organization [employer] Address [address] [facility] 7t [place] [address] Care Team Providers Care Barrel Bander Name Role Phone Catarina Davis MD Primary Care Provider + Reason for Visit * Reason Comments Med Refill Encounter Details Date Type Department Care Team (Late st Contact Info) Description 10/06/2024 Refill [facility] [address] [place], [place] [phone] Catarina Davis MD 230 [place], [place] [phone] Cervical paraspinal muscle spasm Social History Tobacco [...] Description 06/22/2025 11:30 AM EDT Clinical Support [facility] [address] [place] [address] Day Smith, RN 07/09/2025 9:00 AM EDT Procedure Visit [facility] [address] [place] [address] Catarina Davis MD [address] [place] [address] documented as of this encounter Visit Diagnoses Diagnosis Cervical paraspinal muscle spasm Spasm of muscle documented in this encounter Additional Health Concerns Assessment Noted Time PHQ-9 Depression Total Score: 0 12/29/19 23 1:22 PM EDT documented as of this encounter Care Teams Barrel Bander Relationship Specialty Start Date End Date Catarina Davis MD [address] [place] [phone] PCP - General Family Medicine 10/15/17 documented as of this encounter
== END 2025-06-09 08:32 | disposition home or self-care (01) ==
LOC: HO.HOS 08:09
PROVIDERS: PCP Internal Medicine; Visit Provider Orthopaedic Surgery
DX: M17.0 Bilateral primary osteoarthritis of knee (principal)
CPT/HCPCS: 20610

== ENCOUNTER → 2025-06-09 08:09 | Outpatient (BNVA) | payer MEDICAID, SELFPAY | PROVIDERS: PCP Internal Medicine; Visit Provider Orthopaedic Surgery | DX: M17.11 Unilateral primary osteoarthritis, right knee (principal); M17.12 Unilateral primary osteoarthritis, left knee | CPT/HCPCS: 20610; J2003; J7323 ==

== ENCOUNTER 2025-06-16 08:15 | Outpatient (AMB) | payer MEDICAID, SELFPAY ==
--- NOTE | 2025-06-16 08:20 | MHC.OFFVIS ---
Vital Signs 06/16/25 08:23 Height 5 ft Weight 152 lb BMI 29.7 Intake Visit Reasons: Inj- Gabriel knee knee Euflexxa #3 Intake Note: Maya is a 45 year old female who presents today for an injection in her Bilateral knee, Euflexxa #3. Patient states that the last injection did help. She continues with her exercise program. Allergies cephalexin (From KEFLEX) Allergy (Intermediate, Verified 06/16/25 08:23) RASH formoterol (From Dulera) Adverse Reaction (Intermediate, Verified 06/16/25 08:23) Unknown mometasone furoate (From Dulera) Adverse Reaction (Intermediate, Verified 06/16/25 08:23) Unknown [facility] Medical History Kidney anomaly, congenital Dysphagia Arthritis Asthma Surgical History Hx of tonsillectomy History of carpal tunnel release of both wrists Hx laparoscopic cholecystectomy Hx of hand surgery History of breast reconstruction Hx of abdominoplasty Hx of section History of esophagogastroduodenoscopy (EGD) Family History Maternal Aunt Breast CA Social History Alcohol intake: current Alcohol intake frequency: holidays/special occasions only Patient Tobacco Use Status: Current everyday Tobacco user Tobacco use type: Cigarette Cigarettes Per Day: 2 Years Smoked: quit 12/14/24 service: No Current occupational status: unemployed Physical Exam Vital Signs: BMI result Body Mass Index 29.7 Extrem Other: Bilateral knee examination shows minimal effusions, palpable crepitus with range of motion, pain with range of motion, no instability Office Procedures AMB Joint Injection/Aspiration Joint Injection/Aspiration Primary Site: left knee Prep: site was prepped using aseptic technique Injected: 20 mg of (Euflexxa viscosupplementation) and 1% plain lidocaine Procedure: The patient tolerated the procedure well Coding 33722 - Large joint Procedure code (CPT) selection complete AMB Joint Injection/Aspiration Joint Injection/Aspiration Primary Site: right knee Prep: site was prepped using aseptic technique Injected: 20 mg of (Euflexxa viscosupplementation) and 1% plain lidocaine Procedure: The patient tolerated the procedure well Coding 78253 - Large joint Procedure code (CPT) selection complete Assessment & Plan Assessment & Plan (1) Osteoarthritis of left knee: Code(s): M17.12 - Unilateral primary osteoarthritis, left knee Category: Medical (2) Osteoarthritis of right knee: Code(s): M17.11 - Unilateral primary osteoarthritis, right knee Category: Medical Plan Ms. Hoyos presents with bilateral knee pains due to osteoarthritis. The risks and benefits of a 3rd set of Euflexxa injections were discussed at length with the patient. The patient tolerated the bilateral knee injections well. She will continue with her exercise program. She will contact me prior to her follow-up appointment in 3 months should any questions or concerns arise. Feel free to call me at any time should questions regarding her orthopedic management arise. Orders: Orders AMB Joint Injection/Aspiration Today M17.12 - Unilateral primary osteoarthritis, left knee AMB Joint Injection/Aspiration Today M17.11 - Unilateral primary osteoarthritis, right knee Coding Level of Care Code Procedure Only Diagnoses Osteoarthritis of left knee M17.12 Osteoarthritis of right knee M17.11 CPT Codes Coding - 78287 Large joint: 94507 - Large joint ([id number]) Coding - 00534 Large joint: 56512 - Large joint ([id number])
[2025-06-16 08:23] VITALS: BMI 29.7
--- OUTSIDE RECORDS SUMMARY | 2025-06-16 09:22 | XMS_ITS | Encounter Summary ---
Author Organization [employer] Address [address] [place] [address] 7 [place] [address] Care Team Providers Care Manager Tax Name Role Phone Catarina Davis MD Primary Care Provider + Encounter Details Date Type Department Care Team (Latest Contact Info) Description 03/19/2019 Abstract [facility] CONVERSIONS Dental, Provider, DDS Social [...] Description 06/22/2025 11:30 AM EDT Clinical Support [facility] [address] [place] [address] Day Smith RN 07/09/2025 9:00 AM EDT Procedure Visit [facility] [address] [place] [phone] Catarina Davis MD [address] [place] [address] documented as of this encounter Visit Diagnoses Not on filedocumented in this encounter Care Teams Manager Tax Relationship Specialty Start Date End Date Catarina Davis MD [address] [place] [address] PCP - General Family Medicine 10/15/17 documented as of this encounter
--- OUTSIDE RECORDS SUMMARY | 2025-06-16 09:22 | XMS_ITS | Clinical Summary ---
Author Organization [facility] it Address [address] [place] [address] Care Team Providers Care Sales Mgr Name Role Phone RoseliaMaggie lubin Primary Care Provider [phone]- [phone] Surgical History Surgery Date Site/Laterality Comments TONSILLECTOMY [...] Diabetes: Blood Sugar Control Test (HGBA1C) 11/22/2023 Depression Screening 10/07/2024 COVID-19 Vaccine (4 - season) 2025 11/15/2021, 05/16/2021, 04/26/2021 Influenza Vaccine (#1) 2025 [...] Documents on File Type Date Recorded Patient Operations Research Engineer Expl anation Health Care Decision (hx) 05/06/2017 AD REESE DIRECTIVE Health Care Decision (hx) 05/06/2017 AD REESE DIRECTIVE Care Teams Sales Mgr Relationship Specialty Start Date End Date Maggie Cazares DO [address] [place] [address] PCP - General 04/24/23
--- OUTSIDE RECORDS SUMMARY | 2025-06-16 09:22 | XMS_ITS | Clinical Summary ---
Author Organization [employer] Address [address] [place] [address] 7t [place] [address] Care Team Providers Care Automatic Beading Lathe Operator Name Role Phone Catarina Davis MD Primary Care Provider + Allergies Active Allergy Reactions Criticality Noted Date Comments Cephalexin Rash Low 10/31/2017 Other reaction(s): Other (see comments) Formoterol High 03/11/2025 Other Reaction(s): Unknown Kiwi Extract 01/25/2023 Mometasone High 03/11/2025 Other Reaction(s): Unknown thrush Pineapple 01/25/2023 Medications glucose blood (FREESTYLE LITE) [...] for up to 28 days. 112 tablet 06/09/20 25 025 Active amoxicillin (Amoxil) 250 MG capsule take 1 capsule by mouth every 8 hours until finished 05/17/20 25 Active BinaxNOW COVID-19 Ag Home Test kit TEST DIRECTED TODAY 06/02/20 25 Active Advair HFA 115-21 MCG/ACT inhaler inhale 2 puffs by mouth every 12 hours 05/30/20 25 Active ibuprofen 800 MG tablet Take 800 mg by mouth every 8 (eight) hours if needed. Active zolpidem (Ambien) 10 MG tablet Take 10 mg by mouth at bedtime. 06/02/20 25 Active traMADol (Ultram) 50 MG tabletIndicati ons:Chronic midline low back pain, unspecified whether sciatica present Take 1 tablet (50 mg) by mouth every 6 (six) hours if needed for severe pain for up to 28 days. 112 tablet 05/11/20 25 025 Discontinued(R eorder (will not trigger [...] Tylenol breakthrough pain Continue to follow-up with EDUCATION RN clinic as well Assessment & Plan (02/18/2024 [...] Encounters Date Type Department Care Team Description 06/09/2025 Refill [facility] [address] [place], [place] [phone] Catarina Davis MD Chronic midline low back pain, unspecified whether sciatica present 05/25/2025 2:00 PM EDT Office Visit [facility] OPTOMET[facility] [address] [place] [address] El, Sury, OD Diabetes type 2, no ocular involvement ([facility]) (Primary Dx); Regular astigmatism of both eyes; Dry eyes 05/25/2025 Travel 05/14/2025 Orders Only [facility] External Provider, [facility] 05/11/2025 Refill [facility] [address] [place], [place] [phone] Catarina Davis MD Chronic midline low back pain, unspecified whether sciatica present 05/06/2025 12:00 PM EDT Office Visit [facility] [address] [place], [place] [phone] Catarina Davis MD Pre-hypertension (Primary Dx); Type 2 diabetes mellitus without complication, without long-term current use of insulin ([facility]); Dermatitis; Cervical paraspinal muscle spasm 05/06/2025 Travel 04/26/2025 Patient Outreach [address] [address] Catarina Davis MD Pre-visit Planning (SDOH screening negative and tobacco screening positive) 04/15/2025 11:30 AM EDT Clinical Support [address] [address] Day Smith RN Long-term current use of opiate analgesic (Primary Dx) 04/15/2025 Travel 04/08/[address] [address] Day Smith RN Chronic midline low back pain, unspecified whether sciatica present 04/08/[address] [address] Catarina Davis MD Telephone call 03/23/[address] [address] Catarina Davis MD Medication Question from Last 3 Months Immunizations Immunization Administration [...] Description 06/22/2025 11:30 AM EDT Clinical Support [facility] [address] [place] [address] Day Smith RN 07/09/2025 9:00 AM EDT Procedure Visit [facility] [address] [place] [address] Catarina Davis MD [address] [place] [address] Health Maintenance Due Date Last Done Comments [...] Dental X-Ray: Full Mouth 05/01/2022 04/30/2019, 03/2014 COVID-19 Vaccine ( season) 2025 09/25/2022, 11/15/2021, 05/16/2021, Additional history exists Influenza Vaccine (#1) 2025 , 06/13/2023, 06/29/2022, Additional history exists Lipid Panel 08/19/2025 08/19/2024, 04/03/2023, 05/23/2021 Diabetes: Hemoglobin A1C 11/06/2025 025, 02/02/2025, 05/22/2024, Additional history exists Mammogram 11/21/2025 11/21/2024, 11/07/2023 Diabetes: Urine Protein Screening 02/06/2026 02/06/2025, 05/23/2021 SDOH Screening 04/26/2026 04/26/2025 Alcohol/Substance Use Screening 05/06/2026 05/06/2025 Depression Screening 05/06/2026 05/06/2025, 05/06/20 Diabetes: Foot Exam 05/06/2026 05/06/2025, 05/06/2025, 05/06/2025, Additional history exists Disability Screening 05/06/2026 05/06/2025 Family Planning (PISQ) 05/06/2026 05/06/2025 Tobacco Screening 06/15/2026 06/15/2025 Eye Exam 05/25/2027 05/25/2025, 05/07, 05/25/2025, Additional [...] EDT Long-term current use of opiate analgesic HM MAMMOGRAPHY Routine 11/21/2024 LIPID PANEL WITH [...] PM EDT Narrative 05/14/2025 3:03 PM EDT [place] [address] [address] Scan Report Signed Patient: Maya Hoyos MR#: [id number] [birth year] : 1980 Acct:[id number] Age/Sex: 45 / F ADM Date: 05/14/25 Loc: HO.CT Attending Dr: Carin Nazario MD Ordering Physician: Carin Nazario MD Date of Service: 05/14/25 Procedure(s): CT chest w IV con Accession Number(s): [id number] cc: Catarina Davis MD; Carin Nazario MD Report Number: [id number]: Total DLP = 144.00 mGy-cm EXAMINATION: CT [...] 05/14/25 1501 DD/ 1407 TD/TT: 05/14/25 1448 [employer] Combination Teacher: Procedure Note Donotuseinterpreter, Image - 05/14/[address] [address] [address] Scan Report Signed Patient: Laurent Hoyos#: [id number] 13 : 1980Acct:[id number] Age/Sex: 45 / FADM Date: 05/14/25 Loc: HO.CT Attending Dr: Carin Nazario MD Ordering Physician: Carin Nazario MD Date of Service: 05/14/25 Procedure(s): CT chest w IV con Accession Number(s): [id number] cc: Catarina Davis MD; Carin Nazario MD Report Number: [id number]: Total DLP = 144.00 mGy-cm EXAMINATION: CT [...] 05/14/25 1501 DD/ 1407 TD/TT: 05/14/25 1448 [employer] Combination Teacher: [facility] External Provider IMG CT PROCEDURES Final Result * POCT HGB A1C (05/06/2025 12:20 PM EDT) Pathologist [facility] Hemoglobin A1C 5.6 4.0 - 5.7 % QC Media Lot # [id number] Lot# Expiration Date ,098 Blood 05/06/2025 12:2 0 PM EDT Result [facility] Catarina Davis MD POINT OF CARE TEST ENTER /EDIT ORDERABLES Final Result * POCT Glucose (05/06/2025 12:20 PM EDT) [facility] Glucose Blood, POC 117 60 - 200 mg/dL Blood Capillary blood specimen / Unknown 05/06/2025 12:20 PM EDT Result [facility] Catarina Davis MD POINT OF CARE TEST ENTER /EDIT ORDERABLES Final Result * POCT FLORENTIN-14 Urine Drug Screen (04/15/2025 11:40 AM EDT) [facility] THC Negative Negative Cocaine Screen, Urine Negative [...] - 04/15/2025 11:40 AM EDT UTOX cup Lot#[id number] Exp. 07/13/26 Internal Pass Control Catarina Davis MD POINT OF CARE TEST ENTER /EDIT ORDERABLES Final Result * Mammography (11/21/2024) [facility] Mammogram Normal Normal, Abnormal, BIRADS 1 , BIRADS 2 Anatomical Region Laterality Modality Other Catarina Davis MD HEALTH MAINTENANCE Final Result * Lipid Panel with Reflex to Direct LDL (08/19/2024 9:00 AM EST) Triglycerides 29 <150 mg/dL [facility] Comment:Desirable Triglyceri de: less than 150 mg/dLBorderline High Triglyceride 150-199 mg/dLHigh Triglyceride: 200-499 mg/dLVery High Triglyceride: greater than or equal to 5OO mg/dL Cholesterol 112 <200 mg/dL [facility] Comment:Desirable Cholestero l: less than 200 mg/dLBorderline High Cholesterol: 200-239 mg/dLHigh Cholesterol: greater than 239 mg/dL LDL Cholesterol Calculated 56 <100 mg/dL [facility] Comment:Desirable LDL: less than 100 mg/dLNear Optimal/Above Optimal LDL: 110- 129 mg/dLBorderline High LDL: 130-159 mg/dLHigh LDL: 160-189 mg/dLVery High LDL: greater than or equal to 190 mg/dL HDL Cholesterol 51 >40 mg/dL [facility] Comment:Desirable HDL: great er than 40 mg/dL Note: This HDL assay may give artificially low results in patients with liver disease. Blood 08/19/2024 9:00 AM EST 08/19/2024 10:46 AM EST us Catarina Davis MD LAB BLOOD ORDERABLES Fin al Result [facility] [address] [place] [phone] * (ABNORMAL) Hepatitis Panel, General (01/10/2023 9:11 AM EDT) Hepatitis A Antibody Total NON-REACT ANDREE NON-REACT ANDREE [employer] [place] [employer] Comment: For additional information, please refer to http://education.Foodini/faq/JIF164 (This link is being provided for informational/ educational purposes only.) Hepatitis B Surface Antibody QL REACTIVE( A) NON-REACT ANDREESolstice Biologics [place] [facility] Hepatitis B Surface Ag NON-REACT ANDREE NON-REACT ANDREESolstice Biologics [place] [facility] Hepatitis B Core Antibody Total NON-REACT ANDREE NON-REACT ANDREE [employer] [place] [employer] Hepatitis C Antibody NON-REACT ANDREE NON-REACT ANDREE [employer] [place] [employer] Index 0.21 <1.00 [employer] [place] [employer] Comment: HCV antibody was non-reactive. There is no laboratory evidence of HCV infection. In most cases, no further action is required. However, if recent HCV exposure is suspected, a test for HCV RNA (test code 20075) is suggested. For additional information please refer to http://CityPockets.Foodini/faq/YSZ23q9 (This link is being provided for informational/ educational purposes only.) 01/10/2023 9:11 AM EDT 01/10/2023 9:12 AM EDT Narrative [facility] - 01/10/2023 8:56 PM EDT FASTING:YES FASTING: YES Catarina Davis MD LAB BLOOD ORDERABLES Fin al Result [facility] [address] [place] [address] [employer] [place] [employer] [address] [place] [address] * HIV-1/2 Antigen and Antibodies, Fourth Generation, with Reflexes (01/10/2023 9:11 AM EDT) HIV Antigen/Antibody, 4th Generation NON-REAC TIVE NON-REAC TIVE [employer] [place] [employer] Comment: HIV-1 antigen and HIV-1/HIV-2 antibodies were [...] purpose. For additional information please refer to http://CityPockets.Foodini/faq/NBW174 (This link is being provided for informational/ educational purposes only.) The performance of this assay has not been clinically validated in patients less than 2 years old. Blood Venous blood specimen / Unknown 01/10/2023 9:11 AM EDT 01/10/2023 9:12 AM EDT Narrative [facility] - 01/10/2023 8:56 PM EDT FASTING:YES FASTING: YES Catarina Dvais MD LAB BLOOD ORDERABLES Fin al Result [employer] [address] [place] [address], [place] [address] [facility] [facility] [employer] [address] [place] [phone] * [facility] TIS PAP And HPV mRNA E6/E7 With Reflex To HPV 16,18/45 (09/24/2022 3:53 PM EST) Clinical Information: None given [facility] LMP: NONE GIVEN [facility] Prev. PAP: NONE GIVEN [facility] Prev. BX: NONE GIVEN [facility] SOURCE: None given [facility] Statement Of Adequacy: [facility] Comment: Satisfactory for evaluation. Endocervical/transformation zone component absent. Age and/or menstrual status not provided Interpretation/ Result: Negative for intraepithelial lesion or malignancy. [facility] COMMENT: This Pap test has been evaluated with computer assisted technology. [facility] Cytotechnologis t: [facility] Comment: BK,CT(ASCP) CT screening location: [address] (Always Message) [facility] Comment: EXPLANATORY NOTE: The Pap is a [...] HPV nRNA E6/E7 Not Detected Not Detected [facility] Comment: Methodology: Paperback Machine Operator-Mediated Amplification This assay detects E6/E7 viral messenger RNA (mRNA) from 14 high-risk HPV types (16,18,31,33,35,39,45,51,52,56,58,59,66,68). Cervical sources are required for HPV testing. If a vaginal source from a patient who has had a total hysterectomy with removal of cervix was submitted, please contact the testing laboratory for alternative testing options. For additional information, please refer to http://education.Foodini/faq/PFQ220a9 (This link if provided for information/ educational purposes only.) 09/24/2022 3:53 PM EST 09/25/2022 10:09 AM EST Narrative [facility] - 09/28/2022 3:45 PM EST FASTING: UNKNOWN Catarina Davis MD LAB PATHOLOGY ORDERABLES Final Result Performing Organization Address [facility] Co de Phone Number [facility] [address] [place] [address] [facility] 200 [facility], ([address]) [place] [address] * ALBUMIN, RANDOM URINE W/CREATININE (05/23/2021 1:55 [...] ORDERABLES Fin al Result Performing Organization Address [facility]/ZIP Co de Phone Number [facility] [address] from Last 3 Months or Most Recently Relevant to Health Maintenance Insurance [place] [facility] [facility] MEDICAID STAND ADULT Care Teams Automatic Beading Lathe Operator Relationship Specialty Start Date End Date Catarina Davis MD [address] [place] [phone] PCP - General Family Medicine 10/15/17
--- OUTSIDE RECORDS SUMMARY | 2025-06-16 09:22 | XMS_ITS | Encounter Summary ---
Author Organization [employer] Address [address] [facility] 7t [place] [address] Care Team Providers Care Line Erector Apprentice Name Role Phone Catarina Davis MD Primary Care Provider + Reason for Visit * Reason Comments Med Refill Encounter Details Date Type Department Care Team (Late st Contact Info) Description 10/06/2024 Refill [facility] [address] [place], [place] [phone] Catarina Davis MD [address] [place], [place] [phone] Cervical paraspinal muscle spasm Social History Tobacco [...] Clinical Support [facility] MED[facility] [address] [place] [phone] Day Smith, RN 07/09/2025 9:00 AM EDT Procedure Visit [facility] [address] [place] [address] Catarina Davis MD [address] [place] [address] documented as of this encounter Visit Diagnoses Diagnosis Cervical paraspinal muscle spasm Spasm of muscle documented in this encounter Additional Health Concerns Assessment Noted Time PHQ-9 Depression Total Score: 0 12/29/19 23 1:22 PM EDT documented as of this encounter Care Teams Line Erector Apprentice Relationship Specialty Start Date End Date Catarina Davis MD [address] [place] [phone] PCP - General Family Medicine 10/15/17 documented as of this encounter
--- OUTSIDE RECORDS SUMMARY | 2025-06-16 09:22 | XMS_ITS | Encounter Summary ---
Author Organization [employer] Address [address] [facility] 7 [place] [address] Care Team Providers Care Mother Repairer Name Role Phone Catarina Davis MD Primary Care Provider + Reason for Visit * Reason Onset Date Comments FYI 11/01/2023 Encounter Details Date Type Department Care Team ([facility] st Contact Info) Description 11/01/2023 Telephone [facility] [address] [place], [place] [phone] Catarina Davis MD [address] [place], [place] [phone] FYI Social History Tobacco Use Types Packs/Day [...] Description 06/22/2025 11:30 AM EDT Clinical Support [facility] [address] [place] [address] Day Smith RN 07/09/2025 9:00 AM EDT Procedure Visit [facility] [address] [place] [address] Catarina Davis MD [address] [place] [address] documented as of this encounter Visit Diagnoses Not on filedocumented in this encounter Additional Health Concerns Assessment Noted Time PHQ-9 Depression Total Score: 0 12/29/19 23 1:22 PM EDT documented as of this encounter Care Teams Mother Repairer Relationship Specialty Start Date End Date Catarina Davis MD [address] [place] [address] PCP - General Family Medicine 10/15/17 documented as of this encounter
--- OUTSIDE RECORDS SUMMARY | 2025-06-16 09:22 | XMS_ITS | Encounter Summary ---
Author Organization [employer] Address [address] [facility] 7t [place] [address] Care Team Providers Care Acoustical Logging Engineer Name Role Phone Catarina Davis MD Primary Care Provider + Reason for Visit * Reason Comments Med Refill Encounter Details Date Type Department Care Team (Late st Contact Info) Description 08/14/2023 Refill [facility] [address] [place], [place] [phone] Catarina Davis MD [address] [place], [place] [phone] Neck sprain, sequela Social History Tobacco Use [...] Description 06/22/2025 11:30 AM EDT Clinical Support [facility] [address] [place] [address] Day Smith RN 07/09/2025 9:00 AM EDT Procedure Visit [facility] [address] [place] [address] Catarina Davis MD [address] [place] [address] documented as of this encounter Visit Diagnoses Diagnosis Neck sprain, sequela documented in this encounter Additional Health Concerns Assessment Noted Time PHQ-9 Depression Total Score: 0 12/29/19 23 1:22 PM EDT documented as of this encounter Care Teams Acoustical Logging Engineer Relationship Specialty Start Date End Date Catarina Davis MD [address] [place] [address] PCP - General Family Medicine 10/15/17 documented as of this encounter
--- OUTSIDE RECORDS SUMMARY | 2025-06-16 09:22 | XMS_ITS | Encounter Summary ---
Author Organization [facility] Address [address] [facility] [address] [place] [address] Phone Care Team Providers Care Spread Cutter Name Role Phone Catarina Davis MD Primary Care Provider +1 [phone] Encounter Details Date Type Department Care Team (Late st Contact Info) Description 01/11/2023 Documentation Only [facility] [address] [place] [address] Smooth Almonte MD [address] [place] [address] [place] [address] Social History Tobacco Use Types [...] Visit [facility] [address] [place] [address] Alfonso Wharton MD [address] [place] [address] [place] [address] documented as of this encounter Visit Diagnoses Not on filedocumented in this encounter Care Teams Spread Cutter Relationship Specialty Start Date End Date Catarina Davis MD [address] [place] [address] [phone] PCP - General 08/11/19 documented as of this encounter
--- OUTSIDE RECORDS SUMMARY | 2025-06-16 09:22 | XMS_ITS | Encounter Summary ---
Author Organization [employer] Address [address] [facility] 7 [place] [address] Care Team Providers Care Verifier Operator Name Role Phone Catarina Davis MD Primary Care Provider + Reason for Visit * Reason Onset Date Comments Med Refill 12/18/2024 Encounter Details Date Type Department Care Team ([facility] st Contact Info) Description 12/18/2024 Telephone [facility] [address] [place], [place] [phone] Catarina Davis MD [address] [place], [place] [phone] Med Refill Social History Tobacco Use Types [...] 20 MG tablet To be sent to: [id number] [id number] AT [facility] documented in this encounter Plan of Treatment Upcoming Encounters Date Type Department Care Team (Late st Contact Info) Description 06/22/2025 11:30 AM EDT Clinical Support [facility] [address] [place] [phone] Day Smith RN 07/09/2025 9:00 AM EDT Procedure Visit [facility] [address] [place], [place] [phone] Catarina Davis MD [address] [place], [place] [phone] documented as of this encounter Visit Diagnoses Not on filedocumented in this encounter Additional Health Concerns Assessment Noted Time PHQ-9 Depression Total Score: 0 12/29/19 23 1:22 PM EDT documented as of this encounter Care Teams Verifier Operator Relationship Specialty Start Date End Date Catarina Davis MD [address] [place], [place] [phone] PCP - General Family Medicine 10/15/17 documented as of this encounter
--- OUTSIDE RECORDS SUMMARY | 2025-06-16 09:22 | XMS_ITS | Clinical Summary ---
Author Organization [facility], Address [address] [place] [address] [place] [address] Phone Care Team Providers Care Addiction Treatment Counselor Name Role Phone Catarina Davis MD Primary [...] Visit [facility], [address] [address] Alfonso Wharton MD [address] [place] [id number] Health Maintenance Due Date Last Done Comments [...] 08/20/2024, 06/26/2018 Insurance Medicaid [place] Care Teams Addiction Treatment Counselor Relationship Specialty Start Date End Date Catarina Davis MD [address] [place] [phone] PCP - General 08/11/19
== END 2025-06-16 08:44 | disposition home or self-care (01) ==
LOC: HO.HOS 08:15
PROVIDERS: PCP Internal Medicine; Visit Provider Orthopaedic Surgery
DX: M17.0 Bilateral primary osteoarthritis of knee (principal)
CPT/HCPCS: 20610

== ENCOUNTER → 2025-06-16 08:15 | Outpatient (BNVA) | payer MEDICAID, SELFPAY | PROVIDERS: PCP Internal Medicine; Visit Provider Orthopaedic Surgery | DX: M17.0 Bilateral primary osteoarthritis of knee (principal) | CPT/HCPCS: 20610; J2003; J7323 ==

== ENCOUNTER 2025-07-09 10:18 | Outpatient (REF) | payer MEDICAID, SELFPAY ==
--- OUTSIDE RECORDS SUMMARY | 2025-07-09 09:00 | XMS_ITS | Encounter Summary ---
Author Organization [employer] Address [address] [place] [address] 7t [place] [address] Care Team Providers Care Medical Sales Specialist Name Role Phone Catarina Davis MD Primary Care Provider + Reason for Visit * Reason Comments Gynecologic Exam Encounter Details Date Type Department Care Team (Latest Contact Info) Description 07/09/2025 9:00 AM EDT Procedure Visit [facility] [address] [place], [place] [phone] Catarina Davis MD [address] [place], [place] [phone] Encounter for cervical Pap smear with pelvic exam (Primary Dx); Screen for STD (sexually transmitted disease); Chronic midline low back pain, unspecified whether sciatica present; Encounter for immunization Social History Tobacco Use Types Packs/Day Years Used Date Smoking Tobacco: Every Day Cigarettes Passive Smoke Exposure: Current Smokeless Tobacco: Never Alcohol Use Standard Drinks/Week Comments Not Currently 0 (1 standard drink = 0.6 oz pur e alcohol) oca Depression Answer Date Recorded Patient Health Questionnaire-9 Score 18 07/09/2025 Patient Health Questionnaire-9 Score 18 07/09/2025 Last PHQ-9: Questionnaire Data Not on file 1 Housing Stability Answer Date Recorded What is [...] Answer Date Recorded Patient Health Questionnaire-2 Score 4 07/09/2025 Internet Access Answer Date Recorded Internet Access [...] Sign Reading Time Taken Comments Blood Pressure 140/82 07/09/2025 9:24 AM EDT Pulse 60 07/09/2025 9:24 AM EDT Temperature 36.2 C (97.1 F) 07/09/2025 9:24 AM EDT Respiratory Rate 20 07/09/2025 9:24 AM EDT Oxygen Saturation - - Inhaled Oxygen Concentration - - Weight 71.5 kg (157 lb 9.6 oz) 07/09/2025 9:24 A M EDT Height 152.4 cm (5') 07/09/2025 9:24 AM EDT Body Mass Index 30.78 07/09/2025 9:24 AM EDT documented in this encounter Functional Status * Over the past 2 weeks, how often have you been bothered by any of the following problems? Question Answer Date of Assessment Author Patient Health Questionnaire-2 Score 4 12/2024 9:27 AM EDT Payal Carrion MA * Little interest or pleasure in doing things Answer Date of Assessment Author Nearly every day 07/09/2025 9:27 AM EDT Payal Carrion MA * Feeling down, depressed, or hopeless Answer Date of Assessment Author Several days 07/09/2025 9:27 AM Payal Springer MA * Trouble falling or staying asleep, or sleeping too much Answer Date of Assessment Author Nearly every day 07/09/2025 9:27 AM EDPayal Lamar MA * Feeling tired or having little energy Answer Date of Assessment Author Several days 07/09/2025 9:27 AM EDPayal Lamar MA * Poor appetite or overeating Answer Date of Assessment Author Nearly every day 07/09/2025 9:27 AM EDT Payal Carrion MA * Feeling bad about yourself - or that you are a failure or have let yourself or your family down Answer Date of Assessment Author Several days 07/09/2025 9:27 AM Payal Springer MA * Trouble concentrating on things, such as reading the newspaper or watching television Answer Date of Assessment Author Nearly every day 07/09/2025 9:27 AM Payal Springer MA * Moving or speaking so slowly that other people could have noticed? Or the opposite - being so fidgety or restless that you have been moving around a lot more than usual. Answer Date of Assessment Author Nearly every day 07/09/2025 9:27 AM Payal Springer MA * Thoughts that you would be better off or hurting yourself in some way Answer Date of Assessment Author Not at all 07/09/2025 9:27 AM Payal Springer MA * Patient Health Questionnaire-9 Score Answer Date of Assessment Author 18 07/09/2025 9:27 AM Payal Springer MA * How difficult have these problems made it for you to do your work, take care of things at home, or get along with other people? Answer Date of Assessment Author Extremely difficult 07/09/2025 9:27 AM Payal Bernal do, MA * Over the last 2 weeks, how often have you been bothered by any of the following problems? Question Answer Date of Assessment Author Feeling nervous, anxious, or on edge 1 12/2024 9:27 AM Payal Springer MA Not being able to stop or co ntrol worrying 1 07/09/2025 9:27 AM Payal Springer M A Worrying too much about diff erent things 1 07/09/2025 9:27 AM EDT Payal Carrion M A Trouble relaxing 2 07/09/2025 9:27 AM EDT M Payal eagle MA Being so restless that it is hard to sit still 3 07/09/2025 9:27 AM EDT Payal Carrion M A Becoming easily annoyed or irritable 3 12/2024 9:27 AM EDT Payal Carrion MA Feeling afraid as if somethi ng awful might happen 3 07/09/2025 9:27 AM EDT Payal Carrion M A CHERRIE-7 Total Score 14 07/09/2025 9:27 AM EDT Payal Carrion MA documented as of this encounter Plan of Treatment Upcoming Encounters Date Type Department Care Team (Late st Contact Info) Description 09/22/2025 11:30 AM EST Clinical Support [facility] MED[facility]INE [address] [place] [phone] Day Smith, RN Scheduled Orders Name Type Priority Associated Diagnoses Order Schedule Pap Smear Pathology and Cytology Routine Encounter for cervical Pap smear with pelvic exam Ordered: 07/09/2025 Bacterial Vaginosis Microbiology Routine Encounter for cervical Pap smear with pelvic exam Expected: 07/09/2025 (Approximate), Expires: 07/09/2026 Hepatitis Panel, General Lab Routine Screen for STD (sexually transmitted disease) Expected: 07/09/2025 (Approximate), Expires: 07/09/2026 HIV-1/2 Antigen and Antibodies, Fourth Generation, with Reflexes Lab Routine Screen for STD (sexually transmitted disease) Expected: 07/09/2025 (Approximate), Expires: 07/09/2026 Syphilis Screen Lab Routine Screen for STD (sexually transmitted disease) Expected: 07/09/2025 (Approximate), Expires: 07/09/2026 Chlamydia/N. Gonorrhoeae RNA, TMA, Vaginal Microbiology Routine Encounter for cervical Pap smear with pelvic exam Screen for STD (sexually transmitted disease) Ordered: 07/09/2025 documented as of this encounter Visit Diagnoses Diagnosis Encounter for cervical Pap smear with pelvic exam- Primary Screen for STD (sexually transmitted disease) Screening examination for venereal disease Chronic midline low back pain, unspecified whether sciatica present Encounter for immunization documented in this encounter Additional Health Concerns Assessment Noted Time PHQ-9 Depression Total Score: 18 025 9:27 AM EDT documented as of this encounter Care Teams Medical Sales Specialist Relationship Specialty Start Date End Date Catarina Davis MD [address] [place] [address] PCP - General Family Medicine 10/15/17 documented as of this encounter
--- OUTSIDE RECORDS SUMMARY | 2025-07-09 11:10 | XMS_ITS | Encounter Summary ---
Author Organization [employer] Address [address] [facility] 7 [place] [address] Care Team Providers Care Mixer Operator Vacuum Pan Salt Name Role Phone Catarina Davis MD Primary Care Provider + Reason for Visit * Reason Onset Date Comments Chart Prep 07/08/2025 Encounter Details Date Type Department Care Team ([facility] st Contact Info) Description 07/08/2025 Telephone [facility] [address] [place], [place] [phone] Catarina Davis MD [address] [place], [place] [phone] Chart Prep Social History Tobacco Use Types Packs/Day Years [...] encounter Miscellaneous Notes * Telephone Encounter - Adriane Riley MA - 07/08/2025 9:02 AM EDT Chart Prep Labs: done Images: done Referrals: not applicable Vaccines due: Covid, Flu, and HPV Screenings: colonoscopy Overdue care gaps: PHQ-9 and CHERRIE-7 documented in this encounter Plan of Treatment Upcoming Encounters Date Type Department Care Team (Late st Contact Info) Description 09/22/2025 11:30 AM EST Clinical Support [facility] [address] [place] [address] Day Smith RN documented as of this encounter Visit Diagnoses Not on filedocumented in this encounter Additional Health Concerns Assessment Noted Time PHQ-9 Depression Total Score: 0 05/06/20 25 11:33 AM EDT documented as of this encounter Care Teams Mixer Operator Vacuum Pan Salt Relationship Specialty Start Date End Date Catarina Davis MD [address] [place] [address] PCP - General Family Medicine 10/15/17 documented as of this encounter
--- OUTSIDE RECORDS SUMMARY | 2025-07-09 11:10 | XMS_ITS | Encounter Summary ---
Author Organization [employer] Address [address] [facility] 7t h Floor [place] [phone] Care Team Providers Care Firer Retort Name Role Phone Catarina Davis MD Primary Care Provider + Encounter Details Date Type Department Care Team (Latest Contact Info) Description 07/09/2025 Travel Social History Tobacco Use Types Packs/Day [...] AM EDT documented as of this encounter Functional Status * Over the [...] Assessment Author Several days 07/09/2025 9:27 AM EDT Payal Carrion MA * Trouble falling or staying asleep, or sleeping too much Answer Date of Assessment Author Nearly every day 07/09/2025 9:27 AM EDT Payal Carrion MA * Feeling tired or having little energy Answer Date of Assessment Author Several days 07/09/2025 9:27 AM EDT Payal Carrion MA * Poor appetite or overeating Answer Date of Assessment Author Nearly every day 07/09/2025 9:27 AM EDT Payal Carrion MA * Feeling bad about yourself - or that you are a failure or have let yourself or your family down Answer Date of Assessment Author Several days 07/09/2025 9:27 AM EDT Payal Carrion MA * Trouble concentrating on things, such as reading the newspaper or watching television Answer Date of Assessment Author Nearly every day 07/09/2025 9:27 AM EDT Payal Carrion MA * Moving or speaking so slowly that other people could have noticed? Or the opposite - being so fidgety or restless that you have been moving around a lot more than usual. Answer Date of Assessment Author Nearly every day 07/09/2025 9:27 AM EDT Payal Carrion MA * Thoughts that you would be better off or hurting yourself in some way Answer Date of Assessment Author Not at all 07/09/2025 9:27 AM EDT Payal Carrion MA * Patient Health Questionnaire-9 Score Answer Date of Assessment Author 18 07/09/2025 9:27 AM EDT Payal Carrion MA * How difficult have these problems made it for you to do your work, take care of things at home, or get along with other people? Answer Date of Assessment Author Extremely difficult 07/09/2025 9:27 AM EDT Payal Crum do, MA * Over the last 2 weeks, how often have you been bothered by any of the following problems? Question Answer Date of Assessment Author Feeling nervous, anxious, or on edge 1 12/2024 9:27 AM EDT Payal Carrion MA Not being able to stop or co ntrol worrying 1 07/09/2025 9:27 AM EDT Payal Carrion M A Worrying too much about diff erent things 1 07/09/2025 9:27 AM EDT Payal Carrion M A Trouble relaxing 2 07/09/2025 9:27 AM EDT Payal Daniels MA Being so restless that it is [...] Description 09/22/2025 11:30 AM EST Clinical Support [facility] MEDICINE [address] [place] [address] Day Smith, [place] documented as of this encounter Visit Diagnoses Not on filedocumented in this encounter Additional Health Concerns Assessment Noted Time PHQ-9 Depression Total Score: 18 025 9:27 AM EDT documented as of this encounter Care Teams Firer Retort Relationship Specialty Start Date End Date Catarina Davis MD [address] [place] [id number] PCP - General Family Medicine 10/15/17 documented as of this encounter
--- OUTSIDE RECORDS SUMMARY | 2025-07-09 11:10 | XMS_ITS | Encounter Summary ---
Author Organization [employer] Address [address] [facility] 7t [place] [address] Care Team Providers Care Dental Instructor Name Role Phone Catarina Davis MD Primary Care Provider + Reason for Visit * Reason Comments Med Refill Encounter Details Date Type Department Care Team (Late st Contact Info) Description 08/14/2023 Refill [facility] [address] [place], [place] [phone] Catarina Davis MD [address] [place], [place] [phone] Neck sprain, sequela Social History Tobacco Use [...] Description 09/22/2025 11:30 AM EST Clinical Support [facility] [address] [place] [phone] Day Smith RN documented as of this encounter Visit Diagnoses Diagnosis Neck sprain, sequela documented in this encounter Additional Health Concerns Assessment Noted Time PHQ-9 Depression Total Score: 0 12/29/19 23 1:22 PM EDT documented as of this encounter Care Teams Dental Instructor Relationship Specialty Start Date End Date Catarina Davis MD [address] [place] [address] PCP - General Family Medicine 10/15/17 documented as of this encounter
--- OUTSIDE RECORDS SUMMARY | 2025-07-09 11:10 | XMS_ITS | Encounter Summary ---
Author Organization [employer] Address [address] [facility] 7t h Floor [place] [address] Care Team Providers Care Publicity Consultant Name Role Phone Catarina Davis MD Primary Care Provider + Encounter Details Date Type Department Care Team (Latest Contact Info) Description 07/08/2025 Travel Social History Tobacco Use Types Packs/Day [...] Description 09/22/2025 11:30 AM EST Clinical Support [facility] [address] [place] [address] Day Smith RN documented as of this encounter Visit Diagnoses Not on filedocumented in this encounter Additional Health Concerns Assessment Noted Time PHQ-9 Depression Total Score: 0 05/06/20 25 11:33 AM EDT documented as of this encounter Care Teams Publicity Consultant Relationship Specialty Start Date End Date Catarina Davis MD [address] [place] [address] PCP - General Family Medicine 10/15/17 documented as of this encounter
--- OUTSIDE RECORDS SUMMARY | 2025-07-09 11:10 | XMS_ITS | Encounter Summary ---
Author Organization [employer] Address [address] [facility] 7t [place] [address] Care Team Providers Care Application Defense Manager Name Role Phone Catarina Davis MD Primary Care Provider + Reason for Visit * Reason Comments Med Refill Encounter Details Date Type Department Care Team (Late st Contact Info) Description 10/06/2024 Refill [facility]INE [address] [place], [place] [phone] Catarina Davis MD [address] [place], [place] [phone] Cervical paraspinal muscle spasm Social History Tobacco [...] Description 09/22/2025 11:30 AM EST Clinical Support [facility]INE [address] [place] [address] Day Smith RN documented as of this encounter Visit Diagnoses Diagnosis Cervical paraspinal muscle spasm Spasm of muscle documented in this encounter Additional Health Concerns Assessment Noted Time PHQ-9 Depression Total Score: 0 12/29/19 23 1:22 PM EDT documented as of this encounter Care Teams Application Defense Manager Relationship Specialty Start Date End Date Catarina Davis MD [address] [place] [phone] PCP - General Family Medicine 10/15/17 documented as of this encounter
--- OUTSIDE RECORDS SUMMARY | 2025-07-09 11:10 | XMS_ITS | Clinical Summary ---
Author Organization [facility] Address [address] [place] [address] Care Team Providers Care Litharge Mill Operator Name Role Phone RoseliaMaggie lubin Primary Care Provider [phone] Surgical History Surgery Date Site/Laterality Comments TONSILLECTOMY [...] Last Done Comments Breast Cancer Screening 1980 Colorectal Cancer Screening: Colonoscopy 1980 Diabetes: Annual GFR (Glomerular Filtration Rate) 1980 Diabetes: Annual Foot Exam 1990 Diabetes: Annual Retina Eye Exam 1990 Hepatitis B Vaccines (1 of 3 - 19+ 3-dose series) 1999 Cervical Cancer Screening: Pap Smear 2001 HPV Vaccines (1 - 3-dose SCDM series) 2007 Pneumococcal Vaccine: Pediatrics (0 to 5 Years) and At-Risk Patients (6 to 49 Years) (2 of 2 - PCV) 06/26/2019 06/26/2018, 04/06/2016 Cholesterol Screening (Lipid Panel) 09/04/2022 HIV Screening 09/04/2022 Hepatitis C Screening 09/04/2022 Social Influencers of Health Screening 09/04/2022 Diabetes: Annual Urine Albumin-Creatinine Ratio (uACR) 11/22/2023 Diabetes: Blood Sugar Control Test (HGBA1C) 11/22/2023 Depression Screening 10/07/2024 COVID-19 Vaccine (4 - 2024- season) 2025 11/15/2021, 05/16/2021, 04/26/2021 Influenza Vaccine (#1) 2025 , 08/22/2021, 06/26/2020, Additional history exists DTaP,Tdap,and Td Vaccines (4 - Td or Tdap) 06/26/2028 06/26/2018, 08/05/2014, 03/10/2009 RSV Immunization Adult Patients (1 - 1-dose 75+ series) 2055 HIB Vaccines Aged Out No longer eligi [...] Documents on File Type Date Recorded Patient Absorption Plant Operator Expl anation Health Care Decision (hx) 05/06/2017 AD REESE DIRECTIVE Health Care Decision (hx) 05/06/2017 AD REESE DIRECTIVE Care Teams Litharge Mill Operator Relationship Specialty Start Date End Date Maggie Cazares DO [address] [place] [address] PCP - General 04/24/23
--- OUTSIDE RECORDS SUMMARY | 2025-07-09 11:10 | XMS_ITS | Clinical Summary ---
Author Organization [employer] Address [address] [place] [address] 7t [place] [address] Care Team Providers Care Tying Machine Operator Lumber Name Role Phone Catarina Davis MD Primary [...] days. 60 tablet 3 05/06/20 25 Active amoxicillin (Amoxil) 250 MG capsule take [...] for up to 28 days. 112 tablet 07/09/20 25 025 Active traMADol (Ultram) 50 MG tabletIndicati ons:Chronic midline low back pain, unspecified whether sciatica present Take 1 tablet (50 mg) by mouth every 6 (six) hours if needed for severe pain for up to 28 days. 112 tablet 06/09/20 25 025 Discontinued(R eorder (will not trigger notification to Pharmacy)) Active Problems Problem Noted Date Diagnosed Date Screen for STD (sexually transmitted disease) Encounter for cervical Pap smear with pelvic exa m 07/09/2025 Long-term current use of opiate analgesic 2024 [...] Tylenol breakthrough pain Continue to follow-up with [facility] as well Assessment & Plan (02/18/2024 [...] Encounters Date Type Department Care Team Description 07/09/2025 9:00 AM EDT Procedure Visit [facility] [address] [place] [address] Catarina Davis MD Encounter for cervical Pap smear with pelvic exam (Primary Dx); Screen for STD (sexually transmitted disease); Chronic midline low back pain, unspecified whether sciatica present; Encounter for immunization 07/09/2025 Travel 07/08/2025 Travel 07/08/[address] [address] Catarina Davis MD Chart Prep 06/22/2025 11:30 AM EDT Clinical Support [address] [address] Day Smith, RN Long-term current use of opiate analgesic (Primary Dx) 06/22/[address] [address] Day Smith, RN [facility] AGreement renewed today 06/22/2025 Travel 06/09/2025 Refill [facility] [address] [place] [address] Catarina Davis MD Chronic midline low back pain, unspecified whether sciatica present 05/25/2025 2:00 PM EDT Office Visit [facility] [address] [place] [address] El, Sury, OD Normal eye exam (Primary Dx); Regular astigmatism of both eyes 05/25/2025 Travel 05/14/2025 Orders Only [facility] External Provider, [facility] 05/11/2025 Refill [facility] [address] [place] [address] Catarina Davis MD Chronic midline low back pain, unspecified whether sciatica present 05/06/2025 12:00 PM EDT Office Visit [facility] [address] [place] [address] Catarina Davis MD Pre-hypertension (Primary Dx); Type 2 diabetes mellitus without complication, without long-term current use of insulin ([facility]); Dermatitis; Cervical paraspinal muscle spasm 05/06/2025 Travel 04/26/2025 Patient Outreach [facility] [address] [place] [address] Catarina Davis MD Pre-visit Planning (SDOH screening negative and tobacco screening positive) 04/15/2025 11:30 AM EDT Clinical Support [facility] [address] [place] [phone] Day Smith, [place] Long-term current use of opiate analgesic (Primary Dx) 04/15/2025 Travel 04/08/2025 Refill [facility] [address] [place] [address] Day Smith, hot metal mixer operator midline low back pain, unspecified whether sciatica present 04/08/2025 Telephone [facility] [address] [place] [address] Catarina Davis MD Telephone call from Last 3 Months Immunizations Immunization Administration Dates Next Due Influenza injectable quadriv alent IIV4 with preservative 06/26/2018 Influenza injectable quadriv alent preservative free 06/13/2023,06/29/2022,08/22/2021,06/26,09/02/2019 Influenza, IIV3, injectable 08/05/2014, 2 Influenza, seasonal, injecta ble, preservative free 07/09/2025,08/20/2024,06/29/2022,08/22,06/26/2020,09/02/2019,06/26/2018 ,08/01/2017,07/19/2015,08/05/2014 Pfizer Covid-19 Vaccine 12+ 11/15/2021,,04/26/2021 Pfizer Covid-19 [...] 20 07/09/2025 9:24 AM EDT Oxygen Saturation 97% 02/02/2025 9:10 AM EDT Inhaled Oxygen Concentration - - Weight 71.5 kg (157 lb 9.6 oz) 07/09/2025 9:24 A M EDT Height 152.4 cm (5') 07/09/2025 9:24 AM EDT Body Mass Index 30.78 07/09/2025 9:24 AM EDT Plan of Treatment Upcoming Encounters Date Type Department Care Team (Late st Contact Info) Description 09/22/2025 11:30 AM EST Clinical Support [facility] [address] [place] [address] [phone] Day Smith, RN Health Maintenance Due Date Last Done Comments [...] 2025 09/25/2022, 11/15/2021, 05/16/2021, Additional history exists Lipid Panel 08/19/2025 08/19/2024, 04/0 03/2023, 05/23/2021 Diabetes: Hemoglobin A1C 11/06/2025 025, 02/02/2025, 05/22/2024, Additional history exists Mammogram 11/21/2025 11/21/2024, 11/07/2023 Depression Monitoring 01/07/2026 07/09/2025, 025 Diabetes: Urine Protein Screening 02/06/2026 02/06/2025, 05/23/2021 SDOH Screening 04/26/2026 04/26/2025 Alcohol/Substance Use Screening 05/06/2026 05/06/2025 Diabetes: Foot Exam 05/06/2026 05/06/2025, 05/06/2025, 05/06/2025, Additional history exists Family Planning (PISQ) 05/06/2026 05/06/2025 Disability Screening 07/08/2026 07/08/2025 Tobacco Screening 07/09/2026 07/09/2025 Eye Exam 05/25/2027 05/25/2025, 0806/2025, 05/25/2025, Additional history exists Cervical Cancer Screening [...] to 49) Years Completed 08/20/2024, 06/26/2018, 04/06/2016 Influenza Vaccine Completed 07/09/2025, , 06/13/2023, Additional history exists HIB Vaccines Aged Out No longer eligi [...] Comments POCT FLORENTIN-14 URINE DRUG SCREEN Routine 06/22/2025 11:31 AM EDT Long-term current use of opiate analgesic CT CHEST W CONTRAST Routine 05/14/2025 2 :07 PM EDT POCT GLYCATED HEMOGLOBIN, TOTAL Routine 05/06/2025 12:20 PM EDT Type 2 diabetes mellitus without complication, without long-term current use of insulin ([facility]) POCT GLUCOSE Routine 05/06/2025 12:20 PM [...] Relevant to Health Maintenance Results * POCT FLORENTIN-14 Urine Drug Screen (06/22/2025 11:31 AM EDT) Only the most recent of2 resultswithin the time period is included. THC Negative Negative Cocaine Screen, Urine Negative [...] obtained by clean catch procedure / Unknown 06/22/2025 11:31 AM EDT Narrative Day Smith, RN - 06/22/2025 11:31 AM EDT UTOX cup Lot#[id number] Exp. 07/13/26 Internal Pass Control Catarina Davis MD POINT OF CARE TEST ENTER /EDIT ORDERABLES Final Result * CT Chest w/ Contrast (05/14/2025 2:07 PM EDT) Anatomical Region Laterality Modality Body, Chest Computed Tomogra phy 05/14/2025 2:07 PM EDT Narrative 05/14/2025 3:03 PM EDT [place] [address] [address] Scan Report Signed Patient: Maya Hoyos MR#: [id number] [birth year] : 1980 Acct:[id number] Age/Sex: 45 / F ADM Date: 05/14/25 Loc: HO.CT Attending Dr: Carin Nazario MD Ordering Physician: Carin Nazario MD Date of Service: 05/14/25 Procedure(s): CT chest w IV con Accession Number(s): [id number] cc: Catarina Davis MD; Carin Nazario MD Report Number: [id number]: Total DLP = 144.00 mGy-cm EXAMINATION: CT [...] 05/14/25 1501 DD/ 1407 TD/TT: 05/14/25 [address] [place] Supervisor: Procedure Note Donotuseinterpreter, Image - 05/14/[address] [place] [address] [address] Scan Report Signed Patient: Monica HoyosARDelaney#: [id number] 13 : 1980Acct:[id number] Age/Sex: 45 / FADM Date: 05/14/25 Loc: HO.CT Attending Dr: Carin Nazario MD Ordering Physician: Carin Nazario MD Date of Service: 05/14/25 Procedure(s): CT chest w IV con Accession Number(s): [id number] cc: Catarina Davis MD; Carin Nazario MD Report Number: [id number]: Total DLP = 144.00 mGy-cm EXAMINATION: CT [...] 05/14/25 1501 DD/ 1407 TD/TT: 05/14/25 [address] [place] Supervisor: [facility] External Provider IMG CT PROCEDURES Final Result * POCT HGB A1C (05/06/2025 12:20 PM EDT) Hemoglobin A1C 5.6 4.0 - 5.7 % QC Media Lot # [id number] Lot# Expiration Date ,973 Blood 05/06/2025 12:2 0 PM EDT Catarina [...] 9:00 AM EST) Triglycerides 29 <150 mg/dL [facility] Comment:Desirable Triglyceri de: less than 150 mg/dLBorderline High Triglyceride 150-199 mg/dLHigh Triglyceride: 200-499 mg/dLVery High Triglyceride: greater than or equal to 5OO mg/dL Cholesterol 112 <200 mg/dL [facility] Comment:Desirable Cholestero l: less than 200 mg/dLBorderline High Cholesterol: 200-239 mg/dLHigh Cholesterol: greater than 239 mg/dL LDL Cholesterol Calculated 56 <100 mg/dL [facility] Comment:Desirable LDL: less than 100 mg/dLNear Optimal/Above Optimal LDL: 110- 129 mg/dLBorderline High LDL: 130-159 mg/dLHigh LDL: 160-189 mg/dLVery High LDL: greater than or equal to 190 mg/dL HDL Cholesterol 51 >40 mg/dL [facility] Comment:Desirable HDL: great er than 40 mg/dL Note: This HDL assay may give artificially low results in patients with liver disease. Blood 08/19/2024 9:00 AM EST 08/19/2024 10:46 AM EST Catarina Davis MD LAB BLOOD ORDERABLES Fin al Result [facility] [address] [place] [address] [phone] * (ABNORMAL) Hepatitis Panel, General (01/10/2023 9:11 AM EDT) Hepatitis A Antibody Total NON-REACT ANDREE NON-REACT ANDREE [facility] [place] [facility] Comment: For additional information, please refer to http://[employer]/faq/PXY492 (This link is being provided for informational/ educational purposes only.) Hepatitis B Surface Antibody QL REACTIVE( A) NON-REACT ANDREE [facility] [place] [facility] Hepatitis B Surface Ag NON-REACT ANDREE NON-REACT ANDREE [facility] [place] [facility] Hepatitis B Core Antibody Total NON-REACT ANDREE NON-REACT ANDREE [facility] [place] [facility] Hepatitis C Antibody NON-REACT ANDREE NON-REACT ANDREE [facility] [place] [facility] Index 0.21 <1.00 [facility] [place] [facility] Comment: HCV antibody was non-reactive. There is no laboratory evidence of HCV infection. In most cases, no further action is required. However, if recent HCV exposure is suspected, a test for HCV RNA (test code 81928) is suggested. For additional information please refer to http://[employer]/faq/DJR23l3 (This link is being provided for informational/ educational purposes only.) 01/10/2023 9:11 AM EDT 01/10/2023 9:12 AM EDT Narrative [facility] - 01/10/2023 8:56 PM EDT FASTING:YES FASTING: YES Catarina Davis MD LAB BLOOD ORDERABLES Fin al Result [facility] [address], [place] [address] [facility] [place] [facility] [address] [place] [address] * HIV-1/2 Antigen and Antibodies, Fourth Generation, with Reflexes (01/10/2023 9:11 AM EDT) HIV Antigen/Antibody, 4th Generation NON-REAC TIVE NON-REAC TIVE [facility] Comment: HIV-1 antigen and HIV-1/HIV-2 antibodies [...] purpose. For additional information please refer to http://education.[employer] Education/faq/PQT202 (This link is being provided for informational/ educational purposes only.) The performance of this assay has not been clinically validated in patients less than 2 years old. Blood Venous blood specimen / Unknown 01/10/2023 9:11 AM EDT 01/10/2023 9:12 AM EDT Narrative [facility] - 01/10/2023 8:56 PM EDT FASTING:YES FASTING: YES Catarina Davis MD LAB BLOOD ORDERABLES Fin al Result [facility] [address], [place] [address] [facility] [address] [place] [address] * Thinprep TIS PAP And HPV mRNA E6/E7 With Reflex To HPV 16,18/45 (09/24/2022 3:53 PM EST) Clinical Information: None given [facility] LMP: NONE GIVEN [facility] [employer] Prev. PAP: NONE GIVEN [facility] Prev. BX: NONE GIVEN [facility] SOURCE: None given [facility] Statement Of Adequacy: [facility] Comment: Satisfactory for evaluation. Endocervical/transformation zone component absent. Age and/or menstrual status not provided Interpretation/ Result: Negative for intraepithelial lesion or malignancy. [facility] COMMENT: This Pap test has been evaluated with computer assisted technology. [facility] Cytotechnologis t: [facility] Comment: BK,CT(ASCP) CT screening location: [address] (Always Message) [facility] Comment: EXPLANATORY NOTE: The Pap is a [...] HPV nRNA E6/E7 Not Detected Not Detected [facility] Comment: Methodology: Armor Officer-Mediated Amplification This assay detects E6/E7 viral messenger RNA (mRNA) from 14 high-risk HPV types (16,18,31,33,35,39,45,51,52,56,58,59,66,68). Cervical sources are required for HPV testing. If a vaginal source from a patient who has had a total hysterectomy with removal of cervix was submitted, please contact the testing laboratory for alternative testing options. For additional information, please refer to http://education.[employer] Education/faq/KGY577h6 (This link if provided for information/ educational purposes only.) 09/24/2022 3:53 PM EST 09/25/2022 10:09 AM EST Narrative [facility] - 09/28/2022 3:45 PM EST FASTING: UNKNOWN us Catarina Davis MD LAB PATHOLOGY ORDERABLES Final Result [address], [facility], [place] [address] [facility] [address] [place] [address], (Nl1) [place] [address] * ALBUMIN, RANDOM URINE W/CREATININE (05/23/2021 1:55 [...] MD LAB URINE ORDERABLES Fin al Result [facility] [address] from Last 3 Months or Most Recently Relevant to Health Maintenance Insurance [facility] C3 DENTAL-[facility] MEDICAID STAND ADULT Care Teams Tying Machine Operator Lumber Relationship Specialty Start Date End Date Catarina Davis MD [address] [place] [phone] PCP - General Family Medicine 10/15/17
--- OUTSIDE RECORDS SUMMARY | 2025-07-09 11:10 | XMS_ITS | Encounter Summary ---
Author Organization [employer] Address [address] [facility] 7 [place] [address] Care Team Providers Care Market Sales Manager Name Role Phone Catarina Davis MD Primary Care Provider + Reason for Visit * Reason Onset Date Comments FYI 11/01/2023 Encounter Details Date Type Department Care Team ([facility] st Contact Info) Description 11/01/2023 Telephone [facility] [address] [place], [place] [phone] Catarina Davis MD [address] [place], [place] [phone] FYI Social History Tobacco Use Types Packs/Day [...] Description 09/22/2025 11:30 AM EST Clinical Support [facility] [address] [place] [address] Day Smith RN documented as of this encounter Visit Diagnoses Not on filedocumented in this encounter Additional Health Concerns Assessment Noted Time PHQ-9 Depression Total Score: 0 12/29/19 23 1:22 PM EDT documented as of this encounter Care Teams Market Sales Manager Relationship Specialty Start Date End Date Catarina Davis MD [address] [place] [address] PCP - General Family Medicine 10/15/17 documented as of this encounter
--- OUTSIDE RECORDS SUMMARY | 2025-07-09 11:10 | XMS_ITS | Clinical Summary ---
Author Organization [facility], Address [address] [place] [address] [place] [address] Phone Care Team Providers Care Privacy Manager Name Role Phone Catarina Davis MD Primary Care Provider [phone] Allergies Active Allergy Reactions Criticality Noted Date [...] Visit [facility], [address] [address] Alfonso Wharton MD [address] [place] [phone] Health Maintenance Due Date Last Done Comments [...] 08/20/2024, 06/26/2018 Insurance Medicaid [place] Care Teams Privacy Manager Relationship Specialty Start Date End Date Catarina Davis MD [address] [place] [address] PCP - General 08/11/19
--- OUTSIDE RECORDS SUMMARY | 2025-07-09 11:10 | XMS_ITS | Encounter Summary ---
Author Organization [employer] Address [address] [place] [address] 7t [place] [address] Care Team Providers Care Blankbook Stitching Machine Operator Name Role Phone Catarina Davis MD Primary Care Provider + Encounter Details Date Type Department Care Team (Latest Contact Info) Description 03/19/[address] [facility] CONVERSIONS Dental, Provider, DDS Social History [...] Description 09/22/2025 11:30 AM EST Clinical Support [facility] [address] [place] [address] Day Smith RN documented as of this encounter Visit Diagnoses Not on filedocumented in this encounter Care Teams Blankbook Stitching Machine Operator Relationship Specialty Start Date End Date Catarina Davis MD [address] [place] [address] PCP - General Family Medicine 10/15/17 documented as of this encounter
--- OUTSIDE RECORDS SUMMARY | 2025-07-09 11:10 | XMS_ITS | Encounter Summary ---
Author Organization [facility] Address [address] [address] Phone Care Team Providers Care Volumetric Weigher Name Role Phone Catarina Davis MD Primary Care Provider [phone] Encounter Details Date Type Department Care Team (Late st Contact Info) Description 01/11/2023 Documentation Only [facility] [address] [place] [place] [address] Smooth Almonte MD [address] [place] [address] [place] [address] Social History Tobacco Use Types [...] Visit [facility] [address] [place] [place] [address] Alfonso Wharton MD [address] [place] [address] [place] [address] documented as of this encounter Visit Diagnoses Not on filedocumented in this encounter Care Teams Volumetric Weigher Relationship Specialty Start Date End Date Catarina Davis MD [address] [place] [address] [phone] PCP - General 08/11/19 documented as of this encounter
--- OUTSIDE RECORDS SUMMARY | 2025-07-09 11:10 | XMS_ITS | Encounter Summary ---
Author Organization [employer] Address [address] [facility] 7 [place] [address] Care Team Providers Care Upholstery Estimator Name Role Phone Catarina Davis MD Primary Care Provider + Reason for Visit * Reason Onset Date Comments Med Refill 12/18/2024 Encounter Details Date Type Department Care Team ([facility] st Contact Info) Description 12/18/2024 Telephone [facility] [address] [place], [place] [phone] Catarina Davis MD [address] [place], [place] [phone] Med Refill Social History Tobacco Use Types [...] 20 MG tablet To be sent to: [id number] [place] [phone] [facility] documented in this encounter Plan of Treatment Upcoming Encounters Date Type Department Care Team (Late st Contact Info) Description 09/22/2025 11:30 AM EST Clinical Support [facility] [address] [place] [phone] Day Smith RN documented as of this encounter Visit Diagnoses Not on filedocumented in this encounter Additional Health Concerns Assessment Noted Time PHQ-9 Depression Total Score: 0 12/29/19 23 1:22 PM EDT documented as of this encounter Care Teams Upholstery Estimator Relationship Specialty Start Date End Date Catarina Davis MD [address] [place] [phone] PCP - General Family Medicine 10/15/17 documented as of this encounter
[2025-07-09 12:27] LABS: Syphilis Screen Nonreactive (Nonreactive)
[2025-07-09 12:36] LABS: HBc Num1 0.08 S/CO (0.00-0.79); HBsAGNum1 0.39 S/CO (0.00-0.99); HIV Num 1 0.05 S/CO (0.00-0.99); Hepatitis A Antibody IgM 0.18 Index (0-0.79); Hepatitis B Surface Antigen Negative (Negative); ~HepC Num1 0.08 S/CO (0.00-0.79); ~Hepatitis A Antibody IgM Nonreactive (Nonreactive); ~Hepatitis B Surface Antibody REACTIVE (Nonreactive); ~Hepatitis C Antibody Nonreactive (Nonreactive)
[2025-07-09 15:02] LABS: Bacterial Vaginosis PCR NEGATIVE (Negative); Candida Group PCR NOT DETECTED (Not Detect); Candida glab krusei PCR NOT DETECTED (Not Detect); Trichomonas vaginalis PCR NOT DETECTED (Not Detect)
[2025-07-09 15:33] LABS: CT PCR NOT DETECTED (Not Detect.); NG PCR NOT DETECTED (Not Detect.)
== END 2025-07-09 10:19 | disposition home or self-care (01) ==
LOC: HO.HHCL 10:18
PROVIDERS: PCP Internal Medicine; Visit Provider Internal Medicine
DX: Z01.419 Encounter for gynecological examination (general) (routine) without abnormal findings (principal); Z11.59 Encounter for screening for other viral diseases; Z20.2 Contact with and (suspected) exposure to infections with a predominantly sexual mode of transmission
CPT/HCPCS: 36415; 81515; 86704; 86706; 86709; 86780; 86803; 87340; 87389; 87491; 87591; 88175

== ENCOUNTER 2025-09-15 11:10 | Outpatient (AMB) | payer MEDICAID, SELFPAY ==
--- NOTE | 2025-09-15 11:16 | MHC.OFFVIS ---
Intake Visit Reasons: Bilateral knee pain Intake Note: Maya is a 45 year old female who presents with complaints of bilateral knee pains. She describes her pains as sharp in nature. She has had cortisone injections in the past which gave her minimal relief. She has also had bilateral knee Euflexxa injections which gave her fairly good relief. She has tried Tylenol, anti-inflammatory medicines and physical therapy exercises which gave her minimal relief. She wishes to hold off on surgery if at all possible. At this point her bilateral knee pains are interfering with her activities of daily living and her ability to sleep well through night. Allergies cephalexin (From KEFLEX) Allergy (Intermediate, Verified 06/16/25 08:23) RASH formoterol (From Dulera) Adverse Reaction (Intermediate, Verified 06/16/25 08:23) Unknown mometasone furoate (From Dulera) Adverse Reaction (Intermediate, Verified 06/16/25 08:23) Unknown Medication List - Last Reconciled 09/15/25 by Aram Lewis MD acetaminophen ER 650 mg PO Q8H PRN albuterol sulfate 90 mcg/actuation (Ventolin HFA) 2 puffs inhalation Q4H PRN betamethasone valerate 0.1% appl topical BID fexofenadine (Allergy Relief (fexofenadine)) mg PO fluticasone propion-salmeterol 115-21 mcg/actuation (Advair HFA) 2 puffs inhalation Q12H gabapentin 300 mg PO BEDTIME loratadine 10 mg PO DAILY omeprazole 20 mg PO DAILY Held on 03/11/25. Instructions: Cont to hold off, can review further use based on biopsy results. tizanidine mg PO BID tramadol 50 mg PO TID PRN zolpidem 10 mg PO BEDTIME PFSH Medical History Kidney anomaly, congenital Dysphagia Arthritis Asthma Surgical History Hx of tonsillectomy History of carpal tunnel release of both wrists Hx laparoscopic cholecystectomy Hx of hand surgery History of breast reconstruction Hx of abdominoplasty Hx of section History of esophagogastroduodenoscopy (EGD) Family History Maternal Aunt Breast CA Social History Alcohol intake: current Alcohol intake frequency: holidays/special occasions only Patient Tobacco Use Status: Current everyday Tobacco user Tobacco use type: Cigarette Cigarettes Per Day: 2 Years Smoked: quit 12/14/24 service: No Current occupational status: unemployed Physical Exam Extrem Other: Bilateral knee examination shows minimal effusions, palpable crepitus with range of motion, pain with range of motion, no instability Results Reviewed Results Reviewed: X-rays of the patient's bilateral knees taken previously show joint space narrowing, subchondral sclerosis, no acute bony abnormalities Assessment & Plan Assessment & Plan (1) Pain in both knees: Code(s): M25.561 - Pain in right knee; M25.562 - Pain in left knee (2) Osteoarthritis of left knee: Code(s): M17.12 - Unilateral primary osteoarthritis, left knee Category: Medical (3) Osteoarthritis of right knee: Code(s): M17.11 - Unilateral primary osteoarthritis, right knee Category: Medical Plan Ms. Hoyos presents with bilateral knee pains due to osteoarthritis. I had a lengthy discussion with the patient regarding the treatment options. She wishes to hold off on surgery if at all possible. I agree with this plan. I will see if her insurance company will cover another series of 3 Euflexxa injections for both of her knees. I will see her back once the injections are approved. Feel free to call me at any time should questions regarding her orthopedic management arise. I spent 22 minutes in reviewing the patient's records and imaging studies, seeing the patient and documenting in the medical record. Coding Level of Care Code Est Pt Level 3 (94756) Add On Problem Visit Only Diagnoses Pain in both knees M25.561; M25.562 Osteoarthritis of left knee M17.12 Osteoarthritis of right knee M17.11
== END 2025-09-15 11:38 | disposition home or self-care (01) ==
LOC: HO.HOS 11:11
PROVIDERS: PCP Internal Medicine; Visit Provider Orthopaedic Surgery
DX: M25.561 Pain in right knee (principal); M25.562 Pain in left knee; M17.0 Bilateral primary osteoarthritis of knee
CPT/HCPCS: 99213

== ENCOUNTER → 2025-09-15 11:10 | Outpatient (BNVA) | payer MEDICAID, SELFPAY | PROVIDERS: PCP Internal Medicine; Visit Provider Orthopaedic Surgery | DX: M17.0 Bilateral primary osteoarthritis of knee (principal) | CPT/HCPCS: 99212 ==

== ENCOUNTER 2025-09-17 09:55 | Outpatient (AMB) | payer MEDICAID, SELFPAY ==
[2025-09-17 10:04] VITALS: BP 140/86; PULSE 73; O2SAT 97; BMI 31.8
--- NOTE | 2025-09-17 10:04 | MHC.OFFVIS ---
Vital Signs 09/17/25 10:04 Height 5 ft Weight 163 lb BMI 31.8 BP 140/86 H Blood Pressure Location Rt brachial Position Sitting Pulse 73 Pulse Source Pulse Oximeter Pulse Oximetry (%) 97 Oxygen Delivery Method Room Air Intake Visit Reasons: coughing,wheezing, sob Allergies cephalexin (From KEFLEX) Allergy (Intermediate, Verified 09/17/25 10:06) RASH formoterol (From Dulera) Adverse Reaction (Intermediate, Verified 09/17/25 10:06) Unknown mometasone furoate (From Dulera) Adverse Reaction (Intermediate, Verified 09/17/25 10:06) Unknown HPI HPI coughing,wheezing, sob: Details: Maya is a pleasant 45 year old, current minimal smoker, with underlying history of childhood asthma and eosphageal stricture. The patient reports that she has not been coughing and consequently has not been using her Advair daily, but rather on an as-needed basis. She denies any wheezing, chest tightness, or shortness of breath, and has not required any visits to urgent care or the hospital. She also has an albuterol inhaler, which she reports never using. Regarding dysphagia, the patient underwent an esophageal dilation following an endoscopy intended to investigate choking sensations. She initially reported ongoing symptoms post procedure, and sent for a chest CT in May which did not reveal any significant abnormalities. However 2-3 months post-procedure, she noticed significant improvement in symptoms, acknowledging that further dilations may be periodically required for sustained relief. She is currently following with . [facility], [facility] Medical History Kidney anomaly, congenital Dysphagia Arthritis Asthma Surgical History Hx of tonsillectomy History of carpal tunnel release of both wrists Hx laparoscopic cholecystectomy Hx of hand surgery History of breast reconstruction Hx of abdominoplasty Hx of section History of esophagogastroduodenoscopy (EGD) Family History Maternal Aunt Breast CA Social History (Reviewed 09/17/25 @ 10:06 by Guillermina Koehler [facility]) Alcohol intake: current Alcohol intake frequency: holidays/special occasions only Patient Tobacco Use Status: Current everyday Tobacco user Tobacco use type: Cigarette Cigarettes Per Day: 2 Years Smoked: quit 12/14/24 service: No Current occupational status: unemployed Review of Systems Const Denies chills, Denies excessive sweating, Denies fever(s), Denies headache(s) and Denies night sweats Eyes Denies dry eyes, Denies irritation and Denies itchy eyes ENT Reports Normal hearing present, Denies headache(s), Denies nasal congestion, Denies nasal discharge, Denies post nasal drip and Denies sore throat Card Denies chest pain, Denies chest pain at rest, Denies chest pain with activity, Denies claudication, Denies leg edema, Denies dyspnea, Denies dyspnea on exertion, Denies orthopnea and Denies paroxysmal nocturnal dyspnea Resp Denies chest congestion, Denies cough, Denies excessive phlegm production, Denies pain on inspiration, Denies pain with cough, Denies dyspnea, Denies dyspnea on exertion, Denies stridor and Denies wheezing Musc Denies myalgias Neuro Reports Normal hearing present and Denies headache(s) Endo Denies excessive sweating Stephen/Lymph Denies lymphadenopathy Aller/Immun Denies itchy eyes, Denies seasonal rhinorrhea and Denies wheezing Physical Exam Vital Signs: Last Vital Signs Pulse 73 09/17/25 10:04 BP 140/86 H 09/17/25 10:04 Pulse Ox 97 09/17/25 10:04 Oxygen Delivery Method Room Air 09/17/25 10:04 BMI result Body Mass Index 31.8 Const General: cooperative, healthy appearing, comfortable, no acute distress, well developed and alert Orientation/consciousness: patient oriented x3 Limitations: no limitations HEENT Head: Yes normal to inspection, Yes normocephalic and Yes atraumatic Ears: hearing grossly normal bilaterally and external ears normal Eyes General: appearance normal, both eyes and all related structures Eyelids: Yes eyelids normal Sclerae: sclerae normal EOM: EOMs intact bilaterally Neck Neck: Yes normal visual inspection and Yes no lymphadenopathy Lymphatic: no lymphadenopathy noted Chest Chest palpation & inspection: normal inspection of the chest Resp Effort & Inspection: normal respiratory effort, able to speak in complete sentences, no audible wheezes, no cough, no stridor, not tachypneic, no tripod positioning and no use of accessory muscles Auscultation: clear to auscultation bilaterally Cardio Jugular venous distension: no JVD Rate: regular rate Rhythm: regular rhythm Skin Other: warm, dry General skin exam: no rashes or lesions noted Neuro General: patient oriented x3 Cranial nerves: Yes Normal hearing present Cognition (Neuro): normal cognition Gait exam (Neuro): Normal gait present Extrem General: Yes normal to inspection, Yes capillary refill normal, Yes no clubbing, cyanosis or edema and Yes no pedal edema Psych Appearance: grossly normal and well kempt Speech and movement: Normal speech and movement present and Clear speech present Affect: normal affect Attitude: cooperative Thought process: Normal thought process present Thought content: Normal thought content present Insight: Good insight present (Psych) Judgement: Good judgement present (Psych) Assessment & Plan Assessment & Plan (1) Asthma: Code(s): J45.909 - Unspecified asthma, uncomplicated Category: Medical Plan The patient is currently asymptomatic, reporting no cough, wheezing, or shortness of breath. She is using Advair on an as-needed basis. She was advised to resume daily Advair use if she experiences increased coughing or wheezing, especially with illness, and may discontinue daily use once symptoms resolve. A refill for Advair will be provided. Smoking cessation reviewed. Follow-up is scheduled in one year, unless symptoms change or worsen. All questions were answered and patient is in agreement of plan. Medications: Refilled fluticasone propion-salmeterol 115-21 mcg/actuation (Advair HFA) 2 puffs inhalation Q12H 12 grams 6RF Coding Level of Care Code Est Pt Level 3 (43739) Diagnoses Asthma J45.909
== END 2025-09-17 10:22 | disposition home or self-care (01) ==
LOC: HO.HPSW 09:56
PROVIDERS: PCP Internal Medicine; Visit Provider Nurse Practitioner Family
DX: J45.909 Unspecified asthma, uncomplicated (principal)
CPT/HCPCS: 99213

== ENCOUNTER → 2025-09-17 09:55 | Outpatient (BNVA) | payer MEDICAID, SELFPAY | PROVIDERS: PCP Internal Medicine; Visit Provider Nurse Practitioner Family | DX: J45.909 Unspecified asthma, uncomplicated (principal); F17.210 Nicotine dependence, cigarettes, uncomplicated; Z71.6 Tobacco abuse counseling | CPT/HCPCS: 99212 ==